=== PATIENT | male | born 1935 | race Caucasian/White ===

== ENCOUNTER 2020-06-01 09:04 | Emergency (ER) | payer OTHER ==
--- NOTE | 2020-06-01 09:29 | EDM.PDOC ---
ED HPI GENERAL MEDICAL PROBLEM - General Chief Complaint: Genitourinary Problem Stated Complaint: CATHETER ISSUE NOT WORKING Time Seen by Provider: 06/01/20 09:15 - History of Present Illness INITIAL COMMENTS - FREE TEXT/NARRATIVE: 84-year-old [facility] Contreras catheter this not working. Patient states that he feels like he is leaking quite a bit around the catheter. [facility] done at the [facility] showed 50 cc. Patient has not had any fevers or chills. Patient states that this catheter has been in 2 weeks as of tomorrow. Patient states that his bladder is a little touchy but other than this has no pain or other complaints at this time. Catheter inserted a couple of weeks ago due to problems with urinary tract obstruction. According to the patient the catheters will stay in place until he sees urology. The [place] is managing this. Abdomen Pain Score (Numeric/FACES): 6 - Related Data Allergies Allergy/AdvReac Type Severity Reaction Status Date / Time No Known Allergies Allergy Verified 06/01/20 09:19 Home Meds: Home Meds Cefdinir [Omnicef] 300 mg PO BID #14 cap 06/01/20 [Rx] Digoxin 125 mcg PO DAILY 06/01/20 [History] Ferrous Sulfate [Iron] 325 mg PO DAILY 06/01/20 [History] Furosemide [Lasix] 20 mg PO DAILY 06/01/20 [History] Tamsulosin HCl [Flomax] 0.4 mg PO DAILY 06/01/20 [History] ED ROS GENERAL - Review of Systems Review Of Systems: See Below Constitutional: Reports: No Symptoms Respiratory: Reports: No Symptoms Cardiovascular: Reports: No Symptoms GI/Abdominal: Reports: No Symptoms : Reports: Other (Contreras is not working properly he has drainage around it) Neurological: Reports: No Symptoms ED EXAM, GI/ABD - Physical Exam Exam: See Below Exam Limited By: No Limitations General Appearance: Alert, No Apparent Distress Head: Atraumatic, Normocephalic Neck: Normal Inspection, Supple, Non-Tender, Full Range of Motion Respiratory/Chest: No Respiratory Distress, Lungs Clear, Normal Breath Sounds Cardiovascular: Regular Rate, Rhythm, No Murmur, Other (Is fairly edematous in his lower extremities) GI/Abdominal Exam: Normal Bowel Sounds, Soft, Other (The patient has mild tenderness in the suprapubic area no rigidity rebound or guarding) Course - Vital Signs Last Recorded V/S: Last Vital Signs Temp 36.3 C 06/01/20 09:20 Pulse 69 06/01/20 09:20 Resp 18 06/01/20 09:20 BP 174/111 H 06/01/20 09:20 Pulse Ox 100 06/01/20 09:20 - Orders/Labs/Meds Orders: Active Orders 24 hr Category Date Time Status CULTURE URINE [RM] Stat Lab 06/01/20 10:00 Received Labs: Laboratory Tests 06/01/20 06/01/20 06/01/20 Range/Units 09:50 10:00 11:06 WBC 9.25 H (4.23-9.07) K/mm3 RBC 4.47 L (4.63-6.08) M/mm3 Hgb 12.5 L (13.7-17.5) gm/dl Hct 40.3 (40.1-51.0) % MCV 90.2 (79.0-92.2) fl MCH 28.0 (25.7-32.2) pg MCHC 31.0 L (32.2-35.5) g/dl RDW Std Deviation 45.9 H (35.1-43.9) fL Plt Count 205 (163-337) K/mm3 MPV 10.7 (9.4-12.3) fl Neut % (Auto) 79.6 H (34.0-67.9) % Lymph % (Auto) 8.8 L (21.8-53.1) % [place] % (Auto) 11.4 (5.3-12.2) % Eos % (Auto) 0.1 L (0.8-7.0) Baso % (Auto) 0.1 (0.1-1.2) % Neut # (Auto) 7.37 H (1.78-5.38) K/mm3 Lymph # (Auto) 0.81 L (1.32-3.57) K/mm3 [place] # (Auto) 1.05 H (0.30-0.82) K/mm3 Eos # (Auto) 0.01 L (0.04-0.54) K/mm3 Baso # (Auto) 0.01 (0.01-0.08) K/mm3 Manual Slide Review Abnormal smear Sodium 135 L (136-145) mEq/L Potassium 4.1 (3.5-5.1) mEq/L Chloride 102 (98-107) mEq/L Carbon Dioxide 22 (21-32) mEq/L Anion Gap 15.1 H (5-15) BUN 20 H (7-18) mg/dL Creatinine 0.9 (0.7-1.3) mg/dL Est Cr Clr Drug Dosing 59.16 mL/min Estimated GFR (MDRD) > 60 (>60) mL/min BUN/Creatinine Ratio 22.2 H (14-18) Glucose 112 (83-115) mg/dL Calcium 8.7 (8.5-10.1) mg/dL Total Bilirubin 0.6 (0.2-1.0) mg/dL AST 21 (15-37) U/L ALT 12 L (16-63) U/L Alkaline Phosphatase 78 (46-116) U/L Total Protein 7.0 (6.4-8.2) g/dl Albumin 2.9 L (3.4-5.0) g/dl Globulin 4.1 gm/dL Albumin/Globulin Ratio 0.7 L (1-2) Urine Color Yellow (Yellow) Urine Appearance Clear (Clear) Urine pH 8.5 H (5.0-8.0) Ur Specific [place] 1.025 (1.005-1.030) Urine Protein 3+ H (Negative) Urine Glucose (UA) Negative (Negative) Urine Ketones 1+ H (Negative) Urine Occult Blood 3+ H (Negative) Urine Nitrite Positive H (Negative) Urine Bilirubin Negative (Negative) Urine Urobilinogen 0.2 (0.2-1.0) Ur Leukocyte Esterase 3+ H (Negative) Urine RBC 40-50 H (0-5) /hpf Urine WBC 50-75 H (0-5) /hpf Ur Squamous Epith Cells 0-5 (0-5) /hpf Amorphous Sediment Moderate H (NOT SEEN) /hpf Urine Bacteria Many H (FEW) /hpf Urine Mucus Not seen (FEW) /hpf Meds: Medications Discontinued Medications Generic Name Dose Route Start Last Admin Trade Name Freq PRN Reason Stop Dose Admin Cefdinir 300 mg 06/01/20 13:05 Omnicef PO 06/01/20 13:06 ONETIME ONE - Re-Assessments/Exams Free Text/Narrative Re-Assessment/Exam: 06/01/20 09:49 Attempted to irrigate the Contreras and it appears to be obstructed. Bladder scan again shows very little urine in the bladder 06/01/20 13:03 Reviewed it appears he has a urinary tract infection we will start him on Omnicef 300 mg twice daily Departure - Departure Time of Disposition: 13:06 Disposition: Home, Self-Care 01 Clinical Impression: Obstruction of urinary catheter, Urinary tract infection - Discharge Information Referrals: Karely Webb MD [Primary Care Provider] - Forms: ED Department Discharge Additional Instructions: Return to the emergency room with any questions problems or worsening symptoms. You have been started on an antibiotic, Omnicef or cefdinir. Take 1 twice daily until all gone. Stop your ferrous sulfate, or iron replacement therapy while taking the antibiot ics. You may restart the iron 2 days after you finish the antibiotics. Follow-up with your regular physician in approximately 10 days for recheck Sepsis Event Note (ED) - Evaluation Sepsis Screening Result: No Definite Risk - Focused Exam Vital Signs: Vital Signs Temp Pulse Resp BP Pulse Ox 06/01/20 09:20 36.3 C 69 18 174/111 H 100 - My Orders Last 24 Hours: My Active Orders 06/01/20 10:00 CULTURE URINE [RM] Stat - Assessment/Plan Last 24 Hours: My Active Orders 06/01/20 10:00 CULTURE URINE [RM] Stat
[2020-06-01] MEDS ORDERED: Cefdinir 300 MG Cap PO ONE (13:05)
== END 2020-06-01 14:32 | disposition home or self-care (01) ==
LOC: JD.ED 09:04
DX: T83.098A Other mechanical complication of other urinary catheter, initial encounter (principal); N39.0 Urinary tract infection, site not specified
CPT/HCPCS: 36415; 80053; 81001; 85025; 87086; 87088; 87186; 99283; A9270

== ENCOUNTER 2020-06-05 18:50 | Emergency (ER) | payer OTHER ==
--- NOTE | 2020-06-05 19:42 | EDM.PDOC ---
ED HPI GENERAL MEDICAL PROBLEM - General Chief Complaint: Syncope Stated Complaint: [facility] Time Seen by Provider: 06/05/20 19:01 Source of Information: Reports: Patient History Limitations: Reports: Physical Impairment (Very [place]) - History of Present Illness INITIAL COMMENTS - FREE TEXT/NARRATIVE: Mr. Kaur is a very pleasant 84-year-old gentleman who is to the ED by EMS after suffering a syncopal episode at home. We are told that he was sitting on the couch, watching television, when he became unresponsive. From the patient's perspective, he states that he does not remember anything other than his son trying to wake him up. We are told that his son checked his BP, finding it to be in the 70s, however, by the time EMS arrived, the patient's BP was normal. We are told that the patient was joking with EMS en route to the ED. Here in the ED, the patient's initial BP is found to be modestly elevated at 148/81, otherwise, he is hemodynamically stable, afebrile, saturating 100% on room air. The patient tells me that he has had about 3 episodes of syncope over the past 20 years. He states that he has been medically evaluated, but not given any answers as to why. The patient confided that he has not taken his Lasix or blood pressure medications for over a month. He states that he is on Lasix for bilateral lower extremity edema, not for CHF. The patient also confides that he had a pacemaker placed about 2 or 3 weeks ago, in [place]. Prior to tonight, the patient denies having a recent fever, chills, sore throat, ear pain, nasal or sinus congestion, cough, dyspnea, chest pain, palpitations, nausea, vomiting, constipation, diarrhea, abdominal pain, urinary symptoms, recent weight gain or weight loss, recent bloody bowel movements or black bowel movements, recent joint aches, headaches, or rashes. The patient's PCP will be Dr. Karely Webb at the [facility]. - Related Data Allergies Allergy/AdvReac Type Severity Reaction Status Date / Time No Known Allergies Allergy Verified 06/05/20 18:59 Home Meds: Home Meds Cefdinir [Omnicef] 300 mg PO BID #14 cap 06/01/20 [Rx] Digoxin 125 mcg PO DAILY 10/04/20 [History] Ferrous Sulfate [Iron] 325 mg PO DAILY 06/01/20 [History] Furosemide [Lasix] 20 mg PO DAILY 06/01/20 [History] Tamsulosin HCl [Flomax] 0.4 mg PO DAILY 06/01/20 [History] Past Medical History HEENT History: Reports: Impaired Vision Cardiovascular History: Reports: Afib (chronic), Hypertension (untreated) Respiratory History: Reports: COPD (suspected, not tested) Gastrointestinal History: Reports: Diverticulosis (diverticulitis, s/p hemicolectomy), PUD (bleeding) Genitourinary History: Reports: BPH, Renal Calculus (x 1) Musculoskeletal History: Reports: Fracture (right distal fibula) Oncologic (Cancer) History: Reports: Basal Cell Carcinoma (skin), Malignant Melanoma (head/neck) - Infectious Disease History Infectious Disease History: Reports: Chicken Pox, Influenza, Measles, Mumps - Past Surgical History HEENT Surgical History: Reports: Cataract Surgery (bilateral) Cardiovascular Surgical History: Reports: Cardiac Ablation (for A-fib, 2015 or 2017), Pacer (placed Apr 2020) GI Surgical History: Reports: Colon (Hemicolectomy for diverticulitis. Had colostomy x 7 months.), Hernia Repair/Other (several) Musculoskeletal Surgical History: Reports: ORIF (left ankle) Oncologic Surgical History: Reports: Other (See Below) (Wide excision of melanoma off left ear and left neck) Social & Family History - Tobacco Use Smoking Status *Q: Never Smoker - Alcohol Use Alcohol Use History: Yes Alcohol Use Frequency: Daily (2-3 beers/day) - Recreational Drug Use Recreational Drug Use: Yes Drug Use in Last 12 Months: Yes Recreational Drug Type: Reports: Marijuana/Hashish (smokes daily) - Living Situation & Occupation Living situation: Reports: , with Family (Son + his girlfriend + her son) Occupation: Retired ED ROS GENERAL - Review of Systems Review Of Systems: Comprehensive ROS is negative, except as noted in HPI. - Physical Exam Exam: See Below Exam Limited By: No Limitations General Appearance: Alert, WD/WN, No Apparent Distress Eye Exam: Bilateral Eye: EOMI, Normal Inspection (s/p cataract surgery) Ears: Normal External Exam, Hearing Grossly Normal Nose: Normal Inspection Throat/Mouth: Normal Inspection, Normal Lips, Normal Voice, No Airway Compromise Head Exam: Atraumatic, Other (Left ear surgically disfigured) Neck: Full Range of Motion, Other (Left neck surgically disfigured. Subsequent hoarse voice.) Respiratory/Chest: No Respiratory Distress, Lungs Clear, Normal Breath Sounds, No Accessory Muscle Use Cardiovascular: Normal Peripheral Pulses, Regular Rate, Rhythm, No Edema, No Gallop, No JVD, No Murmur, No Rub GI/Abdominal: Normal Bowel Sounds, Soft, Non-Tender, No Organomegaly, No Distention, No Abnormal Bruit, No Mass Neuro Exam (Abbreviated): Alert, Oriented, CN II-XII Intact, Normal Cognition, No Motor/Sensory Deficits Back Exam: Normal Inspection, Full Range of Motion, NT Extremities: Normal Range of Motion, No Pedal Edema, Normal Capillary Refill, Other (Bilateral leg hyperpigmentation, consistent with chronic venous stasis changes, however, no edema at this time. Bilateral ankle disfigurement.) Psychiatric: Normal Affect Skin Exam: Warm, Dry, Intact, Normal Color, No Rash EKG INTERPRETATION EKG Date: 06/05/20 Time: 19:40 Rhythm: A-Fib (with ventricular pace) Rate (Beats/Min): 76 Comparison: NA - No Prior EKG Course - Vital Signs Last Recorded V/S: Last Vital Signs Temp 36.8 C 06/05/20 18:54 Pulse 73 06/05/20 18:54 Resp 16 06/05/20 18:54 BP 148/81 H 06/05/20 18:54 Pulse Ox 100 06/05/20 18:54 Orthostatic Blood Pressure [ 162/90 Standing] Orthostatic Blood Pressure [ 151/89 Sitting] Orthostatic Blood Pressure [ 132/73 Supine] - Orders/Labs/Meds Orders: Active Orders 24 hr Category Date Time Status EKG Documentation Completion [RC] STAT Care 06/05/20 19:28 Active Orthostatic Vital Signs [RC] STAT Care 06/05/20 19:07 Active Ang Chest [CT] Stat Exams 06/05/20 20:53 Taken Sodium Chloride 0.9% [Normal Saline] 1,000 ml Med 06/05/20 21:00 Active IV ASDIRECTED Sodium Chloride 0.9% [Normal Saline] 100 ml Med 06/05/20 21:00 Active IV ASDIRECTED Sodium Chloride 0.9% [Saline Flush] Med 06/05/20 20:57 Active 10 ml FLUSH ONETIME PRN Medication Orders Sodium Chloride (Normal Saline) 1,000 mls @ 100 mls/hr IV ASDIRECTED BREANA Last Admin: 06/05/20 20:59 Dose: 100 mls/hr Documented by: DAIANA Sodium Chloride (Normal Saline) 100 mls @ 60 mls/hr IV ASDIRECTED BREANA Last Admin: 06/05/20 21:48 Dose: 60 mls/hr Documented by: JEISON Sodium Chloride (Saline Flush) 10 ml FLUSH ONETIME PRN PRN Reason: Keep Vein Open Last Admin: 06/05/20 21:48 Dose: 10 ml Documented by: JEISON Labs: Laboratory Tests 06/05/20 06/05/20 06/05/20 Range/Units 19:55 19:55 19:55 WBC 6.52 (4.23-9.07) K/mm3 RBC 4.64 (4.63-6.08) M/mm3 Hgb 13.0 L (13.7-17.5) gm/dl Hct 41.8 (40.1-51.0) % MCV 90.1 (79.0-92.2) fl MCH 28.0 (25.7-32.2) pg MCHC 31.1 L (32.2-35.5) g/dl RDW Std Deviation 47.3 H (35.1-43.9) fL Plt Count 241 (163-337) K/mm3 MPV 10.8 (9.4-12.3) fl Neutrophils % (Manual) 72 H (40-60) % Band Neutrophils % 0 (0-10) % Lymphocytes % (Manual) 21 (20-40) % Atypical Lymphs % 0 % Monocytes % (Manual) 5 (2-10) % Eosinophils % (Manual) 2 (0.8-7.0) % Basophils % (Manual) 0 L (0.2-1.2) Platelet Estimate Adequate RBC Morph Comment Normal D-Dimer, Quantitative 2.41 H (0.19-0.50) mg/L Sodium 138 (136-145) mEq/L Potassium 4.0 (3.5-5.1) mEq/L Chloride 100 (98-107) mEq/L Carbon Dioxide 27 (21-32) mEq/L Anion Gap 15.0 (5-15) BUN 19 H (7-18) mg/dL Creatinine 1.1 (0.7-1.3) mg/dL Est Cr Clr Drug Dosing TNP Estimated GFR (MDRD) > 60 (>60) mL/min BUN/Creatinine Ratio 17.3 (14-18) Glucose 110 (83-115) mg/dL Calcium 8.7 (8.5-10.1) mg/dL Magnesium 1.8 (1.8-2.4) mg/dl Total Bilirubin 0.5 (0.2-1.0) mg/dL AST 19 (15-37) U/L ALT 14 L (16-63) U/L Alkaline Phosphatase 80 (46-116) U/L Troponin I < 0.017 (0.00-0.056) ng/mL Total Protein 7.5 (6.4-8.2) g/dl Albumin 3.2 L (3.4-5.0) g/dl Globulin 4.3 gm/dL Albumin/Globulin Ratio 0.7 L (1-2) TSH 3rd Generation 1.515 (0.358-3.74) uIU/mL Meds: Medications Generic Name Dose Route Start Last Admin Trade Name Freq PRN Reason Stop Dose Admin Sodium Chloride 1,000 mls @ 100 mls/hr 06/05/20 21:00 06/05/20 20:59 Normal Saline IV 100 mls/hr ASDIRECTED BREANA Administration Sodium Chloride 100 mls @ 60 mls/hr 06/05/20 21:00 06/05/20 21:48 Normal Saline IV 60 mls/hr ASDIRECTED BREANA Administration Sodium Chloride 10 ml 06/05/20 20:57 06/05/20 21:48 Saline Flush FLUSH 10 ml ONETIME PRN Administration Keep Vein Open Discontinued Medications Generic Name Dose Route Start Last Admin Trade Name Freq PRN Reason Stop Dose Admin Iopamidol 100 ml 06/05/20 20:57 06/05/20 21:48 [id number] (76%) IVPUSH 06/05/20 20:58 100 ml ONETIME ONE Administration - Re-Assessments/Exams Free Text/Narrative Re-Assessment/Exam: 06/05/20 19:38 As above, the patient suffered a syncopal event, witnessed by his son, while sitting on the couch. It is unclear of the duration of his syncope. We are told that his son checked his blood pressure, finding it to be in the 70s. Here in the ED, the patient is actually mildly hypertensive. His physical exam, including his neurologic exam, is unremarkable. I have ordered a work-up that includes orthostatics, blood work, and an ECG. 06/05/20 20:06 The patient is not orthostatic. 06/05/20 20:53 The patient's CBC is remarkable for a H/H slightly depressed at 13.0/41.8, with the remainder of his CBC being unremarkable. His CMP is remarkable for a BUN slightly elevated at 19, with a Cr normal at 1.1, and the remainder of his CMP being unremarkable. His magnesium level is within normal limits at 1.8. His TSH is within normal limits at 1.515. His troponin is undetectably low. His D-dimer is elevated at 2.41. Based on the above, I have ordered a CT angiogram of the chest, along with judicious IV fluid. 06/05/20 22:03 CT angiogram of the chest is read by [facility] as: 1. No evidence for acute pulmonary emboli. 2. 4.4 cm right lower lung mass suggestive of a primary bronchogenic neoplasm. 3. Small right pleural effusion with mild atelectatic changes in the right lung base. 4. Incidental note is made of cholelithiasis. 06/05/20 22:14 Test results discussed with the patient. He tells me that he moved to this area to live with his son about 2 to 3 weeks ago, from [place], and that when in [place], he had been told of a lung mass, but that it was not worked up. I explained to the patient that the lung mass is an incidental finding, and not the cause of his syncopal episode tonight. Indeed, we do not have an answer as to why he suffered a syncopal episode. I will discharge the patient home with a CD-ROM of his CT angiogram and the recommendation that he follow-up with his PCP at the [facility] here in [place], for further evaluation. Departure - Departure Time of Disposition: 22:17 Disposition: Home, Self-Care 01 Condition: Good Clinical Impression: Syncope, Right lower lobe lung mass - Discharge Information *PRESCRIPTION DRUG MONITORING PROGRAM REVIEWED*: Not Applicable *COPY OF PRESCRIPTION DRUG MONITORING REPORT IN PATIENT KINA: Not Applicable Referrals: Karely Webb MD [Ordering Only Provider] - Forms: ED Department Discharge Additional Instructions: You were seen in the emergency room after passing out at home. Work-up in the ER included positional blood pressure checks, blood work, an ECG, and a CT angiogram of your chest. Your work-up was entirely unremarkable, with the exception of the CT angiogram of your chest, which found a 4.4 cm mass in your lower right lung, along with some fluid outside of your lung, but within your chest. The mass is concerning for cancer. The cause of your passing out is not known, but not likely related to the lung mass. You have been given a CD-ROM of the images of your CT angiogram. We recommend that you follow-up with Dr. Karely Webb at the [facility] for further evaluation. Make sure to bring the CD-ROM with you when you see her. If any other problems, please do not hesitate to return to the ER. Sepsis Event Note (ED) - Evaluation Sepsis Screening Result: No Definite Risk - Focused Exam Vital Signs: Vital Signs Temp Pulse Resp BP Pulse Ox 06/05/20 18:54 36.8 C 73 16 148/81 H 100 - My Orders Last 24 Hours: My Active Orders 06/05/20 19:07 Orthostatic Vital Signs [RC] STAT 06/05/20 19:28 EKG Documentation Completion [RC] STAT 06/05/20 20:53 Ang Chest [CT] Stat 06/05/20 20:57 Sodium Chloride 0.9% [Saline Flush] 10 ml FLUSH ONETIME PRN 06/05/20 21:00 Sodium Chloride 0.9% [Normal Saline] 1,000 ml IV ASDIRECTED Sodium Chloride 0.9% [Normal Saline] 100 ml IV ASDIRECTED - Assessment/Plan Last 24 Hours: My Active Orders 06/05/20 19:07 Orthostatic Vital Signs [RC] STAT 06/05/20 19:28 EKG Documentation Completion [RC] STAT 06/05/20 20:53 Ang Chest [CT] Stat 06/05/20 20:57 Sodium Chloride 0.9% [Saline Flush] 10 ml FLUSH ONETIME PRN 06/05/20 21:00 Sodium Chloride 0.9% [Normal Saline] 1,000 ml IV ASDIRECTED Sodium Chloride 0.9% [Normal Saline] 100 ml IV ASDIRECTED
[2020-06-05] MEDS ORDERED: Sodium Chloride 0.9% 10 ML Syringe FLUSH PRN (20:57)
[2020-06-05] MEDS ORDERED: Iopamidol 755 Mg/ML 100 ML Bottle IVPUSH ONE (20:57)
[2020-06-05] MEDS ORDERED: Sodium Chloride 0.9% 100 ML IV SCH (21:00)
[2020-06-05] MEDS ORDERED: Sodium Chloride 0.9% 1,000 ML IV SCH (21:00)
--- NOTE | 2020-07-07 10:39 | CT ---
PROCEDURE INFORMATION: Exam: CT Angiography Chest With Contrast Exam date and time: 06/05/2020 8:54 PM Age: 84 years old Clinical indication: Abnormal findings; Abnormal diagnostic tests; Elevated d- dimer; Other: Syncope TECHNIQUE: Imaging protocol: Computed tomographic angiography of the chest with intravenous contrast. 3D rendering (Not supervised by radiologist): MIP and/or 3D reconstructed images were created by the technologist. Radiation optimization: All CT scans at this facility use at least one of these dose optimization techniques: automated exposure control; mA and/or kV adjustment per patient size (includes targeted exams where dose is matched to clinical indication); or iterative reconstruction. COMPARISON: No relevant prior studies available. FINDINGS: Pulmonary arteries: No evidence for acute pulmonary emboli. Aorta: Unremarkable. No aortic aneurysm. No aortic dissection. Lungs: Subsegmental atelectasis in the superior segment of the right upper lung 4.8 cm rounded density in the right lower lung. This is consistent with a primary lung mass and has slightly increased in size since the patient's prior study. Pleural space: Small bilateral pleural effusions. Heart: Small pericardial effusion. Mild cardiomegaly Lymph nodes: Unremarkable. No enlarged lymph nodes. Gallbladder and bile ducts: Incidental note is made of cholelithiasis. Bones/joints: Unremarkable. No acute fracture. Soft tissues: Unremarkable. IMPRESSION: 1. No evidence for acute pulmonary emboli. 2. Small pericardial effusion. 3. Small bilateral pleural effusions. 4. Subsegmental atelectasis in the superior segment of the right upper lung 5. 4.8 cm rounded density in the right lower lung. This is consistent with a primary lung mass and has slightly increased in size since the patient's prior study. 6. Incidental note is made of cholelithiasis. Thank you for allowing us to participate in the care of your patient. Dictated and Authenticated by: Will Parrish MD 06/30/2020 9:28 PM Central Time ([place] & [place]) [facility]
== END 2020-06-05 22:30 | disposition home or self-care (01) ==
LOC: JD.ED 18:50
DX: R55 Syncope and collapse (principal); R91.8 Other nonspecific abnormal finding of lung field; J44.9 Chronic obstructive pulmonary disease, unspecified; N40.0 Benign prostatic hyperplasia without lower urinary tract symptoms; I48.91 Unspecified atrial fibrillation; I10 Essential (primary) hypertension; Z79.899 Other long term (current) drug therapy
CPT/HCPCS: 36415; 71275; 80053; 83735; 84443; 84484; 85007; 85027; 85379; 93005; 96360; 96361; 99284; J7030; Q9967; 93010; 99283

== ENCOUNTER 2020-06-20 10:45 | Emergency (ER) | payer OTHER ==
--- NOTE | 2020-06-20 11:32 | EDM.PDOC ---
ED HPI GENERAL MEDICAL PROBLEM - General Chief Complaint: Cardiovascular Problem Stated Complaint: [facility] Time Seen by Provider: 06/20/20 10:57 Source of Information: Reports: Patient, RN Notes Reviewed - History of Present Illness INITIAL COMMENTS - FREE TEXT/NARRATIVE: 84 yr old male suffered syncopal event at home shortly [employer]ISH[employer]. He had been up, was feeling OK, than started feeling weak, dizzy, lightheaded. Reported to have brief LOC. Awake upon EMS arrival. No chest pain or difficulty breathing. No abd pain, nausea or vomiting. - Related Data Allergies Allergy/AdvReac Type Severity Reaction Status Date / Time No Known Allergies Allergy Verified 06/05/20 18:59 Home Meds: Home Meds Cefdinir [Omnicef] 300 mg PO BID #14 cap 06/01/20 [Rx] Digoxin 125 mcg PO DAILY 06/01/20 [History] Ferrous Sulfate [Iron] 325 mg PO DAILY 06/01/20 [History] Furosemide [Lasix] 20 mg PO DAILY 06/01/20 [History] Tamsulosin HCl [Flomax] 0.4 mg PO DAILY 06/01/20 [History] Budesonide/Formoterol Fumarate [Symbicort 160-4.5 Mcg Inhaler] 1 puff INH DAILY 06/20/20 [History] Finasteride [Proscar] 5 mg PO DAILY 06/20/20 [History] Past Medical History HEENT History: Reports: Impaired Vision Cardiovascular History: Reports: Afib (chronic), Hypertension (untreated) Respiratory History: Reports: COPD (suspected, not tested) Gastrointestinal History: Reports: Diverticulosis (diverticulitis, s/p hemicolectomy), PUD (bleeding) Genitourinary History: Reports: BPH, Renal Calculus (x 1) Musculoskeletal History: Reports: Fracture (right distal fibula) Oncologic (Cancer) History: Reports: Basal Cell Carcinoma (skin), Malignant Melanoma (head/neck) Dermatologic History: Reports: Eczema - Infectious Disease History Infectious Disease History: Reports: Chicken Pox, Influenza, Measles, Mumps - Past Surgical History HEENT Surgical History: Reports: Cataract Surgery (bilateral) Cardiovascular Surgical History: Reports: Cardiac Ablation (for A-fib, 2016 or 2017), Pacer (placed Apr 2020) GI Surgical History: Reports: Colon (Hemicolectomy for diverticulitis. Had colostomy x 7 months.), Hernia Repair/Other (several) Musculoskeletal Surgical History: Reports: ORIF (left ankle) Oncologic Surgical History: Reports: Other (See Below) (Wide excision of melanoma off left ear and left neck) Social & Family History - Caffeine Use Caffeine Use: Reports: None - Living Situation & Occupation Living situation: Reports: , with Family (Son + his girlfriend + her son) Occupation: Retired ED ROS GENERAL - Review of Systems Review Of Systems: See Below Constitutional: Denies: Fever, Chills HEENT: Reports: No Symptoms Respiratory: Reports: Cough (mild chronic). Denies: Shortness of Breath Cardiovascular: Denies: Chest Pain GI/Abdominal: Denies: Abdominal Pain, Diarrhea, Vomiting Musculoskeletal: Denies: Shoulder Pain, Arm Pain, Back Pain Skin: Reports: No Symptoms Neurological: Reports: Dizziness (gone) ED EXAM, GENERAL - Physical Exam Exam: See Below General Appearance: Alert, No Apparent Distress (at time of exam) Head: Atraumatic. No: Facial Swelling, Facial Tenderness Neck: Supple Respiratory/Chest: No Respiratory Distress, Lungs Clear, Normal Breath Sounds. No: Rhonchi, Wheezing Cardiovascular: Regular Rate, Rhythm GI/Abdominal: Soft, Non-Tender. No: Guarding Back Exam: No: Vertebral Tenderness Extremities: Normal Inspection. No: Pedal Edema, Leg Pain Neurological: Alert, Oriented, No Motor/Sensory Deficits Skin Exam: Warm, Dry, Normal Color #1 Interpretation Rhythm: NSR [place]: Normal P-Wave: Present QRS: Normal ST-T: Normal Course - Vital Signs Last Recorded V/S: Last Vital Signs Temp 98.0 F 06/20/20 10:51 Pulse 75 06/20/20 10:51 Resp 18 06/20/20 10:51 BP 125/83 06/20/20 10:51 Pulse Ox 96 06/20/20 10:51 - Re-Assessments/Exams Free Text/Narrative Re-Assessment/Exam: 06/21/20 16:57 exam, vitals nl on arrival to ED. Cardiac moniter showed sinus rythm, no ectopy. I did order CBC, CMP. Pt notified his nurse that he does not want further work up. Feeling back to normal, states he uses medical marijuana, he vaped not too long ago, thinks that is what made him pass out. He has the choice to avoid further work up, CBC, CMP canceled. He will return if symptoms worsening in any way. Departure - Departure Time of Disposition: 11:30 Disposition: Home, Self-Care 01 Condition: Fair Clinical Impression: Syncope Instructions: Syncope Referrals: Karely Webb MD [Primary Care Provider] - Forms: ED Department Discharge Additional Instructions: You have declined lab work today so no labwork has been done. Your pacemaker is working well. Your heart and lungs sound good and oxygenation is normal. Drink plenty of water to maintain hydration. Follow up with your regular medical provider as needed. Return to ED as needed. Sepsis Event Note (ED) - Evaluation Sepsis Screening Result: No Definite Risk
== END 2020-06-20 11:45 | disposition home or self-care (01) ==
LOC: JD.ED 10:45
DX: R55 Syncope and collapse (principal); I48.91 Unspecified atrial fibrillation; I10 Essential (primary) hypertension; J44.9 Chronic obstructive pulmonary disease, unspecified; N40.0 Benign prostatic hyperplasia without lower urinary tract symptoms; Z79.899 Other long term (current) drug therapy
CPT/HCPCS: 93010; 99282; 99284-25

== ENCOUNTER 2020-06-27 12:09 | Emergency (ER) | payer OTHER ==
--- NOTE | 2020-06-27 13:26 | EDM.PDOC ---
ED HPI GENERAL MEDICAL PROBLEM - General Chief Complaint: Gastrointestinal Problem Stated Complaint: CONSTIPATED FOR 6 DAYS Time Seen by Provider: 06/27/20 12:34 Source of Information: Reports: Patient, RN Notes Reviewed History Limitations: Reports: No Limitations - History of Present Illness INITIAL COMMENTS - FREE TEXT/NARRATIVE: Patient is an 84-year-old male who presents to the ED for the evaluation of his constipation. Patient notes he is recently moved here from [place] to live with his son as he cannot take care of himself any longer. He states that he is not had a good bowel movement in roughly 6 days. He states he feels like the stool is right at his rectum, and he cannot pass this. He has not had any nausea or vomiting or diarrhea, no fevers or chills, no cough or shortness of breath. He states he feels fairly well otherwise. States he has set up primary care at the [facility]. He notes that he tried some magnesium citrate at home along with some Ex- Lax, but he was not able to get this out by his self. He does note a history of bowel issues with diverticulitis, and a temporary colostomy that has been reversed and chronic constipation. - Related Data Allergies Allergy/AdvReac Type Severity Reaction Status Date / Time No Known Allergies Allergy Verified 06/05/20 18:59 Home Meds: Home Meds Cefdinir [Omnicef] 300 mg PO BID #14 cap 06/01/20 [Rx] Digoxin 125 mcg PO DAILY 06/01/20 [History] Ferrous Sulfate [Iron] 325 mg PO DAILY 06/01/20 [History] Furosemide [Lasix] 20 mg PO DAILY 06/01/20 [History] Tamsulosin HCl [Flomax] 0.4 mg PO DAILY 06/01/20 [History] Budesonide/Formoterol Fumarate [Symbicort 160-4.5 Mcg Inhaler] 1 puff INH DAILY 06/20/20 [History] Finasteride [Proscar] 5 mg PO DAILY 06/20/20 [History] Past Medical History HEENT History: Reports: Impaired Vision Cardiovascular History: Reports: Afib (chronic), Hypertension (untreated) Respiratory History: Reports: COPD (suspected, not tested) Gastrointestinal History: Reports: Diverticulosis (diverticulitis, s/p hemicolectomy), PUD (bleeding) Genitourinary History: Reports: BPH, Renal Calculus (x 1) Musculoskeletal History: Reports: Fracture (right distal fibula) Oncologic (Cancer) History: Reports: Basal Cell Carcinoma (skin), Malignant Melanoma (head/neck) Dermatologic History: Reports: Eczema - Infectious Disease History Infectious Disease History: Reports: Chicken Pox, Influenza, Measles, Mumps - Past Surgical History HEENT Surgical History: Reports: Cataract Surgery (bilateral) Cardiovascular Surgical History: Reports: Cardiac Ablation (for A-fib, 2015 or 2017), Pacer (placed Apr 2020) GI Surgical History: Reports: Colon (Hemicolectomy for diverticulitis. Had colostomy x 7 months.), Hernia Repair/Other (several) Musculoskeletal Surgical History: Reports: ORIF (left ankle) Oncologic Surgical History: Reports: Other (See Below) (Wide excision of melanoma off left ear and left neck) Social & Family History - Caffeine Use Caffeine Use: Reports: None - Living Situation & Occupation Living situation: Reports: , with Family (Son + his girlfriend + her son) Occupation: Retired ED ROS GENERAL - Review of Systems Review Of Systems: Comprehensive ROS is negative, except as noted in HPI. ED EXAM, GI/ABD - Physical Exam Exam: See Below Exam Limited By: No Limitations General Appearance: Alert, WD/WN, No Apparent Distress Throat/Mouth: Normal Inspection, Normal Lips, Normal Teeth, Normal Gums, Normal Oropharynx, Normal Voice, No Airway Compromise Head: Atraumatic Neck: Normal Inspection Respiratory/Chest: No Respiratory Distress, Lungs Clear, Normal Breath Sounds, No Accessory Muscle Use, Chest Non-Tender Cardiovascular: Normal Peripheral Pulses, Regular Rate, Rhythm, No Murmur GI/Abdominal Exam: Soft, Non-Tender, No Distention, No Mass, Abnormal Bowel Sounds (hypoactive tones x 4 quadrants.) Extremities: Normal Inspection, Normal Capillary Refill Neurological: Alert, Oriented, Normal Cognition, No Motor/Sensory Deficits Psychiatric: Normal Affect, Normal Mood Skin Exam: Warm, Dry, Intact, Normal Color, No Rash Course - Vital Signs Last Recorded V/S: Last Vital Signs Temp 98 F 06/27/20 12:23 Pulse 86 06/27/20 12:23 Resp 18 06/27/20 12:23 BP 134/83 06/27/20 12:23 Pulse Ox 96 06/27/20 12:23 - Orders/Labs/Meds Orders: Active Orders 24 hr Category Date Time Status Enema [RC] ASDIRECTED Care 06/27/20 13:12 Ordered KUB [Abdomen 1V Flat] [CR] Stat Exams 06/27/20 12:53 Ordered Meds: Medications Discontinued Medications Generic Name Dose Route Start Last Admin Trade Name Anju PRN Reason Stop Dose Admin Lidocaine HCl 10 ml 06/27/20 13:46 Xylocaine 2% Jelly MUCMEM 06/27/20 13:47 ONETIME ONE Magnesium Citrate 296 ml 06/27/20 13:45 Citrate Of Magnesia PO 06/27/20 13:46 ONETIME ONE - Re-Assessments/Exams Free Text/Narrative Re-Assessment/Exam: 06/27/20 13:32 Patient presents to the ED for his constipation. KUB was done at time of triage. Does show a stool ball within his rectum, along with some stool in the right side of his colon with quite a bit of gas in his abdomen. We will do a fleets enema; and hopefully get the gentleman to have a good bowel movement. 06/27/20 13:59 RN reports that the patient has had success and he is ready to be discharged at this time. Departure - Departure Time of Disposition: 13:59 Disposition: Home, Self-Care 01 Condition: Good Clinical Impression: Constipation Qualifiers: Constipation type: unspecified constipation type Qualified Code(s): K59.00 - Constipation, unspecified - Discharge Information *PRESCRIPTION DRUG MONITORING PROGRAM REVIEWED*: No *COPY OF PRESCRIPTION DRUG MONITORING REPORT IN PATIENT KINA: No Instructions: Constipation, Adult, [id number] Referrals: Karely Webb MD [Primary Care Provider] - Forms: ED Department Discharge Additional Instructions: You were evaluated in the ER today for your constipation. You had a abdomen x-ray taken, which did demonstrate quite a large ball of stool within your rectum. You were given an enema for passage of this, and this seemed to work well for you. Please try to increase your oral fluid intake at home to try to provide good and regular bowel movements for yourself going forward from here. Follow-up with your provider at the [facility] as needed for further medical issues. Do not hesitate to return to the ER if your symptoms change or worsen. Sepsis Event Note (ED) - Evaluation Sepsis Screening Result: No Definite Risk - Focused Exam Vital Signs: Vital Signs Temp Pulse Resp BP Pulse Ox 06/27/20 12:23 98 F 86 18 134/83 96 - My Orders Last 24 Hours: My Active Orders 06/27/20 12:53 KUB [Abdomen 1V Flat] [CR] Stat 06/27/20 13:12 Enema [RC] ASDIRECTED - Assessment/Plan Last 24 Hours: My Active Orders 06/27/20 12:53 KUB [Abdomen 1V Flat] [CR] Stat 06/27/20 13:12 Enema [RC] ASDIRECTED
[2020-06-27] MEDS ORDERED: Magnesium Citrate Solution 296 ML Bottle PO ONE (13:45)
[2020-06-27] MEDS ORDERED: Lidocaine 2% Jelly 10 ML Urojet MUCMEM ONE (13:46)
--- NOTE | 2020-06-27 14:11 | CR ---
PROCEDURE INFORMATION: Exam: XR Abdomen, 1 View Exam date and time: 06/27/2020 1:02 PM Age: 84 years old Clinical indication: Constipation; Patient HX: No bm x 5 days TECHNIQUE: Imaging protocol: XR of the abdomen. Views: Frontal supine view of the abdomen. 1 View. COMPARISON: No relevant prior studies available. FINDINGS: Gastrointestinal tract: A large amount of stool is noted throughout the colon. The bowel gas pattern is nonobstructive and nonspecific. Vasculature: There are numerous benign phleboliths in the pelvis. Bones/joints: The lumbar spine demonstrates moderate degenerative changes at multiple levels. IMPRESSION: 1. A large amount of stool is noted throughout the colon. 2. The bowel gas pattern is nonobstructive and nonspecific. Thank you for allowing us to participate in the care of your patient. Dictated and Authenticated by: Denis Butler DO 06/27/2020 2:40 PM Central Time ([place] & [place]) YESSY
== END 2020-06-27 14:20 | disposition home or self-care (01) ==
LOC: JD.ED 12:09
DX: K59.00 Constipation, unspecified (principal); I48.91 Unspecified atrial fibrillation; I10 Essential (primary) hypertension; J44.9 Chronic obstructive pulmonary disease, unspecified; N40.0 Benign prostatic hyperplasia without lower urinary tract symptoms; Z79.899 Other long term (current) drug therapy
CPT/HCPCS: 74018; 74018-26; 99283-25

== ENCOUNTER 2020-07-05 22:13 | Emergency (ER) | payer OTHER ==
--- NOTE | 2020-07-06 00:47 | EDM.PDOC ---
ED HPI GENERAL MEDICAL PROBLEM - General Chief Complaint: Genitourinary Problem Stated Complaint: UNABLE TO URINATE Time Seen by Provider: 07/06/20 00:40 - History of Present Illness INITIAL COMMENTS - FREE TEXT/NARRATIVE: 84-year-old male presents the emergency room with inability to void. The patient saw urology at the end of this last week his catheter was removed. He has voided several times during the day today but only small amounts. He had a very large bowel movement today but has been having problems with constipation. The patient believes he finished up an antibiotic for possible bladder infection a couple of days ago. Patient denies any fevers or chills no nausea no vomiting. He is using a stool softener at this time. Lower Abdomen Pain Score (Numeric/FACES): 1 - Related Data Allergies Allergy/AdvReac Type Severity Reaction Status Date / Time No Known Allergies Allergy Verified 07/05/20 22:27 Home Meds: Home Meds Digoxin 125 mcg PO DAILY 06/01/20 [History] Ferrous Sulfate [Iron] 325 mg PO DAILY 06/01/20 [History] Furosemide [Lasix] 20 mg PO DAILY 06/01/20 [History] Tamsulosin HCl [Flomax] 0.4 mg PO DAILY 06/01/20 [History] Budesonide/Formoterol Fumarate [Symbicort 160-4.5 Mcg Inhaler] 1 puff INH DAILY 06/20/20 [History] Finasteride [Proscar] 5 mg PO DAILY 06/20/20 [History] Past Medical History HEENT History: Reports: Impaired Vision Cardiovascular History: Reports: Afib, Hypertension Respiratory History: Reports: COPD Gastrointestinal History: Reports: Diverticulosis, PUD Genitourinary History: Reports: BPH, Renal Calculus Musculoskeletal History: Reports: Fracture Oncologic (Cancer) History: Reports: Basal Cell Carcinoma, Malignant Melanoma Dermatologic History: Reports: Eczema - Infectious Disease History Infectious Disease History: Reports: Chicken Pox, Influenza, Measles, Mumps - Past Surgical History HEENT Surgical History: Reports: Cataract Surgery Cardiovascular Surgical History: Reports: Cardiac Ablation, Pacer GI Surgical History: Reports: Colon, Hernia Repair/Other, Other (See Below) Other GI Surgeries/Procedures: temporary ostomy Musculoskeletal Surgical History: Reports: ORIF Oncologic Surgical History: Reports: Other (See Below) Social & Family History - Family History Family Medical History: Noncontributory - Tobacco Use Tobacco Use Status *Q: Never Tobacco User - Caffeine Use Caffeine Use: Reports: None - Recreational Drug Use Recreational Drug Use: Yes Recreational Drug Type: Reports: Marijuana/Hashish Recreational Drug Use Frequency: Weekly - Living Situation & Occupation Living situation: Reports: , with Family (Son + his girlfriend + her son) Occupation: Retired ED ROS GENERAL - Review of Systems Review Of Systems: See Below Constitutional: Reports: No Symptoms HEENT: Reports: No Symptoms Respiratory: Reports: No Symptoms Cardiovascular: Reports: No Symptoms GI/Abdominal: Reports: Constipation. Denies: Abdominal Pain, Diarrhea, Nausea, Vomiting : Reports: Frequency. Denies: Discharge, Dysuria, Urgency Musculoskeletal: Reports: No Symptoms ED EXAM, GI/ABD - Physical Exam Exam: See Below Exam Limited By: No Limitations General Appearance: Alert, No Apparent Distress Head: Atraumatic, Normocephalic Neck: Normal Inspection, Supple, Non-Tender, Full Range of Motion Respiratory/Chest: No Respiratory Distress, Lungs Clear, Normal Breath Sounds Cardiovascular: Regular Rate, Rhythm, No Edema, No Murmur GI/Abdominal Exam: Normal Bowel Sounds, Soft, Non-Tender Back Exam: Normal Inspection. No: CVA Tenderness (L), CVA Tenderness (R) Course - Vital Signs Last Recorded V/S: Last Vital Signs Temp 36.1 C 07/05/20 22:23 Pulse 73 07/05/20 22:23 Resp 19 07/05/20 22:23 BP 137/89 07/05/20 22:23 Pulse Ox 97 07/05/20 22:23 - Orders/Labs/Meds Orders: Active Orders 24 hr Category Date Time Status Abdomen 2V AP Flat Upright [CR] Stat Exams 07/06/20 00:47 Taken Labs: Laboratory Tests 07/06/20 07/06/20 07/06/20 Range/Units 01:39 01:39 02:15 WBC 7.01 (4.23-9.07) K/mm3 RBC 4.88 (4.63-6.08) M/mm3 Hgb 13.5 L (13.7-17.5) gm/dl Hct 42.7 (40.1-51.0) % MCV 87.5 (79.0-92.2) fl MCH 27.7 (25.7-32.2) pg MCHC 31.6 L (32.2-35.5) g/dl RDW Std Deviation 52.4 H (35.1-43.9) fL Plt Count 162 L D (163-337) K/mm3 MPV 11.3 (9.4-12.3) fl Neut % (Auto) 58.6 (34.0-67.9) % Lymph % (Auto) 26.8 (21.8-53.1) % [place] % (Auto) 12.3 H (5.3-12.2) % Eos % (Auto) 1.9 (0.8-7.0) Baso % (Auto) 0.3 (0.1-1.2) % Neut # (Auto) 4.11 (1.78-5.38) K/mm3 Lymph # (Auto) 1.88 (1.32-3.57) K/mm3 [place] # (Auto) 0.86 H (0.30-0.82) K/mm3 Eos # (Auto) 0.13 (0.04-0.54) K/mm3 Baso # (Auto) 0.02 (0.01-0.08) K/mm3 Sodium 140 (136-145) mEq/L Potassium 3.8 (3.5-5.1) mEq/L Chloride 102 (98-107) mEq/L Carbon Dioxide 25 (21-32) mEq/L Anion Gap 16.8 H (5-15) BUN 24 H (7-18) mg/dL Creatinine 1.4 H (0.7-1.3) mg/dL Est Cr Clr Drug Dosing 38.03 mL/min Estimated GFR (MDRD) 49 (>60) mL/min BUN/Creatinine Ratio 17.1 (14-18) Glucose 92 (83-115) mg/dL Calcium 8.9 (8.5-10.1) mg/dL Total Bilirubin 0.4 (0.2-1.0) mg/dL AST 23 (15-37) U/L ALT 19 (16-63) U/L Alkaline Phosphatase 73 (46-116) U/L Total Protein 6.9 (6.4-8.2) g/dl Albumin 3.2 L (3.4-5.0) g/dl Globulin 3.7 gm/dL Albumin/Globulin Ratio 0.9 L (1-2) Urine Color Yellow (Yellow) Urine Appearance Clear (Clear) Urine pH 6.5 (5.0-8.0) Ur Specific [place] 1.025 (1.005-1.030) Urine Protein 1+ H (Negative) Urine Glucose (UA) Negative (Negative) Urine Ketones Trace H (Negative) Urine Occult Blood Negative (Negative) Urine Nitrite Negative (Negative) Urine Bilirubin Negative (Negative) Urine Urobilinogen 0.2 (0.2-1.0) Ur Leukocyte Esterase Negative (Negative) U Hyaline Cast (Auto) 0-5 (0-5) /lpf Urine RBC 0-5 (0-5) /hpf Urine WBC 0-5 (0-5) /hpf Ur Epithelial Cells Not seen (0-5) /hpf Urine Bacteria Few (FEW) /hpf Urine Mucus Many H (FEW) /hpf - Re-Assessments/Exams Free Text/Narrative Re-Assessment/Exam: 07/06/20 00:55 Bladder scan was done multiple times here with an average of 13 cc. This does not indicate he needs a catheter at this point we will check labs assess for hydration status and check a urine as well as KUB and upright. 07/06/20 03:12 X-rays are not suggestive of constipation radiology thought may be has mild small bowel ileus or changes a gastroenteritis however that does not fit the clinical scenario. Labs suggest he has some mild prerenal azotemia. I did discuss the findings of everything with the patient he would like to try drinking more oral fluids which I think is perfectly reasonable at this point we will going to discharge him home and have him increase his fluid intake. Departure - Departure Time of Disposition: 03:13 Disposition: Home, Self-Care 01 Clinical Impression: Mild dehydration - Discharge Information Referrals: Karely Webb MD [Primary Care Provider] - Forms: ED Department Discharge Additional Instructions: Return to the emergency room with any questions problems or worsening symptoms. Drink more fluids. You should have to void every few hours while awake. Follow-up with your regular healthcare provider this next week probably Tuesday or so for recheck. Sepsis Event Note (ED) - Evaluation Sepsis Screening Result: No Definite Risk - Focused Exam Vital Signs: Vital Signs Temp Pulse Resp BP Pulse Ox 07/05/20 22:23 36.1 C 73 19 137/89 97 - My Orders Last 24 Hours: My Active Orders 07/06/20 00:47 Abdomen 2V AP Flat Upright [CR] Stat - Assessment/Plan Last 24 Hours: My Active Orders 07/06/20 00:47 Abdomen 2V AP Flat Upright [CR] Stat
--- NOTE | 2020-07-07 09:35 | CR ---
PROCEDURE INFORMATION: Exam: XR Abdomen, 3 or More Views Exam date and time: 07/06/2020 1:46 AM Age: 84 years old Clinical indication: Generalized; Patient HX: Previous reports scanned for review, constipation with 1 bm in the last 24 hours and abdominal pain TECHNIQUE: Imaging protocol: XR of the abdomen. Views: 3 or more views. COMPARISON: DX Abdomen 1V Flat 06/27/2020 1:02 PM FINDINGS: Tubes, catheters and devices: Cardiac pacer wire present. Gastrointestinal tract: Abundant small bowel gas with minimal to mild diffuse distention without pathologic dilation. No bowel wall pneumatosis. Intraperitoneal space: No pneumoperitoneum. Organs: No abnormal mass or organomegaly suspected. Vasculature: Atherosclerotic arterial calcifications present. Pelvic phleboliths. Bones/joints: Lumbar spine dextroscoliosis. Multilevel degenerative changes present within spine. Osteopenia. No acute fracture or neoplastic osseous lesion. IMPRESSION: Probable mild small bowel ileus and/or changes of gastroenteritis as above. Remainder of findings described as above. Thank you for allowing us to participate in the care of your patient. Dictated and Authenticated by: Larry Colbert MD 07/06/2020 3:32 AM Central Time ([place] & [place]) YESSY
== END 2020-07-06 03:20 | disposition home or self-care (01) ==
LOC: JD.ED 22:13
DX: E86.0 Dehydration (principal); K59.00 Constipation, unspecified; N40.1 Benign prostatic hyperplasia with lower urinary tract symptoms; R33.8 Other retention of urine; I10 Essential (primary) hypertension; I48.91 Unspecified atrial fibrillation; J44.9 Chronic obstructive pulmonary disease, unspecified; Z79.899 Other long term (current) drug therapy
CPT/HCPCS: 36415; 51798; 74019; 74019-26; 80053; 81001; 85025; 99283; 99283-25

== ENCOUNTER 2020-07-06 14:00 | Emergency (ER) | payer OTHER ==
[2020-07-06] MEDS ORDERED: HYDROmorphone 0.5 MG/0.5 ML Syringe IVPUSH ONE ×2 (16:21→18:28)
[2020-07-06] MEDS ORDERED: Sodium Chloride 0.9% 1,000 ML IV STA (16:21)
[2020-07-06] MEDS ORDERED: Ondansetron 4 MG/2 ML SDV IVPUSH ONE (16:21)
--- NOTE | 2020-07-06 17:05 | EDM.PDOC ---
ED HPI GENERAL MEDICAL PROBLEM - General Chief Complaint: Abdominal Pain Stated Complaint: STOMACH PAIN Time Seen by Provider: 07/06/20 16:04 Source of Information: Reports: Patient, RN Notes Reviewed History Limitations: Reports: No Limitations - History of Present Illness INITIAL COMMENTS - FREE TEXT/NARRATIVE: Patient is an 84-year-old male presenting to the emergency department with complaints of upper abdominal pain with nausea. Symptoms began this morning. He describes it as a sharp stabbing pain in his epigastrium. He states he has a history of gastric ulcers with GI bleeding. He denies any black or bloody stools. Patient was seen in this emergency department very early this morning with complaints of inability to void as well as some lower abdominal pain. Bladder scans were done at that time and showed no urinary retention. Abdominal x-rays were completed and were grossly unremarkable. He developed the upper abdominal pain a few hours after arriving home. He has not been eating today due to lack of appetite. He denies any fever or chills. Middle Abdomen Pain Score (Numeric/FACES): 8 - Related Data Allergies Allergy/AdvReac Type Severity Reaction Status Date / Time No Known Allergies Allergy Verified 07/06/20 20:36 Home Meds: Home Meds Digoxin 125 mcg PO DAILY 06/01/20 [History] Ferrous Sulfate [Iron] 325 mg PO DAILY 06/01/20 [History] Furosemide [Lasix] 20 mg PO DAILY 06/01/20 [History] Tamsulosin HCl [Flomax] 0.4 mg PO DAILY 06/01/20 [History] Budesonide/Formoterol Fumarate [Symbicort 160-4.5 Mcg Inhaler] 1 puff INH DAILY 06/20/20 [History] Finasteride [Proscar] 5 mg PO DAILY 06/20/20 [History] Past Medical History HEENT History: Reports: Impaired Vision Cardiovascular History: Reports: Afib, Hypertension Respiratory History: Reports: COPD Gastrointestinal History: Reports: Diverticulosis, PUD Genitourinary History: Reports: BPH, Renal Calculus Musculoskeletal History: Reports: Fracture Oncologic (Cancer) History: Reports: Basal Cell Carcinoma, Malignant Melanoma Dermatologic History: Reports: Eczema - Infectious Disease History Infectious Disease History: Reports: Chicken Pox, Influenza, Measles, Mumps - Past Surgical History HEENT Surgical History: Reports: Cataract Surgery Cardiovascular Surgical History: Reports: Cardiac Ablation, Pacer GI Surgical History: Reports: Colon, Hernia Repair/Other, Other (See Below) Other GI Surgeries/Procedures: temporary ostomy Musculoskeletal Surgical History: Reports: ORIF Oncologic Surgical History: Reports: Other (See Below) Social & Family History - Family History Family Medical History: Noncontributory - Tobacco Use Tobacco Use Status *Q: Never Tobacco User - Caffeine Use Caffeine Use: Reports: None - Recreational Drug Use Recreational Drug Use: Yes Recreational Drug Type: Reports: Marijuana/Hashish Recreational Drug Use Frequency: Weekly - Living Situation & Occupation Living situation: Reports: , with Family (Son + his girlfriend + her son) Occupation: Retired ED ROS GENERAL - Review of Systems Review Of Systems: See Below Constitutional: Reports: No Symptoms. Denies: Fever, Chills HEENT: Reports: No Symptoms Respiratory: Reports: No Symptoms. Denies: Shortness of Breath, Cough Cardiovascular: Reports: No Symptoms. Denies: Chest Pain, Dyspnea on Exertion, Lightheadedness Endocrine: Reports: No Symptoms GI/Abdominal: Reports: Abdominal Pain (upper), Nausea. Denies: Diarrhea, Hematemesis, Hematochezia, Vomiting : Reports: No Symptoms Musculoskeletal: Reports: No Symptoms Skin: Reports: No Symptoms Neurological: Reports: No Symptoms Psychiatric: Reports: No Symptoms Hematologic/Lymphatic: Reports: No Symptoms Immunologic: Reports: No Symptoms ED EXAM, GI/ABD - Physical Exam Exam: See Below Exam Limited By: No Limitations General Appearance: Alert, WD/WN, No Apparent Distress Respiratory/Chest: No Respiratory Distress, Lungs Clear, Normal Breath Sounds, No Accessory Muscle Use, Chest Non-Tender Cardiovascular: Normal Peripheral Pulses, Regular Rate, Rhythm, No Edema, No Gallop, No JVD, No Murmur, No Rub GI/Abdominal Exam: Normal Bowel Sounds, Soft, No Organomegaly, No Distention, No Abnormal Bruit, No Mass, Pelvis Stable, Tender (epigastric and periumbilical) Neurological: Alert, Oriented, CN II-XII Intact, Normal Cognition, Normal Gait, Normal Reflexes, No Motor/Sensory Deficits Psychiatric: Normal Affect, Normal Mood Skin Exam: Warm, Dry, Intact, Normal Color, No Rash Course - Vital Signs Last Recorded V/S: Last Vital Signs Temp 97.0 F 07/06/20 20:40 Pulse 70 07/06/20 15:00 Resp 17 07/06/20 20:40 BP 153/96 H 07/06/20 20:40 Pulse Ox 94 L 07/06/20 20:40 - Orders/Labs/Meds Orders: Active Orders 24 hr Category Date Time Status Abdomen Pelvis w Cont [CT] Stat Exams 07/06/20 16:20 Taken Heparin Sodium/D5W [Heparin 25,000 Units in D5W 500 ML] Med 07/06/20 18:15 Active 25,000 units in 500 ml IV TITRATE Sodium Chloride 0.9% [Normal Saline] 1,000 ml Med 07/06/20 16:21 Active IV NOW Medication Orders Sodium Chloride (Normal Saline) 1,000 mls @ 100 mls/hr IV NOW STA Stop: 07/07/20 02:20 Last Infusion: 07/06/20 19:55 Dose: 100 mls/hr Documented by: JOSÉ MIGUEL Admin: 07/06/20 16:39 Dose: 150 mls/hr Documented by: JOSÉ MIGUEL Heparin Sodium/Dextrose (Heparin 25,000 Units In D5w 500 Ml) 25,000 units in 500 mls @ 26 mls/hr IV TITRATE BREANA; Protocol Last Admin: 07/06/20 18:25 Dose: 1,300 units/hr, 26 mls/hr Documented by: JOSÉ MIGUEL Cosigned by: OVIDIO Labs: Laboratory Tests 07/06/20 07/06/20 07/06/20 Range/Units 16:35 16:35 16:35 WBC 10.09 H (4.23-9.07) K/mm3 RBC 5.40 (4.63-6.08) M/mm3 Hgb 14.7 (13.7-17.5) gm/dl Hct 46.8 (40.1-51.0) % MCV 86.7 (79.0-92.2) fl MCH 27.2 (25.7-32.2) pg MCHC 31.4 L (32.2-35.5) g/dl RDW Std Deviation 52.4 H (35.1-43.9) fL Plt Count 158 L (163-337) K/mm3 MPV 11.8 (9.4-12.3) fl Neut % (Auto) 81.7 H (34.0-67.9) % Lymph % (Auto) 9.2 L (21.8-53.1) % [place] % (Auto) 8.6 (5.3-12.2) % Eos % (Auto) 0.2 L (0.8-7.0) Baso % (Auto) 0.1 (0.1-1.2) % Neut # (Auto) 8.24 H (1.78-5.38) K/mm3 Lymph # (Auto) 0.93 L (1.32-3.57) K/mm3 [place] # (Auto) 0.87 H (0.30-0.82) K/mm3 Eos # (Auto) 0.02 L (0.04-0.54) K/mm3 Baso # (Auto) 0.01 (0.01-0.08) K/mm3 Manual Slide Review Normal smear APTT 26.5 (21.7-31.4) SECONDS Sodium 135 L (136-145) mEq/L Potassium 4.0 (3.5-5.1) mEq/L Chloride 100 (98-107) mEq/L Carbon Dioxide 23 (21-32) mEq/L Anion Gap 16.0 H (5-15) BUN 22 H (7-18) mg/dL Creatinine 1.6 H (0.7-1.3) mg/dL Est Cr Clr Drug Dosing 33.28 mL/min Estimated GFR (MDRD) 42 (>60) mL/min BUN/Creatinine Ratio 13.8 L (14-18) Glucose 152 H (83-115) mg/dL Calcium 9.2 (8.5-10.1) mg/dL Total Bilirubin 0.9 (0.2-1.0) mg/dL AST 85 H (15-37) U/L ALT 38 (16-63) U/L Alkaline Phosphatase 83 (46-116) U/L Troponin I (0.00-0.056) ng/mL C-Reactive Protein 2.2 H* (<1.0) mg/dL Total Protein 7.9 (6.4-8.2) g/dl Albumin 3.4 (3.4-5.0) g/dl Globulin 4.5 gm/dL Albumin/Globulin Ratio 0.8 L (1-2) Lipase 85 (73-393) U/L Urine Color (Yellow) Urine Appearance (Clear) Urine pH (5.0-8.0) Ur Specific [place] (1.005-1.030) Urine Protein (Negative) Urine Glucose (UA) (Negative) Urine Ketones (Negative) Urine Occult Blood (Negative) Urine Nitrite (Negative) Urine Bilirubin (Negative) Urine Urobilinogen (0.2-1.0) Ur Leukocyte Esterase (Negative) Urine RBC (0-5) /hpf Urine WBC (0-5) /hpf Ur Squamous Epith Cells (0-5) /hpf Amorphous Sediment (NOT SEEN) /hpf Urine Bacteria (FEW) /hpf Urine Mucus (FEW) /hpf SARS-CoV-2 RNA (NESS) (NEGATIVE) 07/06/20 07/06/20 07/06/20 Range/Units 16:40 17:35 18:05 WBC (4.23-9.07) K/mm3 RBC (4.63-6.08) M/mm3 Hgb (13.7-17.5) gm/dl Hct (40.1-51.0) % MCV (79.0-92.2) fl MCH (25.7-32.2) pg MCHC (32.2-35.5) g/dl RDW Std Deviation (35.1-43.9) fL Plt Count (163-337) K/mm3 MPV (9.4-12.3) fl Neut % (Auto) (34.0-67.9) % Lymph % (Auto) (21.8-53.1) % [place] % (Auto) (5.3-12.2) % Eos % (Auto) (0.8-7.0) Baso % (Auto) (0.1-1.2) % Neut # (Auto) (1.78-5.38) K/mm3 Lymph # (Auto) (1.32-3.57) K/mm3 [place] # (Auto) (0.30-0.82) K/mm3 Eos # (Auto) (0.04-0.54) K/mm3 Baso # (Auto) (0.01-0.08) K/mm3 Manual Slide Review APTT (21.7-31.4) SECONDS Sodium (136-145) mEq/L Potassium (3.5-5.1) mEq/L Chloride (98-107) mEq/L Carbon Dioxide (21-32) mEq/L Anion Gap (5-15) BUN (7-18) mg/dL Creatinine (0.7-1.3) mg/dL Est Cr Clr Drug Dosing mL/min Estimated GFR (MDRD) (>60) mL/min BUN/Creatinine Ratio (14-18) Glucose (83-115) mg/dL Calcium (8.5-10.1) mg/dL Total Bilirubin (0.2-1.0) mg/dL AST (15-37) U/L ALT (16-63) U/L Alkaline Phosphatase (46-116) U/L Troponin I < 0.017 (0.00-0.056) ng/mL C-Reactive Protein (<1.0) mg/dL Total Protein (6.4-8.2) g/dl Albumin (3.4-5.0) g/dl Globulin gm/dL Albumin/Globulin Ratio (1-2) Lipase (73-393) U/L Urine Color Yellow (Yellow) Urine Appearance Clear (Clear) Urine pH 6.5 (5.0-8.0) Ur Specific [place] > or = 1.030 (1.005-1.030) Urine Protein 2+ H (Negative) Urine Glucose (UA) Negative (Negative) Urine Ketones 2+ H (Negative) Urine Occult Blood 1+ H (Negative) Urine Nitrite Negative (Negative) Urine Bilirubin Negative (Negative) Urine Urobilinogen 0.2 (0.2-1.0) Ur Leukocyte Esterase Negative (Negative) Urine RBC 5-10 H (0-5) /hpf Urine WBC 0-5 (0-5) /hpf Ur Squamous Epith Cells 5-10 H (0-5) /hpf Amorphous Sediment Few H (NOT SEEN) /hpf Urine Bacteria Few (FEW) /hpf Urine Mucus Not seen (FEW) /hpf SARS-CoV-2 RNA (NESS) Negative (NEGATIVE) Meds: Medications Generic Name Dose Route Start Last Admin Trade Name Freq PRN Reason Stop Dose Admin Sodium Chloride 1,000 mls @ 100 mls/hr 07/06/20 16:21 07/06/20 19:55 Normal Saline IV 07/07/20 02:20 100 mls/hr NOW STA Infusion Heparin Sodium/Dextrose 25,000 units in 500 mls @ 26 mls/hr 07/06/20 18:15 07/06/20 18:25 Heparin 25,000 Units In D5w 500 Ml IV 1,300 units/hr TITRATE BREANA 26 mls/hr Administration Protocol 1,300 UNITS/HR Discontinued Medications Generic Name Dose Route Start Last Admin Trade Name Anju PRN Reason Stop Dose Admin Heparin Sodium (Porcine) 5,000 units 07/06/20 18:04 07/06/20 18:25 Heparin Sodium IVPUSH 07/06/20 18:05 5,000 units .BOLUS ONE Administration Hydromorphone HCl 0.25 mg 07/06/20 16:21 07/06/20 16:38 Dilaudid IVPUSH 07/06/20 16:22 0.25 mg ONETIME ONE Administration Hydromorphone HCl 0.25 mg 07/06/20 18:28 07/06/20 18:43 Dilaudid IVPUSH 07/06/20 18:29 0.25 mg ONETIME ONE Administration Ondansetron HCl 4 mg 07/06/20 16:21 07/06/20 16:38 Zofran IVPUSH 07/06/20 16:22 4 mg ONETIME ONE Administration - Re-Assessments/Exams Free Text/Narrative Re-Assessment/Exam: Patient is an 84-year-old male presenting to the emergency department with complaints of middle abdominal and epigastric pain that started this morning. He was seen in this emergency department earlier this morning with complaints of urinary retention as well as lower abdominal pain. Blood work was complete done at that time and found to be grossly unremarkable. He states later this morning the abdominal pain developed. He does have a history of gastric ulcers. I have ordered CBC, CMP, CRP, troponin, urinalysis, and an abdomen pelvis CT with IV contrast only. 07/06/201814 CT scan of the abdomen pelvis shows suspected acute thromboembolic event with occlusion of the left renal artery. Significant resultant decreased perfusion throughout the entire left kidney. He also has a right lung mass that is slightly increased in size from previous study. Blood work is still pending, however we do have results from his blood work that was done earlier this morning. Called and spoke to the interventional radiologist at [facility] in [place], Dr. Morgan. He recommended intervention to remove the clot if patient and his family are in agreement. He recommended that we start a heparin drip per VTE protocol. I visited with the patient and he states that he would like the procedure done. Called the patient's POA, Chris. He is in agreement of this plan. [facility] is requesting Covid testing be completed prior to speaking with the hospitalist as they do not have any Covid beds available. I have ordered a 1 hour Covid test. 07/06/20 19:35 Hematology was significant for anion gap minimally elevated at 16.0, BUN 22, creatinine 1.6, CRP 2.2. Troponin was negative. Covid test was negative. Called and spoke with the hospitalist at [facility], Dr. Durant. She has accepted patient for transfer. Updated patient's son. They are in route to [place] as well. Departure - Departure Time of Disposition: 19:30 Disposition: DC/Tfer to Acute Hospital 02 Condition: Good Clinical Impression: Renal arterial thrombosis - Discharge Information Referrals: Karely Webb MD [Primary Care Provider] - Forms: ED Department Discharge Sepsis Event Note (ED) - Evaluation Sepsis Screening Result: No Definite Risk - Focused Exam Vital Signs: Vital Signs Temp Pulse Resp BP Pulse Ox 07/06/20 20:40 97.0 F 17 153/96 H 94 L 07/06/20 15:00 97.0 F 70 19 173/107 H 98 - My Orders Last 24 Hours: My Active Orders 07/06/20 16:20 Abdomen Pelvis w Cont [CT] Stat 07/06/20 16:21 Sodium Chloride 0.9% [Normal Saline] 1,000 ml IV NOW 07/06/20 18:15 Heparin Sodium/D5W [Heparin 25,000 Units in D5W 500 ML] 25,000 units in 500 ml IV TITRATE - Assessment/Plan Last 24 Hours: My Active Orders 07/06/20 16:20 Abdomen Pelvis w Cont [CT] Stat 07/06/20 16:21 Sodium Chloride 0.9% [Normal Saline] 1,000 ml IV NOW 07/06/20 18:15 Heparin Sodium/D5W [Heparin 25,000 Units in D5W 500 ML] 25,000 units in 500 ml IV TITRATE
[2020-07-06] MEDS ORDERED: Heparin Sodium 5,000 Units/ML Vial IVPUSH ONE (18:04)
[2020-07-06] MEDS ORDERED: Heparin Sodium/D5W 25,000 UNITS/500 ML BAG IV SCH (18:15)
--- NOTE | 2020-07-07 09:31 | CT ---
PROCEDURE INFORMATION: Exam: CT Abdomen And Pelvis With Contrast Exam date and time: 07/06/2020 4:50 PM Age: 84 years old Clinical indication: Localized; Prior surgery; Surgery type: Upper/mid abdominal pain, nausea TECHNIQUE: Imaging protocol: Computed tomography of the abdomen and pelvis with intravenous contrast. Radiation optimization: All CT scans at this facility use at least one of these dose optimization techniques: automated exposure control; mA and/or kV adjustment per patient size (includes targeted exams where dose is matched to clinical indication); or iterative reconstruction. COMPARISON: DX Abdomen 2V AP Flat Upright 07/06/2020 1:46 AM FINDINGS: Lungs: Slight increase in size of 5.0 x 4.0 cm rounded hyperdense mass in right lung base. Pleural space: Small right pleural effusion again noted. Liver: Normal. No mass. Gallbladder and bile ducts: Normal. No calcified stones. No ductal dilation. Pancreas: Normal. No ductal dilation. Spleen: Normal. No splenomegaly. Adrenal glands: Normal. No mass. Kidneys and ureters: There is decreased enhancement of left kidney. This is secondary to occlusion of left renal artery with what may be thromboembolic focus noted extending from the ostium of the main left renal artery into the abdominal aorta. Stomach and bowel: Unremarkable. No obstruction. No mucosal thickening. Appendix: No evidence of appendicitis. Intraperitoneal space: Unremarkable. No free air. No significant fluid collection. Vasculature: See "Kidneys and ureters" finding. Lymph nodes: Clustered subcentimeter left periaortic lymph nodes again noted. Urinary bladder: Unremarkable as visualized. KEMAR HANKS | Final Radiology Report CONFIDENTIALITY STATEMENT This report is intended only for use by the referring physician, and only in accordance with law. If you received this in error, call [phone]. Page 2 of 2 Reproductive: Enlarged prostate is noted. Bones/joints: Unremarkable. No acute fracture. Soft tissues: Unremarkable. IMPRESSION: 1. Suspected acute thromboembolic event with occlusion of left renal artery. Significant resultant decreased perfusion throughout entire left kidney. 2. Slight increase in size of right lung mass THIS REPORT CONTAINS FINDINGS THAT MAY BE CRITICAL TO PATIENT CARE. The findings were verbally communicated via telephone conference with MARIELENA MARR at 6:43 PM SEISMIC PROSPECTING OBSERVER on 07/06/2020. The findings were acknowledged and understood. Thank you for allowing us to participate in the care of your patient. Dictated and Authenticated by: Sunny Schwab MD 07/06/2020 6:43 PM Central Time ([place] & [place]) YESSY
== END 2020-07-06 20:23 ==
LOC: JD.ED 14:00
DX: N28.0 Ischemia and infarction of kidney (principal); I48.91 Unspecified atrial fibrillation; I10 Essential (primary) hypertension; N40.0 Benign prostatic hyperplasia without lower urinary tract symptoms; J44.9 Chronic obstructive pulmonary disease, unspecified; Z79.899 Other long term (current) drug therapy; Z20.828 Contact with and (suspected) exposure to other viral communicable diseases
CPT/HCPCS: 36415; 74177; 80053; 81001; 83690; 84484; 85025; 85730; 86140; 87635; 93005; 96365; 96366; 96375; 96376; 99285; J1170; J1644; J2405; J7030; U0002

== ENCOUNTER 2020-07-11 09:47 | Emergency (ER) | payer OTHER ==
--- NOTE | 2020-07-11 10:06 | EDM.PDOC ---
ED HPI GENERAL MEDICAL PROBLEM - General Chief Complaint: Respiratory Problem Stated Complaint: [facility] Time Seen by Provider: 07/11/20 09:52 Source of Information: Reports: Patient, EMS, Family History Limitations: Reports: No Limitations - History of Present Illness INITIAL COMMENTS - FREE TEXT/NARRATIVE: The patient presents by [facility] for low oxygen saturations, hypotension and unresponsive episode. The patient has home health come and he just woke up. They checked his blood pressure and it was in the 80s. He then passed out for a short time. When EMS arrived he was awake and alert. His oxygen saturations were in the 70s. He was put on a nonrebreather. When he arrive here we were able to take him off of the nonrebreather and he is on room air now. His fingers were cold and not reading well. He has no complaints now. He has no fever, chills, cough, congestion, runny nose, chest pain, shortness of breath, abdominal pain, nausea or vomiting. He said back in May he had abdominal pain. 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 He went to [facility] in [place] and the interventional radiologist was able to remove it. He has been doing good. He has atrial fibrillation and he is on 2 blood thinners. Onset: Gradual Duration: Hour(s): Severity: Moderate Improves with: Reports: None Worsens with: Reports: None Associated Symptoms: Reports: No Other Symptoms - Related Data Allergies Allergy/AdvReac Type Severity Reaction Status Date / Time No Known Allergies Allergy Verified 07/11/20 09:57 Home Meds: Home Meds Digoxin 125 mcg PO DAILY 06/01/20 [History] Ferrous Sulfate [Iron] 325 mg PO DAILY 06/01/20 [History] Furosemide [Lasix] 20 mg PO DAILY 06/01/20 [History] Tamsulosin HCl [Flomax] 0.4 mg PO DAILY 06/01/20 [History] Budesonide/Formoterol Fumarate [Symbicort 160-4.5 Mcg Inhaler] 1 puff INH DAILY 06/20/20 [History] Finasteride [Proscar] 5 mg PO DAILY 06/20/20 [History] Acetaminophen/HYDROcodone [[place] 325-5 MG] 1 tab PO Q6H PRN 07/11/20 [History] Apixaban [Eliquis] 5 mg PO BID 07/11/20 [History] Clopidogrel Bisulfate [Plavix] 75 mg PO DAILY 07/11/20 [History] Past Medical History HEENT History: Reports: Impaired Vision Cardiovascular History: Reports: Afib, Hypertension Respiratory History: Reports: COPD Gastrointestinal History: Reports: Diverticulosis, PUD Genitourinary History: Reports: BPH, Renal Calculus Musculoskeletal History: Reports: Fracture Oncologic (Cancer) History: Reports: Basal Cell Carcinoma, Malignant Melanoma Dermatologic History: Reports: Eczema - Infectious Disease History Infectious Disease History: Reports: Chicken Pox, Influenza, Measles, Mumps - Past Surgical History HEENT Surgical History: Reports: Cataract Surgery Cardiovascular Surgical History: Reports: Cardiac Ablation, Pacer GI Surgical History: Reports: Colon, Hernia Repair/Other, Other (See Below) Other GI Surgeries/Procedures: temporary ostomy Musculoskeletal Surgical History: Reports: ORIF Oncologic Surgical History: Reports: Other (See Below) Social & Family History - Family History Family Medical History: No Pertinent Family History - Tobacco Use Tobacco Use Status *Q: Never Tobacco User Second Hand Smoke Exposure: No - Caffeine Use Caffeine Use: Reports: Coffee - Alcohol Use Days Per Week of Alcohol Use: 7 Number of Drinks Per Day: 1 Total Drinks Per Week: 7 - Recreational Drug Use Recreational Drug Use: Yes Recreational Drug Type: Reports: Marijuana/Hashish Recreational Drug Use Frequency: Daily - Living Situation & Occupation Living situation: Reports: , with Family (Son + his girlfriend + her son) Occupation: Retired ED ROS GENERAL - Review of Systems Review Of Systems: See Below Constitutional: Reports: No Symptoms HEENT: Reports: No Symptoms Respiratory: Reports: No Symptoms Cardiovascular: Reports: Syncope. Denies: Chest Pain Endocrine: Reports: No Symptoms GI/Abdominal: Reports: No Symptoms : Reports: No Symptoms Musculoskeletal: Reports: No Symptoms Skin: Reports: No Symptoms ED EXAM, GENERAL - Physical Exam Exam: See Below Exam Limited By: No Limitations General Appearance: Alert, No Apparent Distress Ears: Normal External Exam Nose: Normal Inspection Head: Atraumatic, Normocephalic Neck: Normal Inspection Respiratory/Chest: No Respiratory Distress, Lungs Clear, Normal Breath Sounds Cardiovascular: Regular Rate, Rhythm, No Edema, No Murmur GI/Abdominal: Soft, Non-Tender, No Organomegaly, No Mass Back Exam: Normal Inspection Extremities: Normal Inspection Course - Vital Signs Last Recorded V/S: Last Vital Signs Temp 96.9 F 07/11/20 09:54 Pulse 79 07/11/20 09:54 Resp 20 07/11/20 09:54 BP 136/72 07/11/20 09:54 Pulse Ox 96 07/11/20 10:00 - Orders/Labs/Meds Orders: Active Orders 24 hr Category Date Time Status Cardiac Monitoring [RC] . DIRECTED Care 07/11/20 09:59 Active EKG Documentation Completion [RC] STAT Care 07/11/20 10:00 Active Oxygen Therapy [RC] PRN Care 07/11/20 10:00 Active Labs: Laboratory Tests 07/11/20 07/11/20 07/11/20 Range/Units 11:00 11:00 11:00 WBC 5.14 (4.23-9.07) K/mm3 RBC 4.99 (4.63-6.08) M/mm3 Hgb 13.7 (13.7-17.5) gm/dl Hct 43.0 (40.1-51.0) % MCV 86.2 (79.0-92.2) fl MCH 27.5 (25.7-32.2) pg MCHC 31.9 L (32.2-35.5) g/dl RDW Std Deviation 52.9 H (35.1-43.9) fL Plt Count 173 (163-337) K/mm3 MPV 11.4 (9.4-12.3) fl Neut % (Auto) 61.2 (34.0-67.9) % Lymph % (Auto) 21.8 (21.8-53.1) % Bucks % (Auto) 16.0 H (5.3-12.2) % Eos % (Auto) 0.6 L (0.8-7.0) Baso % (Auto) 0.2 (0.1-1.2) % Neut # (Auto) 3.15 (1.78-5.38) K/mm3 Lymph # (Auto) 1.12 L (1.32-3.57) K/mm3 Bucks # (Auto) 0.82 (0.30-0.82) K/mm3 Eos # (Auto) 0.03 L (0.04-0.54) K/mm3 Baso # (Auto) 0.01 (0.01-0.08) K/mm3 Manual Slide Review Normal smear D-Dimer, Quantitative 1.12 H (0.19-0.50) mg/L Sodium 138 (136-145) mEq/L Potassium 3.5 (3.5-5.1) mEq/L Chloride 102 (98-107) mEq/L Carbon Dioxide 26 (21-32) mEq/L Anion Gap 13.5 (5-15) BUN 28 H (7-18) mg/dL Creatinine 1.5 H (0.7-1.3) mg/dL Est Cr Clr Drug Dosing 34.10 mL/min Estimated GFR (MDRD) 45 (>60) mL/min BUN/Creatinine Ratio 18.7 H (14-18) Glucose 97 (83-115) mg/dL Calcium 8.9 (8.5-10.1) mg/dL Total Bilirubin 0.8 (0.2-1.0) mg/dL AST 22 (15-37) U/L ALT 34 (16-63) U/L Alkaline Phosphatase 64 (46-116) U/L Troponin I < 0.017 (0.00-0.056) ng/mL NT-Pro-B Natriuret Pep (0-450) pg/mL Total Protein 6.9 (6.4-8.2) g/dl Albumin 2.9 L (3.4-5.0) g/dl Globulin 4.0 gm/dL Albumin/Globulin Ratio 0.7 L (1-2) 07/11/20 Range/Units 11:00 WBC (4.23-9.07) K/mm3 RBC (4.63-6.08) M/mm3 Hgb (13.7-17.5) gm/dl Hct (40.1-51.0) % MCV (79.0-92.2) fl MCH (25.7-32.2) pg MCHC (32.2-35.5) g/dl RDW Std Deviation (35.1-43.9) fL Plt Count (163-337) K/mm3 MPV (9.4-12.3) fl Neut % (Auto) (34.0-67.9) % Lymph % (Auto) (21.8-53.1) % Bucks % (Auto) (5.3-12.2) % Eos % (Auto) (0.8-7.0) Baso % (Auto) (0.1-1.2) % Neut # (Auto) (1.78-5.38) K/mm3 Lymph # (Auto) (1.32-3.57) K/mm3 Bucks # (Auto) (0.30-0.82) K/mm3 Eos # (Auto) (0.04-0.54) K/mm3 Baso # (Auto) (0.01-0.08) K/mm3 Manual Slide Review D-Dimer, Quantitative (0.19-0.50) mg/L Sodium (136-145) mEq/L Potassium (3.5-5.1) mEq/L Chloride (98-107) mEq/L Carbon Dioxide (21-32) mEq/L Anion Gap (5-15) BUN (7-18) mg/dL Creatinine (0.7-1.3) mg/dL Est Cr Clr Drug Dosing mL/min Estimated GFR (MDRD) (>60) mL/min BUN/Creatinine Ratio (14-18) Glucose (83-115) mg/dL Calcium (8.5-10.1) mg/dL Total Bilirubin (0.2-1.0) mg/dL AST (15-37) U/L ALT (16-63) U/L Alkaline Phosphatase (46-116) U/L Troponin I (0.00-0.056) ng/mL NT-Pro-B Natriuret Pep 4414 H (0-450) pg/mL Total Protein (6.4-8.2) g/dl Albumin (3.4-5.0) g/dl Globulin gm/dL Albumin/Globulin Ratio (1-2) - Re-Assessments/Exams Free Text/Narrative Re-Assessment/Exam: 07/11/20 10:26 I ordered an EKG, CXR and labs. 07/11/20 11:55 His EKG shows a ventricular-paced rhythm at a rate of 66. His CXR shows a 4.8cm mass a the lateral right lung base. This is worrisome for neoplasia. The patient is aware of this and his doctor is aware. His CBC looks good. His D- dimer was elevated at 1.12. He has a mass in the lung and he has a history of a blood clot in his renal artery. He is on both eliquis and plavix. The likelihood of PE is low and the treatment will not be changed. The patient does not want an IV. His creatinine is elevated at 1.5. His troponin is negative. His BNP is elevated at 4414. He feels good. His blood pressure is better now at 120s systolic. He feels good now. His oxygen saturations are good taken from his ear. 07/11/20 12:02 Departure - Departure Time of Disposition: 12:00 Disposition: Home, Self-Care 01 Condition: Good Clinical Impression: Syncope Qualifiers: Syncope type: unspecified Qualified Code(s): R55 - Syncope and collapse Hypotension Qualifiers: Hypotension type: other hypotension type Qualified Code(s): I95.89 - Other hypotension - Discharge Information *PRESCRIPTION DRUG MONITORING PROGRAM REVIEWED*: Not Applicable *COPY OF PRESCRIPTION DRUG MONITORING REPORT IN PATIENT KINA: Not Applicable Referrals: PCP,None [Ordering Only Provider] - Forms: ED Department Discharge Additional Instructions: Take your medications as prescribed. Make sure you are giving yourself time to adjust when you are sitting up and then standing up in the morning. Please return if you are worse. Sepsis Event Note (ED) - Evaluation Sepsis Screening Result: No Definite Risk - Focused Exam Vital Signs: Vital Signs Temp Pulse Resp BP Pulse Ox Pulse Ox 07/11/20 10:00 96 07/11/20 09:54 96.9 F 79 20 136/72 100 - My Orders Last 24 Hours: My Active Orders 07/11/20 09:59 Cardiac Monitoring [RC] . DIRECTED 07/11/20 10:00 EKG Documentation Completion [RC] STAT Oxygen Therapy [RC] PRN - Assessment/Plan Last 24 Hours: My Active Orders 07/11/20 09:59 Cardiac Monitoring [RC] . DIRECTED 07/11/20 10:00 EKG Documentation Completion [RC] STAT Oxygen Therapy [RC] PRN
--- NOTE | 2020-07-11 10:28 | CR ---
PROCEDURE INFORMATION: Exam: XR Chest, 1 View Exam date and time: 07/11/2020 9:49 AM Age: 84 years old Clinical indication: Chest pain; Type not specified TECHNIQUE: Imaging protocol: XR of the chest Views: 1 view. COMPARISON: CT Ang Chest 06/05/2020 8:54 PM FINDINGS: Tubes, catheters and devices: A pacemaker device is present, and its leads are in appropriate position. Lungs: 4.8 cm mass at the lateral right lung base. Left lung appears clear Pleural space: There is a blunted right costophrenic angle consistent with small effusion or pleural scarring. Heart/Mediastinum: Unremarkable. No cardiomegaly. Bones/joints: There is diffuse demineralization/osteopenia of the regional skeleton. Marked degenerative changes at the shoulders bilaterally. IMPRESSION: 4.8 cm mass at the lateral right lung base. This is worrisome for neoplasia. Thank you for allowing us to participate in the care of your patient. Dictated and Authenticated by: Fletcher Larsen MD 07/11/2020 11:20 AM Central Time ([place] & [place]) YESSY
== END 2020-07-11 12:20 | disposition home or self-care (01) ==
LOC: JD.ED 09:47
DX: I95.89 Other hypotension (principal); I10 Essential (primary) hypertension; I48.91 Unspecified atrial fibrillation; J44.9 Chronic obstructive pulmonary disease, unspecified; N40.0 Benign prostatic hyperplasia without lower urinary tract symptoms; Z79.899 Other long term (current) drug therapy; Z79.01 Long term (current) use of anticoagulants; Z79.02 Long term (current) use of antithrombotics/antiplatelets
CPT/HCPCS: 36415; 71045; 71045-26; 80053; 83880; 84484; 85025; 85379; 93005; 93010; 99284; 99285-25

== ENCOUNTER 2020-12-16 16:09 | Emergency (ER) | payer OTHER ==
--- NOTE | 2020-12-16 16:30 | EDM.PDOC ---
ED HPI GENERAL MEDICAL PROBLEM - General Chief Complaint: Genitourinary Problem Stated Complaint: UNABLE TO URINATE Time Seen by Provider: 12/16/20 16:20 Source of Information: Reports: Patient History Limitations: Reports: No Limitations - History of Present Illness INITIAL COMMENTS - FREE TEXT/NARRATIVE: 85-year-old male who has prostatism presents to the ED unable to void. He states he rode to [place] today and held his urine all the way there and this precipitated inability to void since that time. He does have diffuse lower abdominal discomfort with mild cramping at this time. He does not want to wait till he gets much worse. He had a kinked catheter placed for about 6 months last year and after being on medication for a lengthy period of time he was able to have the catheter removed. He has never had any prostate surgery. He is currently on finasteride as well as Flomax for his prostate. Patient has not appreciated any blood in his urine. He states he is up in the night to go about 3 or 4 times. He is in atrial fibrillation and has a stent in his heart. He is currently on Plavix and Eliquis due to atrial fibrillation. He is using digoxin for rate control. Onset: Today Onset Date: 12/16/20 Onset Time: 12:00 (To [place] today for a doctor's appointment. He held his w ater all the way and states he was only able to void a few drops of urine a at noon today in [place]. Since that time he is not been able to void other than a few drops with bearing down.) Duration: Hour(s):, Getting Worse Location: Reports: Abdomen (Lower abdominal discomfort with occasional cramps.) Quality: Reports: Ache, Pressure, Other (Bladder scan reveals 436 mils of urine in the bladder.) Severity: Moderate Improves with: Reports: None Worsens with: Reports: None Context: Reports: Other. Denies: Activity, Exercise, Lifting, Sick Contact, Trauma Associated Symptoms: Reports: Cough, cough w sputum, Malaise, Shortness of Breath. Denies: Confusion, Chest Pain (Acute urinary retention which is a recurrent problem for this fellow.), Diaphoresis, Fever/Chills, Headaches, Loss of Appetite, Nausea/Vomiting, Rash, Seizure, Syncope, Weakness Treatments PLATE FITTER: Reports: Acetaminophen, Other (see below) - Related Data Allergies Allergy/AdvReac Type Severity Reaction Status Date / Time No Known Allergies Allergy Verified 12/16/20 16:21 Home Meds: Home Meds Digoxin 125 mcg PO DAILY 06/01/20 [History] Ferrous Sulfate [Iron] 325 mg PO DAILY 06/01/20 [History] Furosemide [Lasix] 20 mg PO DAILY 06/01/20 [History] Tamsulosin HCl [Flomax] 0.4 mg PO DAILY 06/01/20 [History] Budesonide/Formoterol Fumarate [Symbicort 160-4.5 Mcg Inhaler] 1 puff INH DAILY 06/20/20 [History] Finasteride [Proscar] 5 mg PO DAILY 06/20/20 [History] Acetaminophen/HYDROcodone [[place] 325-5 MG] 1 tab PO Q6H PRN 07/11/20 [History] Apixaban [Eliquis] 5 mg PO BID 07/11/20 [History] Clopidogrel Bisulfate [Plavix] 75 mg PO DAILY 07/11/20 [History] Past Medical History HEENT History: Reports: Impaired Vision, Other (See Below) (Speaks with a very raspy voice.) Cardiovascular History: Reports: Afib, Hypertension Respiratory History: Reports: COPD Gastrointestinal History: Reports: Diverticulosis, PUD Genitourinary History: Reports: BPH, Renal Calculus Musculoskeletal History: Reports: Fracture Oncologic (Cancer) History: Reports: Basal Cell Carcinoma, Malignant Melanoma Dermatologic History: Reports: Eczema - Infectious Disease History Infectious Disease History: Reports: Chicken Pox, Influenza, Measles, Mumps - Past Surgical History HEENT Surgical History: Reports: Cataract Surgery Cardiovascular Surgical History: Reports: Cardiac Ablation, Pacer GI Surgical History: Reports: Colon, Hernia Repair/Other Male Surgical History: Reports: Other (See Below) Other Male Surgeries/Procedures: blood blot removed from kidney Musculoskeletal Surgical History: Reports: ORIF Social & Family History - Family History Family Medical History: No Pertinent Family History - Caffeine Use Caffeine Use: Reports: Coffee - Living Situation & Occupation Living situation: Reports: , with Family (Son + his girlfriend + her son) Occupation: Retired ED ROS GENERAL - Review of Systems Review Of Systems: See Below Constitutional: Reports: Malaise, Weakness, Fatigue, Decreased Appetite, Weight Loss. Denies: Fever, Chills HEENT: Reports: Glasses, Other Respiratory: Reports: Shortness of Breath (Does have macular degeneration.), Cough. Denies: Wheezing, Pleuritic Chest Pain, Sputum, Hemoptysis (Nonproductive) Cardiovascular: Reports: Blood Pressure Problem, Dyspnea on Exertion ( Also coronary disease with stent placement.), Other (History of chronic atrial fibrillation.). Denies: Chest Pain, Claudication, Lightheadedness, Orthopnea Endocrine: Reports: Fatigue GI/Abdominal: Reports: Constipation (Rare.) : Reports: Frequency, Incontinence, Urgency, Urinary Retention ( history of recurrent problems with urinary retention.), Other (Or incontinence. Nocturia x3-4 per night. He has had) Musculoskeletal: Reports: Joint Pain (He sips low back neck and shoulders.) Skin: Reports: No Symptoms Neurological: Reports: No Symptoms Psychiatric: Reports: No Symptoms Hematologic/Lymphatic: Reports: No Symptoms Immunologic: Reports: No Symptoms ED EXAM, RENAL/ - Physical Exam Exam: See Below Exam Limited By: No Limitations General Appearance: Alert, WD/WN, No Apparent Distress, Other (Very raspy voice. Temperature is 36.4 degrees heart rate 80 and irregularly irregular. Respiratory to 16 with O2 sats of 97%. Blood pressure 147/98) Eye Exam: Bilateral Eye: Normal Inspection (Devious cataract extractions bilaterally with intraocular lens implants.), PERRL Throat/Mouth: Normal Inspection, Normal Lips, Normal Oropharynx. No: Normal Teeth, Normal Voice Head: Atraumatic (Very raspy voice.), Normocephalic, Other (Numerous seborrheic keratoses on face and forehead.) Neck: Limited Range of Motion, Tender Lateral. No: Lymphadenopathy (L), Lymphadenopathy (R) Respiratory/Chest: Decreased Breath Sounds, Rales (Decreased air into the lower 20% lung coffman bilaterally.). No: Lungs Clear ( Few rales left base.), Normal Breath Sounds Cardiovascular: No Edema, No Gallop, No Murmur, No Rub, Irregularly Irregular (Numerous ectopic beats). No: Normal Peripheral Pulses GI/Abdominal: Normal Bowel Sounds, Soft, Non-Tender, No Organomegaly, No Mass, Pelvis Stable, Tender (Tenderness lower abdomen. Urinary bladder is palpable to 3 cm below his umbilicus.), Other (A well-healed midline surgical wound. Apparently had part of his colon resected for cancer.) Back Exam: Other (Moderate kyphosis thoracic spine). No: CVA Tenderness (L), CVA Tenderness (R) Extremities: Normal Inspection, Non-Tender, No Pedal Edema, Other (Osteoarthritic changes both knees both hips.). No: Normal Range of Motion Neurological: Alert, Oriented, CN II-XII Intact, Normal Cognition. No: Normal Gait Psychiatric: Normal Affect, Normal Mood Skin Exam: Warm, Dry, Normal Color, Other (Some of them could be early basal cell or squamous cell carcinomas.) Course - Vital Signs Last Recorded V/S: Last Vital Signs Temp 36.4 C 12/16/20 16:18 Pulse 80 12/16/20 16:18 Resp 16 12/16/20 16:18 BP 147/98 H 12/16/20 16:18 Pulse Ox 97 12/16/20 16:18 - Orders/Labs/Meds Orders: Active Orders 24 hr Category Date Time Status Contreras Catheter Insertion [Insert Urinary Catheter] [OM. Care 12/16/20 16:30 Ordered PC] Q24H Urinary Catheter Assessment [RC] ASDIRECTED Care 12/16/20 16:29 Active URINALYSIS W/MICROSCOPIC [UA W/MICROSCOPIC] [URIN] Stat Lab 12/16/20 16:35 Received Meds: Medications Discontinued Medications Generic Name Dose Route Start Last Admin Trade Name Freq PRN Reason Stop Dose Admin Cefdinir 300 mg 12/16/20 16:52 Cefdinir 300 Mg Cap PO 12/16/20 16:53 ONETIME ONE Lidocaine HCl 10 ml 12/16/20 16:38 Lidocaine 2% Jelly 10 Ml Urojet MUCMEM 12/16/20 16:39 ONETIME ONE - Radiology Interpretation Free Text/Narrative:: 85-year-old male presents to the ED with inability to void or acute urinary retention. He has issues with a large prostate gland and intermittent problems with urinary retention. Last year he had a Contreras catheter for 6 months. Today he rolled to [employer] and held his water the entire way. After that he was only able to void a few drops at noon today. He is in some discomfort lower abdomen but came before got real bad. He wishes to have a straight catheter done and see if he can void on his own tonight. He has got no dysuria urgency or frequency. Bladder scan reveals 436 mils of urine within the urinary bladder. Straight cath will be done and urine will be sent for Analysis. - Re-Assessments/Exams Free Text/Narrative Re-Assessment/Exam: 12/16/20 16:45: Straight cath for 400 mils of urine. Urinalysis was sent to the lab. Patient will be discharged to home after receiving Omnicef 300 mg orally to prevent any bacteremia as he would have incomplete emptying of his urinary bladder due to prostatism. He is to return if he is unable to void in the next 8 hours. Departure - Departure Time of Disposition: 17:00 Disposition: Home, Self-Care 01 Condition: Fair Clinical Impression: Acute urinary retention Benign prostatic hyperplasia Qualifiers: Lower urinary tract symptom presence: symptoms present Lower urinary tract symptom detail: incomplete bladder emptying Qualified Code(s): N40.1 - Benign prostatic hyperplasia with lower urinary tract symptoms - Discharge Information *PRESCRIPTION DRUG MONITORING PROGRAM REVIEWED*: Not Applicable *COPY OF PRESCRIPTION DRUG MONITORING REPORT IN PATIENT KINA: Not Applicable Instructions: Benign Prostatic Hyperplasia, Acute Urinary Retention, Male Referrals: Karely Webb MD [Primary Care Provider] - Forms: ED Department Discharge Additional Instructions: UAC in the emergency room today in regards to inability to empty her urinary bladder due to an enlarged prostate gland. You have a history of urinary retention. Today may well of occurred from withholding urine due to long trip to [place]. Sometimes the bladder wall will thin out and then lose its ability to contract to push the urine out. Therefore a straight cath was done where we emptied the urinary bladder of 400 mils of urine. This will be sent for culture to make sure there is no infection. If you do not void on your own within the next 8 hours return to the emergency room for acute Contreras catheter be placed and left in place for 3 to 5 days. You were also given 1 dose of antibiotic Omnicef 300 mg to prevent urinary tract infection from occurring from Contreras catheter instrumentation. Sepsis Event Note (ED) - Evaluation Sepsis Screening Result: No Definite Risk - Focused Exam Vital Signs: Vital Signs Temp Pulse Resp BP Pulse Ox 12/16/20 16:18 36.4 C 80 16 147/98 H 97 - My Orders Last 24 Hours: My Active Orders 12/16/20 16:29 Urinary Catheter Assessment [RC] ASDIRECTED 12/16/20 16:30 Contreras Catheter Insertion [Insert Urinary Catheter] [OM.PC] Q24H 12/16/20 16:35 URINALYSIS W/MICROSCOPIC [UA W/MICROSCOPIC] [URIN] Stat - Assessment/Plan Last 24 Hours: My Active Orders 12/16/20 16:29 Urinary Catheter Assessment [RC] ASDIRECTED 12/16/20 16:30 Contreras Catheter Insertion [Insert Urinary Catheter] [OM.PC] Q24H 12/16/20 16:35 URINALYSIS W/MICROSCOPIC [UA W/MICROSCOPIC] [URIN] Stat
[2020-12-16] MEDS ORDERED: Lidocaine 2% Jelly 10 ML Urojet MUCMEM ONE (16:38)
[2020-12-16] MEDS ORDERED: Cefdinir 300 MG Cap PO ONE (16:52)
== END 2020-12-16 17:09 | disposition home or self-care (01) ==
LOC: JD.ED 16:09
DX: N40.1 Benign prostatic hyperplasia with lower urinary tract symptoms (principal); R39.14 Feeling of incomplete bladder emptying; R33.8 Other retention of urine; I10 Essential (primary) hypertension; J44.9 Chronic obstructive pulmonary disease, unspecified; I48.20 Chronic atrial fibrillation, unspecified; Z79.01 Long term (current) use of anticoagulants; Z79.02 Long term (current) use of antithrombotics/antiplatelets; Z79.899 Other long term (current) drug therapy
CPT/HCPCS: 51701; 81001; 99284; A9270; 99283

== ENCOUNTER 2020-12-29 17:56 | Emergency (ER) | payer OTHER ==
--- NOTE | 2020-12-29 18:48 | EDM.PDOC ---
ED HPI GENERAL MEDICAL PROBLEM - General Chief Complaint: Cardiovascular Problem Stated Complaint: NEEDS TO BE CHECKEDF OUT SPELL YESTERDAY Time Seen by Provider: 12/29/20 18:15 Source of Information: Reports: Patient, RN Notes Reviewed - History of Present Illness INITIAL COMMENTS - FREE TEXT/NARRATIVE: 85 yr old male suffered syncopal event while visiting [facility] yesterday with family. A son had left him for a short period of time sitting in passenger seat of truck. When he came back to the truck Jun had passed out, was unresponsive to verbal or sternal rub, pale, not sure if he was breathing. EMS was called. He did wake up briefly, states he felt awful, than passed out again for a total of about 10 to 12 minutes. He was evaluated at [place] ED and than admitted overnight for observation. Family, son "not pleased or comfortable with care he was getting" For example they were going to send him for MRI but he has a pacer. States they were going to "give him blood thinners and he can't have blood thinners with hx of prior cerebral hemorhage". He was discharged this morning. Son brings him hear at this time for further evaluation. He does have hx of lung cancer diagnosed about 3 months ago. Has had at least 2 rounds of chem. He does have a port, as noted has a pacemaker. He has no known hx of prior CO, and no hx of stents or other cardiac intervention. No current chest pain or difficulty breathing. No abd pain, nausea or vomiting. Has been constipated. - Related Data Allergies Allergy/AdvReac Type Severity Reaction Status Date / Time No Known Allergies Allergy Verified 12/29/20 18:12 Home Meds: Home Meds Furosemide [Lasix] 20 mg PO DAILY 06/01/20 [History] Tamsulosin HCl [Flomax] 0.4 mg PO DAILY 06/01/20 [History] Budesonide/Formoterol Fumarate [Symbicort 160-4.5 Mcg Inhaler] 1 puff INH DAILY 06/20/20 [History] Finasteride [Proscar] 5 mg PO DAILY 06/20/20 [History] Metoprolol Tartrate 25 mg PO BID 12/29/20 [History] oxyCODONE 2.5 mg PO DAILY 12/29/20 [History] Past Medical History HEENT History: Reports: Impaired Vision Cardiovascular History: Reports: Afib, Hypertension, Pacemaker Respiratory History: Reports: COPD Gastrointestinal History: Reports: Diverticulosis, PUD Genitourinary History: Reports: BPH, Renal Calculus Musculoskeletal History: Reports: Fracture Neurological History: Reports: CVA Oncologic (Cancer) History: Reports: Basal Cell Carcinoma, Malignant Melanoma Dermatologic History: Reports: Eczema, Melanoma - Infectious Disease History Infectious Disease History: Reports: Chicken Pox, Influenza, Measles, Mumps - Past Surgical History HEENT Surgical History: Reports: Cataract Surgery Cardiovascular Surgical History: Reports: Cardiac Ablation, Pacer GI Surgical History: Reports: Colon, Hernia Repair/Other Other GI Surgeries/Procedures: temporary ostomy Male Surgical History: Reports: Other (See Below) Other Male Surgeries/Procedures: blood clot removed from kidney Neurological Surgical History: Reports: Other (See Below) Other Neurological Surgeries/Procedures: 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 Musculoskeletal Surgical History: Reports: ORIF Social & Family History - Family History Family Medical History: No Pertinent Family History - Tobacco Use Tobacco Use Status *Q: Never Tobacco User - Caffeine Use Caffeine Use: Reports: None - Recreational Drug Use Recreational Drug Use: Yes Recreational Drug Type: Reports: Marijuana/Hashish - Living Situation & Occupation Living situation: Reports: , with Family (Son + his girlfriend + her son) Occupation: Retired ED ROS GENERAL - Review of Systems Review Of Systems: See Below Constitutional: Denies: Fever, Chills HEENT: Reports: No Symptoms Respiratory: Denies: Shortness of Breath, Cough Cardiovascular: Denies: Chest Pain GI/Abdominal: Denies: Abdominal Pain, Nausea, Vomiting Musculoskeletal: Denies: Shoulder Pain, Arm Pain, Back Pain Skin: Reports: Other (was pale yesterday at time of syncope, mildly dusky around his mouth but no significant cyanosis according to son) Neurological: Denies: Headache, Trouble Speaking, Difficulty Walking ED EXAM, GENERAL - Physical Exam Exam: See Below General Appearance: Alert, No Apparent Distress, Other (noted to be mildly drowsy) Eye Exam: Bilateral Eye: PERRL Ears: Normal External Exam Nose: Normal Inspection Throat/Mouth: Normal Inspection Head: Atraumatic Neck: Supple, Other (No JVD) Respiratory/Chest: No Respiratory Distress, Lungs Clear, Normal Breath Sounds Cardiovascular: Regular Rate, Rhythm GI/Abdominal: Soft, Non-Tender. No: Guarding Back Exam: No: CVA Tenderness (L), CVA Tenderness (R) Extremities: Normal Inspection. No: Pedal Edema, Leg Pain, Increased Warmth, R edness Neurological: Alert, Oriented, No Motor/Sensory Deficits Skin Exam: Warm, Dry, Normal Color Course - Vital Signs Last Recorded V/S: Last Vital Signs Temp 97.6 F 12/29/20 18:07 Pulse 80 12/29/20 18:07 Resp 16 12/29/20 18:07 BP 154/84 H 12/29/20 18:07 Pulse Ox 97 12/29/20 18:07 - Orders/Labs/Meds Labs: Laboratory Tests 12/29/20 12/29/20 Range/Units 18:18 18:18 WBC 5.55 (4.23-9.07) K/mm3 RBC 4.87 (4.63-6.08) M/mm3 Hgb 14.4 (13.7-17.5) gm/dl Hct 44.8 (40.1-51.0) % MCV 92.0 D (79.0-92.2) fl MCH 29.6 (25.7-32.2) pg MCHC 32.1 L (32.2-35.5) g/dl RDW Std Deviation 50.8 H (35.1-43.9) fL Plt Count 181 (163-337) K/mm3 MPV 10.6 (9.4-12.3) fl Neut % (Auto) 55.4 (34.0-67.9) % Lymph % (Auto) 26.7 (21.8-53.1) % [place] % (Auto) 15.0 H (5.3-12.2) % Eos % (Auto) 2.2 (0.8-7.0) Baso % (Auto) 0.5 (0.1-1.2) % Neut # (Auto) 3.08 (1.78-5.38) K/mm3 Lymph # (Auto) 1.48 (1.32-3.57) K/mm3 [place] # (Auto) 0.83 H (0.30-0.82) K/mm3 Eos # (Auto) 0.12 (0.04-0.54) K/mm3 Baso # (Auto) 0.03 (0.01-0.08) K/mm3 Sodium 141 (136-145) mEq/L Potassium 4.4 (3.5-5.1) mEq/L Chloride 104 (98-107) mEq/L Carbon Dioxide 26 (21-32) mEq/L Anion Gap 15.4 H (5-15) BUN 28 H (7-18) mg/dL Creatinine 1.5 H (0.7-1.3) mg/dL Est Cr Clr Drug Dosing 34.89 mL/min Estimated GFR (MDRD) 45 (>60) mL/min BUN/Creatinine Ratio 18.7 H (14-18) Glucose 88 (83-115) mg/dL Calcium 8.5 (8.5-10.1) mg/dL Total Bilirubin 0.8 (0.2-1.0) mg/dL AST 27 (15-37) U/L ALT 20 (16-63) U/L Alkaline Phosphatase 79 (46-116) U/L Troponin I < 0.017 (0.00-0.056) ng/mL Total Protein 7.5 (6.4-8.2) g/dl Albumin 3.4 (3.4-5.0) g/dl Globulin 4.1 gm/dL Albumin/Globulin Ratio 0.8 L (1-2) Departure - Departure Time of Disposition: 19:06 Disposition: Home, Self-Care 01 Condition: Fair Clinical Impression: Syncope Qualifiers: Syncope type: unspecified Qualified Code(s): R55 - Syncope and collapse Referrals: Karely Webb MD [Primary Care Provider] - Forms: ED Department Discharge Additional Instructions: Your troponin this evening checked by our hospital labs is completely normal, for our lab range at the lowest level possible which is the best result possible. Your other labs checked this evening also were good. Your pacemaker has been working as it should the whole time you have been here. Your blood pressure readings have been good. I would not recomend changing your medications at this time. [facility] do [facility], call tomorrow AM for appt. If you do get dizzy or lightheaded at any time sit or lie down and get your head at or below the level of your chest as discussed. Return to ED as needed if symptoms worsening in any way. Sepsis Event Note (ED) - Evaluation Sepsis Screening Result: No Definite Risk - Focused Exam Vital Signs: Vital Signs Temp Pulse Resp BP Pulse Ox 12/29/20 18:07 97.6 F 80 16 154/84 H 97
== END 2020-12-29 19:20 | disposition home or self-care (01) ==
LOC: JD.ED 17:56
DX: R55 Syncope and collapse (principal); I10 Essential (primary) hypertension; Z95.0 Presence of cardiac pacemaker
CPT/HCPCS: 36415; 80053; 84484; 85025; 99283; 99284

== ENCOUNTER 2021-01-11 16:22 | Emergency (ER) | payer OTHER ==
[2021-01-11] MEDS ORDERED: Sodium Chloride 0.9% 500 ML IV STA (17:23)
[2021-01-11] MEDS ORDERED: Sodium Chloride 0.9% 10 ML Syringe FLUSH PRN (17:23)
--- NOTE | 2021-01-11 18:33 | EDM.PDOC ---
ED HPI GENERAL MEDICAL PROBLEM - General Chief Complaint: Cardiovascular Problem Stated Complaint: LOW BP/SYNCOPE Time Seen by Provider: 01/11/21 16:50 Source of Information: Reports: Patient, RN Notes Reviewed History Limitations: Reports: No Limitations - History of Present Illness INITIAL COMMENTS - FREE TEXT/NARRATIVE: Patient is an 85-year-old male presenting to the emergency department with complaints of near syncope. Son reports that shortly before coming to ER they were sitting in his truck when he became dizzy and confused. He did not lose consciousness. Son reports he has had numerous episodes similar to this ever since his digoxin was changed to metoprolol. He was seen in this emergency department 2 weeks ago after having a similar occurrence in [place]. At that time, his metoprolol was decreased from 25 mg twice daily to 12.5 mg twice daily. Son reports that he had 1 similar episode last week and this would be the third episode this week. Symptoms last a short period of time and then resolved. Son reports that he has checked his blood pressure before during an episode similar to this and it was in the 60s systolically. Patient denies any chest pain. Initially upon arrival to ER he complained of feeling "hazy" but this has since resolved. He is alert and oriented and is anxious to go home. On triage, patient was found to be hypotensive at 90/62. Heart rate 70, oxygen sats 97.1, respiratory 20, oxygen 97% on room air. - Related Data Allergies Allergy/AdvReac Type Severity Reaction Status Date / Time No Known Allergies Allergy Verified 12/29/20 18:12 Home Meds: Home Meds Furosemide [Lasix] 20 mg PO DAILY 06/01/20 [History] Tamsulosin HCl [Flomax] 0.4 mg PO DAILY 06/01/20 [History] Budesonide/Formoterol Fumarate [Symbicort 160-4.5 Mcg Inhaler] 1 puff INH BEDTIME 06/20/20 [History] Finasteride [Proscar] 5 mg PO DAILY 06/20/20 [History] Metoprolol Tartrate 12.5 mg PO BID 12/29/20 [History] oxyCODONE 2.5 mg PO ASDIRECTED 12/29/20 [History] Past Medical History HEENT History: Reports: Impaired Vision Cardiovascular History: Reports: Afib, Hypertension, Pacemaker Respiratory History: Reports: COPD Gastrointestinal History: Reports: Diverticulosis, PUD Genitourinary History: Reports: BPH, Renal Calculus Musculoskeletal History: Reports: Fracture Neurological History: Reports: CVA, Other (See Below) Other Neuro History: 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; at [facility] Oncologic (Cancer) History: Reports: Basal Cell Carcinoma, Malignant Melanoma Dermatologic History: Reports: Eczema, Melanoma - Infectious Disease History Infectious Disease History: Reports: Chicken Pox, Influenza, Measles, Mumps - Past Surgical History HEENT Surgical History: Reports: Cataract Surgery Cardiovascular Surgical History: Reports: Cardiac Ablation, Pacer GI Surgical History: Reports: Colon, Hernia Repair/Other Other GI Surgeries/Procedures: temporary ostomy Male Surgical History: Reports: Other (See Below) Other Male Surgeries/Procedures: blood clot removed from kidney Neurological Surgical History: Reports: Other (See Below) Other Neurological Surgeries/Procedures: 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 Musculoskeletal Surgical History: Reports: ORIF Oncologic Surgical History: Reports: Other (See Below) Social & Family History - Family History Family Medical History: No Pertinent Family History - Tobacco Use Tobacco Use Status *Q: Never Tobacco User - Caffeine Use Caffeine Use: Reports: Coffee Other Caffeine Use: decaf - Recreational Drug Use Recreational Drug Use: No - Living Situation & Occupation Living situation: Reports: , with Family (Son + his girlfriend + her son) Occupation: Retired ED ROS GENERAL - Review of Systems Review Of Systems: See Below Constitutional: Reports: No Symptoms. Denies: Fever, Chills HEENT: Reports: No Symptoms Respiratory: Reports: No Symptoms. Denies: Shortness of Breath, Cough Cardiovascular: Reports: Lightheadedness. Denies: Chest Pain, Edema Endocrine: Reports: No Symptoms GI/Abdominal: Reports: No Symptoms : Reports: No Symptoms Musculoskeletal: Reports: No Symptoms Skin: Reports: No Symptoms Neurological: Reports: Confusion (during near syncopal episodes) Psychiatric: Reports: No Symptoms Hematologic/Lymphatic: Reports: No Symptoms Immunologic: Reports: No Symptoms ED EXAM, GENERAL - Physical Exam Exam: See Below Exam Limited By: No Limitations General Appearance: Alert, WD/WN, No Apparent Distress Respiratory/Chest: No Respiratory Distress, Lungs Clear, Normal Breath Sounds, No Accessory Muscle Use, Chest Non-Tender Cardiovascular: Normal Peripheral Pulses, Regular Rate, Rhythm, No Edema, No Gallop, No JVD, No Murmur, No Rub GI/Abdominal: Normal Bowel Sounds, Soft, Non-Tender, No Organomegaly, No Distention, No Abnormal Bruit, No Mass Neurological: Alert, Oriented, CN II-XII Intact, Normal Cognition, Normal Gait, Normal Reflexes, No Motor/Sensory Deficits Psychiatric: Normal Affect, Normal Mood Skin Exam: Warm, Dry, Intact, Normal Color, No Rash #1 Interpretation EKG Date: 01/11/21 Time: 17:29 Rhythm: Other (Ventricular paced) Rate (Beats/Min): 68 [place]: Normal P-Wave: Present QRS: Normal ST-T: Normal QT: Normal EKG Interpretation Comments: EKG interpreted by Dr. Yee MD. Course - Vital Signs Last Recorded V/S: Last Vital Signs Temp 97.1 F 01/11/21 16:54 Pulse 70 01/11/21 16:54 Resp 20 01/11/21 16:54 BP 90/62 01/11/21 16:54 Pulse Ox 97 01/11/21 16:54 Orthostatic Blood Pressure [ 115/80 Sitting] Orthostatic Blood Pressure [ 90/63 Supine] - Orders/Labs/Meds Orders: Active Orders 24 hr Category Date Time Status EKG Documentation Completion [RC] STAT Care 01/11/21 17:19 Active Orthostatic Vital Signs [RC] ASDIRECTED Care 01/11/21 16:50 Active Peripheral IV Care [RC] . DIRECTED Care 01/11/21 17:24 Active Sodium Chloride 0.9% [Saline Flush] Med 01/11/21 17:23 Active 10 ml FLUSH ASDIRECTED PRN Peripheral IV Insertion Adult [OM.PC] Stat Oth 01/11/21 17:18 Ordered Medication Orders Sodium Chloride (Sodium Chloride 0.9% 10 Ml Syringe) 10 ml FLUSH ASDIRECTED PRN PRN Reason: Keep Vein Open Last Admin: 01/11/21 17:31 Dose: 10 ml Documented by: СЕРГЕЙ Labs: Laboratory Tests 01/11/21 01/11/21 01/11/21 Range/Units 17:22 17:30 17:30 WBC 5.63 (4.23-9.07) K/mm3 RBC 4.07 L (4.63-6.08) M/mm3 Hgb 12.2 L D (13.7-17.5) gm/dl Hct 38.1 L (40.1-51.0) % MCV 93.6 H (79.0-92.2) fl MCH 30.0 (25.7-32.2) pg MCHC 32.0 L (32.2-35.5) g/dl RDW Std Deviation 51.6 H (35.1-43.9) fL Plt Count 173 (163-337) K/mm3 MPV 10.3 (9.4-12.3) fl Neut % (Auto) 45.9 (34.0-67.9) % Lymph % (Auto) 34.3 (21.8-53.1) % [place] % (Auto) 16.9 H (5.3-12.2) % Eos % (Auto) 2.5 (0.8-7.0) Baso % (Auto) 0.4 (0.1-1.2) % Neut # (Auto) 2.59 (1.78-5.38) K/mm3 Lymph # (Auto) 1.93 (1.32-3.57) K/mm3 [place] # (Auto) 0.95 H (0.30-0.82) K/mm3 Eos # (Auto) 0.14 (0.04-0.54) K/mm3 Baso # (Auto) 0.02 (0.01-0.08) K/mm3 Sodium 138 (136-145) mEq/L Potassium 4.7 (3.5-5.1) mEq/L Chloride 104 (98-107) mEq/L Carbon Dioxide 26 (21-32) mEq/L Anion Gap 12.7 (5-15) BUN 29 H (7-18) mg/dL Creatinine 1.5 H (0.7-1.3) mg/dL Est Cr Clr Drug Dosing 34.89 mL/min Estimated GFR (MDRD) 45 (>60) mL/min BUN/Creatinine Ratio 19.3 H (14-18) Glucose 85 (70-99) mg/dL Calcium 8.0 L (8.5-10.1) mg/dL Total Bilirubin 0.6 (0.2-1.0) mg/dL AST 29 (15-37) U/L ALT 14 L (16-63) U/L Alkaline Phosphatase 72 (46-116) U/L Troponin I < 0.017 (0.00-0.056) ng/mL Total Protein 6.5 (6.4-8.2) g/dl Albumin 2.8 L (3.4-5.0) g/dl Globulin 3.7 gm/dL Albumin/Globulin Ratio 0.8 L (1-2) Urine Color Yellow (Yellow) Urine Appearance Clear (Clear) Urine pH 5.5 (5.0-8.0) Ur Specific [place] 1.020 (1.005-1.030) Urine Protein Negative (Negative) Urine Glucose (UA) Negative (Negative) Urine Ketones Negative (Negative) Urine Occult Blood Negative (Negative) Urine Nitrite Negative (Negative) Urine Bilirubin Negative (Negative) Urine Urobilinogen 0.2 (0.2-1.0) Ur Leukocyte Esterase Negative (Negative) Urine RBC 0-5 (0-5) /hpf Urine WBC 0-5 (0-5) /hpf Ur Squamous Epith Cells 0-5 (0-5) /hpf Urine Bacteria Few (FEW) /hpf Urine Mucus Few (FEW) /hpf Meds: Medications Generic Name Dose Route Start Last Admin Trade Name Freq PRN Reason Stop Dose Admin Sodium Chloride 10 ml 01/11/21 17:23 01/11/21 17:31 Sodium Chloride 0.9% 10 Ml Syringe FLUSH 10 ml ASDIRECTED PRN Administration Keep Vein Open Discontinued Medications Generic Name Dose Route Start Last Admin Trade Name Freq PRN Reason Stop Dose Admin Sodium Chloride 500 mls @ 999 mls/hr 01/11/21 17:23 01/11/21 17:31 Normal Saline IV 01/11/21 17:53 999 mls/hr NOW STA Administration - Re-Assessments/Exams Free Text/Narrative Re-Assessment/Exam: Is an 85-year-old male presenting to the emergency department with his son with complaints of episodes of near syncope. These began after his medications were changed from digoxin to metoprolol. Son reports he had one episode last week and 3 this week. Today he was sitting in the truck and became dizzy and confused. He did not lose consciousness. Symptoms slowly improved. Son states that he has checked his blood pressures during these episodes in the past and they have been as low as 60 systolically. He was seen in this emergency department 2 weeks ago after having a similar event in [place]. At that time his metoprolol was decreased from 25 mg twice daily to 12.5 mg twice daily. Patient was initially feeling somewhat hazy upon arrival to ER but this has resolved. He states he feels fine now. He is not orthostatic. Blood pressure increased to 115/80 standing from 90/62 lying. He denies any chest pain. I have ordered blood work, urinalysis, EKG, chest x-ray, and a 500 mill bolus of normal saline. 01/11/21 19:25 Hematology significant for hemoglobin low at 12.2, BUN 29, creatinine 1.5. Troponin is undetectably low. Urinalysis is negative for infection. EKG shows ventricular paced rhythm at 68 with no evidence of acute ischemia. After the 500 mill bolus of normal saline, patient's blood pressure has increased to 123/81. Pt feels good and wants to go home. I will recommend that he hold his metoprolol this evening and contact his primary care provider, Dr. Webb in the morning. Pt agrees with this plan. discharge instructions as documented. Departure - Departure Time of Disposition: 19:48 Disposition: Home, Self-Care 01 Condition: Good Clinical Impression: Near syncope Instructions: Near-Syncope, [id number] Referrals: Karely Webb MD [Primary Care Provider] - Forms: ED Department Discharge Additional Instructions: You were seen in the emergency department today for recurrent near syncopal episodes. Work-up in the ER included blood work, EKG of your heart, chest x- ray, and urinalysis. Results of your work-up of been found to be stable from previous visits. Your cardiac enzyme was undetectable. Your initial blood pressure in the ER was found to be low. You did receive 500 mils of IV fluids which increased her blood pressure to a normal level. Recommend that you hold your metoprolol for this evening and contact your primary care provider tomorrow morning for follow-up and ongoing management. If you should experience any new or worsening symptoms, please not hesitate to return to the emergency department for reevaluation. Sepsis Event Note (ED) - Evaluation Sepsis Screening Result: No Definite Risk - Focused Exam Vital Signs: Vital Signs Temp Pulse Resp BP Pulse Ox 01/11/21 16:54 97.1 F 70 20 90/62 97 - My Orders Last 24 Hours: My Active Orders 01/11/21 16:50 Orthostatic Vital Signs [RC] ASDIRECTED 01/11/21 17:18 Peripheral IV Insertion Adult [OM.PC] Stat 01/11/21 17:19 EKG Documentation Completion [RC] STAT 01/11/21 17:23 Sodium Chloride 0.9% [Saline Flush] 10 ml FLUSH ASDIRECTED PRN 01/11/21 17:24 Peripheral IV Care [RC] . DIRECTED - Assessment/Plan Last 24 Hours: My Active Orders 01/11/21 16:50 Orthostatic Vital Signs [RC] ASDIRECTED 01/11/21 17:18 Peripheral IV Insertion Adult [OM.PC] Stat 01/11/21 17:19 EKG Documentation Completion [RC] STAT 01/11/21 17:23 Sodium Chloride 0.9% [Saline Flush] 10 ml FLUSH ASDIRECTED PRN 01/11/21 17:24 Peripheral IV Care [RC] . DIRECTED
== END 2021-01-11 20:11 | disposition home or self-care (01) ==
LOC: JD.ED 16:22
DX: R55 Syncope and collapse (principal); I10 Essential (primary) hypertension; Z95.0 Presence of cardiac pacemaker
CPT/HCPCS: 36415; 80053; 81001; 84484; 85025; 93005; 99284; J7030; 93010; 99283

== ENCOUNTER 2021-02-20 12:14 | Emergency (ER) | payer OTHER ==
[2021-02-20] MEDS ORDERED: Sodium Chloride 0.9% 500 ML IV STA (12:35)
[2021-02-20] MEDS ORDERED: Sodium Chloride 0.9% 10 ML Syringe FLUSH PRN (12:35)
--- NOTE | 2021-02-20 13:42 | CT ---
Head CT Technique: Multiple axial sections through the brain were obtained. Intravenous contrast was not utilized. Reconstructed coronal and sagittal images were obtained. Comparison: No prior intracranial imaging is available. Findings: Ventricles along with basal cisterns and sulci over the convexities are mildly prominent. There is narrowing of encephalomalacia within the left cerebellar hemisphere. There is evidence of prior craniotomy within the left occipital region. Basal ganglia calcification is noted which is incidental. Mild areas of diminished density are noted within the periventricular white matter. No other abnormal parenchymal densities are seen. No evidence of intracranial hemorrhage. No midline shift or mass-effect is seen. Prominent atherosclerotic calcification is seen within the carotid siphon on both sides. Vascular calcification is also noted within the vertebral vessels. Bone window settings were reviewed which show no acute calvarial abnormality. Visualized mastoid sinuses show nothing acute. Minimal mucosal thickening is seen within the ethmoid sinuses which is likely incidental. Impression: 1. Senescent change as noted above. 2. Area of encephalomalacia within the left cerebellar lobe. Prior surgery is noted within the left occipital lobe in the area of the left cerebellar region. 3. Atherosclerotic calcification within the carotid siphon and vertebral vessels. 4. Nothing acute is seen. Diagnostic code #2
--- NOTE | 2021-02-20 14:38 | CR ---
Chest: Portable view of the chest was obtained. Comparison: Study is compared to previous CT abdomen exam of 07/06/20 and chest x-ray of 07/28/20. Chest CT study of 07/06/20 is also available. Right-sided infusion port is seen. This appears satisfactory in position. Density is noted within the right lung base which is stable in size from prior study. This raises the possibility of neoplasm or a large benign abnormality. Lungs otherwise are clear. Prior exam showed pleural effusion on the right side which is no longer appreciated. Unichamber pacemaker is noted. Spine shows scattered disc space narrowing with scattered osteopenia. No acute osseous abnormality is appreciated. Impression: 1. Density within the right lung base which remains stable from recent chest x-ray and chest CT. This raises the possibility of neoplasm or a large benign abnormality. Biopsy would have to be performed to further define. 2. No other acute abnormality is appreciated. Diagnostic code #3
--- NOTE | 2021-02-20 14:43 | EDM.PDOC ---
ED HPI GENERAL MEDICAL PROBLEM - General Chief Complaint: General Stated Complaint: [facility] Time Seen by Provider: 02/20/21 12:26 Source of Information: Reports: Patient, Family History Limitations: Reports: No Limitations, Intoxication - History of Present Illness INITIAL COMMENTS - FREE TEXT/NARRATIVE: Patient is an 85-year-old male presenting to the emergency department for evaluation after near syncopal episode at home. Patient's daughter reports that he was sitting at the counter after eating and that he said he was getting dizzy. He did not fully lose consciousness but the member state that he was quite confused and had a little "twitching "in his face. They maintained him in upright position until symptoms resolved. Patient does have a history of episodes similar to this. He was seen in this emergency department 1 month ago with a similar complaint. He has had no other episodes up until today. Patient does receive chemotherapy monthly for lung cancer. States his infusion was Tuesday of last week. He also receives routine IV fluids at the infusion clinic. He last received IV fluids of 1 L of saline on Tuesday of this week. He reports that he has found that his dizziness occurs more frequently right after he eats. He denies any chest pain or shortness of breath. He has had no recent fever or chills. Denies nausea or vomiting. - Related Data Allergies Allergy/AdvReac Type Severity Reaction Status Date / Time No Known Allergies Allergy Verified 12/29/20 18:12 Home Meds: Home Meds Furosemide [Lasix] 20 mg PO DAILY 06/01/20 [History] Tamsulosin HCl [Flomax] 0.4 mg PO DAILY 06/01/20 [History] Budesonide/Formoterol Fumarate [Symbicort 160-4.5 Mcg Inhaler] 1 puff INH BEDTIME 06/20/20 [History] Finasteride [Proscar] 5 mg PO DAILY 06/20/20 [History] Metoprolol Tartrate 12.5 mg PO BID 12/29/20 [History] oxyCODONE 2.5 mg PO ASDIRECTED 12/29/20 [History] Past Medical History HEENT History: Reports: Impaired Vision Cardiovascular History: Reports: Afib, Hypertension, Pacemaker Respiratory History: Reports: COPD Gastrointestinal History: Reports: Diverticulosis, PUD Genitourinary History: Reports: BPH, Renal Calculus Musculoskeletal History: Reports: Fracture Neurological History: Reports: CVA, Other (See Below) Other Neuro History: 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; at [facility] Oncologic (Cancer) History: Reports: Basal Cell Carcinoma, Malignant Melanoma Dermatologic History: Reports: Eczema, Melanoma - Infectious Disease History Infectious Disease History: Reports: Chicken Pox, Influenza, Measles, Mumps - Past Surgical History HEENT Surgical History: Reports: Cataract Surgery Cardiovascular Surgical History: Reports: Cardiac Ablation, Pacer GI Surgical History: Reports: Colon, Hernia Repair/Other Other GI Surgeries/Procedures: temporary ostomy Male Surgical History: Reports: Other (See Below) Other Male Surgeries/Procedures: blood clot removed from kidney Neurological Surgical History: Reports: Other (See Below) Other Neurological Surgeries/Procedures: 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 Musculoskeletal Surgical History: Reports: ORIF Oncologic Surgical History: Reports: Other (See Below) Social & Family History - Family History Family Medical History: No Pertinent Family History - Tobacco Use Tobacco Use Status *Q: Never Tobacco User - Caffeine Use Caffeine Use: Reports: Coffee Other Caffeine Use: decaf - Recreational Drug Use Recreational Drug Use: No - Living Situation & Occupation Living situation: Reports: , with Family (Son + his girlfriend + her son) Occupation: Retired ED ROS GENERAL - Review of Systems Review Of Systems: See Below Constitutional: Reports: No Symptoms. Denies: Fever, Chills, Weakness HEENT: Reports: No Symptoms Respiratory: Reports: No Symptoms. Denies: Shortness of Breath, Cough Cardiovascular: Reports: Blood Pressure Problem, Lightheadedness Endocrine: Reports: No Symptoms GI/Abdominal: Reports: No Symptoms : Reports: No Symptoms. Denies: Dysuria, Flank Pain, Frequency Musculoskeletal: Reports: No Symptoms Skin: Reports: No Symptoms Neurological: Reports: Confusion (Transient with near syncopal episode), Dizziness. Denies: Headache, Trouble Speaking, Difficulty Walking Psychiatric: Reports: No Symptoms Hematologic/Lymphatic: Reports: No Symptoms Immunologic: Reports: No Symptoms ED EXAM, GENERAL - Physical Exam Exam: See Below Exam Limited By: No Limitations General Appearance: Alert, WD/WN, No Apparent Distress Respiratory/Chest: No Respiratory Distress, Normal Breath Sounds, No Accessory Muscle Use, Chest Non-Tender, Decreased Breath Sounds (Throughout) Cardiovascular: Normal Peripheral Pulses, Regular Rate, Rhythm, No Edema, No Gallop, No JVD, No Murmur, No Rub GI/Abdominal: Normal Bowel Sounds, Soft, Non-Tender, No Organomegaly, No Distention, No Abnormal Bruit, No Mass Neurological: Alert, Oriented, CN II-XII Intact, Normal Cognition, Normal Gait, Normal Reflexes, No Motor/Sensory Deficits Psychiatric: Normal Affect, Normal Mood Skin Exam: Warm, Dry, Intact, Normal Color, No Rash #1 Interpretation EKG Date: 02/20/21 Time: 12:50 Rhythm: Other (Junctional versus ventricular paced) Rate (Beats/Min): 69 [place]: LAD-Left [place] Deviation P-Wave: Absent QRS: LBBB (Incomplete) ST-T: Normal QT: Normal EKG Interpretation Comments: Junctional versus ventricular paced Incomplete left bundle branch block No change from 01/11/[address] Fern PORTILLO Course - Vital Signs Last Recorded V/S: Last Vital Signs Temp 95.9 F L 02/20/21 12:22 Pulse 68 02/20/21 15:24 Resp 22 H 02/20/21 15:24 BP 103/85 02/20/21 15:24 Pulse Ox 90 L 02/20/21 15:24 Orthostatic Blood Pressure [ 113/84 Standing] Orthostatic Blood Pressure [ 116/79 Sitting] Orthostatic Blood Pressure [ 110/75 Supine] - Orders/Labs/Meds Orders: Active Orders 24 hr Category Date Time Status Peripheral IV Insertion Adult [OM.PC] Stat Oth 02/20/21 12:36 Ordered Labs: Laboratory Tests 02/20/21 02/20/21 02/20/21 Range/Units 13:41 13:41 14:10 WBC 6.51 (4.23-9.07) K/mm3 RBC 4.45 L (4.63-6.08) M/mm3 Hgb 13.3 L (13.7-17.5) gm/dl Hct 41.7 (40.1-51.0) % MCV 93.7 H (79.0-92.2) fl MCH 29.9 (25.7-32.2) pg MCHC 31.9 L (32.2-35.5) g/dl RDW Std Deviation 51.8 H (35.1-43.9) fL Plt Count 164 (163-337) K/mm3 MPV 10.9 (9.4-12.3) fl Neut % (Auto) 61.9 (34.0-67.9) % Lymph % (Auto) 18.7 L (21.8-53.1) % [place] % (Auto) 14.4 H (5.3-12.2) % Eos % (Auto) 4.5 (0.8-7.0) Baso % (Auto) 0.3 (0.1-1.2) % Neut # (Auto) 4.03 (1.78-5.38) K/mm3 Lymph # (Auto) 1.22 L (1.32-3.57) K/mm3 [place] # (Auto) 0.94 H (0.30-0.82) K/mm3 Eos # (Auto) 0.29 (0.04-0.54) K/mm3 Baso # (Auto) 0.02 (0.01-0.08) K/mm3 Sodium 137 (136-145) mEq/L Potassium 3.7 (3.5-5.1) mEq/L Chloride 103 (98-107) mEq/L Carbon Dioxide 27 (21-32) mEq/L Anion Gap 10.7 (5-15) BUN 29 H (7-18) mg/dL Creatinine 1.8 H (0.7-1.3) mg/dL Est Cr Clr Drug Dosing 29.07 mL/min Estimated GFR (MDRD) 36 (>60) mL/min BUN/Creatinine Ratio 16.1 (14-18) Glucose 82 (70-99) mg/dL Calcium 8.5 (8.5-10.1) mg/dL Total Bilirubin 0.8 (0.2-1.0) mg/dL AST 19 (15-37) U/L ALT 17 (16-63) U/L Alkaline Phosphatase 72 (46-116) U/L Troponin I < 0.017 (0.00-0.056) ng/mL Total Protein 7.0 (6.4-8.2) g/dl Albumin 3.3 L (3.4-5.0) g/dl Globulin 3.7 gm/dL Albumin/Globulin Ratio 0.9 L (1-2) Urine Color Yellow (Yellow) Urine Appearance Clear (Clear) Urine pH 6.0 (5.0-8.0) Ur Specific [place] 1.020 (1.005-1.030) Urine Protein Negative (Negative) Urine Glucose (UA) Negative (Negative) Urine Ketones Negative (Negative) Urine Occult Blood Negative (Negative) Urine Nitrite Negative (Negative) Urine Bilirubin Negative (Negative) Urine Urobilinogen 0.2 (0.2-1.0) Ur Leukocyte Esterase Negative (Negative) U Hyaline Cast (Auto) 0-5 (0-5) /lpf Urine RBC Not seen (0-5) /hpf Urine WBC Not seen (0-5) /hpf Ur Epithelial Cells 0-5 (0-5) /hpf Urine Bacteria Rare (FEW) /hpf Urine Mucus Not seen (FEW) /hpf Meds: Medications Discontinued Medications Generic Name Dose Route Start Last Admin Trade Name Freq PRN Reason Stop Dose Admin Sodium Chloride 500 mls @ 999 mls/hr 02/20/21 12:35 02/20/21 12:50 Normal Saline IV 02/20/21 13:05 999 mls/hr NOW STA Administration Sodium Chloride 10 ml 02/20/21 12:35 02/20/21 12:52 Sodium Chloride 0.9% 10 Ml Syringe FLUSH 10 ml ASDIRECTED PRN Administration Keep Vein Open - Re-Assessments/Exams Free Text/Narrative Re-Assessment/Exam: Patient is an 85-year-old male presenting to the emergency department after having a near syncopal episode at home. He does have a history of similar episodes. He is currently receiving chemotherapy for treatment of lung cancer and also receives IV fluid infusions. Last infusion was 1 L of normal saline on Tuesday of this week. Family reports that he does not drink enough water, however patient states that he drinks as much as he can. Initial blood pressure on arrival to ER was 138/13, however after resting, next blood pressure was 84/54. I have ordered IV fluids of NS 500 mils to be bolused. Orthostatic vital signs will be checked after the infusion. Also ordered blood work, EKG, chest x-ray, and head CT. 02/20/21 14:50 Chest x-ray shows a density within the right lung base which remained stable from recent chest x-ray and chest CT. Raises possibility of neoplasm. Patient has a known diagnosis of lung cancer. EKG shows no acute abnormalities. Head CT shows no acute abnormalities. Blood work is grossly unremarkable. Urinalysis is negative for infection. Orthostatic vital signs after 500 mill infusion of fluids were found to be normal. Supine blood pressure was 110/75. Patient would like to be discharged home. Discussed increase fluid intake. Recommend follow-up with primary care provider at her next available visit. Discussed with family that if he should have similar episodes, recommend that they lie him down as this will help with cerebral perfusion in the presence of low blood pressure. Discussed return precautions. Discharge instructions as documented. Departure - Departure Time of Disposition: 14:51 Disposition: Home, Self-Care 01 Condition: Good Clinical Impression: Near syncope - Discharge Information *PRESCRIPTION DRUG MONITORING PROGRAM REVIEWED*: No *COPY OF PRESCRIPTION DRUG MONITORING REPORT IN PATIENT KINA: No Instructions: Near-Syncope, [id number], Hypotension Referrals: Karely Webb MD [Primary Care Provider] - Forms: ED Department Discharge Additional Instructions: You were seen in the emergency department today after having a near syncopal episode at home. Work-up included blood work, EKG, chest x-ray, and CT scan of your head. Results of your work-up were found to be normal. Recommend that you increase your intake of fluids is much as you can tolerate. If you should have recurrence of a similar episode, recommend lying down as long it is possible to do so safely. Call to schedule a follow-up appointment with your primary care provider at her next available visit. If you should experience any new or worsening symptoms, please not hesitate to return to the emergency department for reevaluation. Sepsis Event Note (ED) - Evaluation Sepsis Screening Result: No Definite Risk - Focused Exam Vital Signs: Vital Signs Temp Pulse Resp BP Pulse Ox 02/20/21 15:24 68 22 H 103/85 90 L 02/20/21 12:22 95.9 F L 71 21 H 138/113 H - My Orders Last 24 Hours: My Active Orders 02/20/21 12:36 Peripheral IV Insertion Adult [OM.PC] Stat - Assessment/Plan Last 24 Hours: My Active Orders 02/20/21 12:36 Peripheral IV Insertion Adult [OM.PC] Stat
== END 2021-02-20 15:20 | disposition home or self-care (01) ==
LOC: JD.ED 12:14
DX: R55 Syncope and collapse (principal); E78.00 Pure hypercholesterolemia, unspecified; I10 Essential (primary) hypertension; J44.9 Chronic obstructive pulmonary disease, unspecified; Z79.899 Other long term (current) drug therapy
CPT/HCPCS: 36415; 70450; 71045; 80053; 81001; 84484; 85025; 93005; 99285; J7030

== ENCOUNTER 2021-04-30 09:01 | Emergency (ER) | payer OTHER ==
[2021-04-30] MEDS ORDERED: Sodium Chloride 0.9% 10 ML Syringe FLUSH PRN ×2 (10:08→11:03)
[2021-04-30] MEDS ORDERED: Sodium Chloride 0.9% 1,000 ML IV STA (10:35)
--- NOTE | 2021-04-30 10:39 | EDM.PDOC ---
ED HPI GENERAL MEDICAL PROBLEM - General Chief Complaint: Flank Pain Stated Complaint: KIDNEY PAIN Time Seen by Provider: 04/30/21 10:08 Source of Information: Reports: Patient, RN Notes Reviewed History Limitations: Reports: No Limitations - History of Present Illness INITIAL COMMENTS - FREE TEXT/NARRATIVE: Patient is an 85-year-old male presenting to the emergency department with complaints of right-sided flank pain. He reports its been present for a number of weeks, however worsened in intensity last evening., However worsened in intensity last evening. He took one of his pain medications, oxycodone, and states that it has improved, however it is still mildly present. 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 He has also had kidney stones as well as urinary retention. He reports that he has been voiding well. Denies any nausea, vomiting, fever, or chills. Right Flank Pain Score (Numeric/FACES): 6 - Related Data Allergies Allergy/AdvReac Type Severity Reaction Status Date / Time blood thinners. Allergy Severe Other Uncoded 04/30/21 09:35 Home Meds: Home Meds Furosemide [Lasix] 20 mg PO DAILY 06/01/20 [History] Tamsulosin HCl [Flomax] 0.4 mg PO DAILY 06/01/20 [History] Budesonide/Formoterol Fumarate [Symbicort 160-4.5 Mcg Inhaler] 1 puff INH BEDTIME 06/20/20 [History] Finasteride [Proscar] 5 mg PO DAILY 06/20/20 [History] Metoprolol Tartrate 12.5 mg PO BID 12/29/20 [History] oxyCODONE 2.5 mg PO ASDIRECTED 12/29/20 [History] Past Medical History HEENT History: Reports: Impaired Vision Cardiovascular History: Reports: Afib, Hypertension, Pacemaker Respiratory History: Reports: COPD Gastrointestinal History: Reports: Diverticulosis, PUD Genitourinary History: Reports: BPH, Renal Calculus Musculoskeletal History: Reports: Fracture Neurological History: Reports: CVA, Other (See Below) Other Neuro History: 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; at [facility] Oncologic (Cancer) History: Reports: Basal Cell Carcinoma, Malignant Melanoma Dermatologic History: Reports: Eczema, Melanoma - Infectious Disease History Infectious Disease History: Reports: Chicken Pox, Influenza, Measles, Mumps - Past Surgical History HEENT Surgical History: Reports: Cataract Surgery Cardiovascular Surgical History: Reports: Cardiac Ablation, Pacer GI Surgical History: Reports: Colon, Hernia Repair/Other Other GI Surgeries/Procedures: temporary ostomy Male Surgical History: Reports: Other (See Below) Other Male Surgeries/Procedures: blood clot removed from kidney Neurological Surgical History: Reports: Other (See Below) Other Neurological Surgeries/Procedures: 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 Musculoskeletal Surgical History: Reports: ORIF Oncologic Surgical History: Reports: Other (See Below) Social & Family History - Family History Family Medical History: No Pertinent Family History - Tobacco Use Tobacco Use Status *Q: Never Tobacco User Second Hand Smoke Exposure: No - Caffeine Use Caffeine Use: Reports: Coffee Other Caffeine Use: decaf - Recreational Drug Use Recreational Drug Use: Yes Drug Use in Last 12 Months: No Recreational Drug Type: Reports: Marijuana/Hashish - Living Situation & Occupation Living situation: Reports: , with Family (Son + his girlfriend + her son) Occupation: Retired ED ROS GENERAL - Review of Systems Review Of Systems: See Below Constitutional: Reports: No Symptoms. Denies: Fever, Chills HEENT: Reports: No Symptoms Respiratory: Reports: No Symptoms Cardiovascular: Reports: No Symptoms Endocrine: Reports: No Symptoms GI/Abdominal: Reports: No Symptoms. Denies: Abdominal Pain, Nausea, Vomiting : Reports: Flank Pain. Denies: Frequency, Hematuria, Urinary Retention Musculoskeletal: Reports: No Symptoms Skin: Reports: No Symptoms Neurological: Reports: No Symptoms Psychiatric: Reports: No Symptoms Hematologic/Lymphatic: Reports: No Symptoms Immunologic: Reports: No Symptoms ED EXAM, RENAL/ - Physical Exam Exam: See Below Exam Limited By: No Limitations General Appearance: Alert, WD/WN, No Apparent Distress Respiratory/Chest: No Respiratory Distress, Lungs Clear, Normal Breath Sounds, No Accessory Muscle Use, Chest Non-Tender Cardiovascular: Normal Peripheral Pulses, Regular Rate, Rhythm, No Edema, No Gallop, No JVD, No Murmur, No Rub GI/Abdominal: Normal Bowel Sounds, Soft, Non-Tender, No Organomegaly, No Dist ention, No Abnormal Bruit, No Mass Back Exam: Normal Inspection, Full Range of Motion, CVA Tenderness (R). No: CVA Tenderness (L) Neurological: Alert, Oriented, CN II-XII Intact, Normal Cognition, Normal Gait, Normal Reflexes, No Motor/Sensory Deficits Psychiatric: Normal Affect, Normal Mood Skin Exam: Warm, Dry, Intact, Normal Color, No Rash Course - Vital Signs Last Recorded V/S: Last Vital Signs Temp 97.4 F 04/30/21 09:32 Pulse 71 04/30/21 09:32 Resp 16 04/30/21 09:32 BP 125/82 04/30/21 09:32 Pulse Ox 92 L 04/30/21 09:32 - Orders/Labs/Meds Orders: Active Orders 24 hr Category Date Time Status Peripheral IV Care [RC] . DIRECTED Care 04/30/21 10:10 Active Sodium Chloride 0.9% [Normal Saline] 1,000 ml Med 04/30/21 10:35 Active IV NOW Sodium Chloride 0.9% [Normal Saline] 100 ml Med 04/30/21 11:15 Active IV ASDIRECTED Sodium Chloride 0.9% [Saline Flush] Med 04/30/21 10:08 Active 10 ml FLUSH ASDIRECTED PRN Sodium Chloride 0.9% [Saline Flush] Med 04/30/21 11:03 Active 10 ml FLUSH ONETIME PRN Peripheral IV Insertion Adult [OM.PC] Stat Oth 04/30/21 10:10 Ordered Medication Orders Sodium Chloride (Normal Saline) 1,000 mls @ 150 mls/hr IV NOW STA Stop: 04/30/21 17:14 Last Admin: 04/30/21 10:44 Dose: 150 mls/hr Documented by: SHEBA Sodium Chloride (Normal Saline) 100 mls @ 75 mls/hr IV ASDIRECTED BREANA Last Admin: 04/30/21 11:18 Dose: 75 mls/hr Documented by: MORIAH Sodium Chloride (Sodium Chloride 0.9% 10 Ml Syringe) 10 ml FLUSH ASDIRECTED PRN PRN Reason: Keep Vein Open Last Admin: 04/30/21 10:23 Dose: 10 ml Documented by: SHEBA Sodium Chloride (Sodium Chloride 0.9% 10 Ml Syringe) 10 ml FLUSH ONETIME PRN PRN Reason: IV FLUSH Last Admin: 04/30/21 11:18 Dose: 10 ml Documented by: MORIAH Labs: Laboratory Tests 04/30/21 04/30/21 04/30/21 Range/Units 09:40 09:40 11:00 WBC 7.10 (4.23-9.07) K/mm3 RBC 4.48 L (4.63-6.08) M/mm3 Hgb 13.1 L (13.7-17.5) gm/dl Hct 41.0 (40.1-51.0) % MCV 91.5 (79.0-92.2) fl MCH 29.2 (25.7-32.2) pg MCHC 32.0 L (32.2-35.5) g/dl RDW Std Deviation 49.3 H (35.1-43.9) fL Plt Count 184 (163-337) K/mm3 MPV 10.8 (9.4-12.3) fl Neut % (Auto) 65.6 (34.0-67.9) % Lymph % (Auto) 15.4 L (21.8-53.1) % Wright % (Auto) 14.9 H (5.3-12.2) % Eos % (Auto) 3.5 (0.8-7.0) Baso % (Auto) 0.3 (0.1-1.2) % Neut # (Auto) 4.66 (1.78-5.38) K/mm3 Lymph # (Auto) 1.09 L (1.32-3.57) K/mm3 Wright # (Auto) 1.06 H (0.30-0.82) K/mm3 Eos # (Auto) 0.25 (0.04-0.54) K/mm3 Baso # (Auto) 0.02 (0.01-0.08) K/mm3 Sodium 143 (136-145) mEq/L Potassium 4.4 (3.5-5.1) mEq/L Chloride 108 H (98-107) mEq/L Carbon Dioxide 23 (21-32) mEq/L Anion Gap 16.4 H (5-15) BUN 31 H (7-18) mg/dL Creatinine 1.7 H (0.7-1.3) mg/dL Est Cr Clr Drug Dosing 30.78 mL/min Estimated GFR (MDRD) 39 (>60) mL/min BUN/Creatinine Ratio 18.2 H (14-18) Glucose 93 (70-99) mg/dL Calcium 8.2 L (8.5-10.1) mg/dL Total Bilirubin 0.5 (0.2-1.0) mg/dL AST 20 (15-37) U/L ALT 16 (16-63) U/L Alkaline Phosphatase 74 (46-116) U/L C-Reactive Protein 1.5 H* (<1.0) mg/dL Total Protein 7.0 (6.4-8.2) g/dl Albumin 3.0 L (3.4-5.0) g/dl Globulin 4.0 gm/dL Albumin/Globulin Ratio 0.8 L (1-2) Urine Color Yellow (Yellow) Urine Appearance Clear (Clear) Urine pH 6.5 (5.0-8.0) Ur Specific Rawlings 1.025 (1.005-1.030) Urine Protein Negative (Negative) Urine Glucose (UA) Negative (Negative) Urine Ketones Negative (Negative) Urine Occult Blood Negative (Negative) Urine Nitrite Negative (Negative) Urine Bilirubin Negative (Negative) Urine Urobilinogen 0.2 (0.2-1.0) Ur Leukocyte Esterase Negative (Negative) Urine RBC 0-5 (0-5) /hpf Urine WBC 0-5 (0-5) /hpf Ur Squamous Epith Cells 0-5 (0-5) /hpf Urine Bacteria Few (FEW) /hpf Urine Mucus Not seen (FEW) /hpf Meds: Medications Generic Name Dose Route Start Last Admin Trade Name Freq PRN Reason Stop Dose Admin Sodium Chloride 1,000 mls @ 150 mls/hr 04/30/21 10:35 04/30/21 10:44 Normal Saline IV 04/30/21 17:14 150 mls/hr NOW STA Administration Sodium Chloride 100 mls @ 75 mls/hr 04/30/21 11:15 04/30/21 11:18 Normal Saline IV 75 mls/hr ASDIRECTED BREANA Administration Sodium Chloride 10 ml 04/30/21 10:08 04/30/21 10:23 Sodium Chloride 0.9% 10 Ml Syringe FLUSH 10 ml ASDIRECTED PRN Administration Keep Vein Open Sodium Chloride 10 ml 04/30/21 11:03 04/30/21 11:18 Sodium Chloride 0.9% 10 Ml Syringe FLUSH 10 ml ONETIME PRN Administration IV FLUSH Discontinued Medications Generic Name Dose Route Start Last Admin Trade Name Freq PRN Reason Stop Dose Admin Iopamidol 100 ml 04/30/21 11:03 04/30/21 11:18 Iopamidol 755 Mg/Ml 100 Ml Bottle IVPUSH 04/30/21 11:04 100 ml ONETIME ONE Administration Oxycodone HCl 5 mg 04/30/21 12:14 04/30/21 12:26 Oxycodone 5 Mg Tab PO 04/30/21 12:15 2.5 mg ONETIME ONE Administration - Re-Assessments/Exams Free Text/Narrative Re-Assessment/Exam: Patient is an 85-year-old male presenting to the emergency department with complaints of right-sided flank pain. Symptoms have been present for a couple weeks, however have worsened in intensity over the last few days. He has a history of kidney stone, urinary retention, as well as a right-sided renal infarct. I have ordered blood work, urinalysis, and CT scan of the abdomen pelvis with IV contrast. 04/30/21 12:45 Hematology is negative for any acute abnormalities. Patient does have chronic kidney disease and GFR is consistent with his previous visits.Urinalysis is negative for blood or infection. Impression of CT as follows: 1. Moderate narrowing of the left renal artery. Poor function of the left kidney is seen with lack of contrast excretion on delayed image. Normal contrast excretion is seen from the right kidney. Scattered cysts are seen within both kidneys. 2. Increasing mass in the right lung base presumably representing neoplasm. Small right-sided pleural effusion is seen. 3. 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 4. Other numerous findings as noted above which are felt to be nonacute. CT was reviewed by myself and Dr. Coronado. There was concern concern that he may have a stone in the right ureter, however I did visit with radiologist, Dr. Bernstein and he verbalizes as the right ureter is normal. There is no evidence of kidney stone. On review, there is a significant amount of stool in the area of his right kidney which may be causing the waxing and waning discomfort. Kat bella reports that he is chronically constipated and did stop taking his laxatives for couple days. Recommend that he take magnesium citrate today and then continue with his previous bowel regimen to help with this. Patient is scheduled for chemotherapy after he leaves here. discussed return precautions. Discharge instructions as documented. Departure - Departure Time of Disposition: 12:48 Disposition: Home, Self-Care 01 Condition: Good Clinical Impression: Flank pain Constipation Qualifiers: Constipation type: unspecified constipation type Qualified Code(s): K59.00 - Co nstipation, unspecified - Discharge Information *PRESCRIPTION DRUG MONITORING PROGRAM REVIEWED*: No *COPY OF PRESCRIPTION DRUG MONITORING REPORT IN PATIENT KINA: No Instructions: Chronic Constipation, Flank Pain, Adult Referrals: Karely Webb MD [Primary Care Provider] - Forms: ED Department Discharge Additional Instructions: You were seen in the emergency department today for right-sided flank pain. Work-up included blood work, urinalysis, and a CT scan of your abdomen pelvis. Results of your work-up found to be overall normal you. Your kidney function is consistent with previous visits. As we discussed, there is an increased amount of stool around the area of your right kidney which might be causing this discomfort. Recommend that you drink a bottle of magnesium citrate today to help with constipation and then resume your normal bowel regimen thereafter. If you should experience any new or worsening symptoms, please do not hesitate to return to the emergency department for reevaluation. Sepsis Event Note (ED) - Evaluation Sepsis Screening Result: No Definite Risk - Focused Exam Vital Signs: Vital Signs Temp Pulse Resp BP Pulse Ox 04/30/21 09:32 97.4 F 71 16 125/82 92 L - My Orders Last 24 Hours: My Active Orders 04/30/21 10:08 Sodium Chloride 0.9% [Saline Flush] 10 ml FLUSH ASDIRECTED PRN 04/30/21 10:10 Peripheral IV Care [RC] . DIRECTED Peripheral IV Insertion Adult [OM.PC] Stat 04/30/21 10:35 Sodium Chloride 0.9% [Normal Saline] 1,000 ml IV NOW 04/30/21 11:03 Sodium Chloride 0.9% [Saline Flush] 10 ml FLUSH ONETIME PRN 04/30/21 11:15 Sodium Chloride 0.9% [Normal Saline] 100 ml IV ASDIRECTED - Assessment/Plan Last 24 Hours: My Active Orders 04/30/21 10:08 Sodium Chloride 0.9% [Saline Flush] 10 ml FLUSH ASDIRECTED PRN 04/30/21 10:10 Peripheral IV Care [RC] . DIRECTED Peripheral IV Insertion Adult [OM.PC] Stat 04/30/21 10:35 Sodium Chloride 0.9% [Normal Saline] 1,000 ml IV NOW 04/30/21 11:03 Sodium Chloride 0.9% [Saline Flush] 10 ml FLUSH ONETIME PRN 04/30/21 11:15 Sodium Chloride 0.9% [Normal Saline] 100 ml IV ASDIRECTED
[2021-04-30] MEDS ORDERED: Iopamidol 755 Mg/ML 100 ML Bottle IVPUSH ONE (11:03)
[2021-04-30] MEDS ORDERED: Sodium Chloride 0.9% 100 ML IV SCH (11:15)
--- NOTE | 2021-04-30 11:58 | CT ---
CT abdomen and pelvis Technique: Multiple axial sections were obtained from above the dome of the diaphragm inferiorly to the pubic symphysis. Intravenous contrast was utilized. Study was performed initially as an arterial study. Venous imaging was then obtained through the abdomen and pelvis. Reconstructed coronal and sagittal images were obtained. Delayed images were also obtained through the abdomen and pelvis. Comparison: Prior CT abdomen and pelvis study of 07/06/20. Findings: Scattered atherosclerotic change is seen within the coronary arteries. Abdominal aorta shows diffuse atherosclerotic change. No aneurysm is seen. Right common iliac artery shows mild aneurysmal dilatation at 2.1 cm. Superior mesenteric artery is patent. Celiac axis is patent. Atherosclerotic plaque is seen at the origin of both renal arteries. Right renal artery appears to be patent. Left renal artery shows a moderate degree of stenosis within its mid to distal aspect. Left renal artery is otherwise patent. Scattered cysts are seen within both kidneys. Kidneys show no hydronephrosis or solid mass. Slightly prominent size of the right adrenal gland is noted. Nodule is noted within the left adrenal gland measuring 1.4 cm. These findings are stable from prior CT exam. Mass like object is seen within the right lung base measuring 6.7 cm. On previous exam this measured 4.6 cm in size. Transverse dimension measures 6.2 cm in size which on prior study measured 4.1 cm in size. Small right-sided pleural effusion is seen. Increased interstitial change is noted within both lung bases. Defect is noted off the posterior liver which is stable from prior exam. Minimal low density is noted next to the ligamentum teres fissure which is normal. Gallbladder shows several small filling defects compatible with presumed gallstones. Spleen appears within normal limits. Pancreas shows no discrete abnormality. Scattered areas of retroperitoneal adenopathy are seen. These are felt to be stable from prior CT exam. Calcified area is seen anteriorly within the abdomen which is stable from prior exam. Prostate gland is enlarged. No discrete pelvic mass or adenopathy is seen. Delayed images show contrast within the right ureter and within the bladder. No contrast is seen within the left renal pelvis or ureter compatible with decreased left-sided renal function. Fat-containing right inguinal hernia is noted. Bone window settings were reviewed which show diffuse disc space narrowing throughout the lumbar spine with diffuse apophyseal degenerative change. Lesser degenerative change is seen within other portions of the spine. Scoliosis is noted within the spine. Mild degenerative change also noted within the sacroiliac joints. Impression: 1. Moderate narrowing of the left renal artery. Poor function of the left kidney is seen with lack of contrast excretion on delayed images. Normal contrast excretion is seen from the right kidney. Scattered cysts are noted within both kidneys. 2. Increasing mass within the right lung base presumably representing increasing neoplasm. Small right-sided pleural effusion is seen. 3. 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 4. Other numerous findings as noted above which are felt to be nonacute. Diagnostic code #3
[2021-04-30] MEDS ORDERED: oxyCODONE 5 MG Tab PO ONE (12:14)
== END 2021-04-30 12:55 | disposition home or self-care (01) ==
LOC: JD.ED 09:01
DX: K59.00 Constipation, unspecified (principal); J44.9 Chronic obstructive pulmonary disease, unspecified; I10 Essential (primary) hypertension; Z95.1 Presence of aortocoronary bypass graft; Z88.8 Allergy status to other drugs, medicaments and biological substances; Z86.73 Personal history of transient ischemic attack (TIA), and cerebral infarction without residual deficits
CPT/HCPCS: 36415; 74177; 80053; 81001; 85025; 86140; 99284; A9270; J7030; Q9967; 99283

== ENCOUNTER 2021-05-01 17:42 | Emergency (ER) | payer OTHER ==
--- NOTE | 2021-05-01 19:34 | EDM.PDOC ---
ED HPI GENERAL MEDICAL PROBLEM - General Chief Complaint: Gastrointestinal Problem Stated Complaint: CONSTIPATION Time Seen by Provider: 05/01/21 18:09 Source of Information: Reports: Patient, Family History Limitations: Reports: No Limitations - History of Present Illness INITIAL COMMENTS - FREE TEXT/NARRATIVE: The patient presents with constipation. The patient was here yesterday and a CT scan was done. He was found to be constipated. He was given magnesium citrate 1/2 bottle last night and 1/2 bottle this morning. He did not have any output. He feels he is constipated. He has not had a BM for 4 days. His son is here and he feels it has been longer then that. He has no fever, chills, cough, chest pain, shortness of breath, nausea or vomiting. Onset: Gradual Duration: Day(s): Location: Reports: Abdomen Quality: Reports: Ache Severity: Moderate Improves with: Reports: None Worsens with: Reports: None Associated Symptoms: Reports: No Other Symptoms Abdomen Pain Score (Numeric/FACES): 5 - Related Data Allergies Allergy/AdvReac Type Severity Reaction Status Date / Time blood thinners. AdvReac Severe Other Uncoded 05/01/21 17:59 Home Meds: Home Meds Furosemide [Lasix] 20 mg PO DAILY 06/01/20 [History] Tamsulosin HCl [Flomax] 0.4 mg PO DAILY 06/01/20 [History] Budesonide/Formoterol Fumarate [Symbicort 160-4.5 Mcg Inhaler] 1 puff INH BEDTIME 06/20/20 [History] Finasteride [Proscar] 5 mg PO DAILY 06/20/20 [History] Metoprolol Tartrate 12.5 mg PO BID 12/29/20 [History] oxyCODONE 2.5 mg PO ASDIRECTED 12/29/20 [History] Past Medical History HEENT History: Reports: Impaired Vision Cardiovascular History: Reports: Afib, Hypertension, Pacemaker Respiratory History: Reports: COPD Gastrointestinal History: Reports: Diverticulosis, PUD Genitourinary History: Reports: BPH, Renal Calculus Musculoskeletal History: Reports: Fracture Neurological History: Reports: CVA, Other (See Below) Other Neuro History: 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; at [facility] Oncologic (Cancer) History: Reports: Basal Cell Carcinoma, Malignant Melanoma Dermatologic History: Reports: Eczema, Melanoma - Infectious Disease History Infectious Disease History: Reports: Chicken Pox, Influenza, Measles, Mumps - Past Surgical History HEENT Surgical History: Reports: Cataract Surgery Cardiovascular Surgical History: Reports: Cardiac Ablation, Pacer GI Surgical History: Reports: Colon, Hernia Repair/Other Other GI Surgeries/Procedures: temporary ostomy Male Surgical History: Reports: Other (See Below) Other Male Surgeries/Procedures: blood clot removed from kidney Neurological Surgical History: Reports: Other (See Below) Other Neurological Surgeries/Procedures: 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 Musculoskeletal Surgical History: Reports: ORIF Oncologic Surgical History: Reports: Other (See Below) Social & Family History - Family History Family Medical History: No Pertinent Family History - Tobacco Use Tobacco Use Status *Q: Never Tobacco User - Caffeine Use Caffeine Use: Reports: Coffee Other Caffeine Use: decaf - Recreational Drug Use Recreational Drug Use: No - Living Situation & Occupation Living situation: Reports: , with Family (Son + his girlfriend + her son) Occupation: Retired ED ROS GENERAL - Review of Systems Review Of Systems: See Below Constitutional: Reports: No Symptoms HEENT: Reports: No Symptoms Respiratory: Reports: No Symptoms Cardiovascular: Reports: No Symptoms Endocrine: Reports: No Symptoms GI/Abdominal: Reports: Abdominal Pain, Constipation. Denies: Nausea, Vomiting : Reports: No Symptoms ED EXAM, GI/ABD - Physical Exam Exam: See Below Exam Limited By: No Limitations General Appearance: Alert, No Apparent Distress Ears: Normal External Exam Nose: Normal Inspection Head: Atraumatic, Normocephalic Neck: Normal Inspection Respiratory/Chest: No Respiratory Distress, Lungs Clear, Normal Breath Sounds Cardiovascular: Regular Rate, Rhythm, No Edema, No Murmur GI/Abdominal Exam: Soft, Non-Tender, No Organomegaly, No Mass Back Exam: Normal Inspection Course - Vital Signs Last Recorded V/S: Last Vital Signs Temp 97.6 F 05/01/21 17:53 Pulse 81 05/01/21 17:53 Resp 16 05/01/21 17:53 BP 147/93 H 05/01/21 17:53 Pulse Ox 98 05/01/21 17:53 - Orders/Labs/Meds Orders: Active Orders 24 hr Category Date Time Status Enema [RC] ASDIRECTED Care 05/01/21 18:56 Active Abdomen 1V Upright [CR] Stat Exams 05/01/21 18:29 Stop Req - Re-Assessments/Exams Free Text/Narrative Re-Assessment/Exam: 05/01/21 19:33 I ordered an x-ray of his abdomen. He refused the x-ray. I have ordered a soap suds enema. 05/01/21 20:19 He did go and he feels better. I will discharge him home. Departure - Departure Time of Disposition: 20:25 Disposition: Home, Self-Care 01 Condition: Good Clinical Impression: Constipation Qualifiers: Constipation type: unspecified constipation type Qualified Code(s): K59.00 - Constipation, unspecified - Discharge Information *PRESCRIPTION DRUG MONITORING PROGRAM REVIEWED*: Not Applicable Referrals: Karely Webb MD [Primary Care Provider] - Forms: ED Department Discharge Additional Instructions: Drink plenty of fluids. Take a laxative as needed at home. Please return if you are worse. Sepsis Event Note (ED) - Evaluation Sepsis Screening Result: No Definite Risk - Focused Exam Vital Signs: Vital Signs Temp Pulse Resp BP Pulse Ox 05/01/21 17:53 97.6 F 81 16 147/93 H 98 - My Orders Last 24 Hours: My Active Orders 05/01/21 18:29 Abdomen 1V Upright [CR] Stat 05/01/21 18:56 Enema [RC] ASDIRECTED - Assessment/Plan Last 24 Hours: My Active Orders 05/01/21 18:29 Abdomen 1V Upright [CR] Stat 05/01/21 18:56 Enema [RC] ASDIRECTED
== END 2021-05-01 20:28 | disposition home or self-care (01) ==
LOC: JD.ED 17:42
DX: K59.00 Constipation, unspecified (principal); I10 Essential (primary) hypertension; I48.91 Unspecified atrial fibrillation; J44.9 Chronic obstructive pulmonary disease, unspecified; N40.0 Benign prostatic hyperplasia without lower urinary tract symptoms; Z79.899 Other long term (current) drug therapy; Z88.8 Allergy status to other drugs, medicaments and biological substances
CPT/HCPCS: 99282; 99283-25

== ENCOUNTER 2021-05-03 00:36 | Emergency (ER) | payer OTHER ==
[2021-05-03] MEDS ORDERED: HYDROmorphone 1 MG/ML Syringe IM ONE (01:31)
--- NOTE | 2021-05-03 01:38 | EDM.PDOC ---
ED HPI GENERAL MEDICAL PROBLEM - General Chief Complaint: Back Pain or Injury Stated Complaint: BACK PAIN NEAR KIDNEYS Time Seen by Provider: 05/03/21 01:01 Source of Information: Reports: Patient, Family (Son), Old Records (ED visits 04/30/2021 + 05/01/2021) History Limitations: Reports: No Limitations - History of Present Illness INITIAL COMMENTS - FREE TEXT/NARRATIVE: Mr. Kaur is a very pleasant 85-year-old gentleman with a past medical history significant for malignant melanoma who, medical records indicate, was seen in this ED this past , 04/30/2021 with a complaint at that time of right flank pain that he had been experiencing for a number of weeks, however, which had worsened the prior evening. Hemodynamically stable, afebrile, saturating 92% on room air. He was found to have right CVA tenderness on physical exam. Work-up included a CBC, CMP, CRP, urinalysis, and CT of the abdomen and pelvis with oral and IV contrast. His BUN/Cr were found to be elevated at 31/1.7, and his CRP modestly elevated at 1.5, with the remainder of his blood work and urinalysis being unremarkable. The CT demonstrated moderate narrowing of his left renal artery and poor function of the left kidney with lack of contrast excretion on delayed images. Normal contrast excretion was seen from his right kidney. There was an increasing mass seen within the right lung base, p resumably representing increasing neoplasm. A small right-sided pleural effusion was seen. He was discharged home with the recommendation that he take magnesium citrate. The patient then returned to the ED the following day, 05/01/2021, stating that he was still constipated. He reported that he had drunk half a bottle of magnesium citrate the prior night, and a second half that morning, without any stool output. He was again found to be hemodynamically stable, afebrile, saturating 98% on room air. His physical exam is grossly unremarkable. An x- ray of his abdomen was ordered, but the patient refused it. He was then treated with soapsuds enema with stool output. He was discharged home with the recommendation that he drink plenty of fluids and take a laxative as needed at home. The patient is now brought back to the ED by his son, stating that he has continued to have intermittent right flank pain. He is concerned that he may still be constipated. He states that he took half of an oxycodone around 00:30 this morning, which helped somewhat. Here in the ED this morning, the patient's initial BP is found to be slightly elevated at 146/97, otherwise, the patient is hemodynamically stable, afebrile, saturating 93% on room air. The patient denies having a recent fever, chills, sore throat, ear pain, nasal or sinus congestion, dyspnea, chest pain, palpitations, nausea, vomiting, diarrhea, abdominal pain, urinary symptoms, recent weight gain or weight loss, recent bloody bowel movements or black bowel movements, recent joint aches, headaches, or rashes. The patient's PCP is Dr. Karely Webb at the [facility]. His oncologist is Dr. Dhruv Romero. He does not recall the name of his Agronomy Teacher. Bilateral Back Pain Score (Numeric/FACES): 6 - Related Data Allergies Allergy/AdvReac Type Severity Reaction Status Date / Time blood thinners. AdvReac Severe Other Uncoded 05/03/21 00:59 Home Meds: Home Meds Furosemide [Lasix] 20 mg PO DAILY 06/01/20 [History] Tamsulosin HCl [Flomax] 0.4 mg PO DAILY 06/01/20 [History] Budesonide/Formoterol Fumarate [Symbicort 160-4.5 Mcg Inhaler] 1 puff INH BEDTIME 06/20/20 [History] Finasteride [Proscar] 5 mg PO DAILY 06/20/20 [History] Metoprolol Tartrate 12.5 mg PO BID 12/29/20 [History] oxyCODONE 2.5 mg PO ASDIRECTED 12/29/20 [History] Past Medical History HEENT History: Reports: Impaired Vision Cardiovascular History: Reports: Afib (paroxysmal), Hypertension Respiratory History: Reports: COPD Gastrointestinal History: Reports: Diverticulosis (diverticulitis), PUD Genitourinary History: Reports: BPH, Renal Calculus Musculoskeletal History: Reports: Fracture Neurological History: Reports: CVA (partial laryngeal paralysis), Other (See Below) (Intracranial hemorrhage due to anticoagulation) Oncologic (Cancer) History: Reports: Basal Cell Carcinoma, Malignant Melanoma, Squamous Cell Carcinoma Dermatologic History: Reports: Eczema - Infectious Disease History Infectious Disease History: Reports: Chicken Pox, Influenza, Measles, Mumps - Past Surgical History Head Surgeries/Procedures: Reports: 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) HEENT Surgical History: Reports: Cataract Surgery (bilateral) Cardiovascular Surgical History: Reports: Cardiac Ablation (for A-fib), Pacer (Oct 2019), Other (See Below) (Port-A-Cath) GI Surgical History: Reports: Colon (sigmoidectomy with temporary ostomy for diverticulitis) Musculoskeletal Surgical History: Reports: ORIF Oncologic Surgical History: Reports: Other (See Below) (Lung biopsy) Social & Family History - Tobacco Use Tobacco Use Status *Q: Never Tobacco User - Caffeine Use Caffeine Use: Reports: Coffee Other Caffeine Use: decaf - Alcohol Use Alcohol Use History: Yes Date/Time of Last Drink Comment: None since December 2020 - Recreational Drug Use Recreational Drug Use: Yes Drug Use in Last 12 Months: Yes Recreational Drug Type: Reports: Marijuana/Hashish (last smoked December 2020) - Living Situation & Occupation Living situation: Reports: , with Family (Son + his girlfriend) Occupation: Retired ED ROS GENERAL - Review of Systems Review Of Systems: Comprehensive ROS is negative, except as noted in HPI. ED EXAM, GENERAL - Physical Exam Exam: See Below Exam Limited By: No Limitations General Appearance: Alert, WD/WN, Mild Distress (occasionally winces in pain) Eye Exam: Bilateral Eye: EOMI, Normal Inspection Ears: Normal External Exam, Hearing Loss (wearing hearing aids) Nose: Normal Inspection Throat/Mouth: Normal Inspection, Normal Lips, No Airway Compromise, Other (Hoarse voice consistent with partial vocal cord paralysis) Head: Atraumatic, Normocephalic Neck: Normal Inspection Respiratory/Chest: No Respiratory Distress, Lungs Clear, Normal Breath Sounds, No Accessory Muscle Use. No: Decreased Breath Sounds, Crackles, Rhonchi, Wheezing, Stridor, Prolonged Expiration Cardiovascular: Normal Peripheral Pulses, Regular Rate, Rhythm, No Gallop, No JVD, No Murmur, No Rub Peripheral Pulses: 3+: Radial (L), Radial (R) GI/Abdominal: Normal Bowel Sounds, Soft, Non-Tender, No Organomegaly, No Distention, No Abnormal Bruit, No Mass Back Exam: Normal Inspection, Full Range of Motion. No: CVA Tenderness (L), CVA Tenderness (R) Extremities: Normal Inspection, Normal Range of Motion, Normal Capillary Refill Neurological: Alert, Oriented, Normal Cognition, No Motor/Sensory Deficits Psychiatric: Normal Affect Skin Exam: Warm, Dry, Intact, Normal Color, No Rash Course - Vital Signs Last Recorded V/S: Last Vital Signs Temp 36.3 C 05/03/21 00:53 Pulse 63 05/03/21 02:30 Resp 16 05/03/21 02:30 BP 146/97 H 05/03/21 00:53 Pulse Ox 92 L 05/03/21 02:30 - Orders/Labs/Meds Meds: Medications Discontinued Medications Generic Name Dose Route Start Last Admin Trade Name Freq PRN Reason Stop Dose Admin Hydromorphone HCl 1 mg 05/03/21 01:31 05/03/21 01:38 Hydromorphone 1 Mg/Ml Syringe IM 05/03/21 01:32 1 mg ONETIME ONE Administration - Re-Assessments/Exams Free Text/Narrative Re-Assessment/Exam: 05/03/21 01:33 I have ordered an abdominal flatplate radiograph to evaluate for constipation. If he has considerable constipation, we can give him an enema, however, although patient may have constipation, I do not believe constipation is responsible for his back pain - that not make any anatomic sense. I suspect that his back pain is due to inflammation/irritation of a nerve emanating from his spine, due to metastases to or adjacent to his spine. Only an outpatient evaluation such as an MRI or PET scan, would be able to confirm this, however, this is buttressed by the fact that no cause for the patient's pain was seen by CT of the abdomen and pelvis with oral and IV contrast on 04/30/2021, and that while his pain is localized to his upper right flank, he is not tender to palpation in that area. I have ordered 1 mg of IM Dilaudid to address the patient's pain here in the ED. 05/03/21 02:03 Single-view flatplate radiograph of the abdomen appears to demonstrate some stool in the cecum, but no significant stool seen elsewhere. There is gaseous distention throughout the abdomen. Pelvic phleboliths noted. 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 Formal read per the radiologist pending. 05/03/21 02:07 X-ray results discussed with the patient and his son. As above, there is no significant constipation, therefore an enema is not indicated. I will discharge him home with recommendation that he follow-up with his PCP, Dr. Karely Webb, who can then order an outpatient MRI of his spine to look for a source of his back pain. Departure - Departure Time of Disposition: 02:08 Disposition: Home, Self-Care 01 Condition: Good Clinical Impression: Back pain - Discharge Information *PRESCRIPTION DRUG MONITORING PROGRAM REVIEWED*: Not Applicable *COPY OF PRESCRIPTION DRUG MONITORING REPORT IN PATIENT KINA: Not Applicable Instructions: Chronic Back Pain, [id number] Referrals: Karely Webb MD [Primary Care Provider] - Dhruv Romero MD [Ordering Only Provider] - Forms: ED Department Discharge Additional Instructions: You were seen in the emergency room for recurrent upper right flank pain. Work-up in the ER included an x-ray of your abdomen, which showed a lot of gas, but no significant amount of stool. You are not constipated. Based on your history, physical exam, tonight's ER x-ray, and results of the CT of your abdomen and pelvis from 04/30/2021, the cause of your back pain is most likely due to an inflamed/irritated nerve coming from your back, most likely related to your underlying cancer. We recommend that you continue to take your pain medication as prescribed. We recommend that you follow-up with your PCP, Dr. Karely Webb, to pursue further evaluation of the cause of your back pain, such as an outpatient MRI or PET scan. If any other problems, please do not hesitate to return to the ER. Sepsis Event Note (ED) - Evaluation Sepsis Screening Result: No Definite Risk - Focused Exam Vital Signs: Vital Signs Temp Pulse Resp BP Pulse Ox 05/03/21 02:30 63 16 92 L 05/03/21 00:53 36.3 C 76 20 146/97 H 93 L
--- NOTE | 2021-05-03 07:01 | CR ---
Abdomen: Supine view of the abdomen was obtained. Comparison: No prior abdominal x-ray is available, prior CT abdomen and pelvis exam of 04/30/21. Scattered gas within small bowel and colon is seen which appears normal. Minimal stool is noted which is within normal limits. Scoliosis and degenerative change is noted within the spine. Calcifications are noted compatible with phleboliths. Mild arterial calcification is also seen. Impression: 1. Incidental findings as noted above. Diagnostic code #2
== END 2021-05-03 02:38 | disposition home or self-care (01) ==
LOC: JD.ED 00:36
DX: M54.9 Dorsalgia, unspecified (principal); I10 Essential (primary) hypertension; J44.9 Chronic obstructive pulmonary disease, unspecified; N40.0 Benign prostatic hyperplasia without lower urinary tract symptoms; Z88.8 Allergy status to other drugs, medicaments and biological substances; Z79.899 Other long term (current) drug therapy
CPT/HCPCS: 74018; 96372; 99284; J1170

== ENCOUNTER 2021-05-15 18:21 | Emergency (ER) | payer OTHER ==
[2021-05-15] MEDS ORDERED: Sodium Chloride 0.9% 10 ML Syringe FLUSH PRN (18:59)
[2021-05-15] MEDS ORDERED: HYDROmorphone 0.5 MG/0.5 ML Syringe IVPUSH ONE (19:06)
--- NOTE | 2021-05-15 19:12 | EDM.PDOC ---
ED HPI GENERAL MEDICAL PROBLEM - General Chief Complaint: Flank Pain Stated Complaint: KIDNEY PAIN Time Seen by Provider: 05/15/21 18:37 Source of Information: Reports: Patient, Family History Limitations: Reports: No Limitations - History of Present Illness INITIAL COMMENTS - FREE TEXT/NARRATIVE: 85-year-old male presents the emergency department with complaints of bilateral flank pain. 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 Patient has been seen here frequently in the emergency department due to issues with constipation and flank pain. Per the patient's daughter, he had an exam by his collar trimmer today and no changes were noted to his medications or treatment protocol. He has been receiving chemotherapy to a Port-A-Cath in his chest with his last round of chemo completed on April 30, 2021. He also recently saw his radar engineer who states that his kidney function to the right kidney is significantly decreased and will likely cease to function. Kidney function on the left kidney is at 84% per the patient's family members report. Patient now presents today with bilateral flank pain that has worsened over the past 5 days. Family members report that he has had decreased p.o. intake however has been voiding normally. He has had issues with his bowels as stated above. Patient's family states that yesterday he had a normal bowel movement however today had a very small bowel movement. He has also had an increase in his needs for narcotic pain medications. He denies any recent fever, chills, nausea or vomiting. He denies any cough or shortness of breath. Bilateral Flank Pain Score (Numeric/FACES): 8 - Related Data Allergies Allergy/AdvReac Type Severity Reaction Status Date / Time blood thinners. AdvReac Severe Other Uncoded 05/15/21 18:42 Home Meds: Home Meds Furosemide [Lasix] 20 mg PO DAILY 06/01/20 [History] Tamsulosin HCl [Flomax] 0.4 mg PO DAILY 06/01/20 [History] Budesonide/Formoterol Fumarate [Symbicort 160-4.5 Mcg Inhaler] 1 puff INH BEDTIME 06/20/20 [History] Finasteride [Proscar] 5 mg PO DAILY 06/20/20 [History] Metoprolol Tartrate 12.5 mg PO BID 12/29/20 [History] oxyCODONE 2.5 mg PO ASDIRECTED 12/29/20 [History] Past Medical History HEENT History: Reports: Impaired Vision Cardiovascular History: Reports: Afib, Hypertension Respiratory History: Reports: COPD Gastrointestinal History: Reports: Diverticulosis, PUD Genitourinary History: Reports: BPH, Renal Calculus Musculoskeletal History: Reports: Fracture Neurological History: Reports: CVA, Other (See Below) Other Neuro History: 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; at [facility] Endocrine/Metabolic History: Reports: Obesity/BMI 30+ Oncologic (Cancer) History: Reports: Basal Cell Carcinoma, Malignant Melanoma, Squamous Cell Carcinoma Dermatologic History: Reports: Eczema - Infectious Disease History Infectious Disease History: Reports: Chicken Pox, Influenza, Measles, Mumps - Past Surgical History Head Surgeries/Procedures: Reports: Craniotomy HEENT Surgical History: Reports: Cataract Surgery Cardiovascular Surgical History: Reports: Cardiac Ablation, Pacer, Other (See Below) GI Surgical History: Reports: Colon Other GI Surgeries/Procedures: temporary ostomy Male Surgical History: Reports: Other (See Below) Other Male Surgeries/Procedures: blood clot removed from kidney Neurological Surgical History: Reports: Other (See Below) Other Neurological Surgeries/Procedures: 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 Musculoskeletal Surgical History: Reports: ORIF Oncologic Surgical History: Reports: Other (See Below) Social & Family History - Family History Family Medical History: No Pertinent Family History - Tobacco Use Tobacco Use Status *Q: Never Tobacco User Second Hand Smoke Exposure: No - Caffeine Use Caffeine Use: Reports: None Other Caffeine Use: decaf - Recreational Drug Use Recreational Drug Use: No - Living Situation & Occupation Living situation: Reports: , with Family (Son + his girlfriend) Occupation: Retired ED ROS GENERAL - Review of Systems Review Of Systems: Comprehensive ROS is negative, except as noted in HPI. ED EXAM, RENAL/ - Physical Exam Exam: See Below Exam Limited By: No Limitations General Appearance: Alert, WD/WN, Mild Distress Ears: Normal External Exam, Hearing Grossly Normal Nose: Normal Inspection Throat/Mouth: Normal Inspection, Normal Lips, Normal Voice, No Airway Compromise Head: Atraumatic Neck: Normal Inspection, Supple Respiratory/Chest: No Respiratory Distress, Lungs Clear, Normal Breath Sounds, No Accessory Muscle Use, Chest Non-Tender Cardiovascular: Normal Peripheral Pulses, Regular Rate, Rhythm, No Edema, No Murmur GI/Abdominal: Normal Bowel Sounds, Soft, Non-Tender, No Distention (Male) Exam: Deferred Rectal (Males) Exam: Deferred Back Exam: Normal Inspection, Full Range of Motion Extremities: Normal Inspection, Normal Range of Motion, Non-Tender, No Pedal Edema, Normal Capillary Refill Neurological: Alert, Oriented, Normal Cognition Psychiatric: Normal Affect, Normal Mood Skin Exam: Warm, Dry, Intact, Normal Color, No Rash Lymphatic: No Adenopathy Course - Vital Signs Text/Narrative:: As stated above patient presents with significant past medical history of malignant melanoma with frequent visits to the emergency department with complaints of constipation and flank pain. Currently receiving chemotherapy with his last treatment on April 30, 2021. He does have metastasis noted to his left kidney. Upon exam, the patient is awake and alert however he is complaining of severe bilateral flank pain. He states he does not feel as though he is constipated. His bowel sounds are positive in all 4 quadrants. There is no abdominal tenderness appreciated. He is hemodynamically stable. Discussed with the patient and the family that we will do lab studies. I am not wanting to CT the patient as IV contrast would be contraindicated in this situation. We will obtain a flatplate of the abdomen at this point and reevaluate from there. We will also give him half milligram of IV Dilaudid for pain. Last Recorded V/S: Last Vital Signs Temp 98.4 F 05/15/21 18:34 Pulse 73 05/15/21 18:34 Resp 18 05/15/21 18:34 BP 147/94 H 05/15/21 18:34 Pulse Ox 95 05/15/21 18:34 - Orders/Labs/Meds Orders: Active Orders 24 hr Category Date Time Status Abdomen 1V Flat [CR] Stat Exams 05/15/21 18:59 Taken Sodium Chloride 0.9% [Saline Flush] Med 05/15/21 18:59 Active 10 ml FLUSH ASDIRECTED PRN Saline Lock Insert [OM.PC] Stat Oth 05/15/21 18:59 Ordered Medication Orders Sodium Chloride (Sodium Chloride 0.9% 10 Ml Syringe) 10 ml FLUSH ASDIRECTED PRN PRN Reason: Keep Vein Open Last Admin: 05/15/21 19:53 Dose: 10 ml Documented by: KEO Labs: Laboratory Tests 05/15/21 05/15/21 05/15/21 Range/Units 19:20 19:20 19:50 WBC 9.60 H (4.23-9.07) K/mm3 RBC 4.67 (4.63-6.08) M/mm3 Hgb 13.9 (13.7-17.5) gm/dl Hct 42.6 (40.1-51.0) % MCV 91.2 (79.0-92.2) fl MCH 29.8 (25.7-32.2) pg MCHC 32.6 (32.2-35.5) g/dl RDW Std Deviation 49.2 H (35.1-43.9) fL Plt Count 116 L (163-337) K/mm3 MPV 10.1 (9.4-12.3) fl Neut % (Auto) 70.5 H (34.0-67.9) % Lymph % (Auto) 14.5 L (21.8-53.1) % [place] % (Auto) 12.8 H (5.3-12.2) % Eos % (Auto) 1.5 (0.8-7.0) Baso % (Auto) 0.3 (0.1-1.2) % Neut # (Auto) 6.77 H (1.78-5.38) K/mm3 Lymph # (Auto) 1.39 (1.32-3.57) K/mm3 [place] # (Auto) 1.23 H (0.30-0.82) K/mm3 Eos # (Auto) 0.14 (0.04-0.54) K/mm3 Baso # (Auto) 0.03 (0.01-0.08) K/mm3 Manual Slide Review Abnormal smear Sodium 134 L (136-145) mEq/L Potassium 4.2 (3.5-5.1) mEq/L Chloride 104 (98-107) mEq/L Carbon Dioxide 24 (21-32) mEq/L Anion Gap 10.2 (5-15) BUN 27 H (7-18) mg/dL Creatinine 1.4 H (0.7-1.3) mg/dL Est Cr Clr Drug Dosing TNP Estimated GFR (MDRD) 48 (>60) mL/min BUN/Creatinine Ratio 19.3 H (14-18) Glucose 91 (70-99) mg/dL Calcium 8.3 L (8.5-10.1) mg/dL Magnesium 2.0 (1.8-2.4) mg/dL Total Bilirubin 0.5 (0.2-1.0) mg/dL AST 19 (15-37) U/L ALT 14 L (16-63) U/L Alkaline Phosphatase 82 (46-116) U/L C-Reactive Protein 3.2 H* (<1.0) mg/dL Total Protein 6.8 (6.4-8.2) g/dl Albumin 2.9 L (3.4-5.0) g/dl Globulin 3.9 gm/dL Albumin/Globulin Ratio 0.7 L (1-2) Urine Color Yellow (Yellow) Urine Appearance Clear (Clear) Urine pH 6.0 (5.0-8.0) Ur Specific [place] 1.020 (1.005-1.030) Urine Protein 1+ H (Negative) Urine Glucose (UA) Negative (Negative) Urine Ketones Negative (Negative) Urine Occult Blood Negative (Negative) Urine Nitrite Negative (Negative) Urine Bilirubin Negative (Negative) Urine Urobilinogen 0.2 (0.2-1.0) Ur Leukocyte Esterase Negative (Negative) U Hyaline Cast (Auto) 0-5 (0-5) /lpf Urine RBC Not seen (0-5) /hpf Urine WBC 0-5 (0-5) /hpf Ur Epithelial Cells 0-5 (0-5) /hpf Urine Bacteria Few (FEW) /hpf Urine Mucus Not seen (FEW) /hpf Meds: Medications Generic Name Dose Route Start Last Admin Trade Name Anju PRN Reason Stop Dose Admin Sodium Chloride 10 ml 05/15/21 18:59 05/15/21 19:53 Sodium Chloride 0.9% 10 Ml Syringe FLUSH 10 ml ASDIRECTED PRN Administration Keep Vein Open Discontinued Medications Generic Name Dose Route Start Last Admin Trade Name Freq PRN Reason Stop Dose Admin Hydromorphone HCl 0.5 mg 05/15/21 19:06 05/15/21 19:19 Hydromorphone 0.5 Mg/0.5 Ml Syringe IVPUSH 05/15/21 19:07 Not Given ONETIME ONE Hydromorphone HCl 1 mg 05/15/21 19:17 05/15/21 19:22 Hydromorphone 1 Mg/Ml Syringe IM 05/15/21 19:18 1 mg ONETIME ONE Administration - Re-Assessments/Exams Free Text/Narrative Re-Assessment/Exam: 05/15/21 19:17 Nursing staff notifies me that the patient is requesting that we access his port to give him his Dilaudid. At this time I do not foresee that we will be needing to give him any other medications. We will change the order to Dilaudid 1 mg IM. 05/15/21 20:17 Flatplate of the abdomen was reviewed by myself and Dr. Coronado. No acute pro cess is appreciated. Increased air is noted is the large bowel, however there is no sign of bowel obstruction. 05/15/21 20:21 Hematology reveals a WBC of 9.60, hemoglobin 13.9, hematocrit 42.6, platelet count 116 Chemistry reveals a sodium of 134, potassium 4.2, chloride 104, anion gap 10.2, BUN 27, creatinine 1.4, GFR 48, glucose 91, magnesium 2.0, C-reactive protein 3.2 Urinalysis shows 1+ protein and is otherwise unremarkable. At this time I do not have a reason for the patient's back pain, however it was recommended from his ER visit from 05/03/2021 that he follow-up with his primary care provider and have an outpatient evaluation such as an MRI or PET scan to further evaluate the pain which could likely be due to metastases. Patient's family member states that they were given instruction by his radar engineer that he not have contrast on a CT study. 05/15/21 20:36 I discussed the case with the patient's caregiver and she states that the patient has a PET scan scheduled for May 18. She states that they have only been giving him one fourth of a 5 mg oxycodone tab up to 3 times daily for his pain. Recommend that they give him the medication as prescribed 1 tab every 6 hours as needed for pain to keep him comfortable throughout the weekend and follow-up Tuesday with his provider in the PET scan for evaluation of the increased pain questioning whether or not the patient may have metastases to the spine. Patient's caregiver is agreeable to this plan. He will be discharged home. Departure - Departure Time of Disposition: 20:37 Disposition: Home, Self-Care 01 Condition: Good Clinical Impression: Back pain Qualifiers: Back pain location: thoracic back pain Chronicity: unspecified Back pain laterality: bilateral Qualified Code(s): M54.6 - Pain in thoracic spine - Discharge Information Instructions: Pain Medicine Instructions, [id number] Referrals: Karely Webb MD [Primary Care Provider] - Forms: ED Department Discharge Additional Instructions: You were seen in the emergency department today with complaints of increasing back pain/kidney pain. Labs were completed which were essentially unremarkable. Urinalysis was also unremarkable. There is no blood noted in the urine to indicate possible kidney stone. As discussed, it was recommended on previous ER visit to have a PET scan or MRI. There is a PET scan scheduled for this upcoming Tuesday. This will likely reveal the cause of your increased back pain. For the time being, recommended that you take your pain medication as prescribed to keep your pain under control. You were given pain medication in the emergency department at 7:22 PM. Drink as many fluids as possible and eat small frequent meals if possible. Also recommend maybe trying a protein supplement for nutrition. Should your condition worsen or change, do not hesitate returning to the emergency department. Sepsis Event Note (ED) - Evaluation Sepsis Screening Result: No Definite Risk - Focused Exam Vital Signs: Vital Signs Temp Pulse Resp BP Pulse Ox 05/15/21 18:34 98.4 F 73 18 147/94 H 95 - My Orders Last 24 Hours: My Active Orders 05/15/21 18:59 Abdomen 1V Flat [CR] Stat Sodium Chloride 0.9% [Saline Flush] 10 ml FLUSH ASDIRECTED PRN Saline Lock Insert [OM.PC] Stat - Assessment/Plan Last 24 Hours: My Active Orders 05/15/21 18:59 Abdomen 1V Flat [CR] Stat Sodium Chloride 0.9% [Saline Flush] 10 ml FLUSH ASDIRECTED PRN Saline Lock Insert [OM.PC] Stat
[2021-05-15] MEDS ORDERED: HYDROmorphone 1 MG/ML Syringe IM ONE (19:17)
--- NOTE | 2021-05-19 10:23 | CR ---
Abdomen: Supine view of the abdomen was obtained utilizing portable technique. Comparison: Prior abdominal x-ray of 05/03/21. Scattered gas is noted throughout the colon. This appears nonspecific and does not appear to be obstructive but could represent a mild colonic ileus. No abnormal amounts of stool are seen. Calcifications are noted within the arteries as well as phleboliths. Degenerative change and scoliosis is noted within the spine. Impression: 1. Scattered gas within the colon. This does not appear to be obstructive but mild ileus is a possibility. 2. Other chronic findings as described above. 3. No abnormal amounts of stool are seen. Diagnostic code #2
== END 2021-05-15 21:26 | disposition home or self-care (01) ==
LOC: JD.ED 18:21
DX: M54.6 Pain in thoracic spine (principal); I48.91 Unspecified atrial fibrillation; I10 Essential (primary) hypertension; J44.9 Chronic obstructive pulmonary disease, unspecified; E66.9 Obesity, unspecified; Z68.30 Body mass index [BMI] 30.0-30.9, adult; Z86.73 Personal history of transient ischemic attack (TIA), and cerebral infarction without residual deficits; Z88.8 Allergy status to other drugs, medicaments and biological substances
CPT/HCPCS: 36415; 74018; 80053; 81001; 83735; 85025; 86140; 96372; 99284; J1170

== ENCOUNTER 2021-07-04 00:50 | Emergency (ER) | payer MEDICARE, MEDICAID ==
[2021-07-04] MEDS ORDERED: Sodium Chloride 0.9% 10 ML Syringe FLUSH PRN (01:17)
[2021-07-04] MEDS ORDERED: Albuterol/Ipratropium 3.0-0.5 MG/3 ML Neb Soln NEB ONE (01:18)
--- NOTE | 2021-07-04 01:46 | EDM.PDOC ---
ED HPI GENERAL MEDICAL PROBLEM - General Chief Complaint: Respiratory Problem Stated Complaint: LOW O2 Time Seen by Provider: 07/04/21 01:15 Source of Information: Reports: Patient, Family (son), RN Notes Reviewed - History of Present Illness INITIAL COMMENTS - FREE TEXT/NARRATIVE: 85 yr old male brought in by son, coughing, short of breath, sats only in the low 80's at home. He does have hx of COPD, hx of "lung cancer" Awaiting [place] approval for home oxygen. No known fever, chronic cough. Lower Back Pain Score (Numeric/FACES): 5 - Related Data Allergies Allergy/AdvReac Type Severity Reaction Status Date / Time blood thinners. AdvReac Severe Other Uncoded 07/04/21 01:42 Home Meds: Home Meds Furosemide [Lasix] 20 mg PO DAILY 06/01/20 [History] Tamsulosin HCl [Flomax] 0.4 mg PO DAILY 06/01/20 [History] Budesonide/Formoterol Fumarate [Symbicort 160-4.5 Mcg Inhaler] 1 puff INH BEDTIME 06/20/20 [History] Finasteride [Proscar] 5 mg PO DAILY 06/20/20 [History] Metoprolol Tartrate 12.5 mg PO BID 12/29/20 [History] oxyCODONE 2.5 mg PO ASDIRECTED 12/29/20 [History] predniSONE [Prednisone] 20 mg PO DAILY #5 tablet 07/04/21 [Rx] Past Medical History HEENT History: Reports: Impaired Vision Cardiovascular History: Reports: Afib, Hypertension Respiratory History: Reports: COPD Gastrointestinal History: Reports: Diverticulosis, PUD Genitourinary History: Reports: BPH, Renal Calculus Musculoskeletal History: Reports: Fracture Neurological History: Reports: CVA, Other (See Below) Other Neuro History: 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; at [facility] Endocrine/Metabolic History: Reports: Obesity/BMI 30+ Oncologic (Cancer) History: Reports: Basal Cell Carcinoma, Malignant Melanoma, Squamous Cell Carcinoma Dermatologic History: Reports: Eczema - Infectious Disease History Infectious Disease History: Reports: Chicken Pox, Influenza, Measles, Mumps - Past Surgical History Head Surgeries/Procedures: Reports: Craniotomy HEENT Surgical History: Reports: Cataract Surgery Cardiovascular Surgical History: Reports: Cardiac Ablation, Pacer, Other (See Below) Respiratory Surgical History: Reports: Lung Biopsies GI Surgical History: Reports: Colon Other GI Surgeries/Procedures: temporary ostomy Male Surgical History: Reports: Other (See Below) Other Male Surgeries/Procedures: blood clot removed from kidney Neurological Surgical History: Reports: Other (See Below) Other Neurological Surgeries/Procedures: 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 Musculoskeletal Surgical History: Reports: ORIF Oncologic Surgical History: Reports: Other (See Below) Social & Family History - Family History Family Medical History: No Pertinent Family History - Tobacco Use Tobacco Use Status *Q: Former Tobacco User Used Tobacco, but Quit: Yes Month/Year Tobacco Last Used: 40 years - Caffeine Use Caffeine Use: Reports: Coffee Other Caffeine Use: decaf - Recreational Drug Use Recreational Drug Use: No - Living Situation & Occupation Living situation: Reports: , with Family (Son + his girlfriend) Occupation: Retired ED ROS GENERAL - Review of Systems Review Of Systems: See Below Constitutional: Denies: Fever, Chills HEENT: Reports: No Symptoms Respiratory: Reports: Shortness of Breath, Wheezing, Cough Cardiovascular: Denies: Chest Pain GI/Abdominal: Denies: Abdominal Pain, Nausea, Vomiting Musculoskeletal: Reports: No Symptoms Skin: Denies: Rash Neurological: Reports: Confusion, Dizziness ED EXAM, GENERAL - Physical Exam Exam: See Below General Appearance: Alert, No Apparent Distress (at time of my exam, on oxygen 5 L NC) Eye Exam: Bilateral Eye: PERRL Head: Atraumatic Neck: Supple, Other (no JVD) Respiratory/Chest: Lungs Clear, Normal Breath Sounds, Respiratory Distress (mild tachypnea), Wheezing (mild). No: Rhonchi Cardiovascular: Regular Rate, Rhythm Extremities: Pedal Edema (mild to moderate bilat) Neurological: Alert, No Motor/Sensory Deficits Skin Exam: Warm, Dry, Normal Color Course - Vital Signs Last Recorded V/S: Last Vital Signs Temp 96.9 F 07/04/21 01:11 Pulse 73 07/04/21 01:11 Resp 20 07/04/21 01:11 BP 154/92 H 07/04/21 01:11 Pulse Ox 95 07/04/21 01:34 - Orders/Labs/Meds Orders: Active Orders 24 hr Category Date Time Status Peripheral IV Care [RC] . DIRECTED Care 07/04/21 01:17 Active RT Aerosol Therapy [RC] ASDIRECTED Care 07/04/21 01:18 Active Chest 1V Frontal [CR] Stat Exams 07/04/21 01:16 Taken Sodium Chloride 0.9% [Saline Flush] Med 07/04/21 01:17 Active 10 ml FLUSH ASDIRECTED PRN Peripheral IV Insertion Adult [OM.PC] Stat Oth 07/04/21 01:17 Ordered Medication Orders Sodium Chloride (Sodium Chloride 0.9% 10 Ml Syringe) 10 ml FLUSH ASDIRECTED PRN PRN Reason: Keep Vein Open Labs: Laboratory Tests 07/04/21 07/04/21 07/04/21 Range/Units 01:40 02:05 02:05 WBC 5.79 (4.23-9.07) K/mm3 RBC 4.32 L (4.63-6.08) M/mm3 Hgb 12.6 L (13.7-17.5) gm/dl Hct 40.6 (40.1-51.0) % MCV 94.0 H (79.0-92.2) fl MCH 29.2 (25.7-32.2) pg MCHC 31.0 L (32.2-35.5) g/dl RDW Std Deviation 53.2 H (35.1-43.9) fL Plt Count 191 D (163-337) K/mm3 MPV 10.7 (9.4-12.3) fl Neut % (Auto) 54.5 (34.0-67.9) % Lymph % (Auto) 24.5 (21.8-53.1) % [place] % (Auto) 17.8 H (5.3-12.2) % Eos % (Auto) 2.9 (0.8-7.0) Baso % (Auto) 0.3 (0.1-1.2) % Neut # (Auto) 3.15 (1.78-5.38) K/mm3 Lymph # (Auto) 1.42 (1.32-3.57) K/mm3 [place] # (Auto) 1.03 H (0.30-0.82) K/mm3 Eos # (Auto) 0.17 (0.04-0.54) K/mm3 Baso # (Auto) 0.02 (0.01-0.08) K/mm3 Puncture Site Lt brachial ABG pH 7.34 L (7.35-7.45) ABG pCO2 43.4 (35.0-45.0) mmHg ABG pO2 83.0 (80.0-100.0) mmHg ABG HCO3 22.8 (22.0-26.0) meq/L ABG O2 Saturation 95.3 L (96.0-97.0) % ABG Base Excess -2.4 L (-2-2.0) A-a Gradient 63 mmHg O2 Delivery Device Nasal cannula Oxygen Flow Rate 2.0 FiO2 28.00 (21.00-100.00) % Sodium (136-145) mEq/L Potassium (3.5-5.1) mEq/L Chloride (98-107) mEq/L Carbon Dioxide (21-32) mEq/L Anion Gap (5-15) BUN (7-18) mg/dL Creatinine (0.7-1.3) mg/dL Est Cr Clr Drug Dosing mL/min Estimated GFR (MDRD) (>60) mL/min BUN/Creatinine Ratio (14-18) Glucose (70-99) mg/dL Calcium (8.5-10.1) mg/dL Total Bilirubin (0.2-1.0) mg/dL AST (15-37) U/L ALT (16-63) U/L Alkaline Phosphatase (46-116) U/L C-Reactive Protein 1.9 H* (<1.0) mg/dL NT-Pro-B Natriuret Pep (0-450) pg/mL Total Protein (6.4-8.2) g/dl Albumin (3.4-5.0) g/dl Globulin gm/dL Albumin/Globulin Ratio (1-2) 07/04/21 07/04/21 Range/Units 02:05 02:05 WBC (4.23-9.07) K/mm3 RBC (4.63-6.08) M/mm3 Hgb (13.7-17.5) gm/dl Hct (40.1-51.0) % MCV (79.0-92.2) fl MCH (25.7-32.2) pg MCHC (32.2-35.5) g/dl RDW Std Deviation (35.1-43.9) fL Plt Count (163-337) K/mm3 MPV (9.4-12.3) fl Neut % (Auto) (34.0-67.9) % Lymph % (Auto) (21.8-53.1) % [place] % (Auto) (5.3-12.2) % Eos % (Auto) (0.8-7.0) Baso % (Auto) (0.1-1.2) % Neut # (Auto) (1.78-5.38) K/mm3 Lymph # (Auto) (1.32-3.57) K/mm3 [place] # (Auto) (0.30-0.82) K/mm3 Eos # (Auto) (0.04-0.54) K/mm3 Baso # (Auto) (0.01-0.08) K/mm3 Puncture Site ABG pH (7.35-7.45) ABG pCO2 (35.0-45.0) mmHg ABG pO2 (80.0-100.0) mmHg ABG HCO3 (22.0-26.0) meq/L ABG O2 Saturation (96.0-97.0) % ABG Base Excess (-2-2.0) A-a Gradient mmHg O2 Delivery Device Oxygen Flow Rate FiO2 (21.00-100.00) % Sodium 145 D (136-145) mEq/L Potassium 3.7 (3.5-5.1) mEq/L Chloride 110 H (98-107) mEq/L Carbon Dioxide 26 (21-32) mEq/L Anion Gap 12.7 (5-15) BUN 27 H (7-18) mg/dL Creatinine 1.7 H (0.7-1.3) mg/dL Est Cr Clr Drug Dosing 29.71 mL/min Estimated GFR (MDRD) 39 (>60) mL/min BUN/Creatinine Ratio 15.9 (14-18) Glucose 88 (70-99) mg/dL Calcium 8.1 L (8.5-10.1) mg/dL Total Bilirubin 0.6 (0.2-1.0) mg/dL AST 26 (15-37) U/L ALT 14 L (16-63) U/L Alkaline Phosphatase 103 (46-116) U/L C-Reactive Protein (<1.0) mg/dL NT-Pro-B Natriuret Pep 1249 H (0-450) pg/mL Total Protein 6.2 L (6.4-8.2) g/dl Albumin 2.9 L (3.4-5.0) g/dl Globulin 3.3 gm/dL Albumin/Globulin Ratio 0.9 L (1-2) Meds: Medications Generic Name Dose Route Start Last Admin Trade Name Freq PRN Reason Stop Dose Admin Sodium Chloride 10 ml 07/04/21 01:17 Sodium Chloride 0.9% 10 Ml Syringe FLUSH ASDIRECTED PRN Keep Vein Open Discontinued Medications Generic Name Dose Route Start Last Admin Trade Name Freq PRN Reason Stop Dose Admin Albuterol/Ipratropium 3 ml 07/04/21 01:18 07/04/21 01:32 Albuterol/Ipratropium 3.0-0.5 Mg/3 Ml Neb Soln NEB 07/04/21 01:19 3 ml ONETIME ONE Administration Prednisone 20 mg 07/04/21 03:03 07/04/21 03:24 Prednisone 20 Mg Tab PO 07/04/21 03:04 20 mg ONETIME ONE Administration - Re-Assessments/Exams Free Text/Narrative Re-Assessment/Exam: 07/04/21 02:40 O2 sats only 77 % room air at time of triage. CXR shows a mass R lower lobe similar to CXR of this past January. I do not see an infiltrate. His sats came up quickly on NRB and than 5 LNC. Dropped him down to 2 L NC and they have been running 95 to 97 %. ABG's as resulted. PO2 83 % 2 L NC. WBC normal. CRP 1.8. His sats on arrival should qualify him for [place] coverage of home 02. With the [facility] Departure - Departure Time of Disposition: 03:05 Disposition: Home, Self-Care 01 Condition: Fair Clinical Impression: Hypoxia COPD (chronic obstructive pulmonary disease) Qualifiers: COPD type: COPD with acute exacerbation Qualified Code(s): J44.1 - Chronic obstructive pulmonary disease with (acute) exacerbation - Discharge Information Prescriptions: predniSONE [Prednisone] 20 mg PO DAILY #5 tablet Instructions: Hypoxia, Chronic Obstructive Pulmonary Disease, [id number] Referrals: Karely Webb MD [Primary Care Provider] - Forms: ED Department Discharge Additional Instructions: Prednisone 20 mg daily for 5 days, next dose later this morning. prescription has been [place] to [place] pharmacy [place] at [facility]. Albuterol nebs q 4 to 6 hr as needed for difficulty breathing. Prescriptions have been provided. The Nebulizer can be obtained from [facility] services. There should be an president consumer electronics companydirector personal you can call after 8 AM. If you need help with that contact the ED at [phone]. His hypoxia at home and on arrival to ED should help him qualify for 02 coverage by the [place]. Contact [place] Tuesday. Return to ED as needed. Sepsis Event Note (ED) - Evaluation Sepsis Screening Result: No Definite Risk - Focused Exam Vital Signs: Vital Signs Temp Pulse Resp BP Pulse Ox Pulse Ox 07/04/21 01:34 95 07/04/21 01:11 96.9 F 73 20 154/92 H 77 L - My Orders Last 24 Hours: My Active Orders 07/04/21 01:16 Chest 1V Frontal [CR] Stat 07/04/21 01:17 Peripheral IV Care [RC] . DIRECTED Sodium Chloride 0.9% [Saline Flush] 10 ml FLUSH ASDIRECTED PRN Peripheral IV Insertion Adult [OM.PC] Stat 07/04/21 01:18 RT Aerosol Therapy [RC] ASDIRECTED - Assessment/Plan Last 24 Hours: My Active Orders 07/04/21 01:16 Chest 1V Frontal [CR] Stat 07/04/21 01:17 Peripheral IV Care [RC] . DIRECTED Sodium Chloride 0.9% [Saline Flush] 10 ml FLUSH ASDIRECTED PRN Peripheral IV Insertion Adult [OM.PC] Stat 07/04/21 01:18 RT Aerosol Therapy [RC] ASDIRECTED
[2021-07-04] MEDS ORDERED: predniSONE 20 MG Tab PO ONE (03:03)
--- NOTE | 2021-07-04 12:41 | CR ---
Chest: Portable view of the chest was obtained. Comparison: Prior chest x-ray of 02/20/21. Heart appears more prominent than on prior exam. Tortuous thoracic aorta is seen. Patchy density is seen within the right lung base which is smaller than on prior study. Right-sided infusion catheter is seen. Pacemaker is noted. Degenerative change is noted within both shoulders. Impression: 1. Decreased density within the right lung base from prior chest x-ray. Please correlate if this represents decrease in size of right lung mass. 2. Heart size is felt to be slightly enlarged. 3. Other findings felt to be stable as noted above. Diagnostic code #3
== END 2021-07-04 03:33 | disposition home or self-care (01) ==
LOC: JD.ED 00:50
DX: J44.1 Chronic obstructive pulmonary disease with (acute) exacerbation (principal); R09.02 Hypoxemia; I48.91 Unspecified atrial fibrillation; I10 Essential (primary) hypertension; N40.0 Benign prostatic hyperplasia without lower urinary tract symptoms; E66.9 Obesity, unspecified; Z68.25 Body mass index [BMI] 25.0-25.9, adult; Z87.891 Personal history of nicotine dependence; Z91.048 Other nonmedicinal substance allergy status; Z79.899 Other long term (current) drug therapy
CPT/HCPCS: 36415; 36600; 71045; 80053; 82803; 83880; 85025; 86140; 94640; 99285; J7512; J7620-GY

== ENCOUNTER 2021-07-30 14:16 | Emergency (ER) | payer OTHER, MEDICAID ==
[2021-07-30] MEDS ORDERED: cefTRIAXone 1 GM in Sodium Chloride 0.9% 100 ML IV ONE (17:37)
--- NOTE | 2021-07-30 18:00 | EDM.PDOC ---
ED HPI GENERAL MEDICAL PROBLEM - General Chief Complaint: Genitourinary Problem Stated Complaint: UNABLE TO URINATE/RT FOOT/ANKLE SWELLING Time Seen by Provider: 07/30/21 15:19 Source of Information: Reports: Patient, Family, RN Notes Reviewed History Limitations: Reports: No Limitations - History of Present Illness INITIAL COMMENTS - FREE TEXT/NARRATIVE: Patient is is an 86-year-old male presenting to the emergency department for inability to urinate as well as evaluation of wound to the medial aspect of his right foot. Patient states that he is only voided approximately 3 ounces since 7 AM this morning. He feels pressure within his bladder. Does have a history of urinary obstruction. Additionally, patient has a wound to the medial aspect of his right foot as well as the medial aspect of his right great toe. This is been present for quite some time. He was treated with a course of cephalexin which he finished on Tuesday of this week. His [id number] reports that she placed a Allevyn dressing on there that was provided by [place]. When removing it today, the area was more red and there was some drainage on the dressing. She states this was not present when she put the dog 2 days ago. He has had no fever or chills. He denies any nausea vomiting or diarrhea. He is scheduled to see an industrial economics teacher in [place] on Tuesday of this week. Treatments EXPEDITIONARY FORCE COMBAT SKILLS: Reports: Other (see below) Other Treatments EXPEDITIONARY FORCE COMBAT SKILLS: oxycodone ER 1 TAB AT NOON Bladder Pain Score (Numeric/FACES): 5 Right Feet Pain Score (Numeric/FACES): 7 - Related Data Allergies Allergy/AdvReac Type Severity Reaction Status Date / Time blood thinners. AdvReac Severe Other Uncoded 07/04/21 01:42 Home Meds: Home Meds Furosemide [Lasix] 10 mg PO DAILY 06/01/20 [History] Tamsulosin HCl [Flomax] 0.4 mg PO DAILY 06/01/20 [History] Budesonide/Formoterol Fumarate [Symbicort 160-4.5 Mcg Inhaler] 1 puff INH BEDTIME 06/20/20 [History] Finasteride [Proscar] 5 mg PO DAILY 06/20/20 [History] Metoprolol Tartrate 12.5 mg PO BID 12/29/20 [History] oxyCODONE 5 mg PO ASDIRECTED 12/29/20 [History] Albuterol Sulfate 1 - 2 applic INH DAILY 07/30/21 [History] Amoxicillin 500 mg PO Q8H #20 tablet 07/30/21 [Rx] Doxycycline [Vibra-Tabs] 100 mg PO Q12HR 10 Days #19 tab 07/30/21 [Rx] Past Medical History HEENT History: Reports: Impaired Vision Cardiovascular History: Reports: Afib, Hypertension Respiratory History: Reports: COPD Gastrointestinal History: Reports: Diverticulosis, PUD Genitourinary History: Reports: BPH, Renal Calculus Musculoskeletal History: Reports: Fracture Neurological History: Reports: CVA, Other (See Below) Other Neuro History: 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; at [facility] Endocrine/Metabolic History: Reports: Obesity/BMI 30+ Oncologic (Cancer) History: Reports: Basal Cell Carcinoma, Malignant Melanoma, Squamous Cell Carcinoma Dermatologic History: Reports: Eczema - Infectious Disease History Infectious Disease History: Reports: Chicken Pox, Influenza, Measles, Mumps - Past Surgical History Head Surgeries/Procedures: Reports: Craniotomy HEENT Surgical History: Reports: Cataract Surgery Cardiovascular Surgical History: Reports: Cardiac Ablation, Pacer, Other (See Below) Respiratory Surgical History: Reports: Lung Biopsies GI Surgical History: Reports: Colon Other GI Surgeries/Procedures: temporary ostomy Male Surgical History: Reports: Other (See Below) Other Male Surgeries/Procedures: blood clot removed from kidney Neurological Surgical History: Reports: Other (See Below) Other Neurological Surgeries/Procedures: 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 Musculoskeletal Surgical History: Reports: ORIF Oncologic Surgical History: Reports: Other (See Below) Social & Family History - Family History Family Medical History: No Pertinent Family History - Tobacco Use Tobacco Use Status *Q: Never Tobacco User - Caffeine Use Caffeine Use: Reports: Coffee Other Caffeine Use: CAFFEINE FREE - Recreational Drug Use Recreational Drug Use: Yes Recreational Drug Type: Reports: Marijuana/Hashish Other Recreational Drug Type: NONE FOR 6 MONTHS - Living Situation & Occupation Living situation: Reports: , with Family (Son + his girlfriend) Occupation: Retired ED ROS GENERAL - Review of Systems Review Of Systems: Comprehensive ROS is negative, except as noted in HPI. ED EXAM, RENAL/ - Physical Exam Exam: See Below Exam Limited By: No Limitations General Appearance: Alert, WD/WN, No Apparent Distress Respiratory/Chest: No Respiratory Distress, Lungs Clear, Normal Breath Sounds, No Accessory Muscle Use, Chest Non-Tender Cardiovascular: Normal Peripheral Pulses, Regular Rate, Rhythm, No Edema, No Gallop, No JVD, No Murmur, No Rub GI/Abdominal: Normal Bowel Sounds, Soft, No Organomegaly, No Distention, No Abnormal Bruit, No Mass, Tender (Mild suprapubic tenderness and fullness.) Neurological: Alert, Oriented, CN II-XII Intact, Normal Cognition, Normal Gait, Normal Reflexes, No Motor/Sensory Deficits Psychiatric: Normal Affect, Normal Mood Skin Exam: Other (2.5 cm decubitus ulceration to the medial aspect of the right foot. Surrounding localized erythema. 1.5 cm decubitus ulcer to the medial aspect of the right great toe with a small amount of surrounding erythema.) Course - Vital Signs Last Recorded V/S: Last Vital Signs Temp 98.5 F 07/30/21 15:13 Pulse 65 07/30/21 15:13 Resp 20 07/30/21 15:13 BP 152/96 H 07/30/21 15:13 Pulse Ox 97 07/30/21 15:13 - Orders/Labs/Meds Orders: Active Orders 24 hr Category Date Time Status Contreras Catheter Insertion [Insert Urinary Catheter] [OM. Care 07/30/21 17:35 Ordered PC] Q24H Labs: Laboratory Tests 07/30/21 07/30/21 07/30/21 Range/Units 16:50 16:50 17:35 WBC 5.23 (4.23-9.07) K/mm3 RBC 3.85 L (4.63-6.08) M/mm3 Hgb 11.1 L D (13.7-17.5) gm/dl Hct 36.1 L (40.1-51.0) % MCV 93.8 H (79.0-92.2) fl MCH 28.8 (25.7-32.2) pg MCHC 30.7 L (32.2-35.5) g/dl RDW Std Deviation 52.8 H (35.1-43.9) fL Plt Count 200 (163-337) K/mm3 MPV 10.3 (9.4-12.3) fl Neut % (Auto) 63.7 (34.0-67.9) % Lymph % (Auto) 17.2 L (21.8-53.1) % [place] % (Auto) 17.0 H (5.3-12.2) % Eos % (Auto) 1.7 (0.8-7.0) Baso % (Auto) 0.4 (0.1-1.2) % Neut # (Auto) 3.33 (1.78-5.38) K/mm3 Lymph # (Auto) 0.90 L (1.32-3.57) K/mm3 [place] # (Auto) 0.89 H (0.30-0.82) K/mm3 Eos # (Auto) 0.09 (0.04-0.54) K/mm3 Baso # (Auto) 0.02 (0.01-0.08) K/mm3 Sodium 142 (136-145) mEq/L Potassium 3.8 (3.5-5.1) mEq/L Chloride 106 (98-107) mEq/L Carbon Dioxide 27 (21-32) mEq/L Anion Gap 12.8 (5-15) BUN 19 H (7-18) mg/dL Creatinine 1.2 (0.7-1.3) mg/dL Est Cr Clr Drug Dosing TNP Estimated GFR (MDRD) 58 (>60) mL/min BUN/Creatinine Ratio 15.8 (14-18) Glucose 92 (70-99) mg/dL Calcium 8.0 L (8.5-10.1) mg/dL Total Bilirubin 0.5 (0.2-1.0) mg/dL AST 19 (15-37) U/L ALT 9 L (16-63) U/L Alkaline Phosphatase 91 (46-116) U/L Total Protein 6.5 (6.4-8.2) g/dl Albumin 2.7 L (3.4-5.0) g/dl Globulin 3.8 gm/dL Albumin/Globulin Ratio 0.7 L (1-2) Urine Color Yellow (Yellow) Urine Appearance Clear (Clear) Urine pH 5.0 (5.0-8.0) Ur Specific [place] 1.015 (1.005-1.030) Urine Protein Negative (Negative) Urine Glucose (UA) Negative (Negative) Urine Ketones Negative (Negative) Urine Occult Blood Trace-intact H (Negative) Urine Nitrite Negative (Negative) Urine Bilirubin Negative (Negative) Urine Urobilinogen 0.2 (0.2-1.0) Ur Leukocyte Esterase Negative (Negative) Urine RBC 0-5 (0-5) /hpf Urine WBC 0-5 (0-5) /hpf Ur Squamous Epith Cells 0-5 (0-5) /hpf Urine Bacteria Few (FEW) /hpf Urine Mucus Few (FEW) /hpf Meds: Medications Discontinued Medications Generic Name Dose Route Start Last Admin Trade Name Anju PRN Reason Stop Dose Admin Amoxicillin 500 mg 07/30/21 19:18 07/30/21 19:49 Amoxicillin 500 Mg Cap PO 07/30/21 19:19 500 mg ONETIME ONE Administration Doxycycline Hyclate 100 mg 07/30/21 19:17 07/30/21 19:49 Doxycycline 100 Mg Cap PO 07/30/21 19:18 100 mg ONETIME ONE Administration Heparin Sodium (Porcine) 500 units 07/30/21 19:35 07/30/21 20:13 Heparin Sodium 100 Units/Ml 5 Ml Syringe FLUSH 07/30/21 19:36 Not Given ASDIRECTED ONE Ceftriaxone Sodium 1 gm/ 100 mls @ 200 mls/hr 07/30/21 17:37 07/30/21 18:20 Sodium Chloride IV 07/30/21 18:06 200 mls/hr ONETIME ONE Administration - Re-Assessments/Exams Free Text/Narrative Re-Assessment/Exam: Patient is an 86-year-old male presenting to the emergency part with complaints of urinary retention and for evaluation of chronic wound to right foot. He complains of urinary fullness. He does have some tenderness and fullness suprapubically on examination. I have seen this patient in the past and he has had problems with urinary retention. He is on finasteride and tamsulosin. Patient has a right foot deformity, which causes him to walk on the medial aspect of his foot. He has pressure ulcer to the mid medial aspect of the foot as well as the medial great toe. There is no active drainage at this time, however there is surrounding erythema. This does not extend past the localized area. He denies any fever, nausea, or vomiting. He does finished a course of cephalexin 2 days ago. We will plan for Contreras catheter insertion and a dose of IV antibiotics. I have ordered blood work to look for signs of systemic infection, however he has no systemic symptoms. 07/30/21 19:17 Hematology significant for hemoglobin low 11.1, BUN 19. Otherwise unremarkable. Urinalysis negative for infection. Patient was given Rocephin 2 g IV. He will be started on doxycycline and amoxicillin for treatment of cellulitis. He should keep his appointment with podiatry as scheduled in [place] on Tuesday. Discussed with his caregiver/[id number]-[id number]-sze that Contreras catheter should come out sometime early next week. [facility]. Discussed signs of worsening infection that they should watch for and return to ER. They verbalized understanding. Discharge instructions as documented. Departure - Departure Time of Disposition: 19:22 Disposition: Home, Self-Care 01 Condition: Good Clinical Impression: Pressure ulcer of right foot, unstageable, Acute urinary retention - Discharge Information *PRESCRIPTION DRUG MONITORING PROGRAM REVIEWED*: No *COPY OF PRESCRIPTION DRUG MONITORING REPORT IN PATIENT KINA: No Prescriptions: Amoxicillin 500 mg PO Q8H #20 tablet Doxycycline [Vibra-Tabs] 100 mg PO Q12HR 10 Days #19 tab Instructions: Indwelling Urinary Catheter Care, Adult Referrals: Karely Webb MD [Primary Care Provider] - Forms: ED Department Discharge Additional Instructions: Take the amoxicillin doxycycline as prescribed. First dose was given in ER. Change wound dressings in 2 days. Continue to monitor wounds. Should the redness and swelling worsen or develop signs of systemic infection including fever, chills, or vomiting, should be reevaluated in the emergency department. Follow routine catheter care instructions. See industrial economics teacher on Tuesday next week as scheduled. [facility]. Return to ER for any new or worsening symptoms. Sepsis Event Note (ED) - Focused Exam Vital Signs: Vital Signs Temp Pulse Resp BP Pulse Ox 07/30/21 15:13 98.5 F 65 20 152/96 H 97 - My Orders Last 24 Hours: My Active Orders 07/30/21 17:35 Contreras Catheter Insertion [Insert Urinary Catheter] [OM.PC] Q24H - Assessment/Plan Last 24 Hours: My Active Orders 07/30/21 17:35 Contreras Catheter Insertion [Insert Urinary Catheter] [OM.PC] Q24H
[2021-07-30] MEDS ORDERED: Doxycycline 100 MG Cap PO ONE (19:17)
[2021-07-30] MEDS ORDERED: Amoxicillin 500 MG Cap PO ONE (19:18)
== END 2021-07-30 20:11 | disposition home or self-care (01) ==
LOC: JD.ED 14:16
DX: R33.9 Retention of urine, unspecified (principal); L89.610 Pressure ulcer of right heel, unstageable; I10 Essential (primary) hypertension; I48.91 Unspecified atrial fibrillation; J44.9 Chronic obstructive pulmonary disease, unspecified; E66.9 Obesity, unspecified; Z68.30 Body mass index [BMI] 30.0-30.9, adult; Z86.73 Personal history of transient ischemic attack (TIA), and cerebral infarction without residual deficits; Z79.899 Other long term (current) drug therapy; Z88.8 Allergy status to other drugs, medicaments and biological substances
CPT/HCPCS: 36415; 51702; 80053; 81001; 85025; 96365; 99284; A9270; J0696

== ENCOUNTER 2021-08-24 16:08 | Emergency (ER) | payer OTHER ==
[2021-08-24] MEDS ORDERED: Sodium Chloride 0.9% 10 ML Syringe FLUSH PRN (18:07)
--- NOTE | 2021-08-24 18:13 | EDM.PDOC ---
ED HPI GENERAL MEDICAL PROBLEM - General Chief Complaint: Respiratory Problem Stated Complaint: CHEST, SOB Time Seen by Provider: 08/24/21 17:54 Source of Information: Reports: Patient, Family History Limitations: Reports: No Limitations - History of Present Illness INITIAL COMMENTS - FREE TEXT/NARRATIVE: Patient is an 86-year-old male who presents to the emergency department with a history of malignant melanoma to his lungs. Patient's currently receiving monthly infusions at by Dr. Romero. Patient is chronically on 3 L of oxygen per nasal cannula during the day and 4 L at night. Family reports that the night before last, patient had an episode where he could not expectorate his sputum. He did have a nebulizer treatment. He eventually was able to cough and there were several large clots noted that were brown to black in color. Patient also has a history of congestive heart failure and is concerned he may have fluid overload. Patient is not currently taking any blood thinners. His primary care provider is Karely Webb, at the [place] [facility]. Lower Back Pain Score (Numeric/FACES): 3 - Related Data Allergies Allergy/AdvReac Type Severity Reaction Status Date / Time blood thinners. AdvReac Severe Other Uncoded 07/04/21 01:42 Home Meds: Home Meds Furosemide [Lasix] 10 mg PO DAILY 06/01/20 [History] Tamsulosin HCl [Flomax] 0.4 mg PO DAILY 06/01/20 [History] Budesonide/Formoterol Fumarate [Symbicort 160-4.5 Mcg Inhaler] 1 puff INH BEDTIME 06/20/20 [History] Finasteride [Proscar] 5 mg PO DAILY 06/20/20 [History] Metoprolol Tartrate 12.5 mg PO BID 12/29/20 [History] oxyCODONE 5 mg PO ASDIRECTED 12/29/20 [History] Albuterol Sulfate 1 - 2 applic INH DAILY 07/30/21 [History] Sulfamethoxazole/Trimethoprim [Septra DS] 1 tab PO Q12H 08/24/21 [History] oxyCODONE HCl [oxyCODONE] 20 mg PO BID 08/24/21 [History] Past Medical History HEENT History: Reports: Impaired Vision Cardiovascular History: Reports: Afib, Hypertension Respiratory History: Reports: COPD Gastrointestinal History: Reports: Diverticulosis, PUD Genitourinary History: Reports: BPH, Renal Calculus Musculoskeletal History: Reports: Fracture Neurological History: Reports: CVA, Other (See Below) Other Neuro History: 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; at [facility] Endocrine/Metabolic History: Reports: Obesity/BMI 30+ Oncologic (Cancer) History: Reports: Basal Cell Carcinoma, Malignant Melanoma, Squamous Cell Carcinoma Dermatologic History: Reports: Eczema - Infectious Disease History Infectious Disease History: Reports: Chicken Pox, Influenza, Measles, Mumps - Past Surgical History Head Surgeries/Procedures: Reports: Craniotomy HEENT Surgical History: Reports: Cataract Surgery Cardiovascular Surgical History: Reports: Cardiac Ablation, Pacer, Other (See Below) Respiratory Surgical History: Reports: Lung Biopsies GI Surgical History: Reports: Colon Other GI Surgeries/Procedures: temporary ostomy Male Surgical History: Reports: Other (See Below) Other Male Surgeries/Procedures: blood clot removed from kidney Neurological Surgical History: Reports: Other (See Below) Other Neurological Surgeries/Procedures: 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 Musculoskeletal Surgical History: Reports: ORIF Oncologic Surgical History: Reports: Other (See Below) Social & Family History - Family History Family Medical History: No Pertinent Family History - Tobacco Use Tobacco Use Status *Q: Never Tobacco User - Caffeine Use Caffeine Use: Reports: Coffee Other Caffeine Use: decaff - Recreational Drug Use Recreational Drug Use: No - Living Situation & Occupation Living situation: Reports: , with Family (Son + his girlfriend) Occupation: Retired ED ROS GENERAL - Review of Systems Review Of Systems: Comprehensive ROS is negative, except as noted in HPI. ED EXAM, GENERAL - Physical Exam Exam: See Below Exam Limited By: No Limitations General Appearance: Alert, WD/WN, No Apparent Distress Ears: Normal External Exam, Hearing Grossly Normal Nose: Normal Inspection Throat/Mouth: Normal Inspection, Normal Lips, Normal Voice, No Airway Compromise Head: Atraumatic Neck: Normal Inspection, Supple Respiratory/Chest: No Respiratory Distress, No Accessory Muscle Use, Chest Non- Tender, Decreased Breath Sounds Cardiovascular: Normal Peripheral Pulses, Regular Rate, Rhythm, No Edema, No Murmur GI/Abdominal: Normal Bowel Sounds, Soft, Non-Tender, No Distention (Male) Exam: Deferred Rectal (Males) Exam: Deferred Back Exam: Normal Inspection Extremities: Non-Tender, Pedal Edema (1+ noted to bilateral feet and ankles), Other (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 Has been receiving monthly infusions at [facility]. Over the past couple of nights, patient has had progressively more sputum and has had difficulty expectorating it. Once he is able to produce a sputum family notes that his that is what appears to be large clots approximately the size of a $0.50 piece. Is awake alert and oriented. He is currently on oxygen at 3 L per nasal cannula with O2 saturations at 97%. Lung sounds are diminished bilaterally. Abdomen is soft and nontender. He does have 1+ edema noted to his bilateral feet and ankles. Right foot is deformed and rotated laterally. 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 Will obtain lab studies to include a CBC, CMP, magnesium, C-reactive protein and a proBNP. We will also obtain a portable chest x-ray as well as Covid, influenza a and B swabs. Last Recorded V/S: Last Vital Signs Temp 97.9 F 08/24/21 16:47 Pulse 69 08/24/21 16:47 Resp BP 109/75 08/24/21 16:47 Pulse Ox 99 08/24/21 16:47 - Orders/Labs/Meds Orders: Active Orders 24 hr Category Date Time Status Chest 1V Frontal [CR] Stat Exams 08/24/21 18:07 Taken Sodium Chloride 0.9% [Saline Flush] Med 08/24/21 18:07 Active 10 ml FLUSH ASDIRECTED PRN Saline Lock Insert [OM.PC] Stat Oth 08/24/21 18:07 Ordered Medication Orders Sodium Chloride (Sodium Chloride 0.9% 10 Ml Syringe) 10 ml FLUSH ASDIRECTED PRN PRN Reason: Keep Vein Open Last Admin: 08/24/21 20:01 Dose: 10 ml Documented by: OVIDIO Labs: Laboratory Tests 08/24/21 08/24/21 08/24/21 Range/Units 13:15 18:29 18:29 WBC 6.51 (4.23-9.07) K/mm3 RBC 4.02 L (4.63-6.08) M/mm3 Hgb 11.8 L (13.7-17.5) gm/dl Hct 37.1 L (40.1-51.0) % MCV 92.3 H (79.0-92.2) fl MCH 29.4 (25.7-32.2) pg MCHC 31.8 L (32.2-35.5) g/dl RDW Std Deviation 54.7 H (35.1-43.9) fL Plt Count 128 L (163-337) K/mm3 MPV 10.8 (9.4-12.3) fl Neut % (Auto) 66.7 (34.0-67.9) % Lymph % (Auto) 15.5 L (21.8-53.1) % Bailey % (Auto) 13.2 H (5.3-12.2) % Eos % (Auto) 3.2 (0.8-7.0) Baso % (Auto) 0.6 (0.1-1.2) % Neut # (Auto) 4.34 (1.78-5.38) K/mm3 Lymph # (Auto) 1.01 L (1.32-3.57) K/mm3 Bailey # (Auto) 0.86 H (0.30-0.82) K/mm3 Eos # (Auto) 0.21 (0.04-0.54) K/mm3 Baso # (Auto) 0.04 (0.01-0.08) K/mm3 Sodium 136 (136-145) mEq/L Potassium 4.7 (3.5-5.1) mEq/L Chloride 102 (98-107) mEq/L Carbon Dioxide 26 (21-32) mEq/L Anion Gap 12.7 (5-15) BUN 24 H (7-18) mg/dL Creatinine 1.4 H (0.7-1.3) mg/dL Est Cr Clr Drug Dosing 38.00 mL/min Estimated GFR (MDRD) 48 (>60) mL/min BUN/Creatinine Ratio 17.1 (14-18) Glucose 81 (70-99) mg/dL Calcium 7.7 L (8.5-10.1) mg/dL Magnesium 2.1 (1.8-2.4) mg/dL Total Bilirubin 0.4 (0.2-1.0) mg/dL AST 26 (15-37) U/L ALT 16 (16-63) U/L Alkaline Phosphatase 71 (46-116) U/L C-Reactive Protein 0.3 (<1.0) mg/dL NT-Pro-B Natriuret Pep (0-450) pg/mL Total Protein 6.3 L (6.4-8.2) g/dl Albumin 2.8 L (3.4-5.0) g/dl Globulin 3.5 gm/dL Albumin/Globulin Ratio 0.8 L (1-2) Influenza Type A RNA Negative (NEGATIVE) Influenza Type B RNA Negative (NEGATIVE) SARS-CoV-2 RNA (NESS) Negative (NEGATIVE) 08/24/21 Range/Units 18:29 WBC (4.23-9.07) K/mm3 RBC (4.63-6.08) M/mm3 Hgb (13.7-17.5) gm/dl Hct (40.1-51.0) % MCV (79.0-92.2) fl MCH (25.7-32.2) pg MCHC (32.2-35.5) g/dl RDW Std Deviation (35.1-43.9) fL Plt Count (163-337) K/mm3 MPV (9.4-12.3) fl Neut % (Auto) (34.0-67.9) % Lymph % (Auto) (21.8-53.1) % Bailey % (Auto) (5.3-12.2) % Eos % (Auto) (0.8-7.0) Baso % (Auto) (0.1-1.2) % Neut # (Auto) (1.78-5.38) K/mm3 Lymph # (Auto) (1.32-3.57) K/mm3 Bailey # (Auto) (0.30-0.82) K/mm3 Eos # (Auto) (0.04-0.54) K/mm3 Baso # (Auto) (0.01-0.08) K/mm3 Sodium (136-145) mEq/L Potassium (3.5-5.1) mEq/L Chloride (98-107) mEq/L Carbon Dioxide (21-32) mEq/L Anion Gap (5-15) BUN (7-18) mg/dL Creatinine (0.7-1.3) mg/dL Est Cr Clr Drug Dosing mL/min Estimated GFR (MDRD) (>60) mL/min BUN/Creatinine Ratio (14-18) Glucose (70-99) mg/dL Calcium (8.5-10.1) mg/dL Magnesium (1.8-2.4) mg/dL Total Bilirubin (0.2-1.0) mg/dL AST (15-37) U/L ALT (16-63) U/L Alkaline Phosphatase (46-116) U/L C-Reactive Protein (<1.0) mg/dL NT-Pro-B Natriuret Pep 5706 H (0-450) pg/mL Total Protein (6.4-8.2) g/dl Albumin (3.4-5.0) g/dl Globulin gm/dL Albumin/Globulin Ratio (1-2) Influenza Type A RNA (NEGATIVE) Influenza Type B RNA (NEGATIVE) SARS-CoV-2 RNA (NESS) (NEGATIVE) Meds: Medications Generic Name Dose Route Start Last Admin Trade Name Freq PRN Reason Stop Dose Admin Sodium Chloride 10 ml 08/24/21 18:07 08/24/21 20:01 Sodium Chloride 0.9% 10 Ml Syringe FLUSH 10 ml ASDIRECTED PRN Administration Keep Vein Open Discontinued Medications Generic Name Dose Route Start Last Admin Trade Name Freq PRN Reason Stop Dose Admin Furosemide 40 mg 08/24/21 20:38 08/24/21 21:12 Furosemide 40 Mg/4 Ml Vial IVPUSH 08/24/21 20:39 40 mg NOW ONE Administration - Radiology Interpretation Free Text/Narrative:: Checks x-ray was reviewed by myself compare with most recent portable chest x- ray. Patient does have a large heart. Increased pulmonary vascular congestion is noted. Formal radiologist report is pending. - Re-Assessments/Exams Free Text/Narrative Re-Assessment/Exam: 08/24/21 20:55 Hematology reveals a WBC of 6.51, hemoglobin 11.8, hematocrit 37.1, platelet count 128 History reveals a sodium of 136, potassium 4.7, anion gap 12.4, BUN 24, creatinine 1.4, magnesium 2.1, C-reactive protein 0.3, proBNP 5706 Serology reveals influenza a and B are negative and patient is Covid negative 08/24/21 20:57 Have ordered for the patient to receive 40 mg Lasix IV. 08/24/21 21:58 Patient has begun to diurese after receiving IV Lasix. He will be discharged home with recommendations that he take Lasix 20 mg daily for the next 3 days and then return to 10 mg daily thereafter as prescribed. He will need to follow-up with his primary care provider later this week for reevaluation. Patient and his son are agreeable to this plan. Departure - Departure Time of Disposition: 21:59 Disposition: Home, Self-Care 01 Condition: Good Clinical Impression: Congestive heart failure Qualifiers: Heart failure type: unspecified Heart failure chronicity: unspecified Qualified Code(s): I50.9 - Heart failure, unspecified - Discharge Information Instructions: Heart Failure Exacerbation, Heart Failure, Self-Care, [id number] Referrals: Karely Webb MD [Primary Care Provider] - Forms: ED Department Discharge Additional Instructions: You were seen in the emergency department today with complaints of worsening cough productive of thick brown/blood-tinged sputum. Full work-up was completed to include labs, chest x-ray and Covid and influenza testing. Labs are essentially unremarkable however your marker for heart failure is elevated. Chest x-ray also does appear to reveal some extra fluid in your lungs. Covid and influenza testing was negative. You were given IV Lasix while in the emergency department to help get rid of the excess fluid. Recommend that for the next 3 days you take Lasix 20 mg daily then go back to 10 mg as prescribed thereafter. You will need to follow-up with your primary care provider later this week for reevaluation. Should your condition worsen or change, do not hesitate returning to the emergency department. Sepsis Event Note (ED) - Focused Exam Vital Signs: Vital Signs Temp Pulse BP Pulse Ox 08/24/21 16:47 97.9 F 69 109/75 99 - My Orders Last 24 Hours: My Active Orders 08/24/21 18:07 Chest 1V Frontal [CR] Stat Sodium Chloride 0.9% [Saline Flush] 10 ml FLUSH ASDIRECTED PRN Saline Lock Insert [OM.PC] Stat - Assessment/Plan Last 24 Hours: My Active Orders 08/24/21 18:07 Chest 1V Frontal [CR] Stat Sodium Chloride 0.9% [Saline Flush] 10 ml FLUSH ASDIRECTED PRN Saline Lock Insert [OM.PC] Stat
[2021-08-24 19:20] LABS: CORONAVIRUS COVID-19 NAA NEGATIVE (NEGATIVE)
[2021-08-24] MEDS ORDERED: Furosemide 40 MG/4 ML VIAL IVPUSH ONE (20:38)
--- NOTE | 2021-08-25 12:06 | CR ---
Chest: Portable view of the chest is obtained. Comparison: Prior chest x-ray of 07/04/21. Right-sided infusion catheter is seen. Unichamber pacemaker is noted. Heart is enlarged. Degenerative change is seen within both shoulders. Hazy parenchymal densities are seen within both lungs. Impression: 1. Patchy increased density within both lungs. Findings may represent pulmonary vascular congestion or pneumonia if patient has correlating symptoms. 2. Cardiomegaly, pacemaker and right-sided infusion port. Diagnostic code #3
== END 2021-08-24 22:33 | disposition home or self-care (01) ==
LOC: JD.ED 16:08
DX: U07.1 COVID-19 (principal); I48.91 Unspecified atrial fibrillation; J44.9 Chronic obstructive pulmonary disease, unspecified; N40.0 Benign prostatic hyperplasia without lower urinary tract symptoms; E66.9 Obesity, unspecified; Z68.24 Body mass index [BMI] 24.0-24.9, adult; Z91.048 Other nonmedicinal substance allergy status; Z79.899 Other long term (current) drug therapy
CPT/HCPCS: 0240U; 36415; 71045; 80053; 83735; 83880; 85025; 86140; 96374; 99283; J1940

== ENCOUNTER 2021-08-25 00:32 | Emergency (ER) | payer OTHER ==
[2021-08-25] MEDS ORDERED: Lidocaine 2% Jelly 10 ML Urojet ONE (00:58)
[2021-08-25] MEDS ORDERED: Lidocaine 2% Jelly 10 ML Urojet MUCMEM ONE (01:26)
--- NOTE | 2021-08-25 02:02 | EDM.PDOC ---
ED HPI GENERAL MEDICAL PROBLEM - General Chief Complaint: Genitourinary Problem Stated Complaint: DIFFICULTY URINATING/PAIN Time Seen by Provider: 08/25/21 01:20 Source of Information: Reports: Patient, RN History Limitations: Reports: No Limitations - History of Present Illness INITIAL COMMENTS - FREE TEXT/NARRATIVE: Patient 86-year-old male history of BPH presenting with acute urinary retention. Patient reports suprapubic discomfort. Duration of symptoms 1 day. Patient reports no urine output. This has happened previously several months ago. Patient does take Flomax. Otherwise, denies flank pain, fevers, nausea, vomiting. Lower Abdomen Pain Score (Numeric/FACES): 10 - Related Data Allergies Allergy/AdvReac Type Severity Reaction Status Date / Time blood thinners. AdvReac Severe Other Uncoded 08/25/21 01:18 Home Meds: Home Meds Furosemide [Lasix] 10 mg PO DAILY 06/01/20 [History] Tamsulosin HCl [Flomax] 0.4 mg PO DAILY 06/01/20 [History] Budesonide/Formoterol Fumarate [Symbicort 160-4.5 Mcg Inhaler] 1 puff INH BEDTIME 06/20/20 [History] Finasteride [Proscar] 5 mg PO DAILY 06/20/20 [History] Metoprolol Tartrate 12.5 mg PO BID 12/29/20 [History] oxyCODONE 5 mg PO ASDIRECTED 12/29/20 [History] Albuterol Sulfate 1 - 2 applic INH DAILY 07/30/21 [History] Sulfamethoxazole/Trimethoprim [Septra DS] 1 tab PO Q12H 08/24/21 [History] oxyCODONE HCl [oxyCODONE] 20 mg PO BID 08/24/21 [History] Past Medical History HEENT History: Reports: Impaired Vision Cardiovascular History: Reports: Afib, Hypertension Respiratory History: Reports: COPD Gastrointestinal History: Reports: Diverticulosis, PUD Genitourinary History: Reports: BPH, Renal Calculus Musculoskeletal History: Reports: Fracture Neurological History: Reports: CVA, Other (See Below) Other Neuro History: 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; at [facility] Endocrine/Metabolic History: Reports: Obesity/BMI 30+ Oncologic (Cancer) History: Reports: Basal Cell Carcinoma, Malignant Melanoma, Squamous Cell Carcinoma Dermatologic History: Reports: Eczema - Infectious Disease History Infectious Disease History: Reports: Chicken Pox, Influenza, Measles, Mumps - Past Surgical History Head Surgeries/Procedures: Reports: Craniotomy HEENT Surgical History: Reports: Cataract Surgery Cardiovascular Surgical History: Reports: Cardiac Ablation, Pacer, Other (See Below) Respiratory Surgical History: Reports: Lung Biopsies GI Surgical History: Reports: Colon Other GI Surgeries/Procedures: temporary ostomy Male Surgical History: Reports: Other (See Below) Other Male Surgeries/Procedures: blood clot removed from kidney Neurological Surgical History: Reports: Other (See Below) Other Neurological Surgeries/Procedures: 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 Musculoskeletal Surgical History: Reports: ORIF Oncologic Surgical History: Reports: Other (See Below) Social & Family History - Family History Family Medical History: No Pertinent Family History - Tobacco Use Tobacco Use Status *Q: Unknown Ever Used Tobacco - Caffeine Use Caffeine Use: Reports: Coffee Other Caffeine Use: decaff - Living Situation & Occupation Living situation: Reports: , with Family (Son + his girlfriend) Occupation: Retired ED ROS GENERAL - Review of Systems Review Of Systems: Comprehensive ROS is negative, except as noted in HPI. ED EXAM, RENAL/ - Physical Exam Exam: See Below Text/Narrative:: I have reviewed the triage vital signs Const: Well nourished, well developed, appears stated age Eyes: no conjunctival injection HENT: No signs of trauma or swelling, Neck supple without meningismus CV: Regular Rate Rhythm, Warm, well-perfused extremities RESP: Unlabored respiratory effort MSK: No gross deformities appreciated Skin: Warm, dry. No rashes Neuro: Alert, newspaper deliverer II-XII grossly intact. Sensation and motor function of extremities grossly intact. Psych: Appropriate mood and affect. Course - Vital Signs Last Recorded V/S: Last Vital Signs Temp 37.0 C 08/25/21 01:15 Pulse 63 08/25/21 01:15 Resp 18 08/25/21 01:15 BP 131/79 08/25/21 01:15 Pulse Ox 96 08/25/21 01:15 - Orders/Labs/Meds Orders: Active Orders 24 hr Category Date Time Status Bladder Scan [RC] ASDIRECTED Care 08/25/21 01:26 Active Insert Contreras Catheter [Insert Urinary Catheter] [OM.PC] Care 08/25/21 01:30 Ordered Q24H Urinary Catheter Assessment [RC] ASDIRECTED Care 08/25/21 01:27 Active Labs: Laboratory Tests 08/25/21 Range/Units 01:29 Urine Color Yellow (Yellow) Urine Appearance Clear (Clear) Urine pH 6.5 (5.0-8.0) Ur Specific [place] 1.015 (1.005-1.030) Urine Protein Negative (Negative) Urine Glucose (UA) Negative (Negative) Urine Ketones Negative (Negative) Urine Occult Blood Trace-lysed H (Negative) Urine Nitrite Negative (Negative) Urine Bilirubin Negative (Negative) Urine Urobilinogen 0.2 (0.2-1.0) Ur Leukocyte Esterase Negative (Negative) U Hyaline Cast (Auto) 0-5 (0-5) /lpf Urine RBC 0-5 (0-5) /hpf Urine WBC 0-5 (0-5) /hpf Ur Squamous Epith Cells 0-5 (0-5) /hpf Urine Bacteria Rare (FEW) /hpf Urine Mucus Rare (FEW) /hpf Meds: Medications Discontinued Medications Generic Name Dose Route Start Last Admin Trade Name Anju PRN Reason Stop Dose Admin Lidocaine HCl Confirm 08/25/21 00:58 08/25/21 01:29 Lidocaine 2% Jelly 10 Ml Urojet Administered 08/25/21 00:59 Not Given Dose 10 ml .ROUTE .STK-MED ONE Lidocaine HCl 10 ml 08/25/21 01:26 08/25/21 01:10 Lidocaine 2% Jelly 10 Ml Urojet MUCMEM 08/25/21 01:27 10 ml ONETIME ONE Administration Departure - Departure Time of Disposition: 02:01 Disposition: Home, Self-Care 01 Clinical Impression: Acute urinary retention - Discharge Information Instructions: Acute Urinary Retention, Male, [id number] Referrals: Karely Webb MD [Primary Care Provider] - Forms: ED Department Discharge Sepsis Event Note (ED) - Evaluation Sepsis Screening Result: No Definite Risk - Focused Exam Vital Signs: Vital Signs Temp Pulse Resp BP Pulse Ox 08/25/21 01:15 37.0 C 63 18 131/79 96 - My Orders Last 24 Hours: My Active Orders 08/25/21 01:26 Bladder Scan [RC] ASDIRECTED 08/25/21 01:27 Urinary Catheter Assessment [RC] ASDIRECTED 08/25/21 01:30 Insert Contreras Catheter [Insert Urinary Catheter] [OM.PC] Q24H - Assessment/Plan Last 24 Hours: My Active Orders 08/25/21 01:26 Bladder Scan [RC] ASDIRECTED 08/25/21 01:27 Urinary Catheter Assessment [RC] ASDIRECTED 08/25/21 01:30 Insert Contreras Catheter [Insert Urinary Catheter] [OM.PC] Q24H Assessment:: Patient is 86-year-old male presented to the emergency room with acute urinary retention. Contreras passed without difficulty. Urinary bladder demonstrates 500 cc of urine. Urinalysis observed demonstrates trace blood but otherwise no signs of infection. Patient directed to continue Flomax and follow-up with urology the next several days.
== END 2021-08-25 02:10 | disposition home or self-care (01) ==
LOC: JD.ED 00:32
DX: R33.9 Retention of urine, unspecified (principal); N40.0 Benign prostatic hyperplasia without lower urinary tract symptoms; I10 Essential (primary) hypertension; J44.9 Chronic obstructive pulmonary disease, unspecified; E66.9 Obesity, unspecified; Z68.32 Body mass index [BMI] 32.0-32.9, adult; Z79.899 Other long term (current) drug therapy
CPT/HCPCS: 51702; 81001; 99284-25

== ENCOUNTER 2021-08-29 16:41 | Emergency (ER) | payer OTHER ==
--- NOTE | 2021-08-29 17:27 | EDM.PDOC ---
ED HPI GENERAL MEDICAL PROBLEM - General Chief Complaint: Genitourinary Problem Stated Complaint: UTI Time Seen by Provider: 08/29/21 17:27 - History of Present Illness INITIAL COMMENTS - FREE TEXT/NARRATIVE: 86-year-old male presents the emergency room with catheter irritation. Patient's had a lot of issues with his catheter since it was placed the day after Dara. He will not let family look at it the family has noticed that he seems to have some increased abdomen in the urine. He complains mostly of some pain but states the pain is significantly better the last day or 2. He has not had any fevers or chills. - Related Data Allergies Allergy/AdvReac Type Severity Reaction Status Date / Time blood thinners. AdvReac Severe Other Uncoded 08/29/21 17:08 Home Meds: Home Meds Furosemide [Lasix] 10 mg PO DAILY 06/01/20 [History] Tamsulosin HCl [Flomax] 0.4 mg PO DAILY 06/01/20 [History] Budesonide/Formoterol Fumarate [Symbicort 160-4.5 Mcg Inhaler] 1 puff INH BEDTIME 06/20/20 [History] Finasteride [Proscar] 5 mg PO DAILY 06/20/20 [History] Metoprolol Tartrate 12.5 mg PO BID 12/29/20 [History] oxyCODONE 5 mg PO ASDIRECTED 12/29/20 [History] Albuterol Sulfate 1 - 2 applic INH DAILY 07/30/21 [History] Sulfamethoxazole/Trimethoprim [Septra DS] 1 tab PO Q12H 08/24/21 [History] oxyCODONE HCl [oxyCODONE] 20 mg PO BID 08/24/21 [History] Cefdinir 300 mg PO BID #12 capsule 08/29/21 [Rx] Past Medical History HEENT History: Reports: Impaired Vision Cardiovascular History: Reports: Afib, Hypertension Respiratory History: Reports: COPD Gastrointestinal History: Reports: Diverticulosis, PUD Genitourinary History: Reports: BPH, Renal Calculus Musculoskeletal History: Reports: Arthritis, Fracture Neurological History: Reports: CVA, Other (See Below) Other Neuro History: 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; at [facility] Endocrine/Metabolic History: Reports: Obesity/BMI 30+ Oncologic (Cancer) History: Reports: Basal Cell Carcinoma, Malignant Melanoma, Squamous Cell Carcinoma Dermatologic History: Reports: Eczema - Infectious Disease History Infectious Disease History: Reports: Chicken Pox, Influenza, Measles, Mumps - Past Surgical History Head Surgeries/Procedures: Reports: Craniotomy HEENT Surgical History: Reports: Cataract Surgery Cardiovascular Surgical History: Reports: Cardiac Ablation, Pacer, Other (See Below) Respiratory Surgical History: Reports: Lung Biopsies GI Surgical History: Reports: Colon, Colostomy Other GI Surgeries/Procedures: colostomy [id number] in Male Surgical History: Reports: Other (See Below) Other Male Surgeries/Procedures: blood clot removed from kidney Neurological Surgical History: Reports: Other (See Below) Other Neurological Surgeries/Procedures: 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 Musculoskeletal Surgical History: Reports: ORIF Oncologic Surgical History: Reports: Other (See Below) Other Oncologic Surgeries/Procedures: treatment for melanoma 1 month ago Social & Family History - Family History Family Medical History: No Pertinent Family History - Tobacco Use Tobacco Use Status *Q: Never Tobacco User - Caffeine Use Caffeine Use: Reports: Soda Other Caffeine Use: decaff - Recreational Drug Use Recreational Drug Use: No - Living Situation & Occupation Living situation: Reports: , with Family (Son + his girlfriend) Occupation: Retired ED ROS GENERAL - Review of Systems Review Of Systems: See Below Constitutional: Reports: No Symptoms Respiratory: Reports: No Symptoms Cardiovascular: Reports: No Symptoms GI/Abdominal: Reports: No Symptoms : Reports: Other (Discomfort from the Contreras) Musculoskeletal: Reports: No Symptoms Skin: Reports: Other (He gets some irritation with the penis resting against his left thigh) Neurological: Reports: No Symptoms ED EXAM, GENERAL - Physical Exam Exam: See Below Exam Limited By: No Limitations General Appearance: Alert, No Apparent Distress Head: Atraumatic, Normocephalic Neck: Normal Inspection, Supple, Non-Tender, Full Range of Motion Respiratory/Chest: No Respiratory Distress, Lungs Clear, Normal Breath Sounds Cardiovascular: Regular Rate, Rhythm, No Edema, No Murmur GI/Abdominal: Normal Bowel Sounds, Soft, Non-Tender (Male) Exam: Other (No drainage around the Contreras he has some skin irritation on the adjacent thigh where the penis seems to rub because the way the Contreras is secured) Back Exam: Normal Inspection. No: CVA Tenderness (L), CVA Tenderness (R) Course - Vital Signs Last Recorded V/S: Last Vital Signs Temp 36.7 C 08/29/21 17:03 Pulse 98 08/29/21 17:03 Resp 20 08/29/21 17:03 BP 101/64 08/29/21 17:03 Pulse Ox - Orders/Labs/Meds Orders: Active Orders 24 hr Category Date Time Status CULTURE URINE [MREF] Stat Lab 08/29/21 18:26 Received Labs: Laboratory Tests 08/29/21 Range/Units 18:26 Urine Color Yellow (Yellow) Urine Appearance Clear (Clear) Urine pH 6.0 (5.0-8.0) Ur Specific [place] 1.015 (1.005-1.030) Urine Protein Negative (Negative) Urine Glucose (UA) Negative (Negative) Urine Ketones Negative (Negative) Urine Occult Blood 2+ H (Negative) Urine Nitrite Negative (Negative) Urine Bilirubin Negative (Negative) Urine Urobilinogen 0.2 (0.2-1.0) Ur Leukocyte Esterase 1+ H (Negative) U Hyaline Cast (Auto) 5-10 H (0-5) /lpf Urine RBC 20-30 H (0-5) /hpf Urine WBC 5-10 H (0-5) /hpf Ur Epithelial Cells 0-5 (0-5) /hpf Calcium Oxalate Crystal Rare H (NONE) Urine Bacteria Few (FEW) /hpf Urine Mucus Rare (FEW) /hpf - Re-Assessments/Exams Free Text/Narrative Re-Assessment/Exam: 08/29/21 18:58 Patient was seen here on the for congestive heart failure was seen and again here the for problems with his Contreras but this seems to be doing okay his urinalysis at this time looks much worse albeit he could be from irritation today. On either visit was a started on antibiotics at this point I will start him on cefdinir awaiting culture and sensitivity. Departure - Departure Time of Disposition: 18:59 Disposition: Home, Self-Care 01 Clinical Impression: Urinary tract infection associated with catheterization of urinary tract - Discharge Information Referrals: Karely Webb MD [Primary Care Provider] - Forms: ED Department Discharge Additional Instructions: Return to the emergency room with any questions problems or worsening symptoms. Try and follow-up in the [facility] clinic this next week for recheck. Be sure you have follow-up with urology coming up. You been started on an antibiotic your first dose was given here in the emergency room your second dose was sent home with you for you to take first thing tomorrow morning. Tuesday the only pharmacy open is [facility] up [facility] [address]. They are open from noon to 4 tomorrow. It is the only pharmacy open in [facility] start the prescription tomorrow night and then take 1 twice daily until all gone. Sepsis Event Note (ED) - Focused Exam Vital Signs: Vital Signs Temp Pulse Resp BP 08/29/21 17:03 36.7 C 98 20 101/64 - My Orders Last 24 Hours: My Active Orders 08/29/21 18:26 CULTURE URINE [MREF] Stat - Assessment/Plan Last 24 Hours: My Active Orders 08/29/21 18:26 CULTURE URINE [MREF] Stat
[2021-08-29] MEDS ORDERED: Cefdinir 300 MG Cap PO ONE ×2 (19:03→19:04)
== END 2021-08-29 19:37 | disposition home or self-care (01) ==
LOC: JD.ED 16:41
DX: T83.511A Infection and inflammatory reaction due to indwelling urethral catheter, initial encounter (principal); N39.0 Urinary tract infection, site not specified; I48.91 Unspecified atrial fibrillation; I10 Essential (primary) hypertension; J44.9 Chronic obstructive pulmonary disease, unspecified; E66.9 Obesity, unspecified; Z68.30 Body mass index [BMI] 30.0-30.9, adult; Z86.73 Personal history of transient ischemic attack (TIA), and cerebral infarction without residual deficits; Z88.8 Allergy status to other drugs, medicaments and biological substances; Z79.899 Other long term (current) drug therapy
CPT/HCPCS: 81001; 87086; 99283; A9270

== ENCOUNTER 2021-09-01 02:34 | Emergency (ER) | payer OTHER ==
--- NOTE | 2021-09-01 04:02 | EDM.PDOC ---
ED HPI GENERAL MEDICAL PROBLEM - General Chief Complaint: Genitourinary Problem Stated Complaint: CATHETER COMPLAINT/ FEVER Time Seen by Provider: 09/01/21 02:56 - History of Present Illness INITIAL COMMENTS - FREE TEXT/NARRATIVE: 86-year-old male returns to emergency room with possible confusion and now he is running fevers. He was seen yesterday at the infusion center but would not get his chemotherapy because they thought he was too dry. Since that time he has become more confused and now is running fevers up to 101. The first with a suspected urinary tract infection he was taking Bactrim the this was changed to Omnicef 300 mg twice daily. He took his last dose of Bactrim yesterday started the Omnicef as directed. 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 coli according to the family. Vomiting prior to being seen in the infusion clinic his p.o. intake had seem to decrease but apparently he has been drinking lots of fluids today. Patient denies any pain at this time. Upon arrival here is bladder scan showed 2 cc Abdominal Pain Score (Numeric/FACES): 2 - Related Data Allergies Allergy/AdvReac Type Severity Reaction Status Date / Time blood thinners. AdvReac Severe Other Uncoded 09/01/21 02:53 Home Meds: Home Meds Furosemide [Lasix] 10 mg PO DAILY 06/01/20 [History] Tamsulosin HCl [Flomax] 0.4 mg PO DAILY 06/01/20 [History] Budesonide/Formoterol Fumarate [Symbicort 160-4.5 Mcg Inhaler] 1 puff INH BEDTIME 06/20/20 [History] Finasteride [Proscar] 5 mg PO DAILY 06/20/20 [History] Metoprolol Tartrate 12.5 mg PO BID 12/29/20 [History] oxyCODONE 5 mg PO ASDIRECTED 12/29/20 [History] Albuterol Sulfate 1 - 2 applic INH DAILY 07/30/21 [History] Sulfamethoxazole/Trimethoprim [Septra DS] 1 tab PO Q12H 08/24/21 [History] oxyCODONE HCl [oxyCODONE] 20 mg PO BID 08/24/21 [History] Cefdinir 300 mg PO BID #12 capsule 08/29/21 [Rx] Past Medical History HEENT History: Reports: Impaired Vision Cardiovascular History: Reports: Afib, Hypertension Respiratory History: Reports: COPD Gastrointestinal History: Reports: Diverticulosis, PUD Genitourinary History: Reports: BPH, Renal Calculus Musculoskeletal History: Reports: Arthritis, Fracture Neurological History: Reports: CVA, Other (See Below) Other Neuro History: 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; at [facility] Endocrine/Metabolic History: Reports: Obesity/BMI 30+ Oncologic (Cancer) History: Reports: Basal Cell Carcinoma, Malignant Melanoma, Squamous Cell Carcinoma Dermatologic History: Reports: Eczema - Infectious Disease History Infectious Disease History: Reports: Chicken Pox, Influenza, Measles, Mumps - Past Surgical History Head Surgeries/Procedures: Reports: Craniotomy HEENT Surgical History: Reports: Cataract Surgery Cardiovascular Surgical History: Reports: Cardiac Ablation, Pacer, Other (See Below) Respiratory Surgical History: Reports: Lung Biopsies GI Surgical History: Reports: Colon, Colostomy Other GI Surgeries/Procedures: colostomy [id number] in Male Surgical History: Reports: Other (See Below) Other Male Surgeries/Procedures: blood clot removed from kidney Neurological Surgical History: Reports: Other (See Below) Other Neurological Surgeries/Procedures: 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 Musculoskeletal Surgical History: Reports: ORIF Oncologic Surgical History: Reports: Other (See Below) Other Oncologic Surgeries/Procedures: treatment for melanoma 1 month ago Social & Family History - Family History Family Medical History: No Pertinent Family History - Tobacco Use Tobacco Use Status *Q: Unknown Ever Used Tobacco - Caffeine Use Caffeine Use: Reports: Soda Other Caffeine Use: decaff - Living Situation & Occupation Living situation: Reports: , with Family (Son + his girlfriend) Occupation: Retired ED ROS GENERAL - Review of Systems Review Of Systems: See Below Constitutional: Reports: Fever, Weakness, Fatigue, Decreased Appetite. Denies: Chills HEENT: Reports: No Symptoms Respiratory: Reports: No Symptoms Cardiovascular: Reports: No Symptoms Endocrine: Reports: No Symptoms GI/Abdominal: Reports: No Symptoms : Reports: Other (He has lots of irritation from the Contreras catheter) Musculoskeletal: Reports: No Symptoms Skin: Reports: No Symptoms Neurological: Reports: No Symptoms ED EXAM, GENERAL - Physical Exam Exam: See Below Exam Limited By: No Limitations General Appearance: No Apparent Distress Head: Atraumatic, Normocephalic Neck: Normal Inspection, Supple, Non-Tender, Full Range of Motion Respiratory/Chest: No Respiratory Distress, Lungs Clear, Normal Breath Sounds Cardiovascular: Regular Rate, Rhythm, No Edema, No Murmur GI/Abdominal: Normal Bowel Sounds, Soft, Non-Tender, Other (Well-healed midline incision) Back Exam: Normal Inspection. No: CVA Tenderness (L), CVA Tenderness (R) Extremities: Other (Deformity in the right lower extremity at the foot this could be a clubfoot or midfoot collapse. At the distal base of what appears to be the distal radius there is an ulceration in this area there is also another ulceration in the foot no obvious redness or warmth) Course - Vital Signs Last Recorded V/S: Last Vital Signs Temp 37.7 C 09/01/21 02:52 Pulse 74 09/01/21 02:52 Resp 20 09/01/21 02:52 BP 129/82 09/01/21 02:52 Pulse Ox 97 09/01/21 02:52 - Orders/Labs/Meds Orders: Active Orders 24 hr Category Date Time Status Contreras Catheter Insertion [Insert Urinary Catheter] [OM. Care 09/01/21 03:30 Ordered PC] Q24H Urinary Catheter Assessment [RC] ASDIRECTED Care 09/01/21 03:29 Active Chest 1V Frontal [CR] Stat Exams 09/01/21 03:36 Taken Foot Comp Min 3V Rt [CR] Stat Exams 09/01/21 03:36 Taken CULTURE URINE [MREF] Stat Lab 09/01/21 03:50 Received Labs: Laboratory Tests 09/01/21 09/01/21 09/01/21 Range/Units 03:50 03:56 03:56 WBC 3.38 L (4.23-9.07) K/mm3 RBC 3.75 L (4.63-6.08) M/mm3 Hgb 10.9 L (13.7-17.5) gm/dl Hct 34.6 L (40.1-51.0) % MCV 92.3 H (79.0-92.2) fl MCH 29.1 (25.7-32.2) pg MCHC 31.5 L (32.2-35.5) g/dl RDW Std Deviation 56.6 H (35.1-43.9) fL Plt Count 95 L (163-337) K/mm3 MPV 11.1 (9.4-12.3) fl Neut % (Auto) 77.1 H (34.0-67.9) % Lymph % (Auto) 9.2 L (21.8-53.1) % [place] % (Auto) 10.1 (5.3-12.2) % Eos % (Auto) 3.0 (0.8-7.0) Baso % (Auto) 0.6 (0.1-1.2) % Neut # (Auto) 2.61 (1.78-5.38) K/mm3 Lymph # (Auto) 0.31 L (1.32-3.57) K/mm3 [place] # (Auto) 0.34 (0.30-0.82) K/mm3 Eos # (Auto) 0.10 (0.04-0.54) K/mm3 Baso # (Auto) 0.02 (0.01-0.08) K/mm3 Manual Slide Review Abnormal smear Sodium 131 L (136-145) mEq/L Potassium 5.1 (3.5-5.1) mEq/L Chloride 98 (98-107) mEq/L Carbon Dioxide 26 (21-32) mEq/L Anion Gap 12.1 (5-15) BUN 33 H (7-18) mg/dL Creatinine 1.7 H (0.7-1.3) mg/dL Est Cr Clr Drug Dosing 31.29 mL/min Estimated GFR (MDRD) 39 (>60) mL/min BUN/Creatinine Ratio 19.4 H (14-18) Glucose 108 H (70-99) mg/dL Calcium 7.6 L (8.5-10.1) mg/dL Total Bilirubin 0.6 (0.2-1.0) mg/dL AST 72 H (15-37) U/L ALT 63 (16-63) U/L Alkaline Phosphatase 130 H (46-116) U/L Total Protein 6.2 L (6.4-8.2) g/dl Albumin 2.9 L (3.4-5.0) g/dl Globulin 3.3 gm/dL Albumin/Globulin Ratio 0.9 L (1-2) Urine Color Yellow (Yellow) Urine Appearance Cloudy H (Clear) Urine pH 5.5 (5.0-8.0) Ur Specific [place] 1.025 (1.005-1.030) Urine Protein 2+ H (Negative) Urine Glucose (UA) Negative (Negative) Urine Ketones Negative (Negative) Urine Occult Blood 2+ H (Negative) Urine Nitrite Negative (Negative) Urine Bilirubin Negative (Negative) Urine Urobilinogen 1.0 (0.2-1.0) Ur Leukocyte Esterase 1+ H (Negative) U Hyaline Cast (Auto) 0-5 (0-5) /lpf Urine RBC >100 H (0-5) /hpf Urine WBC 5-10 H (0-5) /hpf Ur Epithelial Cells Not seen (0-5) /hpf Other Crystals Few H (NONE) /hpf Amorphous Sediment Moderate H (NOT SEEN) /hpf Urine Bacteria Rare (FEW) /hpf Coarse Granular Casts 0-5 (0-5) /hpf Urine Mucus Not seen (FEW) /hpf - Re-Assessments/Exams Free Text/Narrative Re-Assessment/Exam: 09/01/21 06:11 Evaluation thus far is nondiagnostic urine culture from his last visit essentially less than 1000 colony-forming units or no growth. He is only taking the Omnicef at this point. X-ray of his foot no obvious acute injury questionable erosions around the metatarsal phalangeal joint of the great toe osteomyelitis not excluded I discussed this with the patient and family they are not sure he can make it through any sort of a procedure at this point as he just keeps getting weaker over time. The discussion did come up about long-term goals and I brought up the possibility of hospice. This was not the first time this was brought up. At this time I am not sure I have much else to offer family understands this as does the patient we will discharge. 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 As we discussed his he started to get metastatic activity to the brain or is his confusion related to a very poor sleeping pattern. Follow-up with oncology. Consider follow-up with podiatry to compare x-rays of with what is going on in his foot. Sepsis Event Note (ED) - Focused Exam Vital Signs: Vital Signs Temp Pulse Resp BP Pulse Ox 09/01/21 02:52 37.7 C 74 20 129/82 97 - My Orders Last 24 Hours: My Active Orders 09/01/21 03:29 Urinary Catheter Assessment [RC] ASDIRECTED 09/01/21 03:30 Contreras Catheter Insertion [Insert Urinary Catheter] [OM.PC] Q24H 09/01/21 03:36 Chest 1V Frontal [CR] Stat Foot Comp Min 3V Rt [CR] Stat 09/01/21 03:50 CULTURE URINE [MREF] Stat - Assessment/Plan Last 24 Hours: My Active Orders 09/01/21 03:29 Urinary Catheter Assessment [RC] ASDIRECTED 09/01/21 03:30 Contreras Catheter Insertion [Insert Urinary Catheter] [OM.PC] Q24H 09/01/21 03:36 Chest 1V Frontal [CR] Stat Foot Comp Min 3V Rt [CR] Stat 09/01/21 03:50 CULTURE URINE [MREF] Stat
--- NOTE | 2021-09-01 10:22 | CR ---
EXAM: XR CHEST 1 VIEW LOCATION: [facility] [place] DATE/TIME: 09/01/2021 4:04 AM INDICATION: Fever COMPARISON: None. FINDINGS: Left subclavian cardiac device. Right chest wall port. No pneumothorax. The heart is enlarged. There is no pulmonary edema. There are bilateral pulmonary infiltrates, worst at the right lung base. Degenerative disease in the spine and shoulders. Previous vertebroplasty. IMPRESSION: Bilateral pneumonia. SIGNED BY: Jonathan Perez MD 09/01/2021 5:21 AM YESSY
--- NOTE | 2021-09-01 10:23 | CR ---
EXAM: XR FOOT MINIMUM 3 VIEWS RIGHT LOCATION: [facility] DATE/TIME: 09/01/2021 4:07 AM INDICATION: Open sores, physical deformity, fever COMPARISON: None. IMPRESSION: There is arthritis in the mid foot collapse of the midfoot. No acute fracture is evident. There is erosion at the medial head of the first metatarsal near a skin ulcer and osteomyelitis is a possibility. Multiple vascular calcifications. SIGNED BY: Jonathan Perez MD 09/01/2021 5:23 AM YESSY
== END 2021-09-01 06:31 | disposition home or self-care (01) ==
LOC: JD.ED 02:34
DX: T83.098A Other mechanical complication of other urinary catheter, initial encounter (principal); C78.00 Secondary malignant neoplasm of unspecified lung; I48.91 Unspecified atrial fibrillation; I10 Essential (primary) hypertension; J44.9 Chronic obstructive pulmonary disease, unspecified; N40.0 Benign prostatic hyperplasia without lower urinary tract symptoms; E66.9 Obesity, unspecified; Z68.24 Body mass index [BMI] 24.0-24.9, adult; Z88.8 Allergy status to other drugs, medicaments and biological substances; Z79.899 Other long term (current) drug therapy
CPT/HCPCS: 36415; 71045; 71045-26; 73630-26-RT; 73630-RT; 80053; 81001; 85025; 87086; 99284-25

== ENCOUNTER 2021-09-02 06:48 | Emergency (ER) | payer OTHER ==
--- NOTE | 2021-09-02 07:38 | EDM.PDOC ---
<Jenni Dudley - Last Filed: 09/02/21 09:30> ED HPI GENERAL MEDICAL PROBLEM - General Chief Complaint: Genitourinary Problem Stated Complaint: [facility] Time Seen by Provider: 09/02/21 07:34 - History of Present Illness INITIAL COMMENTS - FREE TEXT/NARRATIVE: Mr. Jun Kaur is a 86-year-old male who presents to the ER with a complaint of leaking urine catheter. He feels a pain with urination, rating it a 5/10, describing is as a "burn". He denies any blood. Patient admits he is a little confused and is unsure exactly when the leaking started. Onset: Gradual Duration: Day(s): - Related Data Allergies Allergy/AdvReac Type Severity Reaction Status Date / Time blood thinners. AdvReac Severe Other Uncoded 09/01/21 02:53 Home Meds: Home Meds Tamsulosin HCl [Flomax] 0.4 mg PO DAILY 06/01/20 [History] Budesonide/Formoterol Fumarate [Symbicort 160-4.5 Mcg Inhaler] 1 puff INH BEDTIME 06/20/20 [History] Finasteride [Proscar] 5 mg PO DAILY 06/20/20 [History] Metoprolol Tartrate 12.5 mg PO BID 12/29/20 [History] oxyCODONE 5 mg PO ASDIRECTED 12/29/20 [History] Albuterol Sulfate 1 - 2 applic INH DAILY 07/30/21 [History] Sulfamethoxazole/Trimethoprim [Septra DS] 1 tab PO Q12H 08/24/21 [History] oxyCODONE HCl [oxyCODONE] 20 mg PO BID 08/24/21 [History] Cefdinir 300 mg PO BID #12 capsule 08/29/21 [Rx] Furosemide [Lasix] 40 mg PO DAILY #30 tablet 09/02/21 [Rx] ED ROS GENERAL - Review of Systems Review Of Systems: Comprehensive ROS is negative, except as noted in HPI. Constitutional: Reports: No Symptoms HEENT: Reports: No Symptoms Respiratory: Reports: No Symptoms Cardiovascular: Reports: No Symptoms Endocrine: Reports: No Symptoms GI/Abdominal: Reports: No Symptoms : Reports: Pain ("burning") Musculoskeletal: Reports: No Symptoms Skin: Reports: No Symptoms Neurological: Reports: Confusion Psychiatric: Reports: No Symptoms Hematologic/Lymphatic: Reports: No Symptoms Immunologic: Reports: No Symptoms ED EXAM, GENERAL - Physical Exam Exam: See Below Exam Limited By: No Limitations General Appearance: Alert, No Apparent Distress Ears: Other (Decreased hearing) Throat/Mouth: Normal Lips Head: Atraumatic, Normocephalic Neck: Normal Inspection, Supple, Non-Tender Respiratory/Chest: No Respiratory Distress, Lungs Clear, Normal Breath Sounds Cardiovascular: Regular Rate, Rhythm, No Edema GI/Abdominal: Normal Bowel Sounds, Soft, Non-Tender (Male) Exam: Other (Contreras inplace) Extremities: Other (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 GWEN expresses his main concern is the leaking catheter and the foot ulcers/possible infection. They have been soaking the foot in Epsom salt daily then treating with ointment at home. GWEN has Jun's morning medications, including Tamsulosin, metoprolol, Lasix, finasteride, Cefdinir and time released oxycodone, at bedside. These meds will be held until noon, when Jun normally takes his medications. GWEN and I discussed the plan to address his concerns, including a CT of the foot and a catheter with a larger balloon. He expressed understanding. 09/02/21 09:19 Spoke with GWEN Matos's girlfriend and Jun's primary home animal caretaker. She reports the ointment they are using on Jessicas feet is Silvadene prescribed by Podiatry. [facility] mentioned [facility], but reports not hearing back from the [facility]. We were able to contact the [facility] and they report calling family in April and July, and left phone messages with the family that have not been returned. We also discussed setting up home health to assist with catheter and wound care. Shawna seems interested in this idea. Referral will be made. 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 Qualifiers: Laterality: right Qualified Code(s): C78.01 - Secondary malignant neoplasm of right lung Chronic ulcer of right foot Qualifiers: Non-pressure ulcer stage: with fat layer exposed Qualified Code(s): L97.512 - Non-pressure chronic ulcer of other part of right foot with fat layer exposed Foot osteomyelitis, right Qualifiers: Osteomyelitis type: subacute Qualified Code(s): M86.271 - Subacute o steomyelitis, right ankle and foot Congestive heart failure Qualifiers: Heart failure type: unspecified Heart failure chronicity: unspecified Qualified Code(s): I50.9 - Heart failure, unspecified - Discharge Information Prescriptions: Furosemide [Lasix] 40 mg PO DAILY #30 tablet Instructions: Indwelling Urinary Catheter Care, Adult, Metastatic Cancer Referrals: PCP,None [Primary Care Provider] - Forms: ED Department Discharge Additional Instructions: Evaluation in the emergency room this morning primarily due to leaking around Contreras catheter was placed yesterday. You have a chronic indwelling Contreras catheter and therefore a new Contreras catheter was placed with a larger balloon on it to seat better in the lower portion of the bladder and prevent urine leakage. If the catheter is accidentally pushed backwards or upwards into the bladder urine will drain around the catheter and out the penis. Make sure that the Contreras catheter remains fairly taut so that it seats in the urinary bladder appropriately. A large catheter was placed due to bleeding per urethra after he got up from bed to the bathroom at the time of discharge. No further bleeding occurred after placement of the Contreras catheter suggesting that irritation of the surface of the prostate gland had occurred creating a nosebleed like situation. Further bleeding may occur depending on level of activity as the catheter moves around within the urinary bladder with movement. 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 After discussion it is felt that continued oral antibiotic is in order due to late stage metastatic melanoma involving the lungs. Associated congestive heart failure which appears to be slowly worsening. Suggest increasing Lasix to 40 mg tablet once daily in the morning for the next week and then reducing it to 1/2 tablet or 20 mg daily every morning. At this time continue all medications that have been prescribed. Follow-up with physician or primary care provider at [facility] once the Omnicef or cefdinir is completed and replaced this antibiotic with doxycycline 100 mg twice daily for the next 6 weeks. This is due to chronic infection in the right foot which is involving bone. Suggest contacting palliative care nurse to help with cost of medication and to answer questions and deal with problems that occur so that you would not have to come into the hospital very o ften. Home care nurse could change catheter at home etc. vies follow-up with primary care provider in 7 days time to recheck kidney function and serum potassium level due to change in Lasix dosage. <Larry Coronado - Last Filed: 09/02/21 14:49> ED HPI GENERAL MEDICAL PROBLEM - General Source of Information: Reports: Patient History Limitations: Reports: Physical Impairment Past Medical History HEENT History: Reports: Impaired Vision Cardiovascular History: Reports: Afib, Hypertension Respiratory History: Reports: COPD Gastrointestinal History: Reports: Diverticulosis, PUD Genitourinary History: Reports: BPH, Renal Calculus Musculoskeletal History: Reports: Arthritis, Fracture Neurological History: Reports: CVA, Other (See Below) Other Neuro History: 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; at [facility] Endocrine/Metabolic History: Reports: Obesity/BMI 30+ Oncologic (Cancer) History: Reports: Basal Cell Carcinoma, Malignant Melanoma, Squamous Cell Carcinoma Dermatologic History: Reports: Eczema - Infectious Disease History Infectious Disease History: Reports: Chicken Pox, Influenza, Measles, Mumps - Past Surgical History Head Surgeries/Procedures: Reports: Craniotomy HEENT Surgical History: Reports: Cataract Surgery Cardiovascular Surgical History: Reports: Cardiac Ablation, Pacer, Other (See Below) Respiratory Surgical History: Reports: Lung Biopsies GI Surgical History: Reports: Colon, Colostomy Other GI Surgeries/Procedures: colostomy [id number] in Male Surgical History: Reports: Other (See Below) Other Male Surgeries/Procedures: blood clot removed from kidney Neurological Surgical History: Reports: Other (See Below) Other Neurological Surgeries/Procedures: 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 Musculoskeletal Surgical History: Reports: ORIF Oncologic Surgical History: Reports: Other (See Below) Other Oncologic Surgeries/Procedures: treatment for melanoma 1 month ago Social & Family History - Family History Family Medical History: No Pertinent Family History - Tobacco Use Tobacco Use Status *Q: Unknown Ever Used Tobacco - Caffeine Use Caffeine Use: Reports: None Other Caffeine Use: decaff - Recreational Drug Use Recreational Drug Use: No - Living Situation & Occupation Living situation: Reports: , with Family (Son + his girlfriend) Occupation: Retired Course - Vital Signs Last Recorded V/S: Last Vital Signs Temp 37.7 C 09/02/21 06:52 Pulse 73 09/02/21 06:52 Resp 21 H 09/02/21 06:52 BP 146/85 H 09/02/21 06:52 Pulse Ox 89 L 09/02/21 06:52 - Orders/Labs/Meds Orders: Active Orders 24 hr Category Date Time Status Insert Contreras Catheter [Insert Urinary Catheter] [OM.PC] Care 09/02/21 08:00 Ordered Q24H Remove Contreras Catheter [Urinary Catheter Removal] [RC] Care 09/02/21 07:57 Active PER UNIT ROUTINE Urinary Catheter Assessment [RC] ASDIRECTED Care 09/02/21 07:59 Active BLOOD CULTURE [MREF] Stat Lab 09/02/21 08:00 Received BLOOD CULTURE [MREF] Stat Lab 09/02/21 08:10 Received Blood Culture x2 Reflex Set [OM.PC] Stat Oth 09/02/21 07:28 Ordered Labs: Laboratory Tests 09/02/21 09/02/21 09/02/21 Range/Units 08:00 08:00 08:00 WBC 4.12 L (4.23-9.07) K/mm3 RBC 3.87 L (4.63-6.08) M/mm3 Hgb 11.3 L (13.7-17.5) gm/dl Hct 35.3 L (40.1-51.0) % MCV 91.2 (79.0-92.2) fl MCH 29.2 (25.7-32.2) pg MCHC 32.0 L (32.2-35.5) g/dl RDW Std Deviation 56.1 H (35.1-43.9) fL Plt Count 111 L (163-337) K/mm3 MPV 11.1 (9.4-12.3) fl Neutrophils % (Manual) 70 H (40-60) % Band Neutrophils % 1 (0-10) % Lymphocytes % (Manual) 10 L (20-40) % Atypical Lymphs % 0 % Monocytes % (Manual) 13 H (2-10) % Eosinophils % (Manual) 6 (0.8-7.0) % Basophils % (Manual) 0 L (0.2-1.2) Platelet Estimate Adequate RBC Morph Comment Normal ESR (0-15) mm/hr PT 10.7 (9.7-12.0) SECONDS INR 0.96 APTT 28.2 (21.7-31.4) SECONDS Sodium 130 L (136-145) mEq/L Potassium 4.9 (3.5-5.1) mEq/L Chloride 96 L (98-107) mEq/L Carbon Dioxide 28 (21-32) mEq/L Anion Gap 10.9 (5-15) BUN 31 H (7-18) mg/dL Creatinine 1.5 H (0.7-1.3) mg/dL Est Cr Clr Drug Dosing 28.31 mL/min Estimated GFR (MDRD) 45 (>60) mL/min BUN/Creatinine Ratio 20.7 H (14-18) Glucose 114 H (70-99) mg/dL Lactic Acid (0.4-2.0) mmol/L Calcium 8.5 (8.5-10.1) mg/dL Magnesium 2.2 (1.8-2.4) mg/dL Total Bilirubin 0.6 (0.2-1.0) mg/dL AST 67 H (15-37) U/L ALT 64 H (16-63) U/L Alkaline Phosphatase 149 H (46-116) U/L Troponin I < 0.017 (0.00-0.056) ng/mL C-Reactive Protein 13.8 H* (<1.0) mg/dL NT-Pro-B Natriuret Pep (0-450) pg/mL Total Protein 6.8 (6.4-8.2) g/dl Albumin 2.8 L (3.4-5.0) g/dl Globulin 4.0 gm/dL Albumin/Globulin Ratio 0.7 L (1-2) Urine Color (Yellow) Urine Appearance (Clear) Urine pH (5.0-8.0) Ur Specific Clyde (1.005-1.030) Urine Protein (Negative) Urine Glucose (UA) (Negative) Urine Ketones (Negative) Urine Occult Blood (Negative) Urine Nitrite (Negative) Urine Bilirubin (Negative) Urine Urobilinogen (0.2-1.0) Ur Leukocyte Esterase (Negative) Urine RBC (0-5) /hpf Urine WBC (0-5) /hpf Ur Squamous Epith Cells (0-5) /hpf Urine Bacteria (FEW) /hpf Urine Mucus (FEW) /hpf Influenza Type A RNA (NEGATIVE) RSV RNA (INAAT) (NEGATIVE) Influenza Type B RNA (NEGATIVE) SARS-CoV-2 RNA (NESS) (NEGATIVE) 09/02/21 09/02/21 09/02/21 Range/Units 08:00 08:00 08:00 WBC (4.23-9.07) K/mm3 RBC (4.63-6.08) M/mm3 Hgb (13.7-17.5) gm/dl Hct (40.1-51.0) % MCV (79.0-92.2) fl MCH (25.7-32.2) pg MCHC (32.2-35.5) g/dl RDW Std Deviation (35.1-43.9) fL Plt Count (163-337) K/mm3 MPV (9.4-12.3) fl Neutrophils % (Manual) (40-60) % Band Neutrophils % (0-10) % Lymphocytes % (Manual) (20-40) % Atypical Lymphs % % Monocytes % (Manual) (2-10) % Eosinophils % (Manual) (0.8-7.0) % Basophils % (Manual) (0.2-1.2) Platelet Estimate RBC Morph Comment ESR 24 H (0-15) mm/hr PT (9.7-12.0) SECONDS INR APTT (21.7-31.4) SECONDS Sodium (136-145) mEq/L Potassium (3.5-5.1) mEq/L Chloride (98-107) mEq/L Carbon Dioxide (21-32) mEq/L Anion Gap (5-15) BUN (7-18) mg/dL Creatinine (0.7-1.3) mg/dL Est Cr Clr Drug Dosing mL/min Estimated GFR (MDRD) (>60) mL/min BUN/Creatinine Ratio (14-18) Glucose (70-99) mg/dL Lactic Acid 1.3 (0.4-2.0) mmol/L Calcium (8.5-10.1) mg/dL Magnesium (1.8-2.4) mg/dL Total Bilirubin (0.2-1.0) mg/dL AST (15-37) U/L ALT (16-63) U/L Alkaline Phosphatase (46-116) U/L Troponin I (0.00-0.056) ng/mL C-Reactive Protein (<1.0) mg/dL NT-Pro-B Natriuret Pep 08372 H (0-450) pg/mL Total Protein (6.4-8.2) g/dl Albumin (3.4-5.0) g/dl Globulin gm/dL Albumin/Globulin Ratio (1-2) Urine Color (Yellow) Urine Appearance (Clear) Urine pH (5.0-8.0) Ur Specific Clyde (1.005-1.030) Urine Protein (Negative) Urine Glucose (UA) (Negative) Urine Ketones (Negative) Urine Occult Blood (Negative) Urine Nitrite (Negative) Urine Bilirubin (Negative) Urine Urobilinogen (0.2-1.0) Ur Leukocyte Esterase (Negative) Urine RBC (0-5) /hpf Urine WBC (0-5) /hpf Ur Squamous Epith Cells (0-5) /hpf Urine Bacteria (FEW) /hpf Urine Mucus (FEW) /hpf Influenza Type A RNA (NEGATIVE) RSV RNA (INAAT) (NEGATIVE) Influenza Type B RNA (NEGATIVE) SARS-CoV-2 RNA (NESS) (NEGATIVE) 09/02/21 09/02/21 Range/Units 08:09 08:15 WBC (4.23-9.07) K/mm3 RBC (4.63-6.08) M/mm3 Hgb (13.7-17.5) gm/dl Hct (40.1-51.0) % MCV (79.0-92.2) fl MCH (25.7-32.2) pg MCHC (32.2-35.5) g/dl RDW Std Deviation (35.1-43.9) fL Plt Count (163-337) K/mm3 MPV (9.4-12.3) fl Neutrophils % (Manual) (40-60) % Band Neutrophils % (0-10) % Lymphocytes % (Manual) (20-40) % Atypical Lymphs % % Monocytes % (Manual) (2-10) % Eosinophils % (Manual) (0.8-7.0) % Basophils % (Manual) (0.2-1.2) Platelet Estimate RBC Morph Comment ESR (0-15) mm/hr PT (9.7-12.0) SECONDS INR APTT (21.7-31.4) SECONDS Sodium (136-145) mEq/L Potassium (3.5-5.1) mEq/L Chloride (98-107) mEq/L Carbon Dioxide (21-32) mEq/L Anion Gap (5-15) BUN (7-18) mg/dL Creatinine (0.7-1.3) mg/dL Est Cr Clr Drug Dosing mL/min Estimated GFR (MDRD) (>60) mL/min BUN/Creatinine Ratio (14-18) Glucose (70-99) mg/dL Lactic Acid (0.4-2.0) mmol/L Calcium (8.5-10.1) mg/dL Magnesium (1.8-2.4) mg/dL Total Bilirubin (0.2-1.0) mg/dL AST (15-37) U/L ALT (16-63) U/L Alkaline Phosphatase (46-116) U/L Troponin I (0.00-0.056) ng/mL C-Reactive Protein (<1.0) mg/dL NT-Pro-B Natriuret Pep (0-450) pg/mL Total Protein (6.4-8.2) g/dl Albumin (3.4-5.0) g/dl Globulin gm/dL Albumin/Globulin Ratio (1-2) Urine Color Light yellow (Yellow) Urine Appearance Slt cloudy H (Clear) Urine pH 6.0 (5.0-8.0) Ur Specific Clyde 1.025 (1.005-1.030) Urine Protein 2+ H (Negative) Urine Glucose (UA) Negative (Negative) Urine Ketones Negative (Negative) Urine Occult Blood 2+ H (Negative) Urine Nitrite Negative (Negative) Urine Bilirubin Negative (Negative) Urine Urobilinogen 0.2 (0.2-1.0) Ur Leukocyte Esterase 1+ H (Negative) Urine RBC 30-40 H (0-5) /hpf Urine WBC 40-50 H (0-5) /hpf Ur Squamous Epith Cells 0-5 (0-5) /hpf Urine Bacteria Moderate H (FEW) /hpf Urine Mucus Not seen (FEW) /hpf Influenza Type A RNA Negative (NEGATIVE) RSV RNA (INAAT) Negative (NEGATIVE) Influenza Type B RNA Negative (NEGATIVE) SARS-CoV-2 RNA (NESS) Negative (NEGATIVE) Meds: Medications Discontinued Medications Generic Name Dose Route Start Last Admin Trade Name Freq PRN Reason Stop Dose Admin Cefdinir 300 mg 09/02/21 13:43 Cefdinir 300 Mg Cap PO 09/02/21 13:44 ONETIME ONE Diltiazem HCl 120 mg 09/02/21 11:55 Diltiazem 120 Mg Cap.Cd PO 09/02/21 11:56 ONETIME ONE Lidocaine HCl 10 ml 09/02/21 08:00 09/02/21 09:37 Lidocaine 2% Jelly 10 Ml Urojet MUCMEM 09/02/21 08:01 10 ml ONETIME ONE Administration Lidocaine HCl 10 ml 09/02/21 11:44 09/02/21 13:45 Lidocaine 2% Jelly 10 Ml Urojet MUCMEM 09/02/21 11:45 10 ml ONETIME ONE Administration - Radiology Interpretation Free Text/Narrative:: I have seen this elderly patient in the ED in the accompaniment of student physician undertaker assistant Jenni Dudley and I have reviewed her documentation and treatment plan and agree with this. He is leaking from Contreras catheter which was changed out yesterday at the penis. Plan will be to change his Contreras catheter to have a 30 cc balloon on it to help it seat better in the trigone of the urinary bladder and prevent drainage of urine around it. Source of infection is potentially multifactorial in terms of urinary tract infection for which she has been on antibiotics Bactrim which was finished 2 days ago and started on Omnicef 300 mg twice daily yesterday. Chest x-ray will be repeated as well blood cultures x2 in spite of antibiotic therapy. He also has 2 ulcerations medial aspect of his right foot which reveals Charcot Susan tooth disease. The medial wound is draining purulent material and is slightly erythematous. I do not suspect osteomyelitis although the bone deformity in this area could lead to an osteomyelitis. A CT scan of his right foot will be ordered. Patient is continue to run a low-grade fever of 100.1 degrees this morning. O2 sats are actually 95% on room air. - Re-Assessments/Exams Free Text/Narrative Re-Assessment/Exam: 09/02/21 08:10: Portable chest x-ray reveals mild cardiomegaly. Stable right sided chest opacity which is likely a combination of pleural fluid and lung infiltrate. Patient is known to have metastatic melanoma to the lungs. This appears to represent the area of pleural fluid and lung infiltrate. Stable mild left basilar opacity which could represent atelectasis, scar or pneumonia. 09/02/21 08:39 Hematology reveals a white count of 4.12 . Differential is pending. Hemoglobin is stable at 11.3 with hematocrit of 35.3. Platelet count is 111,000 which is low. Urine was slightly cloudy with 2+ proteinuria 2+ occult blood and 1+ leukocyte esterase .The urine micro is pending. 09/02/21 08:59 Differential on the white count is now available revealing 70% neutrophils 1% bands cells reported and 10% lymphocytes. Monocytes are mildly elevated at 13%. PT is 10.7 with an INR of 0.96 PTT is 28.2. Lactic acid is 1.3. BNP is 10,749. Chemistry is pending 09/02/21 09:25 Sodium is 130 with a potassium of 4.9. Chloride is 96 with a bicarb of 28. Anion gap is 10.9. BUN is mildly elevated at 31 with a creatinine of 1.5 and a GFR of 45. BUN/creatinine ratio is mildly elevated at 20.7. Glucose is 114. Lactic acid 1.3. Calcium is 8.5 with a magnesium of 2.2. Bilirubin is 0.6 AST mildly elevated at 67 ALT is 64. Alkaline phosphatase mildly elevated at 149. C-reactive protein is 13.8. Total protein is 6.8 with an albumin fraction low at 2.8. The micro on the urinalysis shows 30-40 red blood cells per high-power field and 40-50 white blood cells per high- power field. Moderate bacteria appreciated. Patient is guarding chronic indwelling Contreras catheter which is changed again today. Influenza RSV and COVID-19 screens were negative. 09/02/21 09:53 CT of the right foot has been completed without IV contrast. There is marked pes planus in the lateral divergence of the foot. The deformity is approaching rocker-bottom deformity. There is severe and end-stage degenerative change at the subtalar joint and tibiotalar joint. Bony remodeling is evident of the calcaneus. Severe degenerative change at the talonavicular joint. There is soft tissue ulceration along the medial aspect of the forefoot and associated cortical irregularity of the medial aspect of the first metatarsal head this is concerning for underlying osteomyelitis. There is additional ulceration at the medial aspect of the hindfoot superficial to the displaced talus also consistent with possible osteomyelitis. No evidence of abscesses apparent. Comment of some edema or cellulitis along the dorsal aspect of the foot. Ideally patient has should have a PICC line placed and treated with a minimum of 6 weeks of IV antibiotics but due to his poor physical condition I believe he should be considered palliative care with compassionate terminal care and that aggressive management of his osteomyelitis is not indicated at this time. 09/02/21 11:10: Patient got up to use the washroom at the time of potential discharge from the hospital and did immediately develop or appreciate bright red bleeding coming from around the Contreras catheter. Drainage into the initial bedside monitor did reveal normal sol-colored urine slightly dark due to dehydration. The bleeding seemed to start after the patient became mobile. He denies any pain. Ultrasound done by me reveals a Contreras catheter to be in his urinary bladder in the appropriate position. Plan we will irrigate the Contreras catheter and see if the bleeding persists. If it does a three-way Contreras catheter will have to be placed for boot irrigation. 09/02/21 11:44 Patient was experiencing a good deal of pain with attempt to irrigate the Contreras catheter. There was also no return of irrigation fluid. I was able to remove only 15 mils of fluid from a 30 cc balloon side suggesting that the balloon may have ruptured and displaced. I then remove the Contreras catheter in total. I was able to fill the balloon with 20 cc and it was not leaking. I therefore suspect that the balloon was inflated in his penile urethra which is causing current bleeding syndrome. Plan will be to place a three-way Contreras catheter for boot irrigation at this time. 09/02/21 11:53 patient has converted back to sinus rhythm at 104 bpm with no abnormalities in the baseline to suggest ischemia. This occurred after initial dose of Cardizem 10 mg IV bolus. The IV verapamil drip will be withheld or discontinued as it was never started at this time. I am going to give him cardia zyme 120 mg extended release tablet orally. 09/02/21 14:40 three-way Contreras catheter has been placed and there is been no further bleeding from the urinary bladder. It appears that blood occurred after he got up to the bathroom at the time of discharge and likely has had some degree of traction on the balloon which irritated the prostate causing bleeding. It was bright red bleeding. The urine at present is completely sol and pale. He will therefore be discharged home with a three-way Contreras catheter in place in case further problems occur that requires irrigation of the urinary marquis dder. He will continue cefdinir 300 mg twice daily per to help clear up pneumonia as well as any urinary tract infection. I have advised an increased dose of Lasix to 40 mg daily in the morning for the next 5 days due to his BNP being 10,749. Creased dosage of Lasix prescription was sent to [facility] Departure - Departure Time of Disposition: 10:41 Condition: Poor - Discharge Information *PRESCRIPTION DRUG MONITORING PROGRAM REVIEWED*: Not Applicable *COPY OF PRESCRIPTION DRUG MONITORING REPORT IN PATIENT KINA: Not Applicable Sepsis Event Note (ED) - Evaluation Sepsis Screening Result: No Definite Risk - Focused Exam Vital Signs: Vital Signs Temp Pulse Resp BP Pulse Ox 09/02/21 06:52 37.7 C 73 21 H 146/85 H 89 L - My Orders Last 24 Hours: My Active Orders 09/02/21 07:28 Blood Culture x2 Reflex Set [OM.PC] Stat 09/02/21 07:57 Remove Contreras Catheter [Urinary Catheter Removal] [RC] PER UNIT ROUTINE 09/02/21 07:59 Urinary Catheter Assessment [RC] ASDIRECTED 09/02/21 08:00 Insert Contreras Catheter [Insert Urinary Catheter] [OM.PC] Q24H BLOOD CULTURE [MREF] Stat 09/02/21 08:10 BLOOD CULTURE [MREF] Stat - Assessment/Plan Last 24 Hours: My Active Orders 09/02/21 07:28 Blood Culture x2 Reflex Set [OM.PC] Stat 09/02/21 07:57 Remove Contreras Catheter [Urinary Catheter Removal] [RC] PER UNIT ROUTINE 09/02/21 07:59 Urinary Catheter Assessment [RC] ASDIRECTED 09/02/21 08:00 Insert Contreras Catheter [Insert Urinary Catheter] [OM.PC] Q24H BLOOD CULTURE [MREF] Stat 09/02/21 08:10 BLOOD CULTURE [MREF] Stat
[2021-09-02] MEDS ORDERED: Lidocaine 2% Jelly 10 ML Urojet MUCMEM ONE ×2 (08:00→11:44)
[2021-09-02 09:11] LABS: CORONAVIRUS COVID-19 NAA NEGATIVE (NEGATIVE)
--- NOTE | 2021-09-02 09:47 | CR ---
EXAM: XR CHEST 1 VIEW LOCATION: [facility] [employer] DATE/TIME: 09/02/2021 7:31 AM INDICATION: Persistent fever of unclear origin COMPARISON: 09/01/2021 IMPRESSION: Severe right shoulder arthropathy. Right internal jugular portacatheter tip projects over the lower SVC. Single lead left subclavian pacemaker tip projects over ventricle. Limited inspiratory volume. Stable heart size which appears enlarged. Stable right chest opacity which is likely a combination of pleural fluid and lung infiltrate. Stable mild left basilar opacity which could represent atelectasis, scar, or pneumonia. SIGNED BY: López Weaver MD 09/02/2021 8:51 AM YESSY
--- NOTE | 2021-09-02 09:49 | CT ---
EXAM: CT FOOT,UNI W/O RIGHT LOCATION: [facility] DATE/TIME: 09/02/2021 8:17 AM INDICATION: Evdlrzr-Isurf-Lrrwe deformity of foot. Two ulcerations actively draining, consider osteomyelitis. COMPARISON: 09/01/2021 x-ray. TECHNIQUE: Noncontrast. Axial, sagittal and coronal thin-section reconstruction. Dose reduction techniques were used. FINDINGS: BONES: -There is marked pes planus and lateral divergence of the foot. The deformities approaching rocker-bottom deformity. There is severe and end-stage degenerative change at the subtalar joint and tibiotalar joint. Bony remodeling of the calcaneus. Severe degenerative change at the talonavicular joint. There is a soft tissue ulceration along the medial aspect of the forefoot and associated cortical irregularity of the medial aspect of the first metatarsal head. This is concerning for osteomyelitis. There is additional ulceration at the medial aspect of the hindfoot superficial to the displaced talus, also consistent with osteomyelitis. SOFT TISSUES: -Edema or cellulitis along the dorsal aspect of the foot. No evidence for abscess. IMPRESSION: 1. Hindfoot valgus and pes planus with medial subluxation of the talus off of the calcaneus. 2. Soft tissue ulceration and cortical irregularity along the inferomedial margin of the talus consistent with osteomyelitis. 3. Separate ulceration and cortical irregularity of the medial aspect of the first metatarsal head, also suggestive of osteomyelitis. 4. Severe and end-stage degenerative changes at the joints of the hindfoot. 5. No evidence for acute appearing fracture. 6. Vascular calcifications. SIGNED BY: Luciano Mcnair MD 09/02/2021 10:37 AM YESSY
[2021-09-02] MEDS ORDERED: Diltiazem 120 MG Cap.CD PO ONE (11:55)
[2021-09-02] MEDS ORDERED: Cefdinir 300 MG Cap PO ONE (13:43)
== END 2021-09-02 15:02 | disposition home or self-care (01) ==
LOC: JD.ED 06:48
DX: T83.038A Leakage of other urinary catheter, initial encounter (principal); I11.0 Hypertensive heart disease with heart failure; I50.9 Heart failure, unspecified; M86.271 Subacute osteomyelitis, right ankle and foot; L97.512 Non-pressure chronic ulcer of other part of right foot with fat layer exposed; C78.01 Secondary malignant neoplasm of right lung; R62.7 Adult failure to thrive; N40.0 Benign prostatic hyperplasia without lower urinary tract symptoms; I48.91 Unspecified atrial fibrillation; M19.90 Unspecified osteoarthritis, unspecified site; E66.9 Obesity, unspecified; Z88.8 Allergy status to other drugs, medicaments and biological substances; Z79.899 Other long term (current) drug therapy; Z86.73 Personal history of transient ischemic attack (TIA), and cerebral infarction without residual deficits; Z68.29 Body mass index [BMI] 29.0-29.9, adult; Z20.822 Contact with and (suspected) exposure to COVID-19
CPT/HCPCS: 0241U; 36415; 51702; 71045; 71045-26; 73700-26-RT; 73700-RT; 80053; 81001; 83605; 83735; 83880; 84484; 85007; 85027; 85610; 85652; 85730; 86140; 87040; 99285-25; A9270-GY

== ENCOUNTER 2021-09-04 03:29 | Emergency (ER) | payer OTHER ==
--- NOTE | 2021-09-04 04:10 | EDM.PDOC ---
ED HPI GENERAL MEDICAL PROBLEM - General Chief Complaint: Neurological Problem Stated Complaint: CATH LEAKING HX OF BRAIN BLEED Time Seen by Provider: 09/04/21 04:10 - History of Present Illness INITIAL COMMENTS - FREE TEXT/NARRATIVE: 86-year-old male returns the emergency room with increasing balance instability and weakness. Also his catheter continues to leak. Patient is having increasing problems over the last couple hours where he has difficulty with his balance and seems weaker than normal. 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 Patient denies any pain at this time. Patient is having continued problems with the catheter leaking around it. This is been changed and adjusted and this seems to be a continual problem with him and his catheter. - Related Data Allergies Allergy/AdvReac Type Severity Reaction Status Date / Time blood thinners. AdvReac Severe Other Uncoded 09/04/21 04:02 Home Meds: Home Meds Tamsulosin HCl [Flomax] 0.4 mg PO DAILY 06/01/20 [History] Budesonide/Formoterol Fumarate [Symbicort 160-4.5 Mcg Inhaler] 1 puff INH BEDTIME 06/20/20 [History] Finasteride [Proscar] 5 mg PO DAILY 06/20/20 [History] Metoprolol Tartrate 12.5 mg PO BID 12/29/20 [History] oxyCODONE 5 mg PO ASDIRECTED 12/29/20 [History] Albuterol Sulfate 1 - 2 applic INH DAILY 07/30/21 [History] Sulfamethoxazole/Trimethoprim [Septra DS] 1 tab PO Q12H 08/24/21 [History] oxyCODONE HCl [oxyCODONE] 20 mg PO BID 08/24/21 [History] Cefdinir 300 mg PO BID #12 capsule 08/29/21 [Rx] Furosemide [Lasix] 40 mg PO DAILY #30 tablet 09/02/21 [Rx] Past Medical History HEENT History: Reports: Impaired Vision Cardiovascular History: Reports: Afib, Hypertension Respiratory History: Reports: COPD Gastrointestinal History: Reports: Diverticulosis, PUD Genitourinary History: Reports: BPH, Renal Calculus Musculoskeletal History: Reports: Arthritis, Fracture Neurological History: Reports: CVA, Other (See Below) Other Neuro History: 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; at [facility] Endocrine/Metabolic History: Reports: Obesity/BMI 30+ Oncologic (Cancer) History: Reports: Basal Cell Carcinoma, Malignant Melanoma, Squamous Cell Carcinoma Dermatologic History: Reports: Eczema - Infectious Disease History Infectious Disease History: Reports: Chicken Pox, Influenza, Measles, Mumps - Past Surgical History Head Surgeries/Procedures: Reports: Craniotomy HEENT Surgical History: Reports: Cataract Surgery Cardiovascular Surgical History: Reports: Cardiac Ablation, Pacer, Other (See Below) Respiratory Surgical History: Reports: Lung Biopsies GI Surgical History: Reports: Colon, Colostomy Other GI Surgeries/Procedures: colostomy [id number] in Male Surgical History: Reports: Other (See Below) Other Male Surgeries/Procedures: blood clot removed from kidney Neurological Surgical History: Reports: Other (See Below) Other Neurological Surgeries/Procedures: 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 Musculoskeletal Surgical History: Reports: ORIF Oncologic Surgical History: Reports: Other (See Below) Other Oncologic Surgeries/Procedures: treatment for melanoma 1 month ago Social & Family History - Family History Family Medical History: No Pertinent Family History - Tobacco Use Tobacco Use Status *Q: Unknown Ever Used Tobacco - Caffeine Use Caffeine Use: Reports: None Other Caffeine Use: decaff - Living Situation & Occupation Living situation: Reports: , with Family (Son + his girlfriend) Occupation: Retired ED ROS GENERAL - Review of Systems Review Of Systems: See Below Constitutional: Reports: Weakness, Fatigue. Denies: Fever, Chills HEENT: Reports: No Symptoms Respiratory: Reports: No Symptoms Cardiovascular: Reports: No Symptoms GI/Abdominal: Reports: No Symptoms : Reports: Other Musculoskeletal: Reports: No Symptoms Skin: Reports: Other (He has his chronic foot ulcerations) ED EXAM, GENERAL - Physical Exam Exam: See Below Exam Limited By: Other (Patient seems to be doing better at this time and is answering questions appropriately) General Appearance: Alert, No Apparent Distress Eye Exam: Bilateral Eye: Normal Inspection Ears: Normal External Exam, Normal Canal, Other (Cerumen in left canal) Nose: Normal Inspection, Normal Mucosa, No Blood Throat/Mouth: Normal Inspection, Normal Lips, Normal Teeth, Normal Gums, Normal Oropharynx, Normal Voice, No Airway Compromise Head: Atraumatic, Normocephalic Neck: Normal Inspection, Supple, Non-Tender, Full Range of Motion Respiratory/Chest: No Respiratory Distress, Lungs Clear, Normal Breath Sounds Cardiovascular: Normal Peripheral Pulses, Regular Rate, Rhythm, No Edema GI/Abdominal: Normal Bowel Sounds, Soft, Non-Tender Back Exam: Normal Inspection. No: CVA Tenderness (L), CVA Tenderness (R) Extremities: Other (Right lower extremity fibular displacement of the foot secondary to midfoot breakdown he had a CT of this area 2 days ago which revealed no acute osteomyelitis) Course - Vital Signs Last Recorded V/S: Last Vital Signs Temp 36.6 C 09/04/21 03:58 Pulse 80 09/04/21 03:58 Resp 16 09/04/21 03:58 BP 129/79 09/04/21 03:58 Pulse Ox 90 L 09/04/21 03:58 - Orders/Labs/Meds Orders: Active Orders 24 hr Category Date Time Status Head wo Cont [CT] Stat Exams 09/04/21 04:33 Taken Labs: Laboratory Tests 09/04/21 09/04/21 Range/Units 05:41 05:41 WBC 5.37 (4.23-9.07) K/mm3 RBC 3.52 L (4.63-6.08) M/mm3 Hgb 10.4 L (13.7-17.5) gm/dl Hct 31.9 L (40.1-51.0) % MCV 90.6 (79.0-92.2) fl MCH 29.5 (25.7-32.2) pg MCHC 32.6 (32.2-35.5) g/dl RDW Std Deviation 55.0 H (35.1-43.9) fL Plt Count 152 L (163-337) K/mm3 MPV 10.6 (9.4-12.3) fl Neut % (Auto) 64.0 (34.0-67.9) % Lymph % (Auto) 16.4 L (21.8-53.1) % Brown % (Auto) 14.7 H (5.3-12.2) % Eos % (Auto) 4.3 (0.8-7.0) Baso % (Auto) 0.6 (0.1-1.2) % Neut # (Auto) 3.44 (1.78-5.38) K/mm3 Lymph # (Auto) 0.88 L (1.32-3.57) K/mm3 Brown # (Auto) 0.79 (0.30-0.82) K/mm3 Eos # (Auto) 0.23 (0.04-0.54) K/mm3 Baso # (Auto) 0.03 (0.01-0.08) K/mm3 Sodium 134 L (136-145) mEq/L Potassium 4.7 (3.5-5.1) mEq/L Chloride 99 (98-107) mEq/L Carbon Dioxide 28 (21-32) mEq/L Anion Gap 11.7 (5-15) BUN 27 H (7-18) mg/dL Creatinine 1.3 (0.7-1.3) mg/dL Est Cr Clr Drug Dosing TNP Estimated GFR (MDRD) 53 (>60) mL/min BUN/Creatinine Ratio 20.8 H (14-18) Glucose 93 (70-99) mg/dL Calcium 8.2 L (8.5-10.1) mg/dL Total Bilirubin 0.4 (0.2-1.0) mg/dL AST 33 (15-37) U/L ALT 40 (16-63) U/L Alkaline Phosphatase 107 (46-116) U/L Total Protein 6.1 L (6.4-8.2) g/dl Albumin 2.7 L (3.4-5.0) g/dl Globulin 3.4 gm/dL Albumin/Globulin Ratio 0.8 L (1-2) - Re-Assessments/Exams Free Text/Narrative Re-Assessment/Exam: 09/04/21 06:[address] that was negative for any acute intracranial abnormalities no bleeds noted. I discussed this with the patient and his son. As far as the leakage around the catheter I no have any good solutions for this we just change this put a bigger balloon with a bigger catheter. And it is still problematic. I am not sure there is a good solution for this at this point. At this point would like to go home we will discharge. We will cancel the urinalysis he is currently on antibiotics. Departure - Departure Time of Disposition: 06:39 Disposition: Home, Self-Care 01 Clinical Impression: Contreras catheter problem, Balance problems - Discharge Information Referrals: PCP,None [Primary Care Provider] - Forms: ED Department Discharge Additional Instructions: Return to the emergency room with any questions problems or concerning symptoms. Follow-up with your regular healthcare provider. Discuss in-home help versus care home facilities. Sepsis Event Note (ED) - Evaluation Sepsis Screening Result: No Definite Risk - Focused Exam Vital Signs: Vital Signs Temp Pulse Resp BP Pulse Ox 09/04/21 03:58 36.6 C 80 16 129/79 90 L - My Orders Last 24 Hours: My Active Orders 09/04/21 04:33 Head wo Cont [CT] Stat - Assessment/Plan Last 24 Hours: My Active Orders 09/04/21 04:33 Head wo Cont [CT] Stat
--- NOTE | 2021-09-04 09:50 | CT ---
EXAM: CT HEAD W/O LOCATION: [facility] DATE/TIME: 09/04/2021 4:59 AM INDICATION: Altered mental status. Confusion. COMPARISON: None. TECHNIQUE: Routine CT Head without IV contrast. Multiplanar reformats. Dose reduction techniques were used. FINDINGS: INTRACRANIAL CONTENTS: No intracranial hemorrhage, extraaxial collection, or mass effect. No acute large territory infarct. Small focus of hypoattenuation involving the right inferior basal ganglia is favored reflect a prominent perivascular space, however, an age-indeterminate lacunar type infarction could have a similar appearance. Chronic encephalomalacia identified involving the left cerebellum. Moderate presumed chronic small vessel ischemic changes. Mild to moderate generalized volume loss. No hydrocephalus. Note is made of coarse atherosclerotic calcifications of the intracranial vasculature. VISUALIZED ORBITS/SINUSES/MASTOIDS: Prior bilateral cataract surgery. Visualized portions of the orbits are otherwise unremarkable. Mild mucosal thickening scattered about the paranasal sinuses. No middle ear or mastoid effusion. BONES/SOFT TISSUES: Status post left-sided suboccipital craniectomy. No acute findings. IMPRESSION: 1. Small focus of hypoattenuation involving the right inferior basal ganglia is favored reflect a prominent perivascular space, however, an age-indeterminate lacunar type infarction could have a similar appearance. 2. No acute hemorrhage, acute large territory infarction, mass, mass effect or abnormal extra-axial fluid collection. 3. 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 4. Brain atrophy and presumed chronic microvascular ischemic changes as above. SIGNED BY: Chino Carranza MD 09/04/2021 6:37 AM YESSY
== END 2021-09-04 07:00 | disposition home or self-care (01) ==
LOC: JD.ED 03:29
DX: T83.038A Leakage of other urinary catheter, initial encounter (principal); I48.91 Unspecified atrial fibrillation; J44.9 Chronic obstructive pulmonary disease, unspecified; I10 Essential (primary) hypertension; R26.89 Other abnormalities of gait and mobility; E66.9 Obesity, unspecified; Z68.30 Body mass index [BMI] 30.0-30.9, adult; Z86.73 Personal history of transient ischemic attack (TIA), and cerebral infarction without residual deficits; Z88.8 Allergy status to other drugs, medicaments and biological substances; Z79.899 Other long term (current) drug therapy
CPT/HCPCS: 36415; 70450; 70450-26; 80053; 85025; 99285-25

== ENCOUNTER 2021-11-02 17:04 | Inpatient (IN) | payer OTHER ==
[2021-11-02] MEDS ORDERED: Sodium Chloride 0.9% 10 ML Syringe FLUSH PRN (17:28)
[2021-11-02 19:07] LABS: CORONAVIRUS COVID-19 NAA NEGATIVE (NEGATIVE)
[2021-11-02] MEDS ORDERED: Piperacillin/Tazobactam 4.5 GM in Sodium Chloride 0.9% 100 ML IV ONE (19:38)
[2021-11-02] MEDS ORDERED: Sodium Chloride 0.9% 1,000 ML IV SCH (22:45)
[2021-11-03] MEDS: oxyCODONE 5 MG Tab PO PRN ×3 (04:30→18:37)
[2021-11-03] MEDS ORDERED: Heparin Sodium 5,000 Units/ML Vial SUBCUT SCH (06:00)
[2021-11-03] MEDS ORDERED: oxyCODONE 5 MG Tab PO PRN (06:29)
[2021-11-03] MEDS ORDERED: Docusate Sodium 100 MG Cap PO PRN (06:32)
[2021-11-03] MEDS ORDERED: Albuterol 0.083% 2.5 MG/3 ML Neb Soln INH SCH (09:00)
[2021-11-03] MEDS ORDERED: Finasteride 5 MG Tab PO SCH (09:00)
[2021-11-03] MEDS: Heparin Sodium 5,000 Units/ML Vial SUBCUT SCH ×3 (10:05→16:38)
[2021-11-03] MEDS: Piperacillin/Tazobactam 4.5 GM in Sodium Chloride 0.9% 100 ML IV SCH ×3 (10:05→20:36)
[2021-11-03] MEDS: Metoprolol Tartrate 25 MG Tab PO SCH ×2 (12:08→20:36)
[2021-11-03] MEDS: HYDROmorphone 0.5 MG/0.5 ML Syringe IVPUSH PRN (12:08)
[2021-11-03] MEDS ORDERED: Albuterol 6.7 GM Inhaler INH PRN (16:07)
[2021-11-03] MEDS ORDERED: Formoterol/Mometasone 200-5 MCG 8.8 GM Inhaler IH SCH (16:15)
[2021-11-03] MEDS ORDERED: Non-Formulary Medication 1 Each (Budesonide/Formoterol Fumarate 6 GM Hfa.Aer.Ad) INH SCH (21:00)
[2021-11-04] MEDS: Piperacillin/Tazobactam 4.5 GM in Sodium Chloride 0.9% 100 ML IV SCH ×3 (03:13→20:23)
[2021-11-04] MEDS: oxyCODONE 5 MG Tab PO PRN ×2 (04:28→20:22)
[2021-11-04] MEDS: HYDROmorphone 0.5 MG/0.5 ML Syringe IVPUSH PRN ×2 (05:33)
[2021-11-04] MEDS ORDERED: Acetaminophen 325 MG Tab PO PRN (06:03)
[2021-11-04] MEDS ORDERED: Potassium Chloride 20 MEQ Tab.ER PO ONE (06:53)
[2021-11-04] MEDS: Acetaminophen 325 MG Tab PO SCH ×3 (08:15→22:54)
[2021-11-04] MEDS: Tamsulosin 0.4 MG Cap.ER PO SCH (08:20)
[2021-11-04] MEDS: Furosemide 20 MG Tab PO SCH (08:21)
[2021-11-04] MEDS: Metoprolol Tartrate 25 MG Tab PO SCH ×2 (08:21→20:25)
[2021-11-04] MEDS ORDERED: Formoterol/Mometasone 200-5 MCG 8.8 GM Inhaler IH SCH ×2 (08:45→09:00)
[2021-11-04] MEDS ORDERED: Ferrous Sulfate 324 MG Tab.EC PO SCH (09:00)
[2021-11-04] MEDS ORDERED: Furosemide 20 MG Tab PO SCH (09:00)
[2021-11-04] MEDS: Formoterol/Mometasone 200-5 MCG 8.8 GM Inhaler IH SCH (20:23)
[2021-11-04] MEDS: LORazepam 0.5 MG Tab PO PRN (22:55)
[2021-11-05] MEDS: Piperacillin/Tazobactam 4.5 GM in Sodium Chloride 0.9% 100 ML IV SCH ×3 (04:24→22:05)
[2021-11-05] MEDS: oxyCODONE 5 MG Tab PO PRN ×3 (04:25→18:57)
[2021-11-05] MEDS: Formoterol/Mometasone 200-5 MCG 8.8 GM Inhaler IH SCH ×2 (08:18→22:29)
[2021-11-05] MEDS: Metoprolol Tartrate 25 MG Tab PO SCH ×2 (08:29→20:15)
[2021-11-05] MEDS: Tamsulosin 0.4 MG Cap.ER PO SCH (08:29)
[2021-11-05] MEDS: Furosemide 20 MG Tab PO SCH (08:33)
[2021-11-05] MEDS: Ferrous Sulfate 324 MG Tab.EC PO SCH (08:33)
[2021-11-05] MEDS: Acetaminophen 325 MG Tab PO SCH ×3 (08:34→20:16)
[2021-11-05] MEDS: HYDROmorphone 0.5 MG/0.5 ML Syringe IVPUSH PRN ×2 (16:39→21:15)
[2021-11-05] MEDS: LORazepam 0.5 MG Tab PO PRN (21:17)
[2021-11-06] MEDS: oxyCODONE 5 MG Tab PO PRN ×5 (00:52→21:26)
[2021-11-06] MEDS: HYDROmorphone 0.5 MG/0.5 ML Syringe IVPUSH PRN ×3 (03:11→23:45)
[2021-11-06] MEDS: Piperacillin/Tazobactam 4.5 GM in Sodium Chloride 0.9% 100 ML IV SCH ×3 (06:06→22:22)
[2021-11-06] MEDS: Acetaminophen 325 MG Tab PO SCH ×3 (08:08→21:28)
[2021-11-06] MEDS: Furosemide 20 MG Tab PO SCH (08:09)
[2021-11-06] MEDS: Tamsulosin 0.4 MG Cap.ER PO SCH (08:10)
[2021-11-06] MEDS: Metoprolol Tartrate 25 MG Tab PO SCH ×2 (08:10→21:27)
[2021-11-06] MEDS: Ferrous Sulfate 324 MG Tab.EC PO SCH (08:10)
[2021-11-06] MEDS: Formoterol/Mometasone 200-5 MCG 8.8 GM Inhaler IH SCH ×2 (08:41→20:31)
[2021-11-06] MEDS: LORazepam 0.5 MG Tab PO PRN (21:26)
[2021-11-06] MEDS: Sodium Chloride 0.9% 1,000 ML IV SCH (21:29)
[2021-11-07] MEDS: Piperacillin/Tazobactam 4.5 GM in Sodium Chloride 0.9% 100 ML IV SCH ×3 (07:30→23:02)
[2021-11-07] MEDS ORDERED: Ketamine 500 mg/10 ML MDV ONE (07:45)
[2021-11-07] MEDS ORDERED: fentaNYL 100 MCG/2 ML SDV ONE (07:45)
[2021-11-07] MEDS ORDERED: Lidocaine 1% 4 ML ONE (07:45)
[2021-11-07] MEDS ORDERED: Propofol 200 MG/20 ML SDV ONE (07:45)
[2021-11-07] MEDS ORDERED: Ondansetron 4 MG/2 ML SDV ONE (07:47)
[2021-11-07] MEDS: Formoterol/Mometasone 200-5 MCG 8.8 GM Inhaler IH SCH ×2 (08:28→20:07)
[2021-11-07] MEDS ORDERED: Albuterol 0.083% 2.5 MG/3 ML Neb Soln NEB PRN (08:51)
[2021-11-07] MEDS: Metoprolol Tartrate 25 MG Tab PO SCH ×2 (08:59→20:44)
[2021-11-07] MEDS: HYDROmorphone 0.5 MG/0.5 ML Syringe IVPUSH PRN ×2 (09:03→21:01)
[2021-11-07] MEDS: Tamsulosin 0.4 MG Cap.ER PO SCH (09:16)
[2021-11-07] MEDS: Ferrous Sulfate 324 MG Tab.EC PO SCH (09:16)
[2021-11-07] MEDS: Furosemide 20 MG Tab PO SCH (09:16)
[2021-11-07] MEDS: Acetaminophen 325 MG Tab PO SCH ×3 (09:16→20:43)
[2021-11-07] MEDS ORDERED: Bupivacaine 0.25%/EPINEPHrine 1:200,000 30 ML SDV ONE (09:37)
[2021-11-07] MEDS ORDERED: Lidocaine 1% with EPINEPHrine 1:100,000 10 ML MDV ONE (09:38)
[2021-11-07] MEDS ORDERED: Bupivacaine 0.5%/EPINEPHrine 1:200,000 50 ML MDV ONE (09:38)
[2021-11-07] MEDS ORDERED: Bupivacaine 0.5% 30 ML SDV ONE (11:01)
[2021-11-07] MEDS: Lidocaine 1% 30 ML SDV ONE ×2 (11:10→12:21)
[2021-11-07] MEDS: oxyCODONE 5 MG Tab PO PRN ×3 (14:16→23:02)
[2021-11-07] MEDS: Ketorolac 15 MG/ML SDV IVPUSH PRN ×2 (15:50→23:01)
[2021-11-07] MEDS: Sodium Chloride 0.9% 1,000 ML IV SCH (21:02)
[2021-11-07] MEDS: LORazepam 0.5 MG Tab PO PRN (21:41)
[2021-11-08] MEDS: HYDROmorphone 0.5 MG/0.5 ML Syringe IVPUSH PRN ×2 (03:09→22:31)
[2021-11-08] MEDS: oxyCODONE 5 MG Tab PO PRN ×4 (06:28→20:53)
[2021-11-08] MEDS: Piperacillin/Tazobactam 4.5 GM in Sodium Chloride 0.9% 100 ML IV SCH ×3 (06:32→22:32)
[2021-11-08] MEDS: Formoterol/Mometasone 200-5 MCG 8.8 GM Inhaler IH SCH ×2 (08:17→21:12)
[2021-11-08] MEDS: Tamsulosin 0.4 MG Cap.ER PO SCH (10:10)
[2021-11-08] MEDS: Furosemide 20 MG Tab PO SCH (10:10)
[2021-11-08] MEDS: Metoprolol Tartrate 25 MG Tab PO SCH ×2 (10:11→20:54)
[2021-11-08] MEDS: Ferrous Sulfate 324 MG Tab.EC PO SCH (10:11)
[2021-11-08] MEDS: Acetaminophen 325 MG Tab PO SCH ×3 (10:11→20:55)
[2021-11-08] MEDS: Ketorolac 15 MG/ML SDV IVPUSH PRN ×2 (13:05→21:01)
[2021-11-08] MEDS: Sodium Chloride 0.9% 1,000 ML IV SCH (23:29)
[2021-11-09] MEDS: LORazepam 0.5 MG Tab PO PRN (00:41)
[2021-11-09] MEDS: oxyCODONE 5 MG Tab PO PRN ×4 (00:41→23:03)
[2021-11-09] MEDS: Ketorolac 15 MG/ML SDV IVPUSH PRN (05:19)
[2021-11-09] MEDS: Piperacillin/Tazobactam 4.5 GM in Sodium Chloride 0.9% 100 ML IV SCH ×3 (07:01→22:29)
[2021-11-09] MEDS: Formoterol/Mometasone 200-5 MCG 8.8 GM Inhaler IH SCH ×2 (08:00→20:22)
[2021-11-09] MEDS: Acetaminophen 325 MG Tab PO SCH ×3 (09:14→20:53)
[2021-11-09] MEDS: Furosemide 20 MG Tab PO SCH (09:16)
[2021-11-09] MEDS: Tamsulosin 0.4 MG Cap.ER PO SCH (09:16)
[2021-11-09] MEDS: Metoprolol Tartrate 25 MG Tab PO SCH ×2 (09:17→20:54)
[2021-11-09] MEDS: Ferrous Sulfate 324 MG Tab.EC PO SCH (09:18)
[2021-11-10] MEDS: Ketorolac 15 MG/ML SDV IVPUSH PRN (01:11)
[2021-11-10] MEDS: oxyCODONE 5 MG Tab PO PRN ×4 (04:35→21:14)
[2021-11-10] MEDS: Piperacillin/Tazobactam 4.5 GM in Sodium Chloride 0.9% 100 ML IV SCH ×3 (06:21→22:28)
[2021-11-10] MEDS: HYDROmorphone 0.5 MG/0.5 ML Syringe IVPUSH PRN ×2 (06:55→16:49)
[2021-11-10] MEDS: Acetaminophen 325 MG Tab PO SCH ×3 (08:38→21:13)
[2021-11-10] MEDS: Tamsulosin 0.4 MG Cap.ER PO SCH (08:38)
[2021-11-10] MEDS: Furosemide 20 MG Tab PO SCH (08:39)
[2021-11-10] MEDS: Metoprolol Tartrate 25 MG Tab PO SCH ×2 (08:39→21:13)
[2021-11-10] MEDS: Ferrous Sulfate 324 MG Tab.EC PO SCH (08:39)
[2021-11-10] MEDS: Formoterol/Mometasone 200-5 MCG 8.8 GM Inhaler IH SCH ×2 (09:34→20:36)
[2021-11-10] MEDS: Sodium Chloride 0.9% 1,000 ML IV SCH (12:31)
[2021-11-11] MEDS: oxyCODONE 5 MG Tab PO PRN ×5 (01:37→22:27)
[2021-11-11] MEDS: Piperacillin/Tazobactam 4.5 GM in Sodium Chloride 0.9% 100 ML IV SCH ×3 (06:00→22:19)
[2021-11-11] MEDS: Formoterol/Mometasone 200-5 MCG 8.8 GM Inhaler IH SCH ×2 (08:09→20:36)
[2021-11-11] MEDS: Acetaminophen 325 MG Tab PO SCH ×3 (08:31→21:36)
[2021-11-11] MEDS: Tamsulosin 0.4 MG Cap.ER PO SCH (08:31)
[2021-11-11] MEDS: Furosemide 20 MG Tab PO SCH (08:31)
[2021-11-11] MEDS: Metoprolol Tartrate 25 MG Tab PO SCH ×2 (08:31→21:38)
[2021-11-11] MEDS: Ferrous Sulfate 324 MG Tab.EC PO SCH (08:31)
[2021-11-11] MEDS: Sodium Chloride 0.9% 1,000 ML IV SCH (08:33)
[2021-11-12] MEDS: oxyCODONE 5 MG Tab PO PRN ×3 (03:22→20:22)
[2021-11-12] MEDS: Piperacillin/Tazobactam 4.5 GM in Sodium Chloride 0.9% 100 ML IV SCH (06:13)
[2021-11-12] MEDS: Acetaminophen 325 MG Tab PO SCH ×3 (08:25→20:19)
[2021-11-12] MEDS: Furosemide 20 MG Tab PO SCH (08:26)
[2021-11-12] MEDS: Ferrous Sulfate 324 MG Tab.EC PO SCH (08:26)
[2021-11-12] MEDS: Tamsulosin 0.4 MG Cap.ER PO SCH (08:26)
[2021-11-12] MEDS: Metoprolol Tartrate 25 MG Tab PO SCH ×2 (08:26→20:18)
[2021-11-12] MEDS: Formoterol/Mometasone 200-5 MCG 8.8 GM Inhaler IH SCH ×2 (08:33→20:38)
[2021-11-12] MEDS: Losartan 50 MG Tab PO SCH (14:55)
[2021-11-12] MEDS: Amoxicillin/Clavulanate K 875-125 MG Tab PO SCH (20:23)
[2021-11-12] MEDS: metroNIDAZOLE 500 MG Tab PO SCH (20:23)
[2021-11-13] MEDS: Formoterol/Mometasone 200-5 MCG 8.8 GM Inhaler IH SCH ×2 (08:19→21:21)
[2021-11-13] MEDS: Losartan 50 MG Tab PO SCH (08:47)
[2021-11-13] MEDS: Amoxicillin/Clavulanate K 875-125 MG Tab PO SCH (08:47)
[2021-11-13] MEDS: Acetaminophen 325 MG Tab PO SCH ×3 (08:48→21:06)
[2021-11-13] MEDS: Tamsulosin 0.4 MG Cap.ER PO SCH (08:49)
[2021-11-13] MEDS: metroNIDAZOLE 500 MG Tab PO SCH ×2 (08:49→16:02)
[2021-11-13] MEDS: Metoprolol Tartrate 25 MG Tab PO SCH ×2 (08:49→21:07)
[2021-11-13] MEDS: Furosemide 20 MG Tab PO SCH (08:49)
[2021-11-13] MEDS: Ferrous Sulfate 324 MG Tab.EC PO SCH (08:49)
[2021-11-13] MEDS: oxyCODONE 5 MG Tab PO PRN ×2 (17:06→21:07)
[2021-11-14] MEDS: Formoterol/Mometasone 200-5 MCG 8.8 GM Inhaler IH SCH ×2 (09:14→21:09)
[2021-11-14] MEDS: Ferrous Sulfate 324 MG Tab.EC PO SCH (09:42)
[2021-11-14] MEDS: Tamsulosin 0.4 MG Cap.ER PO SCH (09:42)
[2021-11-14] MEDS: Metoprolol Tartrate 25 MG Tab PO SCH ×2 (09:42→20:22)
[2021-11-14] MEDS: Losartan 50 MG Tab PO SCH (09:42)
[2021-11-14] MEDS: Azithromycin 250 MG Tab PO SCH (09:42)
[2021-11-14] MEDS: Furosemide 20 MG Tab PO SCH (09:43)
[2021-11-14] MEDS: Acetaminophen 325 MG Tab PO SCH ×3 (09:43→20:22)
[2021-11-14] MEDS: oxyCODONE 5 MG Tab PO PRN ×2 (11:50→16:17)
[2021-11-15] MEDS: oxyCODONE 5 MG Tab PO PRN ×5 (00:22→21:04)
[2021-11-15] MEDS: Furosemide 20 MG Tab PO SCH (08:04)
[2021-11-15] MEDS: Losartan 50 MG Tab PO SCH (08:04)
[2021-11-15] MEDS: Metoprolol Tartrate 25 MG Tab PO SCH ×2 (08:04→21:03)
[2021-11-15] MEDS: Ferrous Sulfate 324 MG Tab.EC PO SCH (08:07)
[2021-11-15] MEDS: Tamsulosin 0.4 MG Cap.ER PO SCH (08:07)
[2021-11-15] MEDS: Azithromycin 250 MG Tab PO SCH (08:07)
[2021-11-15] MEDS: Acetaminophen 325 MG Tab PO SCH ×3 (08:12→21:02)
[2021-11-15] MEDS: Formoterol/Mometasone 200-5 MCG 8.8 GM Inhaler IH SCH ×2 (08:36→20:29)
[2021-11-15] MEDS ORDERED: Meropenem Premix 500 MG in Premix Bag 1 BAG IV SCH (11:00)
[2021-11-15] MEDS: Doxycycline 100 MG Cap PO SCH ×2 (12:29→21:02)
[2021-11-15] MEDS: Meropenem Premix 500 MG in Premix Bag 1 BAG IV SCH ×2 (15:26→23:09)
[2021-11-16] MEDS: oxyCODONE 5 MG Tab PO PRN ×4 (01:04→20:45)
[2021-11-16] MEDS: Meropenem Premix 500 MG in Premix Bag 1 BAG IV SCH (06:48)
[2021-11-16] MEDS: Formoterol/Mometasone 200-5 MCG 8.8 GM Inhaler IH SCH ×2 (08:13→20:18)
[2021-11-16] MEDS: Losartan 50 MG Tab PO SCH (09:56)
[2021-11-16] MEDS: Tamsulosin 0.4 MG Cap.ER PO SCH (09:56)
[2021-11-16] MEDS: Azithromycin 250 MG Tab PO SCH (09:56)
[2021-11-16] MEDS: Furosemide 20 MG Tab PO SCH (09:56)
[2021-11-16] MEDS: Metoprolol Tartrate 25 MG Tab PO SCH ×2 (09:57→20:39)
[2021-11-16] MEDS: Acetaminophen 325 MG Tab PO SCH ×4 (09:57→20:44)
[2021-11-16] MEDS: Doxycycline 100 MG Cap PO SCH ×2 (09:57→20:45)
[2021-11-16] MEDS: Ferrous Sulfate 324 MG Tab.EC PO SCH (14:58)
[2021-11-16] MEDS ORDERED: Levofloxacin 750 MG Tab PO SCH (15:00)
[2021-11-17] MEDS: oxyCODONE 5 MG Tab PO PRN ×3 (00:45→09:00)
[2021-11-17] MEDS: Formoterol/Mometasone 200-5 MCG 8.8 GM Inhaler IH SCH (08:44)
[2021-11-17] MEDS: Tamsulosin 0.4 MG Cap.ER PO SCH (08:59)
[2021-11-17] MEDS: Doxycycline 100 MG Cap PO SCH (08:59)
[2021-11-17] MEDS: Acetaminophen 325 MG Tab PO SCH ×2 (08:59→14:19)
[2021-11-17] MEDS: Metoprolol Tartrate 25 MG Tab PO SCH (09:00)
[2021-11-17] MEDS: Furosemide 20 MG Tab PO SCH (09:00)
[2021-11-17] MEDS: Losartan 50 MG Tab PO SCH (09:01)
[2021-11-17] MEDS: Azithromycin 250 MG Tab PO SCH (09:01)
[2021-11-17] MEDS ORDERED: oxyCODONE 5 MG Tab PO PRN (12:10)
[2021-11-17] MEDS: Ferrous Sulfate 324 MG Tab.EC PO SCH (12:43)
== END 2021-11-17 17:58 | disposition home health service (06) | DRG 478 ==
LOC: JD.ED 17:04 → JD.MS 19:42 → OBSVTOIN 19:43
PROVIDERS: ADMIT Internal Medicine; ATTEND Internal Medicine
PROC: 0QBL0ZX Excision of Right Tarsal, Open Approach, Diagnostic (ICD-10-PCS; principal; 2021-11-07)
PROC: 0QBN0ZZ Excision of Right Metatarsal, Open Approach (ICD-10-PCS; 2021-11-07)
PROC: 0QBN0ZX Excision of Right Metatarsal, Open Approach, Diagnostic (ICD-10-PCS; 2021-11-07)
DX: L03.115 Cellulitis of right lower limb (principal); M86.271 Subacute osteomyelitis, right ankle and foot; M87.874 Other osteonecrosis, right foot; A52.16 Charcot's arthropathy (tabetic); J44.9 Chronic obstructive pulmonary disease, unspecified; J44.1 Chronic obstructive pulmonary disease with (acute) exacerbation; C78.01 Secondary malignant neoplasm of right lung; N40.0 Benign prostatic hyperplasia without lower urinary tract symptoms; M87.871 Other osteonecrosis, right ankle; N40.1 Benign prostatic hyperplasia with lower urinary tract symptoms; Z87.11 Personal history of peptic ulcer disease; M19.90 Unspecified osteoarthritis, unspecified site; Z86.73 Personal history of transient ischemic attack (TIA), and cerebral infarction without residual deficits; E66.9 Obesity, unspecified; Z85.828 Personal history of other malignant neoplasm of skin; L30.9 Dermatitis, unspecified; Z88.8 Allergy status to other drugs, medicaments and biological substances; Z79.51 Long term (current) use of inhaled steroids; Z20.822 Contact with and (suspected) exposure to COVID-19; R33.8 Other retention of urine; R39.14 Feeling of incomplete bladder emptying; L97.512 Non-pressure chronic ulcer of other part of right foot with fat layer exposed; Z96.0 Presence of urogenital implants; Z79.899 Other long term (current) drug therapy; Z95.0 Presence of cardiac pacemaker; Z85.820 Personal history of malignant melanoma of skin; H54.7 Unspecified visual loss; I48.91 Unspecified atrial fibrillation; I10 Essential (primary) hypertension; Z99.81 Dependence on supplemental oxygen; K57.90 Diverticulosis of intestine, part unspecified, without perforation or abscess without bleeding; F41.9 Anxiety disorder, unspecified; Z92.21 Personal history of antineoplastic chemotherapy; E86.0 Dehydration; I95.89 Other hypotension; Z68.27 Body mass index [BMI] 27.0-27.9, adult
CPT/HCPCS: 0240U; 36415; 71046; 73700; 80048; 80053; 81001; 83605; 85007; 85025; 85027; 85610; 86140; 87040; 87070; 87075; 87205; 87641; 88307; 88311; 94640; 94760; 94761; 96365; 96523; 97162; 97530; 97597; 99284; 00400; 99100; 99222; 99232; 99285; A9270-GY; G0378; J1170; J1644; J1885; J2185; J2370; J2405; J2543; J2704; J3010; J3490; J7030

== ENCOUNTER 2022-01-23 12:37 | Emergency (ER) | payer MEDICARE, MEDICAID ==
[2022-01-23] MEDS ORDERED: Sodium Chloride 0.9% 500 ML IV ONE (15:38)
[2022-01-23] MEDS ORDERED: Sodium Chloride 0.9% 10 ML Syringe FLUSH PRN (15:39)
== END 2022-01-23 16:45 | disposition home or self-care (01) ==
LOC: JD.ED 12:37
DX: S06.0X0A Concussion without loss of consciousness, initial encounter (principal); S93.401A Sprain of unspecified ligament of right ankle, initial encounter; N28.9 Disorder of kidney and ureter, unspecified; E86.0 Dehydration; I48.91 Unspecified atrial fibrillation; I10 Essential (primary) hypertension; J44.9 Chronic obstructive pulmonary disease, unspecified; E66.9 Obesity, unspecified; Z68.23 Body mass index [BMI] 23.0-23.9, adult; Z95.0 Presence of cardiac pacemaker; Z88.8 Allergy status to other drugs, medicaments and biological substances; Z86.73 Personal history of transient ischemic attack (TIA), and cerebral infarction without residual deficits; W19.XXXA Unspecified fall, initial encounter
CPT/HCPCS: 36415; 70450; 71045; 73610; 80053; 81001; 85025; 96360; 99284; J1642; J3490; J7030

== ENCOUNTER 2022-01-30 12:59 | Emergency (ER) | payer MEDICARE, MEDICAID ==
[2022-01-30] MEDS ORDERED: Sodium Chloride 0.9% 10 ML Syringe FLUSH PRN (13:24)
[2022-01-30] MEDS ORDERED: Sodium Chloride 0.9% 1,000 ML IV STA (14:03)
[2022-01-30 14:16] LABS: CORONAVIRUS COVID-19 NAA POSITIVE (NEGATIVE)
[2022-01-30] MEDS ORDERED: Albuterol/Ipratropium 3.0-0.5 MG/3 ML Neb Soln NEB ONE (15:03)
[2022-01-30] MEDS ORDERED: HYDROmorphone 0.5 MG/0.5 ML Syringe IVPUSH ONE (15:03)
[2022-01-30] MEDS ORDERED: REMDESIVIR 200 MG in Sodium Chloride 0.9% 250 ML IV ONE (15:31)
[2022-01-30] MEDS ORDERED: methylPREDNISolone Sodium Succinate 125 MG/2 ML SDV IVPUSH ONE (15:32)
== END 2022-01-30 19:30 | disposition home or self-care (01) ==
LOC: JD.ED 12:59
DX: U07.1 COVID-19 (principal); J44.1 Chronic obstructive pulmonary disease with (acute) exacerbation; I11.0 Hypertensive heart disease with heart failure; I50.9 Heart failure, unspecified; N40.0 Benign prostatic hyperplasia without lower urinary tract symptoms; E66.9 Obesity, unspecified; Z68.24 Body mass index [BMI] 24.0-24.9, adult; Z86.73 Personal history of transient ischemic attack (TIA), and cerebral infarction without residual deficits; Z28.310 Unvaccinated for COVID-19; Z88.8 Allergy status to other drugs, medicaments and biological substances; Z20.822 Contact with and (suspected) exposure to COVID-19
CPT/HCPCS: 0240U; 36415; 71045; 80053; 83735; 83880; 84484; 85025; 86140; 93005; 94640; 96361; 96365; 96375; 99284; J0248; J1170; J2930; J3490; J7030; J7050; 93010; J7620-GY

== ENCOUNTER 2022-02-02 13:44 | Inpatient (IN) | payer MEDICARE, MEDICAID ==
[2022-02-02] MEDS ORDERED: Ondansetron 4 MG/2 ML SDV IVPUSH ONE (14:26)
[2022-02-02] MEDS ORDERED: Sodium Chloride 0.9% 250 ML IV ONE (14:40)
[2022-02-02] MEDS ORDERED: Iopamidol 755 Mg/ML 100 ML Bottle IVPUSH ONE ×2 (14:44→14:50)
[2022-02-02] MEDS ORDERED: Sodium Chloride 0.9% 10 ML Syringe FLUSH PRN ×2 (14:44→14:50)
[2022-02-02] MEDS ORDERED: Sodium Chloride 0.9% 1,000 ML IV SCH (14:45)
[2022-02-02] MEDS ORDERED: Sodium Chloride 0.9% 100 ML IV SCH ×2 (14:45→15:00)
[2022-02-02] MEDS: Sodium Chloride 0.9% 1,000 ML IV SCH (14:52)
[2022-02-02] MEDS ORDERED: oxyCODONE 5 MG Tab PO PRN (16:04)
[2022-02-02] MEDS ORDERED: Morphine 2 MG/ML SYRINGE IVPUSH PRN (16:04)
[2022-02-02] MEDS ORDERED: Docusate Sodium 100 MG Cap PO PRN (16:04)
[2022-02-02] MEDS ORDERED: Ondansetron 4 MG Tab.DIS PO PRN (16:04)
[2022-02-02] MEDS ORDERED: Temazepam 15 MG Cap PO PRN (16:04)
[2022-02-02] MEDS ORDERED: Acetaminophen 325 MG Tab PO PRN (16:04)
[2022-02-02] MEDS: REMDESIVIR 100 MG in Sodium Chloride 0.9% 250 ML IV SCH (16:53)
[2022-02-03] MEDS: Albuterol/Ipratropium 3.0-0.5 MG/3 ML Neb Soln NEB PRN ×3 (03:41→17:01)
[2022-02-03] MEDS: Sodium Chloride 0.9% 1,000 ML IV SCH ×2 (05:28→20:56)
[2022-02-03] MEDS ORDERED: oxyCODONE ER 20 MG TAB.ER PO PRN (07:04)
[2022-02-03] MEDS ORDERED: Nicotine 14 MG/24 Hr Patch TRDERM SCH (09:00)
[2022-02-03] MEDS: Furosemide 40 MG Tab PO SCH (09:28)
[2022-02-03] MEDS: Finasteride 5 MG Tab PO SCH (09:28)
[2022-02-03] MEDS: Metoprolol Tartrate 25 MG Tab PO SCH ×2 (09:28→20:56)
[2022-02-03] MEDS: Enoxaparin 40 MG/0.4 ML Syringe SUBCUT SCH (10:00)
[2022-02-03] MEDS: Formoterol/Mometasone 200-5 MCG 8.8 GM Inhaler IH SCH ×2 (10:01→20:13)
[2022-02-03] MEDS: oxyCODONE 5 MG Tab PO PRN (16:50)
[2022-02-03] MEDS: REMDESIVIR 100 MG in Sodium Chloride 0.9% 250 ML IV SCH (17:38)
[2022-02-03] MEDS: Docusate Sodium 100 MG Cap PO SCH (20:56)
[2022-02-03] MEDS: Sennosides 8.6 MG Tab PO SCH (20:56)
[2022-02-04] MEDS: oxyCODONE 5 MG Tab PO PRN ×2 (03:43→20:58)
[2022-02-04] MEDS: Metoprolol Tartrate 25 MG Tab PO SCH ×2 (08:29→20:47)
[2022-02-04] MEDS: Furosemide 40 MG Tab PO SCH (08:29)
[2022-02-04] MEDS: Finasteride 5 MG Tab PO SCH (08:29)
[2022-02-04] MEDS: Enoxaparin 40 MG/0.4 ML Syringe SUBCUT SCH (08:30)
[2022-02-04] MEDS: Formoterol/Mometasone 200-5 MCG 8.8 GM Inhaler IH SCH ×2 (08:35→21:15)
[2022-02-04] MEDS: Sodium Chloride 0.9% 1,000 ML IV SCH ×2 (10:26→22:57)
[2022-02-04] MEDS: Docusate Sodium 100 MG Cap PO SCH (20:47)
[2022-02-04] MEDS: Sennosides 8.6 MG Tab PO SCH (20:47)
[2022-02-05] MEDS: Formoterol/Mometasone 200-5 MCG 8.8 GM Inhaler IH SCH ×2 (09:34→20:27)
[2022-02-05] MEDS: Metoprolol Tartrate 25 MG Tab PO SCH ×2 (10:05→21:26)
[2022-02-05] MEDS: Finasteride 5 MG Tab PO SCH (10:05)
[2022-02-05] MEDS: Furosemide 40 MG Tab PO SCH (10:05)
[2022-02-05] MEDS: Enoxaparin 40 MG/0.4 ML Syringe SUBCUT SCH (10:06)
[2022-02-05] MEDS: Sodium Chloride 0.9% 1,000 ML IV SCH (12:25)
[2022-02-05] MEDS: Albuterol/Ipratropium 3.0-0.5 MG/3 ML Neb Soln NEB PRN (16:33)
[2022-02-05] MEDS ORDERED: REMDESIVIR 100 MG in Sodium Chloride 0.9% 250 ML IV SCH (17:00)
[2022-02-05] MEDS: Potassium Chloride Riders 10 MEQ in Premix Bag 1 BAG IV SCH ×2 (17:58→19:18)
[2022-02-05] MEDS: Docusate Sodium 100 MG Cap PO SCH (21:25)
[2022-02-05] MEDS: Sennosides 8.6 MG Tab PO SCH (21:27)
[2022-02-05] MEDS: oxyCODONE 5 MG Tab PO PRN (21:28)
[2022-02-06] MEDS: oxyCODONE 5 MG Tab PO PRN ×2 (02:39→21:01)
[2022-02-06] MEDS: Sodium Chloride 0.9% 1,000 ML IV SCH ×2 (02:39→21:01)
[2022-02-06 06:24] LABS: ESTIMATED GFR > 60 mL/min (>60)
[2022-02-06] MEDS: Potassium Chloride Riders 10 MEQ in Premix Bag 1 BAG IV SCH ×4 (08:15→13:05)
[2022-02-06] MEDS: Furosemide 40 MG Tab PO SCH (08:17)
[2022-02-06] MEDS: Finasteride 5 MG Tab PO SCH (08:18)
[2022-02-06] MEDS: Metoprolol Tartrate 25 MG Tab PO SCH ×2 (08:18→21:00)
[2022-02-06] MEDS: Enoxaparin 40 MG/0.4 ML Syringe SUBCUT SCH (08:25)
[2022-02-06] MEDS: Formoterol/Mometasone 200-5 MCG 8.8 GM Inhaler IH SCH ×2 (09:20→21:14)
[2022-02-06] MEDS: Albuterol/Ipratropium 3.0-0.5 MG/3 ML Neb Soln NEB PRN (16:44)
[2022-02-06] MEDS: Docusate Sodium 100 MG Cap PO SCH (20:59)
[2022-02-06] MEDS: Sennosides 8.6 MG Tab PO SCH (21:00)
[2022-02-07] MEDS: oxyCODONE 5 MG Tab PO PRN ×5 (04:20→23:53)
[2022-02-07 06:50] LABS: ESTIMATED GFR > 60 mL/min (>60)
[2022-02-07] MEDS: Finasteride 5 MG Tab PO SCH (08:56)
[2022-02-07] MEDS: Furosemide 40 MG Tab PO SCH (08:56)
[2022-02-07] MEDS: Metoprolol Tartrate 25 MG Tab PO SCH ×2 (08:57→20:03)
[2022-02-07] MEDS: Enoxaparin 40 MG/0.4 ML Syringe SUBCUT SCH (08:58)
[2022-02-07] MEDS: Sodium Chloride 0.9% 1,000 ML IV SCH ×2 (09:00→22:34)
[2022-02-07] MEDS: Formoterol/Mometasone 200-5 MCG 8.8 GM Inhaler IH SCH ×2 (10:17→20:36)
[2022-02-07] MEDS ORDERED: Potassium Chloride Riders 10 MEQ in Premix Bag 1 BAG IV ONE ×8 (16:00→17:00)
[2022-02-07] MEDS ORDERED: Potassium Chloride Riders 10 MEQ in Premix Bag 1 BAG IV SCH (18:00)
[2022-02-07] MEDS: Docusate Sodium 100 MG Cap PO SCH (20:00)
[2022-02-07] MEDS: Sennosides 8.6 MG Tab PO SCH (20:00)
[2022-02-07] MEDS: Azithromycin 250 MG Tab PO SCH (20:00)
[2022-02-07] MEDS ORDERED: Azithromycin 250 MG Tab PO SCH ×2 (21:00)
[2022-02-07] MEDS ORDERED: Levofloxacin 750 MG Tab PO SCH (21:00)
[2022-02-08] MEDS: oxyCODONE 5 MG Tab PO PRN ×3 (04:41→19:29)
[2022-02-08] MEDS ORDERED: Potassium Bicarbonate/Cit Ac 20 MEQ Effervescent Tab PO SCH (09:00)
[2022-02-08] MEDS: Albuterol/Ipratropium 3.0-0.5 MG/3 ML Neb Soln NEB PRN ×2 (09:00→23:45)
[2022-02-08] MEDS: Formoterol/Mometasone 200-5 MCG 8.8 GM Inhaler IH SCH ×2 (09:01→20:23)
[2022-02-08] MEDS: guaiFENesin 600 MG Tab.ER PO SCH ×3 (09:21→21:37)
[2022-02-08] MEDS: Furosemide 40 MG Tab PO SCH (09:21)
[2022-02-08] MEDS: Finasteride 5 MG Tab PO SCH (09:21)
[2022-02-08] MEDS: Enoxaparin 40 MG/0.4 ML Syringe SUBCUT SCH (09:32)
[2022-02-08] MEDS: Metoprolol Tartrate 25 MG Tab PO SCH ×2 (09:58→21:37)
[2022-02-08] MEDS ORDERED: Levofloxacin 750 MG Tab PO SCH (21:00)
[2022-02-08] MEDS: Sennosides 8.6 MG Tab PO SCH (21:36)
[2022-02-08] MEDS: Azithromycin 250 MG Tab PO SCH (21:39)
[2022-02-08] MEDS: Docusate Sodium 100 MG Cap PO SCH (21:39)
[2022-02-09] MEDS: oxyCODONE 5 MG Tab PO PRN ×3 (00:12→11:23)
[2022-02-09 07:04] LABS: ESTIMATED GFR > 60 mL/min (>60)
[2022-02-09] MEDS: guaiFENesin 600 MG Tab.ER PO SCH (08:22)
[2022-02-09] MEDS: Metoprolol Tartrate 25 MG Tab PO SCH (08:22)
[2022-02-09] MEDS: Enoxaparin 40 MG/0.4 ML Syringe SUBCUT SCH (08:22)
[2022-02-09] MEDS: Furosemide 40 MG Tab PO SCH (08:22)
[2022-02-09] MEDS: Finasteride 5 MG Tab PO SCH (08:22)
[2022-02-09] MEDS: Formoterol/Mometasone 200-5 MCG 8.8 GM Inhaler IH SCH (08:44)
== END 2022-02-09 11:30 | disposition home health service (06) | DRG 177 ==
LOC: JD.ED 13:44 → JD.MS 16:04
PROVIDERS: ADMIT Internal Medicine; ATTEND Internal Medicine
PROC: 8E0ZXY6 Isolation (ICD-10-PCS; principal; 2022-02-02)
PROC: XW033E5 Introduction of Remdesivir Anti-infective into Peripheral Vein, Percutaneous Approach, New Technology Group 5 (ICD-10-PCS; principal; 2022-02-02)
DX: U07.1 COVID-19 (principal); J96.21 Acute and chronic respiratory failure with hypoxia; R09.02 Hypoxemia; J12.82 Pneumonia due to coronavirus disease 2019; I10 Essential (primary) hypertension; M86.671 Other chronic osteomyelitis, right ankle and foot; J44.1 Chronic obstructive pulmonary disease with (acute) exacerbation; N40.0 Benign prostatic hyperplasia without lower urinary tract symptoms; Z93.6 Other artificial openings of urinary tract status; T17.890A Other foreign object in other parts of respiratory tract causing asphyxiation, initial encounter; J44.0 Chronic obstructive pulmonary disease with (acute) lower respiratory infection; Z85.820 Personal history of malignant melanoma of skin; Z85.828 Personal history of other malignant neoplasm of skin; Z88.8 Allergy status to other drugs, medicaments and biological substances; Z79.899 Other long term (current) drug therapy; R62.7 Adult failure to thrive; Z66 Do not resuscitate; L97.519 Non-pressure chronic ulcer of other part of right foot with unspecified severity; N40.1 Benign prostatic hyperplasia with lower urinary tract symptoms; R39.14 Feeling of incomplete bladder emptying; R91.8 Other nonspecific abnormal finding of lung field; I48.91 Unspecified atrial fibrillation; F41.9 Anxiety disorder, unspecified; M54.6 Pain in thoracic spine; E66.9 Obesity, unspecified; Z98.49 Cataract extraction status, unspecified eye; Z93.3 Colostomy status; Z99.81 Dependence on supplemental oxygen; Z97.8 Presence of other specified devices; Z95.0 Presence of cardiac pacemaker; Z86.73 Personal history of transient ischemic attack (TIA), and cerebral infarction without residual deficits; Z68.23 Body mass index [BMI] 23.0-23.9, adult
CPT/HCPCS: 36415; 71275; 80053; 82728; 83605; 83615; 84484; 85025; 85610; 86140; 87040 ×2; 96361; 96374; 99285; J2405; J7030; 71045; 71045-26; 80048; 83735; 85379; 94640; 94667; 94668; 94762; 97162-GP; 97530-GP; 97597-GP; 99284; A9270-GY; J0248; J2270; J3480; J3490; J7050; J7620-GY; Q9967

== ENCOUNTER 2022-02-27 00:01 | Inpatient (IN) | payer MEDICARE, MEDICAID ==
[2022-02-27] MEDS ORDERED: Sodium Chloride 0.9% 10 ML Syringe FLUSH PRN ×2 (00:04→09:41)
[2022-02-27] MEDS ORDERED: methylPREDNISolone Sodium Succinate 125 MG/2 ML SDV IVPUSH ONE (00:50)
[2022-02-27 01:14] LABS: ESTIMATED GFR 54 mL/min (>60)
[2022-02-27] MEDS ORDERED: Albuterol/Ipratropium 3.0-0.5 MG/3 ML Neb Soln NEB ONE (01:27)
[2022-02-27] MEDS ORDERED: LORazepam 2 MG/ML SDV IVPUSH ONE (01:28)
[2022-02-27] MEDS ORDERED: cefTRIAXone 2 GM in Sodium Chloride 0.9% 100 ML IV ONE (01:34)
[2022-02-27] MEDS ORDERED: Acetaminophen 325 MG Tab PO PRN ×2 (05:14→07:10)
[2022-02-27] MEDS ORDERED: Albuterol 0.083% 2.5 MG/3 ML Neb Soln INH PRN ×2 (07:10→11:38)
[2022-02-27] MEDS: Albuterol/Ipratropium 3.0-0.5 MG/3 ML Neb Soln NEB SCH ×3 (08:16→20:28)
[2022-02-27] MEDS: Formoterol/Mometasone 200-5 MCG 8.8 GM Inhaler IH SCH ×2 (08:16→20:27)
[2022-02-27] MEDS: Metoprolol Tartrate 25 MG Tab PO SCH ×2 (09:00→21:53)
[2022-02-27] MEDS: Finasteride 5 MG Tab PO SCH (09:02)
[2022-02-27] MEDS: guaiFENesin 600 MG Tab.ER PO SCH ×3 (09:02→21:52)
[2022-02-27] MEDS ORDERED: Iopamidol 612 MG/ML 100 ML Bottle IVPUSH ONE (09:41)
[2022-02-27] MEDS ORDERED: Vancomycin 1 GM, Vancomycin 250 MG in Sodium Chloride 0.9% 250 ML IV ONE (11:00)
[2022-02-27] MEDS: methylPREDNISolone Sodium Succinate 125 MG/2 ML SDV IVPUSH SCH ×2 (12:30→21:51)
[2022-02-27] MEDS: Sennosides 8.6 MG Tab PO SCH (21:51)
[2022-02-27] MEDS: Docusate Sodium 100 MG Cap PO SCH (21:51)
[2022-02-28] MEDS ORDERED: cefTRIAXone 2 GM in Sodium Chloride 0.9% 100 ML IV SCH ×2
[2022-02-28] MEDS: cefTRIAXone 2 GM in Sodium Chloride 0.9% 100 ML IV SCH ×2 (01:17→23:08)
[2022-02-28] MEDS: Albuterol/Ipratropium 3.0-0.5 MG/3 ML Neb Soln NEB SCH ×4 (03:04→20:32)
[2022-02-28] MEDS: methylPREDNISolone Sodium Succinate 125 MG/2 ML SDV IVPUSH SCH ×3 (05:32→21:35)
[2022-02-28] MEDS: Finasteride 5 MG Tab PO SCH (08:14)
[2022-02-28] MEDS: guaiFENesin 600 MG Tab.ER PO SCH ×3 (08:14→21:35)
[2022-02-28] MEDS: Metoprolol Tartrate 25 MG Tab PO SCH ×2 (08:15→21:36)
[2022-02-28] MEDS: Formoterol/Mometasone 200-5 MCG 8.8 GM Inhaler IH SCH ×2 (09:19→20:32)
[2022-02-28] MEDS: Sennosides 8.6 MG Tab PO SCH (21:35)
[2022-02-28] MEDS: Docusate Sodium 100 MG Cap PO SCH (21:35)
[2022-03-01] MEDS: Albuterol/Ipratropium 3.0-0.5 MG/3 ML Neb Soln NEB SCH ×4 (03:33→21:36)
[2022-03-01] MEDS: methylPREDNISolone Sodium Succinate 125 MG/2 ML SDV IVPUSH SCH ×3 (05:23→20:55)
[2022-03-01] MEDS: Finasteride 5 MG Tab PO SCH (08:28)
[2022-03-01] MEDS: guaiFENesin 600 MG Tab.ER PO SCH ×3 (08:28→20:57)
[2022-03-01] MEDS: Metoprolol Tartrate 25 MG Tab PO SCH ×2 (08:28→20:56)
[2022-03-01] MEDS: Formoterol/Mometasone 200-5 MCG 8.8 GM Inhaler IH SCH ×2 (08:33→20:39)
[2022-03-01] MEDS ORDERED: Aluminum Hydroxide/Magnesium Hydroxide/Simethicone Susp 30 ML Cup PO PRN (17:47)
[2022-03-01] MEDS: HYDROmorphone 0.5 MG/0.5 ML Syringe IVPUSH PRN (20:32)
[2022-03-01] MEDS: Pantoprazole 40 MG Tab.CR PO SCH (20:56)
[2022-03-01] MEDS: Docusate Sodium 100 MG Cap PO SCH (20:57)
[2022-03-01] MEDS: Sennosides 8.6 MG Tab PO SCH (20:57)
[2022-03-01] MEDS: hydrOXYzine HCl 25 MG/ML SDV IM PRN (23:50)
[2022-03-01] MEDS: cefTRIAXone 2 GM in Sodium Chloride 0.9% 100 ML IV SCH (23:52)
[2022-03-02] MEDS: Nitroglycerin 0.4 MG Tab.SL SL PRN ×3 (00:08→00:23)
[2022-03-02] MEDS ORDERED: HYDROmorphone 0.5 MG/0.5 ML Syringe IVPUSH ONE (00:22)
[2022-03-02] MEDS: Albuterol/Ipratropium 3.0-0.5 MG/3 ML Neb Soln NEB SCH ×5 (03:09→20:12)
[2022-03-02] MEDS: HYDROmorphone 0.5 MG/0.5 ML Syringe IVPUSH PRN (03:24)
[2022-03-02] MEDS: LORazepam 2 MG/ML SDV IVPUSH PRN (03:25)
[2022-03-02] MEDS: methylPREDNISolone Sodium Succinate 125 MG/2 ML SDV IVPUSH SCH (03:29)
[2022-03-02] MEDS ORDERED: Dextrose 5%-0.45% NaCl 1,000 ML IV SCH (06:00)
[2022-03-02] MEDS ORDERED: Iopamidol 612 MG/ML 100 ML Bottle IVPUSH ONE (07:33)
[2022-03-02] MEDS ORDERED: Sodium Chloride 0.9% 10 ML Syringe FLUSH ONE (07:33)
[2022-03-02] MEDS ORDERED: Iopamidol 612 MG/ML 50 ML SDV IVPUSH ONE (07:33)
[2022-03-02] MEDS ORDERED: Sodium Chloride 0.9% 100 ML IV SCH (07:45)
[2022-03-02] MEDS: Formoterol/Mometasone 200-5 MCG 8.8 GM Inhaler IH SCH ×2 (08:33→20:13)
[2022-03-02] MEDS: Saccharomyces Boulardii (Probiotic) 250 MG Cap PO SCH (10:40)
[2022-03-02] MEDS: guaiFENesin 600 MG Tab.ER PO SCH ×4 (10:41→20:37)
[2022-03-02] MEDS: Metoprolol Tartrate 25 MG Tab PO SCH ×2 (10:43→20:30)
[2022-03-02] MEDS: Finasteride 5 MG Tab PO SCH (10:44)
[2022-03-02] MEDS: hydrOXYzine HCl 25 MG/ML SDV IM PRN (16:16)
[2022-03-02] MEDS: HYDROmorphone 1 MG/ML Syringe IVPUSH PRN (18:48)
[2022-03-02] MEDS: Docusate Sodium 100 MG Cap PO SCH (20:30)
[2022-03-02] MEDS: Pantoprazole 40 MG Tab.CR PO SCH (20:30)
[2022-03-02] MEDS: Sennosides 8.6 MG Tab PO SCH (20:31)
[2022-03-03] MEDS: cefTRIAXone 2 GM in Sodium Chloride 0.9% 100 ML IV SCH (00:42)
[2022-03-03] MEDS: Albuterol/Ipratropium 3.0-0.5 MG/3 ML Neb Soln NEB SCH ×4 (02:49→21:46)
[2022-03-03] MEDS: Formoterol/Mometasone 200-5 MCG 8.8 GM Inhaler IH SCH ×2 (08:24→21:33)
[2022-03-03] MEDS ORDERED: predniSONE 20 MG Tab PO SCH (09:00)
[2022-03-03] MEDS: Metoprolol Tartrate 25 MG Tab PO SCH ×2 (09:01→20:23)
[2022-03-03] MEDS: guaiFENesin 600 MG Tab.ER PO SCH ×3 (09:01→20:24)
[2022-03-03] MEDS: Finasteride 5 MG Tab PO SCH (09:01)
[2022-03-03] MEDS: Saccharomyces Boulardii (Probiotic) 250 MG Cap PO SCH (09:01)
[2022-03-03] MEDS: HYDROmorphone 1 MG/ML Syringe IVPUSH PRN ×2 (11:56→20:38)
[2022-03-03] MEDS: hydrOXYzine HCl 25 MG/ML SDV IM PRN (11:56)
[2022-03-03] MEDS ORDERED: oxyCODONE 5 MG Tab PO SCH (12:30)
[2022-03-03] MEDS: oxyCODONE 5 MG Tab PO SCH ×2 (14:37→18:38)
[2022-03-03] MEDS: Pantoprazole 40 MG Tab.CR PO SCH (20:25)
[2022-03-03] MEDS: Sennosides 8.6 MG Tab PO SCH (20:25)
[2022-03-03] MEDS: Docusate Sodium 100 MG Cap PO SCH (20:25)
[2022-03-03] MEDS: LORazepam 2 MG/ML SDV IVPUSH PRN (23:48)
[2022-03-04] MEDS: cefTRIAXone 2 GM in Sodium Chloride 0.9% 100 ML IV SCH (00:50)
[2022-03-04] MEDS: oxyCODONE 5 MG Tab PO SCH ×6 (00:50→15:00)
[2022-03-04] MEDS: Albuterol/Ipratropium 3.0-0.5 MG/3 ML Neb Soln NEB SCH ×3 (03:19→15:02)
[2022-03-04] MEDS ORDERED: predniSONE 20 MG Tab PO SCH (09:00)
[2022-03-04] MEDS: Metoprolol Tartrate 25 MG Tab PO SCH (09:08)
[2022-03-04] MEDS: Finasteride 5 MG Tab PO SCH (09:09)
[2022-03-04] MEDS: Saccharomyces Boulardii (Probiotic) 250 MG Cap PO SCH (09:09)
[2022-03-04] MEDS: guaiFENesin 600 MG Tab.ER PO SCH ×2 (09:09→15:00)
[2022-03-04] MEDS: Formoterol/Mometasone 200-5 MCG 8.8 GM Inhaler IH SCH (09:34)
[2022-03-04] MEDS ORDERED: Heparin Sodium 10 UNIT/ML 3 ML Syringe FLUSH ONE (15:25)
== END 2022-03-04 16:04 | disposition home or self-care (01) | DRG 193 ==
LOC: JD.ED 00:01 → JD.MS 03:37
PROVIDERS: ADMIT Internal Medicine Cardiovascular Disease; ATTEND Internal Medicine Cardiovascular Disease
DX: J18.9 Pneumonia, unspecified organism (principal); R09.02 Hypoxemia; J96.21 Acute and chronic respiratory failure with hypoxia; J44.0 Chronic obstructive pulmonary disease with (acute) lower respiratory infection; J44.1 Chronic obstructive pulmonary disease with (acute) exacerbation; M86.271 Subacute osteomyelitis, right ankle and foot; I48.91 Unspecified atrial fibrillation; C78.01 Secondary malignant neoplasm of right lung; C43.9 Malignant melanoma of skin, unspecified; H91.90 Unspecified hearing loss, unspecified ear; H54.7 Unspecified visual loss; Z85.828 Personal history of other malignant neoplasm of skin; I10 Essential (primary) hypertension; Z88.8 Allergy status to other drugs, medicaments and biological substances; K57.90 Diverticulosis of intestine, part unspecified, without perforation or abscess without bleeding; N40.0 Benign prostatic hyperplasia without lower urinary tract symptoms; M19.90 Unspecified osteoarthritis, unspecified site; M54.9 Dorsalgia, unspecified; G89.29 Other chronic pain; F41.9 Anxiety disorder, unspecified; L89.890 Pressure ulcer of other site, unstageable; I73.9 Peripheral vascular disease, unspecified; I72.3 Aneurysm of iliac artery; Z79.51 Long term (current) use of inhaled steroids; Z79.899 Other long term (current) drug therapy; Z95.0 Presence of cardiac pacemaker; Z99.81 Dependence on supplemental oxygen; Z87.442 Personal history of urinary calculi; Z86.73 Personal history of transient ischemic attack (TIA), and cerebral infarction without residual deficits; Z98.49 Cataract extraction status, unspecified eye; Z86.16 Personal history of COVID-19
CPT/HCPCS: 36415; 71045; 80053; 83605; 83880; 84484; 85025; 87040 ×2; 93005; 94640; 96365; 96375; 99285; J0696; J2060; J2930; J3490; 71260; 71260-26; 71270; 71270-26; 74019; 74019-26; 74177; 74177-26; 80048; 80202; 81001; 83735; 86140; 87154; 93010; 94667; 94668; 94760; 94761; 96523; 97162-GP; 97597-GP; A9270-GY; J1170; J3370; J3410; J7042; J7050; J7512; J7620-GY; Q9967

== ENCOUNTER 2022-06-15 15:12 | Emergency (ER) | payer OTHER | END 2022-06-15 17:02 | disposition home or self-care (01) | LOC: JD.ED 15:12 | DX: T83.9XXA Unspecified complication of genitourinary prosthetic device, implant and graft, initial encounter (principal); J44.9 Chronic obstructive pulmonary disease, unspecified; I10 Essential (primary) hypertension; Z91.048 Other nonmedicinal substance allergy status; Z79.899 Other long term (current) drug therapy; Z86.16 Personal history of COVID-19 | CPT/HCPCS: 51702; 99284 ==

== ENCOUNTER 2022-06-17 14:59 | Emergency (ER) | payer OTHER | END 2022-06-17 17:24 | disposition home or self-care (01) | LOC: JD.ED 14:59 | DX: T83.9XXA Unspecified complication of genitourinary prosthetic device, implant and graft, initial encounter (principal); I10 Essential (primary) hypertension; E66.9 Obesity, unspecified; Z68.25 Body mass index [BMI] 25.0-25.9, adult; Z88.8 Allergy status to other drugs, medicaments and biological substances; Z79.899 Other long term (current) drug therapy | CPT/HCPCS: 51702; 99283 ==

== ENCOUNTER 2022-09-06 18:52 | Emergency (ER) | payer OTHER ==
[2022-09-06] MEDS ORDERED: Albuterol/Ipratropium 3.0-0.5 MG/3 ML Neb Soln NEB PRN (19:46)
[2022-09-06] MEDS ORDERED: Furosemide 40 MG/4 ML VIAL IVPUSH ONE (19:51)
[2022-09-06 21:15] LABS: ESTIMATED GFR 54 mL/min (>60)
[2022-09-06] MEDS ORDERED: Levofloxacin/Dextrose 5%-Water 500 MG in Premix Bag 1 BAG IV ONE (22:01)
[2022-09-06 22:09] LABS: CORONAVIRUS COVID-19 NAA NEGATIVE (NEGATIVE)
== END 2022-09-06 23:34 | disposition home or self-care (01) ==
LOC: JD.ED 18:52
DX: J18.9 Pneumonia, unspecified organism (principal); J90 Pleural effusion, not elsewhere classified; I11.0 Hypertensive heart disease with heart failure; I50.30 Unspecified diastolic (congestive) heart failure; J44.9 Chronic obstructive pulmonary disease, unspecified; C90.00 Multiple myeloma not having achieved remission; Z91.048 Other nonmedicinal substance allergy status; Z79.899 Other long term (current) drug therapy; Z20.822 Contact with and (suspected) exposure to COVID-19
CPT/HCPCS: 0241U; 36415; 71045; 80053; 81001; 83605; 83735; 83880; 85025; 85610; 85652; 85730; 86140; 87040; 93005; 94640; 96365; 96375; 99284; J1940; J1956; J7620-GY

== ENCOUNTER 2022-12-18 10:20 | Inpatient (IN) | payer OTHER ==
[2022-12-18] MEDS ORDERED: Sodium Chloride 0.9% 10 ML Syringe FLUSH PRN (11:27)
[2022-12-18] MEDS ORDERED: Albuterol/Ipratropium 3.0-0.5 MG/3 ML Neb Soln NEB ONE (11:29)
[2022-12-18] MEDS ORDERED: Sodium Chloride 0.9% 1,000 ML IV STA (11:30)
[2022-12-18] MEDS ORDERED: Furosemide 40 MG/4 ML VIAL IVPUSH ONE (13:05)
[2022-12-18] MEDS ORDERED: cefTRIAXone 2 GM in Sodium Chloride 0.9% 100 ML IV ONE (14:03)
[2022-12-18 15:01] LABS: CORONAVIRUS COVID-19 NAA NEGATIVE (NEGATIVE)
[2022-12-18] MEDS ORDERED: Albuterol/Ipratropium 3.0-0.5 MG/3 ML Neb Soln NEB PRN (19:32)
[2022-12-18] MEDS ORDERED: Nystatin Crm 30 GM Tube TOP PRN (19:36)
[2022-12-18] MEDS ORDERED: LORazepam 0.5 MG Tab PO PRN (19:36)
[2022-12-18] MEDS: Formoterol/Mometasone 200-5 MCG 8.8 GM Inhaler IH SCH (20:50)
[2022-12-18] MEDS: Albuterol/Ipratropium 3.0-0.5 MG/3 ML Neb Soln NEB SCH (20:51)
[2022-12-18] MEDS: Azithromycin 250 MG Tab PO SCH (21:11)
[2022-12-18] MEDS: Metoprolol Succinate 25 MG Tab.ER PO SCH (21:11)
[2022-12-18] MEDS: Furosemide 40 MG/4 ML VIAL IVPUSH SCH (21:12)
[2022-12-18] MEDS: Finasteride 5 MG Tab PO SCH (21:12)
[2022-12-19] MEDS: Albuterol/Ipratropium 3.0-0.5 MG/3 ML Neb Soln NEB SCH ×4 (02:35→20:31)
[2022-12-19] MEDS: Sennosides 8.6 MG Tab PO SCH ×2 (08:45→20:50)
[2022-12-19] MEDS: Formoterol/Mometasone 200-5 MCG 8.8 GM Inhaler IH SCH ×2 (08:48→20:31)
[2022-12-19] MEDS: Finasteride 5 MG Tab PO SCH (08:59)
[2022-12-19] MEDS: Furosemide 40 MG/4 ML VIAL IVPUSH SCH ×2 (08:59→20:57)
[2022-12-19] MEDS: Metoprolol Succinate 25 MG Tab.ER PO SCH ×2 (09:00→20:51)
[2022-12-19] MEDS: Multivitamin Tab PO SCH (09:00)
[2022-12-19] MEDS: methylPREDNISolone Sodium Succinate 40 MG/1 ML SDV IVPUSH SCH (09:00)
[2022-12-19] MEDS: cefTRIAXone 1 GM in Sodium Chloride 0.9% 100 ML IV SCH (09:01)
[2022-12-19] MEDS: oxyCODONE 5 MG Tab PO PRN (12:27)
[2022-12-19] MEDS ORDERED: Silver Sulfadiazine 1% Crm 50 GM Tube TOP SCH (14:30)
[2022-12-19] MEDS: oxyCODONE ER 20 MG TAB.ER PO SCH ×2 (15:04→20:57)
[2022-12-19] MEDS: Potassium Chloride 20 MEQ Tab.ER PO SCH ×2 (16:19→20:51)
[2022-12-19] MEDS: Azithromycin 250 MG Tab PO SCH (20:51)
[2022-12-20] MEDS: Albuterol/Ipratropium 3.0-0.5 MG/3 ML Neb Soln NEB SCH ×4 (03:09→20:36)
[2022-12-20] MEDS: oxyCODONE 5 MG Tab PO PRN (04:34)
[2022-12-20] MEDS: Formoterol/Mometasone 200-5 MCG 8.8 GM Inhaler IH SCH ×2 (08:17→20:36)
[2022-12-20] MEDS: Potassium Chloride 20 MEQ Tab.ER PO SCH ×3 (09:59→20:58)
[2022-12-20] MEDS: Metoprolol Succinate 25 MG Tab.ER PO SCH ×2 (10:00→20:55)
[2022-12-20] MEDS: Multivitamin Tab PO SCH (10:01)
[2022-12-20] MEDS: oxyCODONE ER 20 MG TAB.ER PO SCH ×2 (10:01→20:58)
[2022-12-20] MEDS: Finasteride 5 MG Tab PO SCH (10:01)
[2022-12-20] MEDS: cefTRIAXone 1 GM in Sodium Chloride 0.9% 100 ML IV SCH (10:04)
[2022-12-20] MEDS: Furosemide 40 MG/4 ML VIAL IVPUSH SCH ×2 (10:04→20:58)
[2022-12-20] MEDS: methylPREDNISolone Sodium Succinate 40 MG/1 ML SDV IVPUSH SCH (10:04)
[2022-12-20] MEDS: guaiFENesin 600 MG Tab.ER PO SCH ×2 (15:43→20:58)
[2022-12-20] MEDS: Sennosides 8.6 MG Tab PO SCH (20:57)
[2022-12-20] MEDS: Azithromycin 250 MG Tab PO SCH (20:58)
[2022-12-21] MEDS: Albuterol/Ipratropium 3.0-0.5 MG/3 ML Neb Soln NEB SCH ×4 (02:38→20:30)
[2022-12-21] MEDS: Formoterol/Mometasone 200-5 MCG 8.8 GM Inhaler IH SCH ×2 (09:02→20:30)
[2022-12-21] MEDS: Furosemide 40 MG/4 ML VIAL IVPUSH SCH ×2 (10:12→21:08)
[2022-12-21] MEDS: Potassium Chloride 20 MEQ Tab.ER PO SCH (10:12)
[2022-12-21] MEDS: guaiFENesin 600 MG Tab.ER PO SCH ×2 (10:12→21:06)
[2022-12-21] MEDS: oxyCODONE ER 20 MG TAB.ER PO SCH ×2 (10:12→21:07)
[2022-12-21] MEDS: Finasteride 5 MG Tab PO SCH (10:13)
[2022-12-21] MEDS: Metoprolol Succinate 25 MG Tab.ER PO SCH ×2 (10:13→21:06)
[2022-12-21] MEDS: Multivitamin Tab PO SCH (10:13)
[2022-12-21] MEDS: methylPREDNISolone Sodium Succinate 40 MG/1 ML SDV IVPUSH SCH (10:13)
[2022-12-21] MEDS: cefTRIAXone 1 GM in Sodium Chloride 0.9% 100 ML IV SCH (10:13)
[2022-12-21] MEDS: Azithromycin 250 MG Tab PO SCH (21:06)
[2022-12-21] MEDS: Sennosides 8.6 MG Tab PO SCH (21:06)
[2022-12-22] MEDS: Albuterol/Ipratropium 3.0-0.5 MG/3 ML Neb Soln NEB SCH ×3 (03:06→15:30)
[2022-12-22] MEDS: Formoterol/Mometasone 200-5 MCG 8.8 GM Inhaler IH SCH (08:15)
[2022-12-22] MEDS: cefTRIAXone 1 GM in Sodium Chloride 0.9% 100 ML IV SCH (08:24)
[2022-12-22] MEDS: methylPREDNISolone Sodium Succinate 40 MG/1 ML SDV IVPUSH SCH (08:26)
[2022-12-22] MEDS: Furosemide 40 MG/4 ML VIAL IVPUSH SCH (08:27)
[2022-12-22] MEDS: guaiFENesin 600 MG Tab.ER PO SCH (08:30)
[2022-12-22] MEDS: Metoprolol Succinate 25 MG Tab.ER PO SCH (08:30)
[2022-12-22] MEDS: Multivitamin Tab PO SCH (08:30)
[2022-12-22] MEDS: Finasteride 5 MG Tab PO SCH (08:30)
[2022-12-22] MEDS: oxyCODONE ER 20 MG TAB.ER PO SCH (08:32)
[2022-12-22] MEDS ORDERED: Docusate Sodium 100 MG Cap PO SCH (12:30)
[2022-12-22] MEDS ORDERED: Psyllium Husk Powder Sugar Free 5.85 GM Packet PO SCH (12:30)
[2022-12-22] MEDS ORDERED: Polyethylene Glycol 3350 Powder 17 GM Packet PO SCH (12:30)
== END 2022-12-22 16:50 | disposition home or self-care (01) | DRG 291 ==
LOC: JD.ED 10:20 → JD.MS 16:25
PROVIDERS: ADMIT Internal Medicine; ATTEND Internal Medicine
PROC: 5A09357 Assistance with Respiratory Ventilation, Less than 24 Consecutive Hours, Continuous Positive Airway Pressure (ICD-10-PCS; principal; 2022-12-18)
DX: I50.33 Acute on chronic diastolic (congestive) heart failure (principal); G93.41 Metabolic encephalopathy; J96.21 Acute and chronic respiratory failure with hypoxia; J96.22 Acute and chronic respiratory failure with hypercapnia; J44.1 Chronic obstructive pulmonary disease with (acute) exacerbation; N17.9 Acute kidney failure, unspecified; M86.8X8 Other osteomyelitis, other site; C78.7 Secondary malignant neoplasm of liver and intrahepatic bile duct; J90 Pleural effusion, not elsewhere classified; C79.51 Secondary malignant neoplasm of bone; C34.90 Malignant neoplasm of unspecified part of unspecified bronchus or lung; E87.20 Acidosis, unspecified; I48.20 Chronic atrial fibrillation, unspecified; I11.0 Hypertensive heart disease with heart failure; E86.0 Dehydration; Z20.822 Contact with and (suspected) exposure to COVID-19; N40.1 Benign prostatic hyperplasia with lower urinary tract symptoms; F41.9 Anxiety disorder, unspecified; E66.9 Obesity, unspecified; H91.90 Unspecified hearing loss, unspecified ear; E87.6 Hypokalemia; M19.90 Unspecified osteoarthritis, unspecified site; G89.29 Other chronic pain; M54.9 Dorsalgia, unspecified; N40.0 Benign prostatic hyperplasia without lower urinary tract symptoms; R33.9 Retention of urine, unspecified; Z87.11 Personal history of peptic ulcer disease; Z98.890 Other specified postprocedural states; Z93.3 Colostomy status; Z68.22 Body mass index [BMI] 22.0-22.9, adult; Z99.81 Dependence on supplemental oxygen; Z98.49 Cataract extraction status, unspecified eye; Z88.8 Allergy status to other drugs, medicaments and biological substances; Z79.899 Other long term (current) drug therapy; Z66 Do not resuscitate; Z95.0 Presence of cardiac pacemaker; Z86.73 Personal history of transient ischemic attack (TIA), and cerebral infarction without residual deficits
CPT/HCPCS: 0241U; 36415; 36600; 71045; 80048; 80053; 81001; 82803; 83605; 83735; 83880; 84484; 85007; 85025; 85027; 85610; 86140; 87040; 87086; 93005; 93306; 94640; 94660; 94760; 94761; 96365; 96375; 97161; 97166; 97530; 99285; 93010; A9270-GY; J0696; J1642; J1940; J2920; J3490; J7620-GY

== ENCOUNTER 2023-01-26 14:12 | Emergency (ER) | payer MEDICAID, MEDICARE, OTHER ==
[2023-01-26] MEDS ORDERED: LORazepam 2 MG/ML SDV IVPUSH ONE (16:25)
[2023-01-26] MEDS ORDERED: Sodium Chloride 0.9% 1,000 ML IV SCH (16:30)
[2023-01-26 17:44] LABS: BASOPHILS ABSOLUTE AUTO 0.02 K/mm3 (0.01-0.08); BASOPHILS PERCENT AUTO 0.2 % (0.1-1.2); EOSINOPHILS ABSOLUTE AUTO 0.03 K/mm3 (0.04-0.54); EOSINOPHILS PERCENT AUTO 0.3 (0.8-7.0); HEMATOCRIT 39.6 % (40.1-51.0); HEMOGLOBIN 12.6 gm/dl (13.7-17.5); IMMATURE GRAN ABSOLUTE AUTO 0.02 K/mm3 (0.00-0.10); IMMATURE GRAN PERCENT AUTO 0.2 % (<=1.0); LYMPHOCYTES ABSOLUTE AUTO 1.16 K/mm3 (1.32-3.57); MEAN CORPUSCULAR HEMOGLOBIN 28.2 pg (25.7-32.2); MEAN CORPUSCULAR HGB CONC 31.8 g/dl (32.2-35.5); MEAN CORPUSCULAR VOLUME 88.6 fl (79.0-92.2); MEAN PLATELET VOLUME 10.5 fl (9.4-12.3); MONOCYTES ABSOLUTE AUTO 0.62 K/mm3 (0.30-0.82); NEUTROPHILS ABSOLUTE AUTO 7.06 K/mm3 (1.78-5.38); NEUTROPHILS PERCENT AUTO 79.3 % (34.0-67.9); PLATELET COUNT,PLT 210 K/mm3 (163-337); RED BLOOD CELL COUNT 4.47 M/mm3 (4.63-6.08); WHITE BLOOD CELL COUNT,WBC 8.91 K/mm3 (4.23-9.07)
[2023-01-26 17:53] LABS: APPEARANCE,URINE CLEAR (Clear); BILIRUBIN,URINE NEGATIVE (Negative); COLOR,URINE YELLOW (Yellow); GLUCOSE,URINE NEGATIVE (Negative); KETONES,URINE NEGATIVE (Negative); LEUKOCYTE ESTERASE,URINE 1+ (Negative); NITRITE,URINE NEGATIVE (Negative); OCCULT BLOOD,URINE 2+ (Negative); PH,URINE 6.5 (5.0-8.0); PROTEIN,URINE 2+ (Negative); UROBILINOGEN,URINE 0.2 (0.2-1.0)
[2023-01-26 18:04] LABS: A/G RATIO 0.9 (1-2); ALBUMIN 3.3 g/dl (3.4-5.0); ANION GAP 8.5 (5-15); BILIRUBIN TOTAL 0.6 mg/dL (0.2-1.0); BUN/CREATININE RATIO 26.4 (14-18); CALCIUM 8.9 mg/dL (8.5-10.1); CREATININE 1.1 mg/dL (0.7-1.3); EST CRCL DRUG DOSING (CG) 44.31 mL/min; POTASSIUM,K 3.5 mEq/L (3.5-5.1); PROTEIN TOTAL,TP 7.1 g/dl (6.4-8.2)
[2023-01-26 18:05] LABS: BACTERIA,URINE FEW /hpf (FEW); HYALINE CASTS,URINE 0-5 /lpf (0-5); RBC,URINE 20-30 /hpf (0-5); SQUAMOUS EPITHELIAL CELLS,UR 0-5 /hpf (0-5); WBC CLUMPS,URINE FEW /hpf (NOT SEEN); WBC,URINE 75-100 /hpf (0-5)
[2023-01-26 18:06] LABS: MUCUS,URINE FEW /hpf (FEW); YEAST BUDDING,URINE MANY (NOT SEEN); YEAST HYPHAE,URINE MODERATE (NOT SEEN)
[2023-01-26 18:07] LABS: INR 1.03
[2023-01-26 18:09] LABS: PTT,PARTIAL THROMBOPLSTIN TIME 45.2 SECONDS (21.7-31.4)
[2023-01-26 18:36] LABS: CORONAVIRUS COVID-19 NAA NEGATIVE (NEGATIVE); INFLUENZA A NAA NEGATIVE (NEGATIVE); RESPIRATORY SYNCYTIAL VIR NAA NEGATIVE (NEGATIVE)
[2023-01-26] MEDS ORDERED: cefTRIAXone 1 GM in Sodium Chloride 0.9% 100 ML IV ONE (18:49)
== END 2023-01-26 19:45 ==
LOC: JD.ED 14:12
DX: K56.609 Unspecified intestinal obstruction, unspecified as to partial versus complete obstruction (principal); C80.1 Malignant (primary) neoplasm, unspecified; T83 Complications of genitourinary prosthetic devices, implants and grafts; N39.0 Urinary tract infection, site not specified; I11.0 Hypertensive heart disease with heart failure; I50.9 Heart failure, unspecified; I48.91 Unspecified atrial fibrillation; J44.9 Chronic obstructive pulmonary disease, unspecified; E66.9 Obesity, unspecified; Z86.16 Personal history of COVID-19; Z79.899 Other long term (current) drug therapy; Z88.8 Allergy status to other drugs, medicaments and biological substances; Z20.822 Contact with and (suspected) exposure to COVID-19
CPT/HCPCS: 0241U; 36415; 71250; 74176; 80053; 81001; 82140; 84484; 85025; 85610; 85730; 87040; 87086; 93005; 96361; 96365; 96375; 99285; J0696; J2060; J3490; J7030; 93010

== ENCOUNTER 2023-01-29 17:29 | Inpatient (IN) | payer OTHER ==
[2023-01-29] MEDS ORDERED: Sodium Chloride 0.9% 10 ML Syringe FLUSH PRN (18:18)
[2023-01-29] MEDS ORDERED: Ondansetron 4 MG/2 ML SDV IVPUSH ONE (18:22)
[2023-01-29] MEDS ORDERED: Sodium Chloride 0.9% 1,000 ML IV STA (18:22)
[2023-01-29] MEDS ORDERED: oxyCODONE 5 MG Tab PO ONE (18:23)
[2023-01-29 18:50] LABS: BASOPHILS ABSOLUTE AUTO 0.01 K/mm3 (0.01-0.08); BASOPHILS PERCENT AUTO 0.1 % (0.1-1.2); EOSINOPHILS ABSOLUTE AUTO 0.04 K/mm3 (0.04-0.54); EOSINOPHILS PERCENT AUTO 0.5 (0.8-7.0); HEMATOCRIT 44.3 % (40.1-51.0); HEMOGLOBIN 13.7 gm/dl (13.7-17.5); IMMATURE GRAN ABSOLUTE AUTO 0.01 K/mm3 (0.00-0.10); IMMATURE GRAN PERCENT AUTO 0.1 % (<=1.0); LYMPHOCYTES ABSOLUTE AUTO 1.32 K/mm3 (1.32-3.57); LYMPHOCYTES PERCENT AUTO 16.9 % (21.8-53.1); MEAN CORPUSCULAR HEMOGLOBIN 27.5 pg (25.7-32.2); MEAN CORPUSCULAR HGB CONC 30.9 g/dl (32.2-35.5); MEAN CORPUSCULAR VOLUME 88.8 fl (79.0-92.2); MEAN PLATELET VOLUME 10.2 fl (9.4-12.3); MONOCYTES ABSOLUTE AUTO 0.97 K/mm3 (0.30-0.82); MONOCYTES PERCENT AUTO 12.4 % (5.3-12.2); NEUTROPHILS ABSOLUTE AUTO 5.45 K/mm3 (1.78-5.38); PLATELET COUNT,PLT 223 K/mm3 (163-337); RED BLOOD CELL COUNT 4.99 M/mm3 (4.63-6.08)
[2023-01-29 19:11] LABS: A/G RATIO 0.9 (1-2); ALBUMIN 3.5 g/dl (3.4-5.0); ANION GAP 7.7 (5-15); BILIRUBIN TOTAL 0.7 mg/dL (0.2-1.0); BUN/CREATININE RATIO 18.3 (14-18); CALCIUM 9.5 mg/dL (8.5-10.1); CREATININE 1.2 mg/dL (0.7-1.3); EST CRCL DRUG DOSING (CG) 40.61 mL/min; POTASSIUM,K 3.7 mEq/L (3.5-5.1); PROTEIN TOTAL,TP 7.4 g/dl (6.4-8.2)
[2023-01-29] MEDS ORDERED: Fluconazole/Normal Saline 200 MG in Premix Bag 1 BAG IV ONE (21:40)
[2023-01-29] MEDS: HYDROmorphone 0.5 MG/0.5 ML Syringe IVPUSH PRN (23:20)
[2023-01-30] MEDS ORDERED: oxyCODONE 5 MG Tab PO ONE (02:41)
[2023-01-30] MEDS: Ondansetron 4 MG/2 ML SDV IVPUSH PRN (03:57)
[2023-01-30] MEDS ORDERED: Benzocaine 20% Topical Spray UD MUCMEM ONE ×2 (09:21→09:23)
[2023-01-30] MEDS ORDERED: Acetaminophen 650 MG Supp RECTAL PRN (12:12)
[2023-01-30] MEDS: Dextrose 5%-0.9% NaCl 1,000 ML IV SCH ×2 (12:48→23:21)
[2023-01-30] MEDS ORDERED: Albuterol 0.5% 2.5 MG/0.5 ML Neb Soln NEB PRN (14:07)
[2023-01-30] MEDS: Albuterol 0.083% 2.5 MG/3 ML Neb Soln NEB SCH ×2 (14:41→20:44)
[2023-01-30] MEDS: HYDROmorphone 0.5 MG/0.5 ML Syringe IVPUSH PRN ×2 (16:07→23:20)
[2023-01-30] MEDS: Pantoprazole 40 MG Vial IV SCH (21:07)
[2023-01-31] MEDS: Morphine 2 MG/ML SYRINGE IVPUSH PRN ×3 (01:48→11:52)
[2023-01-31 05:56] LABS: BASOPHILS ABSOLUTE AUTO 0.02 K/mm3 (0.01-0.08); BASOPHILS PERCENT AUTO 0.3 % (0.1-1.2); EOSINOPHILS ABSOLUTE AUTO 0.21 K/mm3 (0.04-0.54); EOSINOPHILS PERCENT AUTO 3.2 (0.8-7.0); HEMATOCRIT 37.1 % (40.1-51.0); IMMATURE GRAN ABSOLUTE AUTO 0.01 K/mm3 (0.00-0.10); IMMATURE GRAN PERCENT AUTO 0.2 % (<=1.0); LYMPHOCYTES PERCENT AUTO 16.8 % (21.8-53.1); MEAN CORPUSCULAR HEMOGLOBIN 27.6 pg (25.7-32.2); MEAN CORPUSCULAR HGB CONC 30.2 g/dl (32.2-35.5); MEAN CORPUSCULAR VOLUME 91.4 fl (79.0-92.2); MEAN PLATELET VOLUME 10.5 fl (9.4-12.3); MONOCYTES ABSOLUTE AUTO 0.86 K/mm3 (0.30-0.82); MONOCYTES PERCENT AUTO 13.1 % (5.3-12.2); NEUTROPHILS ABSOLUTE AUTO 4.34 K/mm3 (1.78-5.38); NEUTROPHILS PERCENT AUTO 66.4 % (34.0-67.9); PLATELET COUNT,PLT 167 K/mm3 (163-337); RED BLOOD CELL COUNT 4.06 M/mm3 (4.63-6.08); WHITE BLOOD CELL COUNT,WBC 6.54 K/mm3 (4.23-9.07)
[2023-01-31 06:07] LABS: HEMOGLOBIN 11.2 gm/dl (13.7-17.5)
[2023-01-31 06:19] LABS: ANION GAP 9.1 (5-15); BUN/CREATININE RATIO 18.3 (14-18); CREATININE 1.2 mg/dL (0.7-1.3); EST CRCL DRUG DOSING (CG) 42.08 mL/min; POTASSIUM,K 3.1 mEq/L (3.5-5.1)
[2023-01-31 06:20] LABS: CALCIUM 8.6 mg/dL (8.5-10.1); MAGNESIUM 1.7 mg/dL (1.8-2.4); PHOSPHORUS 4.5 mg/dL (2.6-4.7)
[2023-01-31] MEDS ORDERED: Albuterol 0.083% 2.5 MG/3 ML Neb Soln NEB PRN (07:50)
[2023-01-31] MEDS: HYDROmorphone 0.5 MG/0.5 ML Syringe IVPUSH PRN ×4 (07:57→19:54)
[2023-01-31] MEDS: Pantoprazole 40 MG Vial IV SCH ×3 (08:00→20:05)
[2023-01-31] MEDS: Albuterol 0.083% 2.5 MG/3 ML Neb Soln NEB SCH ×2 (08:18→20:47)
[2023-01-31] MEDS: Dextrose 5%-0.9% NaCl 1,000 ML IV SCH ×2 (08:59→19:32)
[2023-01-31] MEDS ORDERED: Magnesium Sulfate (4.06 MEQ/ML) 5 GM/10 ML SDV IV ONE (09:00)
[2023-01-31] MEDS: Potassium Chloride 10 MEQ in Premix Bag 1 BAG IV SCH ×4 (09:36→13:33)
[2023-01-31] MEDS: Ondansetron 4 MG/2 ML SDV IVPUSH PRN ×3 (09:42→21:43)
[2023-01-31] MEDS ORDERED: Nystatin Crm 30 GM Tube TOP PRN (12:19)
[2023-01-31] MEDS ORDERED: Diatrizoate Meglumine/Diatrizoate Sodium 37% 120 ML Bottle PO ONE (12:22)
[2023-01-31] MEDS: Metoprolol Tartrate 5 MG/5 ML SDV IVPUSH SCH ×2 (12:57→17:55)
[2023-01-31] MEDS: Furosemide 40 MG/4 ML VIAL IVPUSH SCH (13:00)
[2023-01-31] MEDS ORDERED: Magnesium Sulfate/Water 2 GM in Premix Bag 1 BAG IV ONE (13:00)
[2023-01-31] MEDS: Formoterol/Mometasone 200-5 MCG 8.8 GM Inhaler IH SCH (20:52)
[2023-02-01] MEDS: Metoprolol Tartrate 5 MG/5 ML SDV IVPUSH SCH ×4 (00:23→20:04)
[2023-02-01] MEDS: HYDROmorphone 0.5 MG/0.5 ML Syringe IVPUSH PRN ×7 (00:24→21:46)
[2023-02-01] MEDS: Dextrose 5%-0.9% NaCl 1,000 ML IV SCH (05:50)
[2023-02-01 06:12] LABS: ANION GAP 10.2 (5-15); EST CRCL DRUG DOSING (CG) 50.49 mL/min; POTASSIUM,K 3.2 mEq/L (3.5-5.1)
[2023-02-01 06:26] LABS: BASOPHILS ABSOLUTE AUTO 0.02 K/mm3 (0.01-0.08); BASOPHILS PERCENT AUTO 0.3 % (0.1-1.2); EOSINOPHILS ABSOLUTE AUTO 0.23 K/mm3 (0.04-0.54); EOSINOPHILS PERCENT AUTO 3.1 (0.8-7.0); HEMATOCRIT 41.8 % (40.1-51.0); HEMOGLOBIN 12.5 gm/dl (13.7-17.5); IMMATURE GRAN ABSOLUTE AUTO 0.01 K/mm3 (0.00-0.10); IMMATURE GRAN PERCENT AUTO 0.1 % (<=1.0); LYMPHOCYTES PERCENT AUTO 13.6 % (21.8-53.1); MEAN CORPUSCULAR HEMOGLOBIN 27.7 pg (25.7-32.2); MEAN CORPUSCULAR HGB CONC 29.9 g/dl (32.2-35.5); MEAN CORPUSCULAR VOLUME 92.5 fl (79.0-92.2); MEAN PLATELET VOLUME 10.6 fl (9.4-12.3); MONOCYTES ABSOLUTE AUTO 0.89 K/mm3 (0.30-0.82); MONOCYTES PERCENT AUTO 12.1 % (5.3-12.2); NEUTROPHILS ABSOLUTE AUTO 5.22 K/mm3 (1.78-5.38); NEUTROPHILS PERCENT AUTO 70.8 % (34.0-67.9); PLATELET COUNT,PLT 185 K/mm3 (163-337); RED BLOOD CELL COUNT 4.52 M/mm3 (4.63-6.08); WHITE BLOOD CELL COUNT,WBC 7.37 K/mm3 (4.23-9.07)
[2023-02-01] MEDS ORDERED: Propofol 200 MG/20 ML SDV ONE (07:27)
[2023-02-01] MEDS ORDERED: fentaNYL 100 MCG/2 ML SDV ONE (07:27)
[2023-02-01] MEDS ORDERED: Ketorolac 30 MG/ML SDV ONE (07:28)
[2023-02-01] MEDS ORDERED: Ondansetron 4 MG/2 ML SDV ONE (07:28)
[2023-02-01] MEDS ORDERED: Rocuronium 50 MG/5 ML Vial ONE ×2 (07:28→11:38)
[2023-02-01] MEDS ORDERED: Lidocaine 1% 2 ML ONE (07:29)
[2023-02-01] MEDS ORDERED: Ondansetron 4 MG/2 ML SDV IVPUSH PRN (08:10)
[2023-02-01] MEDS ORDERED: fentaNYL 100 MCG/2 ML SDV IVPUSH PRN (08:10)
[2023-02-01] MEDS: Pantoprazole 40 MG Vial IV SCH ×2 (08:14→20:04)
[2023-02-01] MEDS: Furosemide 40 MG/4 ML VIAL IVPUSH SCH (08:14)
[2023-02-01] MEDS: Ondansetron 4 MG/2 ML SDV IVPUSH PRN (08:50)
[2023-02-01] MEDS: Formoterol/Mometasone 200-5 MCG 8.8 GM Inhaler IH SCH ×2 (08:55→21:06)
[2023-02-01] MEDS: Albuterol 0.083% 2.5 MG/3 ML Neb Soln NEB SCH ×2 (08:55→21:06)
[2023-02-01] MEDS ORDERED: Bupivacaine 0.5%/EPINEPHrine 1:200,000 50 ML MDV ONE (09:06)
[2023-02-01] MEDS ORDERED: ceFAZolin 2 GM Vial ONE (09:32)
[2023-02-01] MEDS ORDERED: Ketamine 500 mg/10 ML MDV ONE (09:32)
[2023-02-01] MEDS: Silver Sulfadiazine 1% Crm 50 GM Tube TOP SCH (10:24)
[2023-02-01] MEDS ORDERED: Phenylephrine 1% 10 MG/ML SDV ONE (10:38)
[2023-02-01] MEDS ORDERED: ceFAZolin 1 GM Vial ONE (10:51)
[2023-02-01] MEDS ORDERED: Sugammadex Sodium 200 MG/2 ML VIAL ONE (12:55)
[2023-02-01] MEDS ORDERED: Bacitracin Oint 15 GM Tube ONE (13:02)
[2023-02-01] MEDS ORDERED: HYDROmorphone 1 MG/ML Syringe IVPUSH PRN (13:44)
[2023-02-01] MEDS ORDERED: Ketorolac 15 MG/ML SDV IVPUSH PRN (13:44)
[2023-02-01] MEDS ORDERED: Lactated Ringers 1,000 ML IV SCH (13:45)
[2023-02-01] MEDS: DOPamine/Dextrose 5%-Water 400 MG/250 ML BAG IV SCH (15:35)
[2023-02-01] MEDS: Potassium Chloride 10 MEQ in Premix Bag 1 BAG IV SCH ×4 (16:25→21:59)
[2023-02-01] MEDS: D5 1/2 NS w/ 20 mEq/L KCl 1,000 ML IV SCH (16:28)
[2023-02-01] MEDS ORDERED: Sodium Chloride 0.9% 500 ML ONE (16:53)
[2023-02-02] MEDS: Metoprolol Tartrate 5 MG/5 ML SDV IVPUSH SCH ×2 (00:47→05:37)
[2023-02-02] MEDS: HYDROmorphone 0.5 MG/0.5 ML Syringe IVPUSH PRN ×2 (03:26→19:53)
[2023-02-02] MEDS: D5 1/2 NS w/ 20 mEq/L KCl 1,000 ML IV SCH ×2 (05:35→16:40)
[2023-02-02 06:07] LABS: BASOPHILS ABSOLUTE AUTO 0.02 K/mm3 (0.01-0.08); BASOPHILS PERCENT AUTO 0.2 % (0.1-1.2); EOSINOPHILS ABSOLUTE AUTO 0.01 K/mm3 (0.04-0.54); EOSINOPHILS PERCENT AUTO 0.1 (0.8-7.0); HEMATOCRIT 41.2 % (40.1-51.0); HEMOGLOBIN 12.3 gm/dl (13.7-17.5); IMMATURE GRAN ABSOLUTE AUTO 0.01 K/mm3 (0.00-0.10); IMMATURE GRAN PERCENT AUTO 0.1 % (<=1.0); LYMPHOCYTES ABSOLUTE AUTO 1.21 K/mm3 (1.32-3.57); LYMPHOCYTES PERCENT AUTO 10.3 % (21.8-53.1); MEAN CORPUSCULAR HEMOGLOBIN 27.6 pg (25.7-32.2); MEAN CORPUSCULAR HGB CONC 29.9 g/dl (32.2-35.5); MEAN CORPUSCULAR VOLUME 92.6 fl (79.0-92.2); MEAN PLATELET VOLUME 10.7 fl (9.4-12.3); MONOCYTES ABSOLUTE AUTO 1.33 K/mm3 (0.30-0.82); MONOCYTES PERCENT AUTO 11.4 % (5.3-12.2); NEUTROPHILS ABSOLUTE AUTO 9.13 K/mm3 (1.78-5.38); NEUTROPHILS PERCENT AUTO 77.9 % (34.0-67.9); PLATELET COUNT,PLT 194 K/mm3 (163-337); RED BLOOD CELL COUNT 4.45 M/mm3 (4.63-6.08); WHITE BLOOD CELL COUNT,WBC 11.71 K/mm3 (4.23-9.07)
[2023-02-02 06:11] LABS: ANION GAP 9.2 (5-15); BUN/CREATININE RATIO 13.8 (14-18); CALCIUM 8.2 mg/dL (8.5-10.1); CREATININE 1.3 mg/dL (0.7-1.3); EST CRCL DRUG DOSING (CG) 38.84 mL/min; MAGNESIUM 1.7 mg/dL (1.8-2.4); PHOSPHORUS 3.6 mg/dL (2.6-4.7); POTASSIUM,K 4.2 mEq/L (3.5-5.1)
[2023-02-02] MEDS: DOPamine/Dextrose 5%-Water 400 MG/250 ML BAG IV SCH (07:14)
[2023-02-02] MEDS ORDERED: Magnesium Sulfate/Water 2 GM in Premix Bag 1 BAG IV ONE (08:11)
[2023-02-02] MEDS: Albuterol 0.083% 2.5 MG/3 ML Neb Soln NEB SCH ×2 (08:34→20:19)
[2023-02-02] MEDS: Formoterol/Mometasone 200-5 MCG 8.8 GM Inhaler IH SCH ×2 (08:34→20:21)
[2023-02-02] MEDS: Furosemide 40 MG/4 ML VIAL IVPUSH SCH (08:47)
[2023-02-02] MEDS: Pantoprazole 40 MG Vial IV SCH ×2 (08:47→20:00)
[2023-02-02] MEDS: Silver Sulfadiazine 1% Crm 50 GM Tube TOP SCH (08:48)
[2023-02-02] MEDS ORDERED: Furosemide 40 MG/4 ML VIAL IVPUSH ONE (16:54)
[2023-02-03] MEDS: HYDROmorphone 0.5 MG/0.5 ML Syringe IVPUSH PRN ×2 (00:02→10:22)
[2023-02-03] MEDS: D5 1/2 NS w/ 20 mEq/L KCl 1,000 ML IV SCH ×2 (02:50→12:17)
[2023-02-03 05:49] LABS: ANION GAP 7.3 (5-15); BUN/CREATININE RATIO 16.9 (14-18); CALCIUM 8.2 mg/dL (8.5-10.1); CREATININE 1.3 mg/dL (0.7-1.3); EST CRCL DRUG DOSING (CG) 38.84 mL/min; MAGNESIUM 2.1 mg/dL (1.8-2.4); POTASSIUM,K 4.3 mEq/L (3.5-5.1)
[2023-02-03 06:12] LABS: BASOPHILS ABSOLUTE AUTO 0.01 K/mm3 (0.01-0.08); BASOPHILS PERCENT AUTO 0.1 % (0.1-1.2); EOSINOPHILS ABSOLUTE AUTO 0.18 K/mm3 (0.04-0.54); EOSINOPHILS PERCENT AUTO 2.4 (0.8-7.0); IMMATURE GRAN ABSOLUTE AUTO 0.01 K/mm3 (0.00-0.10); IMMATURE GRAN PERCENT AUTO 0.1 % (<=1.0); LYMPHOCYTES ABSOLUTE AUTO 1.06 K/mm3 (1.32-3.57); LYMPHOCYTES PERCENT AUTO 14.4 % (21.8-53.1); MEAN CORPUSCULAR HEMOGLOBIN 27.5 pg (25.7-32.2); MEAN CORPUSCULAR HGB CONC 29.7 g/dl (32.2-35.5); MEAN CORPUSCULAR VOLUME 92.4 fl (79.0-92.2); MEAN PLATELET VOLUME 11.2 fl (9.4-12.3); MONOCYTES ABSOLUTE AUTO 0.91 K/mm3 (0.30-0.82); MONOCYTES PERCENT AUTO 12.3 % (5.3-12.2); NEUTROPHILS PERCENT AUTO 70.7 % (34.0-67.9); PLATELET COUNT,PLT 134 K/mm3 (163-337); RED BLOOD CELL COUNT 3.57 M/mm3 (4.63-6.08); WHITE BLOOD CELL COUNT,WBC 7.37 K/mm3 (4.23-9.07)
[2023-02-03 06:30] LABS: HEMOGLOBIN 9.8 gm/dl (13.7-17.5)
[2023-02-03] MEDS: Pantoprazole 40 MG Vial IV SCH ×2 (08:46→21:07)
[2023-02-03] MEDS ORDERED: Furosemide 40 MG/4 ML VIAL IVPUSH SCH (09:00)
[2023-02-03] MEDS: Silver Sulfadiazine 1% Crm 50 GM Tube TOP SCH (09:03)
[2023-02-03] MEDS: Formoterol/Mometasone 200-5 MCG 8.8 GM Inhaler IH SCH ×2 (09:06→20:31)
[2023-02-03] MEDS: Albuterol 0.083% 2.5 MG/3 ML Neb Soln NEB SCH ×2 (09:06→20:31)
[2023-02-03] MEDS ORDERED: Morphine 2 MG/ML SYRINGE IVPUSH PRN (11:47)
[2023-02-03] MEDS: Metoprolol Tartrate 5 MG/5 ML SDV IVPUSH SCH (14:03)
[2023-02-03] MEDS ORDERED: LORazepam 0.5 MG Tab PO PRN (14:35)
[2023-02-03] MEDS: Metoprolol Succinate 25 MG Tab.ER PO SCH (21:04)
[2023-02-03] MEDS: Azithromycin 250 MG Tab PO SCH (21:04)
[2023-02-03] MEDS: Furosemide 40 MG Tab PO SCH (21:06)
[2023-02-03] MEDS: Doxycycline Monohydrate 100 MG Cap PO SCH (21:06)
[2023-02-04] MEDS: Acetaminophen/HYDROcodone 325-10 MG Tab PO PRN ×2 (05:54→23:01)
[2023-02-04 06:25] LABS: BASOPHILS ABSOLUTE AUTO 0.02 K/mm3 (0.01-0.08); BASOPHILS PERCENT AUTO 0.3 % (0.1-1.2); EOSINOPHILS ABSOLUTE AUTO 0.49 K/mm3 (0.04-0.54); EOSINOPHILS PERCENT AUTO 7.1 (0.8-7.0); HEMATOCRIT 32.6 % (40.1-51.0); HEMOGLOBIN 9.8 gm/dl (13.7-17.5); IMMATURE GRAN ABSOLUTE AUTO 0.01 K/mm3 (0.00-0.10); IMMATURE GRAN PERCENT AUTO 0.1 % (<=1.0); MEAN CORPUSCULAR HEMOGLOBIN 27.5 pg (25.7-32.2); MEAN CORPUSCULAR HGB CONC 30.1 g/dl (32.2-35.5); MEAN CORPUSCULAR VOLUME 91.6 fl (79.0-92.2); MEAN PLATELET VOLUME 11.3 fl (9.4-12.3); MONOCYTES ABSOLUTE AUTO 0.75 K/mm3 (0.30-0.82); MONOCYTES PERCENT AUTO 10.9 % (5.3-12.2); NEUTROPHILS ABSOLUTE AUTO 4.49 K/mm3 (1.78-5.38); NEUTROPHILS PERCENT AUTO 65.6 % (34.0-67.9); PLATELET COUNT,PLT 150 K/mm3 (163-337); RED BLOOD CELL COUNT 3.56 M/mm3 (4.63-6.08); WHITE BLOOD CELL COUNT,WBC 6.86 K/mm3 (4.23-9.07)
[2023-02-04 06:37] LABS: ANION GAP 10.5 (5-15); BUN/CREATININE RATIO 14.2 (14-18); CALCIUM 8.2 mg/dL (8.5-10.1); CREATININE 1.2 mg/dL (0.7-1.3); EST CRCL DRUG DOSING (CG) 42.08 mL/min; MAGNESIUM 1.7 mg/dL (1.8-2.4); POTASSIUM,K 3.5 mEq/L (3.5-5.1)
[2023-02-04] MEDS ORDERED: Magnesium Sulfate/Water 2 GM in Premix Bag 1 BAG IV ONE (07:14)
[2023-02-04] MEDS: Furosemide 40 MG Tab PO SCH ×2 (08:07→21:49)
[2023-02-04] MEDS: Doxycycline Monohydrate 100 MG Cap PO SCH ×2 (08:07→21:46)
[2023-02-04] MEDS: Multivitamin Tab PO SCH (08:07)
[2023-02-04] MEDS: Pantoprazole 40 MG Vial IV SCH ×2 (08:07→21:50)
[2023-02-04] MEDS: Docusate Sodium 100 MG Cap PO SCH (08:09)
[2023-02-04] MEDS: Metoprolol Succinate 25 MG Tab.ER PO SCH ×2 (08:11→21:49)
[2023-02-04] MEDS: Finasteride 5 MG Tab PO SCH (08:12)
[2023-02-04] MEDS: Formoterol/Mometasone 200-5 MCG 8.8 GM Inhaler IH SCH ×2 (08:53→20:10)
[2023-02-04] MEDS: Albuterol 0.083% 2.5 MG/3 ML Neb Soln NEB SCH ×2 (08:53→20:10)
[2023-02-04] MEDS: Silver Sulfadiazine 1% Crm 50 GM Tube TOP SCH (14:22)
[2023-02-04] MEDS: D5 1/2 NS w/ 20 mEq/L KCl 1,000 ML IV SCH ×2 (15:37)
[2023-02-04] MEDS: Azithromycin 250 MG Tab PO SCH (21:48)
[2023-02-05] MEDS: Ondansetron 4 MG/2 ML SDV IVPUSH PRN ×2 (00:29→18:07)
[2023-02-05 05:51] LABS: ANION GAP 9.5 (5-15); CALCIUM 8.3 mg/dL (8.5-10.1); EST CRCL DRUG DOSING (CG) 50.49 mL/min; MAGNESIUM 1.8 mg/dL (1.8-2.4); POTASSIUM,K 3.5 mEq/L (3.5-5.1)
[2023-02-05 05:55] LABS: BASOPHILS ABSOLUTE AUTO 0.02 K/mm3 (0.01-0.08); BASOPHILS PERCENT AUTO 0.3 % (0.1-1.2); EOSINOPHILS PERCENT AUTO 5.9 (0.8-7.0); HEMATOCRIT 33.4 % (40.1-51.0); HEMOGLOBIN 10.2 gm/dl (13.7-17.5); IMMATURE GRAN ABSOLUTE AUTO 0.02 K/mm3 (0.00-0.10); IMMATURE GRAN PERCENT AUTO 0.3 % (<=1.0); LYMPHOCYTES ABSOLUTE AUTO 1.25 K/mm3 (1.32-3.57); LYMPHOCYTES PERCENT AUTO 18.5 % (21.8-53.1); MEAN CORPUSCULAR HEMOGLOBIN 27.7 pg (25.7-32.2); MEAN CORPUSCULAR HGB CONC 30.5 g/dl (32.2-35.5); MEAN CORPUSCULAR VOLUME 90.8 fl (79.0-92.2); MEAN PLATELET VOLUME 11.1 fl (9.4-12.3); MONOCYTES ABSOLUTE AUTO 0.69 K/mm3 (0.30-0.82); MONOCYTES PERCENT AUTO 10.2 % (5.3-12.2); NEUTROPHILS ABSOLUTE AUTO 4.37 K/mm3 (1.78-5.38); NEUTROPHILS PERCENT AUTO 64.8 % (34.0-67.9); PLATELET COUNT,PLT 174 K/mm3 (163-337); RED BLOOD CELL COUNT 3.68 M/mm3 (4.63-6.08); WHITE BLOOD CELL COUNT,WBC 6.75 K/mm3 (4.23-9.07)
[2023-02-05] MEDS: D5 1/2 NS w/ 20 mEq/L KCl 1,000 ML IV SCH ×2 (06:51→20:37)
[2023-02-05] MEDS: Albuterol 0.083% 2.5 MG/3 ML Neb Soln NEB SCH ×2 (09:15→20:45)
[2023-02-05] MEDS: Formoterol/Mometasone 200-5 MCG 8.8 GM Inhaler IH SCH ×2 (09:15→20:45)
[2023-02-05] MEDS: Pantoprazole 40 MG Vial IV SCH ×2 (11:00→20:36)
[2023-02-05] MEDS: Docusate Sodium 100 MG Cap PO SCH (11:00)
[2023-02-05] MEDS: Metoprolol Succinate 25 MG Tab.ER PO SCH ×2 (11:00→20:35)
[2023-02-05] MEDS: Finasteride 5 MG Tab PO SCH (11:01)
[2023-02-05] MEDS: Doxycycline Monohydrate 100 MG Cap PO SCH ×2 (11:01→20:35)
[2023-02-05] MEDS: Furosemide 40 MG Tab PO SCH ×2 (11:01→20:34)
[2023-02-05] MEDS: Multivitamin Tab PO SCH (11:02)
[2023-02-05] MEDS: Silver Sulfadiazine 1% Crm 50 GM Tube TOP SCH (11:03)
[2023-02-05] MEDS: Acetaminophen/HYDROcodone 325-10 MG Tab PO PRN (20:34)
[2023-02-05] MEDS: Azithromycin 250 MG Tab PO SCH (20:36)
[2023-02-06 05:28] LABS: BASOPHILS ABSOLUTE AUTO 0.03 K/mm3 (0.01-0.08); BASOPHILS PERCENT AUTO 0.5 % (0.1-1.2); EOSINOPHILS ABSOLUTE AUTO 0.45 K/mm3 (0.04-0.54); EOSINOPHILS PERCENT AUTO 7.3 (0.8-7.0); HEMATOCRIT 34.3 % (40.1-51.0); HEMOGLOBIN 10.4 gm/dl (13.7-17.5); IMMATURE GRAN ABSOLUTE AUTO 0.01 K/mm3 (0.00-0.10); IMMATURE GRAN PERCENT AUTO 0.2 % (<=1.0); LYMPHOCYTES ABSOLUTE AUTO 1.06 K/mm3 (1.32-3.57); LYMPHOCYTES PERCENT AUTO 17.3 % (21.8-53.1); MEAN CORPUSCULAR HEMOGLOBIN 27.6 pg (25.7-32.2); MEAN CORPUSCULAR HGB CONC 30.3 g/dl (32.2-35.5); MEAN PLATELET VOLUME 10.4 fl (9.4-12.3); MONOCYTES ABSOLUTE AUTO 0.82 K/mm3 (0.30-0.82); MONOCYTES PERCENT AUTO 13.4 % (5.3-12.2); NEUTROPHILS ABSOLUTE AUTO 3.77 K/mm3 (1.78-5.38); NEUTROPHILS PERCENT AUTO 61.3 % (34.0-67.9); PLATELET COUNT,PLT 173 K/mm3 (163-337); RED BLOOD CELL COUNT 3.77 M/mm3 (4.63-6.08); WHITE BLOOD CELL COUNT,WBC 6.14 K/mm3 (4.23-9.07)
[2023-02-06 05:52] LABS: ANION GAP 5.5 (5-15); CALCIUM 8.2 mg/dL (8.5-10.1); EST CRCL DRUG DOSING (CG) 50.49 mL/min; POTASSIUM,K 3.5 mEq/L (3.5-5.1)
[2023-02-06] MEDS: Albuterol 0.083% 2.5 MG/3 ML Neb Soln NEB SCH ×2 (08:53→20:32)
[2023-02-06] MEDS: Formoterol/Mometasone 200-5 MCG 8.8 GM Inhaler IH SCH ×2 (08:53→20:33)
[2023-02-06] MEDS: Doxycycline Monohydrate 100 MG Cap PO SCH ×2 (10:27→21:00)
[2023-02-06] MEDS: Pantoprazole 40 MG Vial IV SCH ×2 (10:27→21:00)
[2023-02-06] MEDS: Metoprolol Succinate 25 MG Tab.ER PO SCH ×2 (10:28→20:59)
[2023-02-06] MEDS: Multivitamin Tab PO SCH (10:29)
[2023-02-06] MEDS: Furosemide 40 MG Tab PO SCH ×2 (10:29→21:00)
[2023-02-06] MEDS: Docusate Sodium 100 MG Cap PO SCH (10:29)
[2023-02-06] MEDS: Finasteride 5 MG Tab PO SCH (10:30)
[2023-02-06] MEDS: D5 1/2 NS w/ 20 mEq/L KCl 1,000 ML IV SCH (10:30)
[2023-02-06] MEDS: Silver Sulfadiazine 1% Crm 50 GM Tube TOP SCH (10:30)
[2023-02-06] MEDS: Acetaminophen/HYDROcodone 325-10 MG Tab PO PRN (16:49)
[2023-02-06] MEDS: Azithromycin 250 MG Tab PO SCH (21:00)
[2023-02-07] MEDS: Acetaminophen/HYDROcodone 325-10 MG Tab PO PRN (00:10)
[2023-02-07] MEDS: Formoterol/Mometasone 200-5 MCG 8.8 GM Inhaler IH SCH (08:14)
[2023-02-07] MEDS: Albuterol 0.083% 2.5 MG/3 ML Neb Soln NEB SCH (08:14)
[2023-02-07] MEDS: Finasteride 5 MG Tab PO SCH (09:59)
[2023-02-07] MEDS: Pantoprazole 40 MG Vial IV SCH (09:59)
[2023-02-07] MEDS: Doxycycline Monohydrate 100 MG Cap PO SCH (09:59)
[2023-02-07] MEDS: Docusate Sodium 100 MG Cap PO SCH (09:59)
[2023-02-07] MEDS: Metoprolol Succinate 25 MG Tab.ER PO SCH (09:59)
[2023-02-07] MEDS: Multivitamin Tab PO SCH (09:59)
[2023-02-07] MEDS: Furosemide 40 MG Tab PO SCH (09:59)
[2023-02-07] MEDS: Silver Sulfadiazine 1% Crm 50 GM Tube TOP SCH (10:00)
== END 2023-02-07 13:25 | disposition home or self-care (01) | DRG 330 ==
LOC: JD.ED 17:29 → JD.MS 01-30 09:27 → JD.ICU 02-01 14:23 → JD.MS 02-03 15:42
PROVIDERS: ADMIT Hospitalist; ATTEND Internal Medicine
PROC: 0WBF0ZZ Excision of Abdominal Wall, Open Approach (ICD-10-PCS; principal; 2023-02-01)
PROC: 0DQ80ZZ Repair Small Intestine, Open Approach (ICD-10-PCS; 2023-02-01)
PROC: 0DN80ZZ Release Small Intestine, Open Approach (ICD-10-PCS; 2023-02-01)
PROC: 0DJD4ZZ Inspection of Lower Intestinal Tract, Percutaneous Endoscopic Approach (ICD-10-PCS; 2023-02-01)
DX: K56.609 Unspecified intestinal obstruction, unspecified as to partial versus complete obstruction (principal); N39.0 Urinary tract infection, site not specified; E86.0 Dehydration; K56.50 Intestinal adhesions [bands], unspecified as to partial versus complete obstruction; C78.01 Secondary malignant neoplasm of right lung; C78.7 Secondary malignant neoplasm of liver and intrahepatic bile duct; J44.9 Chronic obstructive pulmonary disease, unspecified; E66.9 Obesity, unspecified; C78.02 Secondary malignant neoplasm of left lung; J96.11 Chronic respiratory failure with hypoxia; J44.1 Chronic obstructive pulmonary disease with (acute) exacerbation; M86.671 Other chronic osteomyelitis, right ankle and foot; C79.51 Secondary malignant neoplasm of bone; R19.00 Intra-abdominal and pelvic swelling, mass and lump, unspecified site; H91.90 Unspecified hearing loss, unspecified ear; I95.81 Postprocedural hypotension; Z66 Do not resuscitate; H54.7 Unspecified visual loss; M54.50 Low back pain, unspecified; G89.29 Other chronic pain; N40.0 Benign prostatic hyperplasia without lower urinary tract symptoms; M54.9 Dorsalgia, unspecified; I11.0 Hypertensive heart disease with heart failure; I50.9 Heart failure, unspecified; I25.10 Atherosclerotic heart disease of native coronary artery without angina pectoris; E87.6 Hypokalemia; E83.42 Hypomagnesemia; I48.91 Unspecified atrial fibrillation; N40.1 Benign prostatic hyperplasia with lower urinary tract symptoms; R39.14 Feeling of incomplete bladder emptying; C43.9 Malignant melanoma of skin, unspecified; Z88.8 Allergy status to other drugs, medicaments and biological substances; Z79.899 Other long term (current) drug therapy; Z95.0 Presence of cardiac pacemaker; Z98.890 Other specified postprocedural states; Z98.49 Cataract extraction status, unspecified eye; Z86.73 Personal history of transient ischemic attack (TIA), and cerebral infarction without residual deficits; Z99.81 Dependence on supplemental oxygen; Z86.16 Personal history of COVID-19
CPT/HCPCS: 36415; 74176; 80053; 85025; 96361 ×2; 96365; 96375; 96376; 99285; A9270 ×4; J1170; J1450; J2405 ×2; J3490; J7030; 00790; 71045; 71045-26; 74018; 74018-26; 74250; 74250-26; 80048; 82947; 83735; 84100; 94640; 94760; 94761; 97162-GP; 97166-GO; 99100; 99222; 99232; 99233; C9113; J0690; J1265; J1642; J1885; J1940; J2270; J2370; J2704; J3010; J3475; J3480; J7040; J7042; J7620-GY

== ENCOUNTER 2023-03-30 00:18 | Emergency (ER) | payer MEDICARE, MEDICAID ==
[2023-03-30] MEDS ORDERED: LORazepam 2 MG/ML SDV IVPUSH STA (01:00)
[2023-03-30 01:49] LABS: HEMATOCRIT 32.5 % (40.1-51.0); HEMOGLOBIN 9.9 gm/dl (13.7-17.5); MEAN CORPUSCULAR HEMOGLOBIN 29.2 pg (25.7-32.2); MEAN CORPUSCULAR HGB CONC 30.5 g/dl (32.2-35.5); MEAN CORPUSCULAR VOLUME 95.9 fl (79.0-92.2); MEAN PLATELET VOLUME 9.8 fl (9.4-12.3); PLATELET COUNT,PLT 249 K/mm3 (163-337); RED BLOOD CELL COUNT 3.39 M/mm3 (4.63-6.08); WHITE BLOOD CELL COUNT,WBC 9.41 K/mm3 (4.23-9.07)
[2023-03-30 02:05] LABS: INR 1.05; PROTHROMBIN TIME 11.2 SECONDS (9.7-12.0)
[2023-03-30 02:07] LABS: PTT,PARTIAL THROMBOPLSTIN TIME 84.3 SECONDS (21.7-31.4)
[2023-03-30 02:09] LABS: D-DIMER QUANTITATIVE 1.5 mg/L (0.19-0.50)
[2023-03-30 02:26] LABS: LACTIC ACID 0.9 mmol/L (0.4-2.0)
[2023-03-30 02:27] LABS: BAND PERCENT MAN 0 % (0-10); BASOPHILS PERCENT MAN 0 (0.2-1.2); EOSINOPHILS PERCENT MAN 1 % (0.8-7.0); LYMPHOCYTES % ATYPICAL MANUAL 0 %; LYMPHOCYTES PERCENT MAN 9 % (20-40); MONOCYTES PERCENT MAN 6 % (2-10); MYELOCYTE PERCENT MAN 1
[2023-03-30 02:30] LABS: PLATELET COUNT ESTIMATE ADEQUATE
[2023-03-30 02:33] LABS: A/G RATIO 0.8 (1-2); ALANINE AMINOTRANSFERASE,ALT 15 U/L (16-63); ALBUMIN 2.8 g/dl (3.4-5.0); ALKALINE PHOSPHATASE 84 U/L (46-116); ANION GAP 8.6 (5-15); ASPARTATE AMNIOTRANSFERASE,AST 26 U/L (15-37); BILIRUBIN TOTAL 0.7 mg/dL (0.2-1.0); BLOOD UREA NITROGEN,BUN 27 mg/dL (7-18); BUN/CREATININE RATIO 22.5 (14-18); CALCIUM 8.8 mg/dL (8.5-10.1); CARBON DIOXIDE,CO2 33 mEq/L (21-32); CHLORIDE,CL 97 mEq/L (98-107); CREATININE 1.2 mg/dL (0.7-1.3); ESTIMATED GFR 59 mL/min (>60); GLUCOSE RANDOM 118 mg/dL (70-99); POTASSIUM,K 3.6 mEq/L (3.5-5.1); PROTEIN TOTAL,TP 6.4 g/dl (6.4-8.2); SODIUM,NA 135 mEq/L (136-145); TROPONIN I HIGH SENSITIVITY 23 pg/mL (<=76)
[2023-03-30 02:43] LABS: CORONAVIRUS COVID-19 NAA NEGATIVE (NEGATIVE); INFLUENZA A NAA NEGATIVE (NEGATIVE); RESPIRATORY SYNCYTIAL VIR NAA NEGATIVE (NEGATIVE)
== END 2023-03-30 03:38 | disposition home or self-care (01) ==
LOC: JD.ED 00:18
DX: J39.8 Other specified diseases of upper respiratory tract (principal); J44.9 Chronic obstructive pulmonary disease, unspecified; Z20.822 Contact with and (suspected) exposure to COVID-19; Z86.73 Personal history of transient ischemic attack (TIA), and cerebral infarction without residual deficits; Z88.8 Allergy status to other drugs, medicaments and biological substances; Z79.899 Other long term (current) drug therapy
CPT/HCPCS: 0241U; 36415; 71045; 80053; 83605; 83880; 84484; 85007; 85027; 85379; 85610; 85730; 87040; 96374; 99285; J2060; 99284

== ENCOUNTER 2023-03-30 12:21 | Inpatient (IN) | payer MEDICARE, MEDICAID ==
[2023-03-30 13:38] LABS: BASOPHILS ABSOLUTE AUTO 0.02 K/mm3 (0.01-0.08); BASOPHILS PERCENT AUTO 0.2 % (0.1-1.2); EOSINOPHILS ABSOLUTE AUTO 0.03 K/mm3 (0.04-0.54); EOSINOPHILS PERCENT AUTO 0.3 (0.8-7.0); HEMATOCRIT 34.8 % (40.1-51.0); HEMOGLOBIN 10.5 gm/dl (13.7-17.5); IMMATURE GRAN ABSOLUTE AUTO 0.02 K/mm3 (0.00-0.10); IMMATURE GRAN PERCENT AUTO 0.2 % (<=1.0); LYMPHOCYTES ABSOLUTE AUTO 0.82 K/mm3 (1.32-3.57); LYMPHOCYTES PERCENT AUTO 7.8 % (21.8-53.1); MEAN CORPUSCULAR HEMOGLOBIN 29.4 pg (25.7-32.2); MEAN CORPUSCULAR HGB CONC 30.2 g/dl (32.2-35.5); MEAN CORPUSCULAR VOLUME 97.5 fl (79.0-92.2); MEAN PLATELET VOLUME 9.6 fl (9.4-12.3); MONOCYTES ABSOLUTE AUTO 1.08 K/mm3 (0.30-0.82); MONOCYTES PERCENT AUTO 10.3 % (5.3-12.2); NEUTROPHILS ABSOLUTE AUTO 8.49 K/mm3 (1.78-5.38); NEUTROPHILS PERCENT AUTO 81.2 % (34.0-67.9); PLATELET COUNT,PLT 258 K/mm3 (163-337); RED BLOOD CELL COUNT 3.57 M/mm3 (4.63-6.08); WHITE BLOOD CELL COUNT,WBC 10.46 K/mm3 (4.23-9.07)
[2023-03-30] MEDS ORDERED: Sodium Chloride 0.9% 10 ML Syringe FLUSH PRN (13:40)
[2023-03-30] MEDS ORDERED: Iopamidol 612 MG/ML 100 ML Bottle IVPUSH ONE (13:40)
[2023-03-30 14:02] LABS: A/G RATIO 0.8 (1-2); ALBUMIN 2.9 g/dl (3.4-5.0); ANION GAP 8.4 (5-15); BILIRUBIN TOTAL 0.6 mg/dL (0.2-1.0); BUN/CREATININE RATIO 22.7 (14-18); C-REACTIVE PROTEIN 9.4 mg/dL (<1.0); CALCIUM 8.8 mg/dL (8.5-10.1); CREATININE 1.1 mg/dL (0.7-1.3); EST CRCL DRUG DOSING (CG) 42.52 mL/min; POTASSIUM,K 3.4 mEq/L (3.5-5.1); PROTEIN TOTAL,TP 6.7 g/dl (6.4-8.2)
[2023-03-30 14:23] LABS: BASE EXCESS ARTERIAL 3.4 (-2-2.0); BICARBONATE,ARTERIAL 32.3 meq/L (22.0-26.0); O2 SATURATION ARTERIAL 87.7 % (96.0-97.0)
[2023-03-30 14:25] LABS: PCO2 ARTERIAL 80.2 mmHg (35.0-45.0)
[2023-03-30 14:46] LABS: SLIDE REVIEW ABNORMAL SMEAR
[2023-03-30] MEDS ORDERED: Piperacillin/Tazobactam 4.5 GM in Sodium Chloride 0.9% 100 ML IV ONE (15:40)
[2023-03-30] MEDS ORDERED: Bisacodyl 5 MG Tab PO PRN (15:46)
[2023-03-30] MEDS ORDERED: oxyCODONE 5 MG Tab PO PRN (15:46)
[2023-03-30] MEDS ORDERED: Docusate Sodium 100 MG Cap PO PRN (15:46)
[2023-03-30] MEDS ORDERED: Acetaminophen 325 MG Tab PO PRN (15:46)
[2023-03-30] MEDS ORDERED: Potassium Chloride 20 MEQ Tab.ER PO ONE (16:39)
[2023-03-30] MEDS ORDERED: methylPREDNISolone Sodium Succinate 40 MG/1 ML SDV IVPUSH SCH (17:00)
[2023-03-30] MEDS ORDERED: VANCOmycin 1.5 GM/300 ML 1.5 GM in Premix Bag 1 BAG IV ONE (17:00)
[2023-03-30 17:50] LABS: BASE EXCESS ARTERIAL 4.1 (-2-2.0); BICARBONATE,ARTERIAL 30.7 meq/L (22.0-26.0); O2 SATURATION ARTERIAL 84.8 % (96.0-97.0); PCO2 ARTERIAL 59.7 mmHg (35.0-45.0)
[2023-03-30] MEDS: methylPREDNISolone Sodium Succinate 125 MG/2 ML SDV IVPUSH SCH (18:04)
[2023-03-30 18:28] LABS: APPEARANCE,URINE CLEAR (Clear); BILIRUBIN,URINE NEGATIVE (Negative); COLOR,URINE YELLOW (Yellow); GLUCOSE,URINE NEGATIVE (Negative); KETONES,URINE TRACE (Negative); LEUKOCYTE ESTERASE,URINE TRACE (Negative); NITRITE,URINE NEGATIVE (Negative); OCCULT BLOOD,URINE TRACE-LYSED (Negative); PH,URINE 5.5 (5.0-8.0); PROTEIN,URINE 1+ (Negative); UROBILINOGEN,URINE 0.2 (0.2-1.0)
[2023-03-30 18:53] LABS: BACTERIA,URINE FEW /hpf (FEW); MUCUS,URINE NOT SEEN /hpf (FEW); SQUAMOUS EPITHELIAL CELLS,UR 0-5 /hpf (0-5); YEAST,URINE FEW (NOT SEEN)
[2023-03-30] MEDS: Formoterol/Mometasone 200-5 MCG 8.8 GM Inhaler IH SCH (20:34)
[2023-03-30] MEDS: Albuterol/Ipratropium 3.0-0.5 MG/3 ML Neb Soln NEB PRN (20:34)
[2023-03-30] MEDS ORDERED: Furosemide 20 MG Tab PO SCH (21:00)
[2023-03-30] MEDS: Metoprolol Succinate 25 MG Tab.ER PO SCH (21:04)
[2023-03-30] MEDS: Doxycycline Monohydrate 100 MG Cap PO SCH (21:04)
[2023-03-30] MEDS: oxyCODONE ER 20 MG TAB.ER PO SCH (21:05)
[2023-03-31] MEDS: Piperacillin/Tazobactam 4.5 GM in Sodium Chloride 0.9% 100 ML IV SCH ×3 (00:59→17:12)
[2023-03-31] MEDS: methylPREDNISolone Sodium Succinate 125 MG/2 ML SDV IVPUSH SCH ×3 (00:59→17:09)
[2023-03-31] MEDS: oxyCODONE ER 20 MG TAB.ER PO SCH ×3 (05:11→21:15)
[2023-03-31 05:55] LABS: EOSINOPHILS PERCENT AUTO 0 (0.8-7.0); HEMATOCRIT 35.2 % (40.1-51.0); HEMOGLOBIN 10.6 gm/dl (13.7-17.5); IMMATURE GRAN ABSOLUTE AUTO 0.01 K/mm3 (0.00-0.10); IMMATURE GRAN PERCENT AUTO 0.1 % (<=1.0); LYMPHOCYTES ABSOLUTE AUTO 0.64 K/mm3 (1.32-3.57); LYMPHOCYTES PERCENT AUTO 7.3 % (21.8-53.1); MEAN CORPUSCULAR HEMOGLOBIN 29.4 pg (25.7-32.2); MEAN CORPUSCULAR HGB CONC 30.1 g/dl (32.2-35.5); MEAN CORPUSCULAR VOLUME 97.5 fl (79.0-92.2); MEAN PLATELET VOLUME 9.9 fl (9.4-12.3); MONOCYTES ABSOLUTE AUTO 0.13 K/mm3 (0.30-0.82); MONOCYTES PERCENT AUTO 1.5 % (5.3-12.2); NEUTROPHILS ABSOLUTE AUTO 8.02 K/mm3 (1.78-5.38); NEUTROPHILS PERCENT AUTO 91.1 % (34.0-67.9); PLATELET COUNT,PLT 268 K/mm3 (163-337); RED BLOOD CELL COUNT 3.61 M/mm3 (4.63-6.08)
[2023-03-31 06:06] LABS: A/G RATIO 0.7 (1-2); ALBUMIN 2.7 g/dl (3.4-5.0); ANION GAP 10.8 (5-15); BILIRUBIN TOTAL 0.7 mg/dL (0.2-1.0); BUN/CREATININE RATIO 24.2 (14-18); CALCIUM 8.9 mg/dL (8.5-10.1); CREATININE 1.2 mg/dL (0.7-1.3); EST CRCL DRUG DOSING (CG) 42.08 mL/min; MAGNESIUM 2.2 mg/dL (1.8-2.4); POTASSIUM,K 3.8 mEq/L (3.5-5.1); PROTEIN TOTAL,TP 6.6 g/dl (6.4-8.2); VANCOMYCIN RANDOM 20.1 ug/mL
[2023-03-31 06:19] LABS: C-REACTIVE PROTEIN 13.6 mg/dL (<1.0)
[2023-03-31] MEDS ORDERED: LORazepam 0.5 MG Tab PO PRN (07:02)
[2023-03-31 07:29] LABS: SLIDE REVIEW ABNORMAL SMEAR
[2023-03-31] MEDS: Metoprolol Succinate 25 MG Tab.ER PO SCH ×2 (08:52→21:15)
[2023-03-31] MEDS: Finasteride 5 MG Tab PO SCH (08:52)
[2023-03-31] MEDS: Furosemide 40 MG Tab PO SCH ×2 (08:53→21:15)
[2023-03-31] MEDS: Potassium Chloride 10 MEQ Tab.ER PO SCH (08:53)
[2023-03-31] MEDS: Doxycycline Monohydrate 100 MG Cap PO SCH ×2 (08:53→21:15)
[2023-03-31] MEDS ORDERED: Silver Sulfadiazine 1% Crm 50 GM Tube TOP SCH (09:00)
[2023-03-31] MEDS: Formoterol/Mometasone 200-5 MCG 8.8 GM Inhaler IH SCH ×2 (09:49→20:29)
[2023-03-31] MEDS: Albuterol/Ipratropium 3.0-0.5 MG/3 ML Neb Soln NEB PRN ×3 (09:49→20:28)
[2023-03-31] MEDS: Docusate Sodium 100 MG Cap PO SCH ×2 (14:24→21:13)
[2023-03-31] MEDS: guaiFENesin 600 MG Tab.ER PO SCH ×2 (14:24→21:15)
[2023-03-31] MEDS ORDERED: Sennosides/Docusate Sodium 50-8.6 MG Tab PO ONE (14:30)
[2023-03-31] MEDS ORDERED: Sennosides/Docusate Sodium 50-8.6 MG Tab PO PRN (21:00)
[2023-04-01] MEDS: Piperacillin/Tazobactam 4.5 GM in Sodium Chloride 0.9% 100 ML IV SCH ×2 (01:24→08:36)
[2023-04-01] MEDS ORDERED: predniSONE 20 MG Tab PO SCH (07:00)
[2023-04-01] MEDS: oxyCODONE ER 20 MG TAB.ER PO SCH (07:35)
[2023-04-01] MEDS: Finasteride 5 MG Tab PO SCH (08:36)
[2023-04-01] MEDS: guaiFENesin 600 MG Tab.ER PO SCH (08:36)
[2023-04-01] MEDS: Furosemide 40 MG Tab PO SCH (08:36)
[2023-04-01] MEDS: Potassium Chloride 10 MEQ Tab.ER PO SCH (08:36)
[2023-04-01] MEDS: Docusate Sodium 100 MG Cap PO SCH (08:36)
[2023-04-01] MEDS: Metoprolol Succinate 25 MG Tab.ER PO SCH (08:37)
[2023-04-01] MEDS: Doxycycline Monohydrate 100 MG Cap PO SCH (08:37)
[2023-04-01] MEDS ORDERED: oxyCODONE 5 MG Tab PO PRN (08:44)
[2023-04-01] MEDS ORDERED: oxyCODONE ER 20 MG TAB.ER PO SCH (09:00)
[2023-04-01] MEDS: Albuterol/Ipratropium 3.0-0.5 MG/3 ML Neb Soln NEB PRN (09:37)
[2023-04-01] MEDS: Formoterol/Mometasone 200-5 MCG 8.8 GM Inhaler IH SCH (09:37)
== END 2023-04-01 16:50 | disposition home or self-care (01) | DRG 177 ==
LOC: JD.ED 12:21 → JD.MS 15:36
PROVIDERS: ADMIT Emergency Medicine; ATTEND Internal Medicine
PROC: 4A13XR1 Monitoring of Arterial Saturation, Peripheral, External Approach (ICD-10-PCS; principal; 2023-03-30)
PROC: 5A09357 Assistance with Respiratory Ventilation, Less than 24 Consecutive Hours, Continuous Positive Airway Pressure (ICD-10-PCS; 2023-03-30)
DX: J69.0 Pneumonitis due to inhalation of food and vomit (principal); J96.21 Acute and chronic respiratory failure with hypoxia; J96.22 Acute and chronic respiratory failure with hypercapnia; N39.0 Urinary tract infection, site not specified; T83.510A Infection and inflammatory reaction due to cystostomy catheter, initial encounter; M86.271 Subacute osteomyelitis, right ankle and foot; I50.30 Unspecified diastolic (congestive) heart failure; J18.9 Pneumonia, unspecified organism; J44.9 Chronic obstructive pulmonary disease, unspecified; I48.91 Unspecified atrial fibrillation; I11.0 Hypertensive heart disease with heart failure; Z66 Do not resuscitate; M19.90 Unspecified osteoarthritis, unspecified site; I50.9 Heart failure, unspecified; F41.9 Anxiety disorder, unspecified; E87.6 Hypokalemia; N28.9 Disorder of kidney and ureter, unspecified; R62.7 Adult failure to thrive; Z85.820 Personal history of malignant melanoma of skin; Z87.81 Personal history of (healed) traumatic fracture; Z98.890 Other specified postprocedural states; Z68.21 Body mass index [BMI] 21.0-21.9, adult; Z86.16 Personal history of COVID-19; Z98.49 Cataract extraction status, unspecified eye; Z88.8 Allergy status to other drugs, medicaments and biological substances; E66.9 Obesity, unspecified; Z79.2 Long term (current) use of antibiotics; Z99.81 Dependence on supplemental oxygen; Z79.899 Other long term (current) drug therapy; Z87.442 Personal history of urinary calculi; Z95.0 Presence of cardiac pacemaker; Z86.73 Personal history of transient ischemic attack (TIA), and cerebral infarction without residual deficits
CPT/HCPCS: 36415; 71260; 80053; 85025; 86140; 94660; 99285; J3490; Q9967; 36600; 80202; 81001; 82803; 83735; 87040; 87086; 87641; 94640; 94667; 94668; 94762; 96523; 97165-GO; 97530-GO; 99222; 99231; A9270-GY; J1642; J2543; J2930; J3370; J7050; J7512; J7620-GY

== ENCOUNTER 2023-04-03 13:23 | Inpatient (IN) | payer MEDICARE, MEDICAID ==
[2023-04-03] MEDS ORDERED: Sodium Chloride 0.9% 10 ML Syringe FLUSH PRN ×2 (13:42→18:14)
[2023-04-03] MEDS ORDERED: Albuterol/Ipratropium 3.0-0.5 MG/3 ML Neb Soln NEB ONE ×2 (13:43→17:34)
[2023-04-03 14:23] LABS: BASOPHILS ABSOLUTE AUTO 0.01 K/mm3 (0.01-0.08); BASOPHILS PERCENT AUTO 0.1 % (0.1-1.2); EOSINOPHILS PERCENT AUTO 0 (0.8-7.0); HEMATOCRIT 41.9 % (40.1-51.0); HEMOGLOBIN 12.6 gm/dl (13.7-17.5); IMMATURE GRAN ABSOLUTE AUTO 0.03 K/mm3 (0.00-0.10); IMMATURE GRAN PERCENT AUTO 0.3 % (<=1.0); LYMPHOCYTES ABSOLUTE AUTO 1.33 K/mm3 (1.32-3.57); MEAN CORPUSCULAR HEMOGLOBIN 29.2 pg (25.7-32.2); MEAN CORPUSCULAR HGB CONC 30.1 g/dl (32.2-35.5); MEAN CORPUSCULAR VOLUME 97.2 fl (79.0-92.2); MEAN PLATELET VOLUME 9.2 fl (9.4-12.3); MONOCYTES ABSOLUTE AUTO 1.17 K/mm3 (0.30-0.82); MONOCYTES PERCENT AUTO 10.6 % (5.3-12.2); NEUTROPHILS ABSOLUTE AUTO 8.53 K/mm3 (1.78-5.38); PLATELET COUNT,PLT 342 K/mm3 (163-337); RED BLOOD CELL COUNT 4.31 M/mm3 (4.63-6.08); WHITE BLOOD CELL COUNT,WBC 11.07 K/mm3 (4.23-9.07)
[2023-04-03 14:52] LABS: A/G RATIO 0.7 (1-2); ALBUMIN 2.8 g/dl (3.4-5.0); ANION GAP 8.2 (5-15); BILIRUBIN TOTAL 0.7 mg/dL (0.2-1.0); BUN/CREATININE RATIO 32.3 (14-18); CALCIUM 9.3 mg/dL (8.5-10.1); CREATININE 1.3 mg/dL (0.7-1.3); EST CRCL DRUG DOSING (CG) 40.19 mL/min; POTASSIUM,K 3.2 mEq/L (3.5-5.1); PROTEIN TOTAL,TP 6.9 g/dl (6.4-8.2)
[2023-04-03 14:55] LABS: C-REACTIVE PROTEIN 12.6 mg/dL (<1.0)
[2023-04-03 16:56] LABS: BASE EXCESS ARTERIAL 10.2 (-2-2.0); O2 SATURATION ARTERIAL 92.4 % (96.0-97.0); PCO2 ARTERIAL 62.6 mmHg (35.0-45.0)
[2023-04-03] MEDS ORDERED: methylPREDNISolone Sodium Succinate 125 MG/2 ML SDV IVPUSH ONE ×2 (17:23→21:00)
[2023-04-03] MEDS ORDERED: Ondansetron 4 MG/2 ML SDV IV PRN (18:14)
[2023-04-03] MEDS ORDERED: Heparin Sodium 5,000 Units/ML Vial SUBCUT SCH (18:15)
[2023-04-03] MEDS ORDERED: Albuterol/Ipratropium 3.0-0.5 MG/3 ML Neb Soln NEB SCH (18:15)
[2023-04-03] MEDS ORDERED: Non-Formulary Medication 1 Each (Budesonide/Formoterol 6 GM Inhaler) INH SCH (21:00)
[2023-04-03] MEDS: Dextrose 5%-0.45% NaCl 1,000 ML IV SCH (21:23)
[2023-04-03] MEDS: Albuterol/Ipratropium 3.0-0.5 MG/3 ML Neb Soln NEB SCH (21:29)
[2023-04-03] MEDS ORDERED: Morphine 2 MG/ML SYRINGE IVPUSH PRN (21:39)
[2023-04-03] MEDS: Formoterol/Mometasone 200-5 MCG 8.8 GM Inhaler IH SCH (22:26)
[2023-04-03] MEDS ORDERED: Albuterol 6.7 GM Inhaler INH PRN (22:53)
[2023-04-04] MEDS: Albuterol/Ipratropium 3.0-0.5 MG/3 ML Neb Soln NEB SCH ×6 (01:30→21:13)
[2023-04-04 05:22] LABS: EOSINOPHILS PERCENT AUTO 0 (0.8-7.0); HEMATOCRIT 40.4 % (40.1-51.0); IMMATURE GRAN ABSOLUTE AUTO 0.01 K/mm3 (0.00-0.10); IMMATURE GRAN PERCENT AUTO 0.1 % (<=1.0); LYMPHOCYTES PERCENT AUTO 3.4 % (21.8-53.1); MEAN CORPUSCULAR HEMOGLOBIN 29.3 pg (25.7-32.2); MEAN CORPUSCULAR HGB CONC 29.7 g/dl (32.2-35.5); MEAN CORPUSCULAR VOLUME 98.5 fl (79.0-92.2); MEAN PLATELET VOLUME 9.4 fl (9.4-12.3); MONOCYTES ABSOLUTE AUTO 0.16 K/mm3 (0.30-0.82); MONOCYTES PERCENT AUTO 1.8 % (5.3-12.2); NEUTROPHILS ABSOLUTE AUTO 8.33 K/mm3 (1.78-5.38); NEUTROPHILS PERCENT AUTO 94.7 % (34.0-67.9); PLATELET COUNT,PLT 270 K/mm3 (163-337)
[2023-04-04 05:38] LABS: ANION GAP 8.2 (5-15); BUN/CREATININE RATIO 32.3 (14-18); CALCIUM 8.9 mg/dL (8.5-10.1); CREATININE 1.3 mg/dL (0.7-1.3); EST CRCL DRUG DOSING (CG) 35.56 mL/min; POTASSIUM,K 3.2 mEq/L (3.5-5.1)
[2023-04-04] MEDS: Dextrose 5%-0.45% NaCl 1,000 ML IV SCH ×3 (06:21→23:41)
[2023-04-04] MEDS: Potassium Chloride 10 MEQ in Premix Bag 1 BAG IV SCH ×6 (06:22→19:22)
[2023-04-04 06:23] LABS: SLIDE REVIEW ABNORMAL SMEAR
[2023-04-04] MEDS: Formoterol/Mometasone 200-5 MCG 8.8 GM Inhaler IH SCH ×2 (09:36→21:13)
[2023-04-04] MEDS ORDERED: Albuterol/Ipratropium 3.0-0.5 MG/3 ML Neb Soln NEB PRN (16:50)
[2023-04-05] MEDS: Albuterol/Ipratropium 3.0-0.5 MG/3 ML Neb Soln NEB SCH ×3 (01:31→09:02)
[2023-04-05] MEDS: Dextrose 5%-0.45% NaCl 1,000 ML IV SCH (07:38)
[2023-04-05] MEDS: Formoterol/Mometasone 200-5 MCG 8.8 GM Inhaler IH SCH (09:02)
[2023-04-05] MEDS ORDERED: Finasteride 5 MG Tab PO SCH (10:30)
[2023-04-05] MEDS ORDERED: Furosemide 40 MG Tab PO SCH (10:30)
[2023-04-05] MEDS ORDERED: Sennosides 8.6 MG Tab PO SCH (10:30)
[2023-04-05] MEDS ORDERED: Albuterol/Ipratropium 3.0-0.5 MG/3 ML Neb Soln NEB PRN (11:13)
[2023-04-05] MEDS ORDERED: Metoprolol Succinate 25 MG Tab.ER PO SCH ×2 (11:45→21:00)
[2023-04-05] MEDS ORDERED: Albuterol/Ipratropium 3.0-0.5 MG/3 ML Neb Soln INH SCH (13:00)
[2023-04-05] MEDS ORDERED: oxyCODONE ER 20 MG TAB.ER PO SCH (21:00)
== END 2023-04-05 14:45 | disposition home or self-care (01) | DRG 189 ==
LOC: JD.ED 13:23 → JD.MS 18:46
PROVIDERS: ADMIT Hospitalist; ATTEND Hospitalist
PROC: 4A13XR1 Monitoring of Arterial Saturation, Peripheral, External Approach (ICD-10-PCS; principal; 2023-04-03)
DX: J96.21 Acute and chronic respiratory failure with hypoxia (principal); J44.1 Chronic obstructive pulmonary disease with (acute) exacerbation; C79.9 Secondary malignant neoplasm of unspecified site; J96.22 Acute and chronic respiratory failure with hypercapnia; I11.0 Hypertensive heart disease with heart failure; I50.9 Heart failure, unspecified; F41.9 Anxiety disorder, unspecified; Z66 Do not resuscitate; I48.0 Paroxysmal atrial fibrillation; R13.10 Dysphagia, unspecified; I48.91 Unspecified atrial fibrillation; E66.9 Obesity, unspecified; Z88.8 Allergy status to other drugs, medicaments and biological substances; N40.0 Benign prostatic hyperplasia without lower urinary tract symptoms; Z79.2 Long term (current) use of antibiotics; Z87.442 Personal history of urinary calculi; Z87.81 Personal history of (healed) traumatic fracture; Z98.890 Other specified postprocedural states; Z86.16 Personal history of COVID-19; Z99.81 Dependence on supplemental oxygen; Z79.899 Other long term (current) drug therapy; Z95.0 Presence of cardiac pacemaker; Z86.73 Personal history of transient ischemic attack (TIA), and cerebral infarction without residual deficits
CPT/HCPCS: 36415; 36600; 71045; 71045-26; 80048; 80053; 82803; 85025; 86140; 92526-GN; 92610-GN; 94640; 94667; 94668; 94761; 94762; 96523; 99284; 99285; A9270-GY; J2930; J3480; J7042; J7620-GY

== ENCOUNTER 2023-04-06 14:22 | Emergency (ER) | payer MEDICARE, MEDICAID ==
[2023-04-06] MEDS ORDERED: Albuterol/Ipratropium 3.0-0.5 MG/3 ML Neb Soln NEB ONE (14:34)
[2023-04-06] MEDS ORDERED: Sodium Chloride 0.9% 1,000 ML IV ONE (14:38)
== END 2023-04-06 16:33 | disposition expired ==
LOC: JD.ED 14:22
DX: I46.9 Cardiac arrest, cause unspecified (principal); J44.1 Chronic obstructive pulmonary disease with (acute) exacerbation; M86.271 Subacute osteomyelitis, right ankle and foot; C43.9 Malignant melanoma of skin, unspecified; Z86.16 Personal history of COVID-19; I11.0 Hypertensive heart disease with heart failure; I50.9 Heart failure, unspecified; Z95.0 Presence of cardiac pacemaker; I48.91 Unspecified atrial fibrillation; Z86.73 Personal history of transient ischemic attack (TIA), and cerebral infarction without residual deficits; E66.9 Obesity, unspecified; Z79.899 Other long term (current) drug therapy; Z88.8 Allergy status to other drugs, medicaments and biological substances
CPT/HCPCS: 99285